=== PATIENT | female | born 1990 | race Asian ===

== ENCOUNTER 2024-12-18 21:20 | Outpatient (CLI) | payer OTHER, SELFPAY ==
[2024-12-18 21:40] VITALS: BMI 31.6
[2024-12-18 21:52] VITALS: PULSE 95; O2SAT 98
[2024-12-18 21:53] VITALS: O2SAT 76
[2024-12-18 21:54] VITALS: BP 110/59; PULSE 98
[2024-12-18 21:58] VITALS: RESP 18; TEMP 37.2
--- NOTE | 2024-12-20 09:18 | OB.TRI.NOTE ---
HPI - General General Date of Admission: 12/18/24 Date of Service: 12/18/24 Chief Complaint: decreased FM HPI Narrative STANTON BARRERA, is a 34 F who presents c/o decreased FM Maternal Data Information Final SYED: 04/03/25 Gestational age: 24 6/7 PFSH PFSH Home Medications ?Medication ?Instructions ?Recorded ?Last Taken ?Type aspirin 81 mg capsule 81 mg PO DAILY 12/18/24 12/18/24 18:00 History omega 6-ltf-mbq-fish oil 60 mg-90 1 cap PO DAILY 12/18/24 12/18/24 09:00 History mg-500 mg capsule (Fish Oil) vit no.95-ferrous 1 tab PO DAILY 12/18/24 12/18/24 18:00 History fumarate 28 mg-folic acid 800 mcg tablet () Allergy/AdvReac Type Severity Reaction Status Date / Time No Known Allergies Allergy Verified 12/18/24 21:48 NST FHR Rate Baby A Baseline: 145 Variability:: Moderate Accelerations:: 10 x 10 Decelerations:: None NST Reactive:: Appropriate for gestational age Uterine Activity:: no regular ctxs Assessment & Plan (1) 24 weeks gestation of : PLAN: FHTs appropriate for gest age, patient reassured. F/u as scheduled or prn. (2) Decreased movements, second trimester, not applicable or unspecified:
== END 2024-12-18 22:19 | disposition home or self-care (01) ==
LOC: WPOUT 21:38 → WP 21:40
PROVIDERS: Visit Provider Advanced Practice Midwife
DX: O36.8120 Decreased fetal movements, second trimester, not applicable or unspecified (principal); Z3A.24 24 weeks gestation of pregnancy
CPT/HCPCS: 59050; 99221; G0378

== ENCOUNTER 2025-03-29 10:04 | Inpatient (IN) | payer OTHER, SELFPAY ==
--- NOTE | 2025-03-26 14:22 | HP.PCM.OB_ITS ---
History and Physical Date of Admission: 03/30/25 pand All Collapse All Pre-Op History and Physical HPI: The patient is a 34 year old female presenting for pre-operative visit. She is scheduled for elective Primary cs, for low lying placenta Suspected LGA on 03/30/25. Procedure discussed along with risks, benefits and complications. Other alternatives discussed for management. Consent form signed? Yes. PAST MEDICAL HISTORY PAST MEDICAL HISTORY Diagnosis Date ? NEGATIVE MEDICAL HISTORY PAST SURGICAL HISTORY PAST SURGICAL HISTORY Procedure Laterality Date ? NONE CURRENT MEDICATIONS Current Outpatient Medications Medication Sig Dispense Refill ? Ijjvevqd-Ps-Hyt-Fe-FA tab Take 1 tablet by mouth once daily. 90 tablet 3 ? aspirin, enteric coated (ECOTRIN LOW STRENGTH) 81 mg EC tablet Take 1 tablet by mouth once daily. 90 tablet 3 ? omega 4-jfe-pec-fish oil 60-90-500 mg cap Take 1 tablet by mouth once daily. 90 capsule 2 No current facility-administered medications for this visit. ALLERGIES: Patient has no known allergies. PERSONAL HISTORY: SOCIAL HISTORY Social History Tobacco Use ? Smoking status: Never ? Smokeless tobacco: Never Vaping Use ? Vaping status: Never Used Substance Use Topics ? Alcohol use: Not Currently ? Drug use: Never FAMILY HISTORY: FAMILY HISTORY FAMILY HISTORY Problem Relation Age of Onset ? Cancer Mother ? No Known Problems Father ? No Known Problems Brother ? Hypertension Maternal Grandmother ? Hypertension Maternal Grandfather ? No Known Problems Paternal Grandmother ? No Known Problems Paternal Grandfather REVIEW OF SYMPTOMS: negative except as noted above PHYSICAL EXAMINATION: VITALS: Blood pressure 116/70, weight 100.2 kg (221 lb), last menstrual period 06/27/2024. GENERAL: The patient is well nourished, well hydrated in no acute distress. , The patient is oriented to time, place, and person. NECK: full range of motion Abd: gravid, non tender IMPRESSION: 34yo @ 38.6 weeks PLAN: Primary cs for low lying placenta <5mm from OS and suspected LGA Pt has been counseled on risks/benefits and alternatives of surgery including but not limited to anesthesia, bleeding, infection, injury to pelvic structures including bowel, bladder, ureters and vessels. Pt wishes to proceed with s urgery at this time. Pt understands risk of hemorrhage and possible need for transfusion. Pt understands that growth likely not at 5000g and that ultrasound may be under or over estimating weight. I have reviewed and updated past medical and surgical history, medications and allergies Zeina Cifuentes MD
[2025-03-29] VITALS (21 sets, daily range): BP systolic 69–111; BP diastolic 45–78; PULSE 70–152; RESP 14–20; TEMP 36–36.7; O2SAT 97–100; BMI 36.3
[2025-03-29] MEDS: Lactated Ringers 1,000 ML 999 ML IV ×2 (10:25→20:00)
[2025-03-29 10:42] LABS: Absolute Lymphocyte Count 2.18 X10^3/uL (0.83-4.51); Absolute Neutrophil Count 10.3 X10^3/uL (2.0-7.7); Basophil# 0.03 X10^3/uL; Basophil% 0.2 % (0-1); Eosinophil# 0.12 X10^3/uL; Eosinophils% 0.9 % (0-5); Hematocrit 41.2 % (37-47); Hemoglobin 13.5 g/dL (12.0-15.0); Lymphocyte # 2.18 X10^3/ul (0.83-4.51); Lymphocyte % 15.8 % (19-41); Mean Corp Hgb Conc 32.8 g/dL (32-36); Mean Corpuscular Hgb 25.4 pg (27.0-32.0); Mean Corpuscular Volume 77.6 fL (81-99); Mean Platelet Vol. 11.1 fl (6.2-12.0); Monocyte# 0.97 X10^3/uL; NRBC Flagged by Analyzer 0 % (0-5); Neutrophil # 10.32 X10^3/uL (2.7-7.7); Neutrophil % 74.8 % (47-70); Platelet Count 256 K/mm3 (150-450); RBC Distribution Width CV 15.2 % (11.6-14.6); RBC Distribution Width SD 42.4 fl (35.1-43.9); Red Blood Count 5.31 M/mm3 (4.2-5.4); White Blood Count 13.8 K/mm3 (4.4-11.0)
[2025-03-29 11:12] LABS: Syphilis Antibodies Nonreactive (Nonreactive)
[2025-03-29] MEDS: Acetaminophen 500 MG Tablet 1000 MG PO ×2 (11:14→17:47)
[2025-03-29] MEDS: Lactated Ringers 1,000 ML 150 ML IV (11:21)
[2025-03-29] MEDS: Sodium Citrate/Citric Acid 30 ML UDC PO (12:19)
[2025-03-29] MEDS: Cefazolin 2 GM in 0.9% Normal Saline (100mL Bag) 100 ML IV (12:39)
[2025-03-29] MEDS: Oxytocin 15 Units/NS 250ml 15 UNITS/250 ML IV.SOLN 83 UNITS IV (14:00)
[2025-03-29] MEDS: Lactated Ringers 1,000 ML 100 ML IV (14:10)
[2025-03-29] MEDS: Ketorolac 30 MG/ML Syringe IV (14:57)
--- NOTE | 2025-03-29 17:58 | PCM.OPRPT ---
Problems Associated Problem List Diagnoses (1) 39 weeks gestation of : (2) Accelerated growth of fetus: (3) Low lying placenta, antepartum: Operative Report (Standard) Operative Information Date of Procedure: 03/29/25 Pre-Operative Diagnosis: 39 week gestation, suspected macrosomia, low lying placenta Post-Operative Diagnosis: As above Surgery/Procedure Performed: PLTCS via pfannenstiel incision manager lvn: Yes Strategic Procurement Manager: Angella Riggs PGY-3 Tasks completed by contact center assistant: Closing and Retracting Type of Anesthesia: Spinal RN Documented Start/Stop Times: Operation Date: 03/29/25 12:00 <No data on this case meets the specified criteria> Procedure Start Time: 12:46 Procedure Stop Time: 13:31 Select all DRAINS/GRAFTS/IMPLANTS that apply: None Estimated Blood Loss: 600 mL Fluids Replaced: See anesthesia record Specimen collected: No Description of surgery: The patient was taken to the operating room where spinal anesthesia was found to be adequate. She was prepped and draped in the dorsal supine position with a leftward tilt. A Pfannenstiel skin incision was made with a scalpel and this incision was carried down to the underlying layer of fascia. The fascia was incised in the midline. The fascial incision was extended laterally using Raines scissors. The fascia was tented and dissected off the rectus muscles in both a cephalad and caudad direction with blunt dissection. The rectus muscles were already in the midline. The peritoneum was entered bluntly with good visualization of the bladder. The peritoneal incision was extended with lateral traction. A bladder blade was inserted. A low transverse incision was made on the uterus with a scalpel. The uterine incision was extended with cephalad and caudad traction. The head of the was delivered in a flexed position followed by the body of the without any traction, force, or delay. The cord was clamped and cut immediately give an anterior and low lying placenta. A vigorous viable female was handed off to the waiting nursery staff. The placenta was noted to be anterior upon entry. The placenta was removed with manual extraction, and was noted to be low-lying. The uterus was cleared of all clot debris. The uterus was exteriorized. The hysterotomy was closed with 1-0 Vicryl in a running locked fashion. 2 additional [id number]-yx-nlxst sutures were placed for hemostasis. Hemostasis was confirmed. The bilateral adnexa were normal-appearing. The uterus was placed back into the abdomen. Gutters were cleared of all clot and debris. Jeferson was placed over the hysterotomy and lower uterine segment. Hemostasis was again confirmed. The peritoneum was unable to be reapproximated as it was thin and tearing. The subfascial space was inspected and noted to be hemostatic. The fascia was closed with STRATAFIX in a running fashion. The subcutaneous space was irrigated and made hemostatic with the Bovie cautery. The subcutaneous space was reapproximated with 3-0 Vicryl in a running fashion. The skin was closed with 4-0 Monocryl in a subcuticular fashion. Silver dressing was placed over the incision. Instrument, sponge, sharp counts were correct x 2 the patient was taken to the recovery in stable condition. Surgical Findings: Vigorous VFI with Apgars 8, 9. Clear fluid. Normal appearing placenta with 3 VC. Normal appearing uterus and bilateral adnexa. Low lying and anterior placenta Complications Complications: No Admit VTE Documentation VTE Present on Admission: No VTE Mechan Device Prophylaxis: SCD's
--- OUTSIDE RECORDS SUMMARY | 2025-03-29 19:51 | XMS RPT_ITS | CCD ---
Author Organization [facility] Care Team Providers Care Campground Hand Name Role Phone Unavailable Primary Care Provider Unavailabl e HAURY, PALMA Referring Unavailable LASHAWN, NE L Referring Unavailable VIGNESH, TALITA Attending Unavailable LASHAWN, EN L Referring Unavailable SELF Referring Unavailable HAURY, PALMA Attending Unavailable ZEINA LAINEZ Attending Unavail able HAURY, PALMA Referring Unavailable PLOTYOBANY, FATOU Attending Unavailable LAWANDA DIAZ Attending Unavailable VIGNESH, TALITA Referring Unavailable LASHAWN, NE L Referring Unavailable HAURY, PALMA Attending Unavailable PEYMAN HAWTHORNE Attending Unavailable HAURY, PALMA Referring Unavailable SELF Referring Unavailable HAURY, PALMA Attending Unavailable LASHAWN, NE L Attending Unavailable HAURY, PALMA Referring Unavailable VIGNEHS, TALITA Referring Unavailable SAMINA, FATOU Attending Unavailable VIGNESH, TALITA Referring Unavailable LAWANDA DIAZ Attending Unavailable HAURY, PALMA Attending Unavailable MEDELLIN, TALITA Attending Unavailable LASHAWN, NE L Attending Unavailable BHARTI TERESA Attending Unavailable HAURY, PALMA Referring Unavailable HAURY, APLMA Referring Unavailable HAURY, PALMA Attending Unavailable Care Physician, No Primary Primary Care Unava ilable Lawanda Diaz Admitting Unavailable Lawanda Diaz Attending Unavailable Care Physician, No Primary Primary Care Unava ilable Talita Medellin Attending Unavailable Care Physician, No Primary Primary Care Unava ilable Lashawn Ne Admitting Unavailable Lashawn Ne Attending Unavailable Lahsawn, Ne Referring Unavailable Medications Current Medications Medication Drug Class(es) Dates Sig (Normalized) Sig (Original) amoxicillin 500 mg oral capsule (1 source) Penicillin-class Antibacterial Start: 08-16-2024 End: 08-23-2024 take 1 capsule by mouth four times daily amoxicillin (AMOXIL) 500 mg capsule Take 1 capsule by mouth four times daily for 7 days. 28 capsule 08/16/2024 08/23/2024 Active aspirin 81 mg delayed release oral tablet (20 sources) Platelet Aggregation Inhibitor, Nonsteroidal Anti-inflammatory Drug Start: 08-11-2024 End: 12-08-2024 take 1 tablet by mouth once daily aspirin, enteric coated (ECOTRIN LOW STRENGTH) 81 mg EC tablet Indications: Encounter for supervision of normal first in second trimester (HCC) Take 1 tablet by mouth once daily. 90 tablet 3 12/08/2024 Active omega 9-csj-hbe-fish oil 60-90-500 mg cap (20 sources) Start: 09-29-2024 take 1 tablet by mouth once daily omega 1-pzn-veg-fish oil 60-90-500 mg cap Take 1 tablet by mouth once daily. 90 capsule 2 09/29/2024 Active Hruuisur-Lc-Bns-Fe -FA tab (20 sources) Start: 01-22-2025 take 1 tablet by mouth once daily Ltqkxyyo-Ro-Pfq-F e-FA tab Take 1 tablet by mouth once daily. 90 tablet 3 01/22/2025 Active Start: 07-31-2024 End: 01-22-2025 take 1 tablet by mouth once daily Xmwkyccs-Ox-Cus-Fe-FA tab Take 1 tablet by mouth once daily. 90 tablet 3 07/31/2024 01/22/2025 Discontinued Start: 07-31-2024 take 1 tablet by gwen th once daily Lhiamflq-Ov-Kfk-Fe-FA tab Take 1 tablet by mouth once daily. 90 tablet 3 07/31/2024 Active Completed/Discontinued Medications Medication Drug Class(es) Dates Sig (Normalized) Sig (Original) famotidine 20 mg oral tablet (20 sources) Histamine-2 Receptor Antagonist Start: 07-31-2024 End: 02-23-2025 take 1 tablet by mouth twice daily famotidine (PEPCID) 20 mg tablet Take 1 tablet by mouth two times a day. 60 tablet 3 08/11/2024 02/23/2025 Discontinued Problems Active Problems Problem Classification Problem Date Documented Date Episodic/Chronic Diabetes or abnormal glucose tolerance complicating ; childbirth; or the puerperium (13 sources) Abnormal glucose level; Translations: [Abnormal glucose complicating ] Onset: 01-15-2025 01-22-2025 Episodic Headache; including migraine (1 source) Headache; including migraine; Translations: [ headache in second trimester] Onset: 09-29-2024 Hemorrhage during ; abruptio placenta; placenta previa (20 sources) Low lying placenta; Translations: [Low lying placenta NOS or without hemorrhage, unspecified trimester] Onset: 11-15-2024 11-15-2024 Episodic Immunizations and screening for infectious disease (3 sources) Needs influenza immunization; Translations: [Encounter for immunization] 08-28-2024 Episodic Other complications of (2 sources) Vaginal discharge; Translations: [Other specified related conditions, first trimester] 09-29-2024 Episodic Other complications of (13 sources) Excessive weight gain in , third trimester; Translations: [Edema or excessive weight gain in , without mention of hypertension, antepartum condition or complication] Onset: 02-23-2025 02-23-2025 Episodic Other complications of (9 sources) Excessive growth affecting management of mother; Translations: [Maternal care for excessive growth, third trimester, not applicable or unspecified] Onset: 03-13-2025 03-15-2025 Episodic Other complications of (1 source) High risk ; Translations: [Supervision of high risk , unspecified, third trimester] 03-26-2025 Episodic Other complications of (1 source) Maternal care for excessive growth, third trimester, not applicable or unspecified; Translations: [Excessive growth affecting management of in third trimester, single or unspecified fetus (HCC)] Onset: 03-13-2025 Episodic Other complications of (1 source) Supervision of high risk , unspecified, third trimester; Translations: [Supervision of high risk in third trimester (HCC)] Onset: 03-26-2025 Episodic Other complications of (1 source) Decreased movements, second trimester, not applicable or unspecified; Translations: [Decreased movements, second trimester, not applicable or unspecified] Onset: 02-07-2025 Episodic Other female genital disorders (3 sources) Other specified noninflammatory disorders of vagina; Translations: [Vaginal discharge] Onset: 09-29-2024 Episodic Other and delivery including normal (20 sources) test positive; Translations: [Encounter for test, result positive] Onset: 08-11-2024 07-31-2024 Episodic Other screening for suspected conditions (not mental disorders or infectious disease) (8 sources) Patient encounter status; Translations: [Encounter for screening for malformations] Onset: 09-29-2024 09-29-2024 Episodic Residual codes; unclassified (1 source) Gestation period, 6 weeks; Translations: [Less than 8 weeks gestation of ] 08-11-2024 Episodic Residual codes; unclassified (1 source) Gestation period, 8 weeks; Translations: [8 weeks gestation of ] 08-28-2024 Episodic Residual codes; unclassified (1 source) Gestation period, 13 weeks; Translations: [13 weeks gestation of ] 09-29-2024 Episodic Residual codes; unclassified (1 source) Gestation period, 14 weeks; Translations: [14 weeks gestation of ] 10-09-2024 Episodic Residual codes; unclassified (2 sources) Gestation period, 19 weeks; Translations: [19 weeks gestation of ] 11-13-2024 Episodic Residual codes; unclassified (1 source) Gestation period, 23 weeks; Translations: [23 weeks gestation of ] 12-08-2024 Episodic Residual codes; unclassified (2 sources) Gestation period, 27 weeks; Translations: [27 weeks gestation of ] 01-08-2025 Episodic Residual codes; unclassified (1 source) Gestation period, 29 weeks; Translations: [29 weeks gestation of ] 01-22-2025 Episodic Residual codes; unclassified (1 source) Gestation period, 33 weeks; Translations: [33 weeks gestation of ] 02-15-2025 Episodic Residual codes; unclassified (1 source) Gestation period, 34 weeks; Translations: [34 weeks gestation of ] 02-23-2025 Episodic Residual codes; unclassified (1 source) Gestation period, 37 weeks; Translations: [37 weeks gestation of ] 03-15-2025 Episodic Residual codes; unclassified (2 sources) Gestation period, 38 weeks; Translations: [38 weeks gestation of ] 03-22-2025 Episodic Residual codes; unclassified (1 source) 38 weeks gestation of ; Translations: [38 weeks gestation of (HCC)] Onset: 03-26-2025 Episodic Residual codes; unclassified (1 source) 37 weeks gestation of ; Translations: [37 weeks gestation of (HCC)] Onset: 03-15-2025 Episodic Residual codes; unclassified (1 source) 36 weeks gestation of ; Translations: [36 weeks gestation of (HCC)] Onset: 03-09-2025 Episodic Residual codes; unclassified (1 source) 34 weeks gestation of ; Translations: [34 weeks gestation of (HCC)] Onset: 02-23-2025 Episodic Residual codes; unclassified (1 source) 33 weeks gestation of ; Translations: [33 weeks gestation of (HCC)] Onset: 02-15-2025 Episodic Residual codes; unclassified (1 source) 32 weeks gestation of ; Translations: [32 weeks gestation of (HCC)] Onset: 02-07-2025 Episodic Residual codes; unclassified (1 source) 27 weeks gestation of ; Translations: [27 weeks gestation of (HCC)] Onset: 02-07-2025 Episodic Residual codes; unclassified (1 source) 29 weeks gestation of ; Translations: [29 weeks gestation of (HCC)] Onset: 01-22-2025 Episodic Unclassified (20 sources) [facility] Education - COMMON Onset: 07-31-2024 07-31-2024 Unclassified (20 sources) Education - [place] Onset: 07-31-2024 07-31-2024 Unclassified (1 source) Rubella non-immune status, antepartum ([facility]); Translations: [Rubella non-immune status, antepartum ([facility])] Onset: 08-30-2024 Urinary tract infections (1 source) Urinary tract infectious disease; Translations: [Urinary tract infection, site not specified] 08-28-2024 Episodic Past or Other Problems Problem Classification Problem Date Documented Date Episodic/Chronic Other complications of (20 sources) Heartburn; Translations: [Other specified related conditions, first trimester] Onset: 07-31-2024 Resolved: 09-29-2024 07-31-2024 Episodic Other complications of (18 sources) Vomiting of , unspecified; Translations: [Unspecified vomiting of , unspecified as to episode of care or not applicable] Onset: 08-11-2024 08-11-2024 Episodic Other complications of (20 sources) Headache; Translations: [Other specified related conditions, second trimester] Onset: 09-29-2024 09-29-2024 Episodic Other complications of (20 sources) Rubella non-immune; Translations: [Supervision of other high risk pregnancies, unspecified trimester] Onset: 08-30-2024 08-30-2024 Episodic Other complications of (20 sources) Spotting per vagina in ; Translations: [Spotting complicating , second trimester] Onset: 10-09-2024 10-09-2024 Episodic Other complications of (1 source) Supervision of other high risk pregnancies, unspecified trimester; Translations: [Rubella non-immune status, antepartum (HCC)] Onset: 08-30-2024 Episodic Other complications of (1 source) Other specified related conditions, first trimester; Translations: [Vaginal discharge during in first trimester] Onset: 09-29-2024 Episodic Other complications of (1 source) Other specified related conditions, second trimester; Translations: [ headache in second trimester] Onset: 09-29-2024 Episodic Other female genital disorders (20 sources) Pruritus of vagina; Translations: [Other specified noninflammatory disorders of vagina] Onset: 08-11-2024 Resolved: 09-29-2024 08-11-2024 Episodic Other hematologic conditions (20 sources) Microcytosis; Translations: [Other abnormality of red blood cells] Onset: 08-30-2024 08-30-2024 Episodic Residual codes; unclassified (16 sources) At risk for depressed mood; Translations: [Other specified personal risk factors, not elsewhere classified] Onset: 08-11-2024 08-11-2024 Episodic Residual codes; unclassified (10 sources) Other specified personal risk factors, not elsewhere classified; Translations: [Other specified conditions influencing health status] Onset: 08-11-2024 08-11-2024 Episodic Residual codes; unclassified (1 source) 19 weeks gestation of ; Translations: [19 weeks gestation of ] Onset: 11-13-2024 Episodic Residual codes; unclassified (1 source) 13 weeks gestation of ; Translations: [13 weeks gestation of ] Onset: 09-29-2024 Episodic Results Test Name Value Interpretation Reference Range Facil ity H AND P Exam - OB/GYNon 06-0 H&P Exam - DIRECTOR CARDIOVASCULAR [facility] Medical Records Department [address] [place] [address] H P Exam - DIRECTOR CARDIOVASCULAR 03/26/25 1422 MR#: [id number] Acct: [id number] Name: AMPARO CABRAL Rep #: [id number] : 1990 34 From: Zeina Mi MD PCP: Care Physician,No Primary Status:PRE IN [facility] Date of Admission: 03/30/25 pand All Collapse All Pre-Op History and Physical HPI: The patient is a 34 year old female presenting for pre-operative visit. She is scheduled for elective Primary cs, for low lying placenta Suspected LGA on 03/30/25. Procedure discussed along with risks, benefits and complications. Other alternatives discussed for management. Consent form signed? Yes. PAST MEDICAL HISTORY PAST MEDICAL HISTORY Diagnosis Date ??? NEGATIVE MEDICAL HISTORY PAST SURGICAL HISTORY PAST SURGICAL HISTORY Procedure Laterality Date ??? NONE CURRENT MEDICATIONS Current Outpatient Medications Medication Sig Dispense Refill ??? Keyixtpa-Vb-Tga-Fe-F A tab Take 1 tablet by mouth once daily. 90 tablet 3 ??? aspirin, enteric coated (ECOTRIN LOW STRENGTH) 81 mg EC tablet Take 1 tablet by mouth once daily. 90 tablet 3 ??? omega 7-guj-jkq-fish oil 60-90-500 mg cap Take 1 tablet by mouth once daily. 90 capsule 2 No current facility-administere d medications for this visit. ALLERGIES: Patient has no known allergies. PERSONAL HISTORY: SOCIAL HISTORY Social History Tobacco Use ??? Smoking status: Never ??? Smokeless tobacco: Never Vaping Use ??? Vaping status: Never Used Substance Use Topics ??? Alcohol use: Not Currently ??? Drug use: Never FAMILY HISTORY: FAMILY HISTORY FAMILY HISTORY Problem Relation Age of Onset ??? Cancer Mother ??? No Known Problems Father ??? No Known Problems Brother ??? Hypertension Maternal Grandmother ??? Hypertension Maternal Grandfather ??? No Known Problems Paternal Grandmother ??? No Known Problems Paternal Grandfather REVIEW OF SYMPTOMS: negative except as noted above PHYSICAL EXAMINATION: VITALS: Blood pressure 116/70, weight 100.2 kg (221 lb), last menstrual period 06/27/2024. GENERAL: The patient is well nourished, well hydrated in no acute distress. , The patient is oriented to time, place, and person. NECK: full range of motion Abd: gravid, non tender IMPRESSION: 34yo @ 38.6 weeks PLAN: Primary cs for low lying placenta <5mm from OS and suspected LGA Pt has been counseled on risks/benefits and alternatives of surgery including but not limited to anesthesia, bleeding, infection, injury to pelvic structures including bowel, bladder, ureters and vessels. Pt wishes to proceed with surgery at this time. Pt understands risk of hemorrhage and possible need for transfusion. Pt understands that growth likely not at 5000g and that ultrasound may be under or over estimating weight. I have reviewed and updated past medical and surgical history, medications and allergies Zeina Strickland MD 03/26/25 1423 Cosigner Signature (if applicable): CC: Dr Zeina Mi MD; No Primary Care Physician Signed [facility] HISTORY PHYSICALon HISTORY PHYSICAL HNO ID: [id number] Author: ZEINA LAINEZ MD Service: ? Author Type: Physician Type: H&P Filed: 03/26/2025 14:24 Note Text: Pre-Op History and Physical HPI: The patient is a 34 year old female presenting for pre-operative visit. She is scheduled for elective Primary cs, for low lying placenta Suspected LGA on 03/30/25. Procedure discussed along with risks, benefits and complications. Other alternatives discussed for management. Consent form signed? Yes. PAST MEDICAL HISTORY Diagnosis Date NEGATIVE MEDICAL HISTORY PAST SURGICAL HISTORY Procedure Laterality Date NONE Current Outpatient Medications Medication Sig Dispense Refill Umllqdzi-Gi-Uou-Fe-F A tab Take 1 tablet by mouth once daily. 90 tablet 3 aspirin, enteric coated (ECOTRIN LOW STRENGTH) 81 mg EC tablet Take 1 tablet by mouth once daily. 90 tablet 3 omega 7-kbk-jsr-fish oil 60-90-500 mg cap Take 1 tablet by mouth once daily. 90 capsule 2 No current facility-administere d medications for this visit. ALLERGIES: Patient has no known allergies. PERSONAL HISTORY: Social History Tobacco Use Smoking status: Never Smokeless tobacco: Never Vaping Use Vaping status: Never Used Substance Use Topics Alcohol use: Not Currently Drug use: Never FAMILY HISTORY: FAMILY HISTORY Problem Relation Age of Onset Cancer Mother No Known Problems Father No Known Problems Brother Hypertension Maternal Grandmother Hypertension Maternal Grandfather No Known Problems Paternal Grandmother No Known Problems Paternal Grandfather REVIEW OF SYMPTOMS: negative except as noted above PHYSICAL EXAMINATION: VITALS: Blood pressure 116/70, weight 100.2 kg (221 lb), last menstrual period 06/27/2024. GENERAL: The patient is well nourished, well hydrated in no acute distress. , The patient is oriented to time, place, and person. NECK: full range of motion Abd: gravid, non tender IMPRESSION: 34yo @ 38.6 weeks PLAN: Primary cs for low lying placenta and suspected LGA Pt has been counseled on risks/benefits and alternatives of surgery including but not limited to anesthesia, bleeding, infection, injury to pelvic structures including bowel, bladder, ureters and vessels. Pt wishes to proceed with surgery at this time. Pt understands risk of hemorrhage and possible need for transfusion. Pt understands that growth likely not at 5000g and that ultrasound may be under or over estimating weight. I have reviewed and updated past medical and surgical history, medications and allergies Zeina Strickland MD Normal [facility] URINE OB DIP B/Oon Glucose Ql (U) Negative Neg mg/dL [facility] Protein.monoclonal (U) [Mass/Vol] Negative Neg mg/dL [facility] CNPNon 03-19-2025 CNPN Telephone (OBGYWM) AMPARO CABRAL ([id number]) 1990 F Date Time Provider Department 03/19/25 [place] OBGYWM During your visit today, we recorded the following information about you: Radha Granado RN 03/19/2025 3:07 PM Signed Breast pump request received from [employer]. Order to provider to sign. CK Saenz Trisha, RN 03/20/2025 1:23 PM Signed Signed and faxed. Domenica Capellan RN Allergies As of Date: 03/19/2025 (No Known Allergies) Date Reviewed: 03/15/2025 Reviewed by: Lawanda Diaz MD - Fully Assessed Reason for Visit: breast pump [Other] Prescriptions as of 03/20/2025 - Vjoaetcp-Sr-Etx-Fe-F A tab Take 1 tablet by mouth once daily. - aspirin, enteric coated (ECOTRIN LOW STRENGTH) 81 mg EC tablet Take 1 tablet by mouth once daily. - omega 6-dcp-zua-fish oil 60-90-500 mg cap Take 1 tablet by mouth once daily. Problem List As Of Date 03/19/2025 Noted Resolved Heartburn during in first trimester [*07/31/2024 09/29/2024 Vaginal itching [N89.8] 08/11/2024 09/29/2024 Encounter for supervision of normal first pregn*08/11/2024 At risk for depression [Z91.89] 08/11/2024 Rubella non-immune status, antepartum [O09.899,*08/30/2024 Microcytosis [R71.8] 08/30/2024 headache in second trimester [O26.892*09/29/2024 Spotting affecting in second trimeste*10/09/2024 Low-lying placenta (HCC) [O44.40] 11/15/2024 Abnormal glucose complicating (HCC) [*01/15/2025 Excessive weight gain in , third trime*02/23/2025 Excessive growth affecting management of *03/13/2025 Encounter Status:Closed by DOMENICA CAPELLAN on 03/20/25 Normal [facility] URINE OB DIP B/OOrdered By: Carolyn Suárez on 03-15-2025 Glucose Ql (U) Negative Neg mg/dL [facility] Protein.monoclonal (U) [Mass/Vol] Negative Neg mg/dL [facility] ROUTINE, GROUP B ST REPTOCOCCUS BY PCRon 03-09-2025 ROUTINE, GROUP B STREPTOCOCCUS BY PCR Not detected Normal [facility] Comment on above: Performed By: #### G BPCR ####[facility] LABCLIA [id number] [place] [address] [place] BACTERIAL VAGINOSIS NAATon 0 - Lactobacillus crispatus+gasseri+je nsenii + Gardnerella vaginalis + Atopobium vaginae rRNA REBEL+probe Ql (Vag fld) Not detected Normal Not detected [facility] Comment on above: Order Comment: Speci men Type: SWABOrdering Facility: [facility] Address: [address] [place] [address] Performed By: #### C VTV, BVAMP ####[facility] LABCLIA [id number] [place] [address] [place] MARGARITA/TRICHOMONAS NAATon 0 02-23-2025 C. glabrata RNA REBEL+probe Ql (Vag fld) Not detected Normal Not detected [facility] Comment on above: Order Comment: Speci men Type: SWABOrdering Facility: [facility] Address: [address] [place] [address] Performed By: #### C VTV, BVAMP ####[facility] LABCLIA [id number] [address] [place] Margarita sp DNA REBEL+probe Ql (Vag fld) Not detected Normal Not detected [facility] Comment on above: Order Comment: Speci men Type: SWABOrdering Facility: [facility] Address: [address] [place] [address] Result Comment: The Margarita species group target includes C. albicans, C. tropicalis, C. parapsilosis, and C. dubliniensis. Performed By: #### C VTV, BVAMP ####[facility] LABCLIA [id number] [place] [address] [place] T. vaginalis DNA REBEL+probe Ql (Unsp spec) Not detected Normal Not detected [facility] Comment on above: Order Comment: Speci men Type: SWABOrdering Facility: [facility] Address: [address] [place] [address] Performed By: #### C VTV, BVAMP ####[facility] LABCLIA [id number] [place] [address] [place] URINE OB DIP B/Oon 5 Glucose Ql (U) Negative Neg mg/dL [facility] Interpretation and review of laboratory results Normal [facility] Protein.monoclonal (U) [Mass/Vol] Negative Neg mg/dL [facility] GLUCOSE GESTATIONAL, 1 HOURo n 01-22-2025 Glucose 1 Hr post Unsp challenge [Mass/Vol] 167 mg/dL Normal 74-179 [facility] Comment on above: Order Comment: Speccaleb jacome Type: BLOOD SPECIMENOrdering Facility: [facility] Address: [address] [place] [address] Result Comment: [facility] [employer] of [employer]stetricians and Gynecologists (Jossy/Ramandeep) guidelines state gestational diabetes mellitus is present when 2 or more of the plasma glucose concentrations meet or exceed the following levels: fastin mg/dl, 1 hr: 180 mg/dl, 2 hr: 155 mg/dl, and 3 hr: 140 mg/dl. Performed By: #### G TGST1 ####[facility] [id number] [address] [place] GLUCOSE GESTATIONAL, 2 HOURo n 01-22-2025 Glucose 2 Hr post Unsp challenge [Mass/Vol] 150 mg/dL Normal 74-154 [facility] Comment on above: Order Comment: Speci men Type: BLOOD SPECIMENOrdering Facility: [facility] Address: [address] [place] [address] Result Comment: [facility] Congress of Obstetricians and Gynecologists (Jossy/Ramandeep) guidelines state gestational diabetes mellitus is present when 2 or more of the plasma glucose concentrations meet or exceed the following levels: fastin mg/dl, 1 hr: 180 mg/dl, 2 hr: 155 mg/dl, and 3 hr: 140 mg/dl. Performed By: #### G TGST2 ####[facility] [id number] [place] [address] [place] GLUCOSE GESTATIONAL, 3 HOURo n 01-22-2025 Glucose 3 Hr post Unsp challenge [Mass/Vol] 113 mg/dL Normal 74-139 [facility] Comment on above: Order Comment: Connie jacome Type: BLOOD SPECIMENOrdering Facility: [facility] Address: [address] [place] [address] Result Comment: [facility] Congress of Obstetricians and Gynecologists (Jossy/Ramandeep) guidelines state gestational diabetes mellitus is present when 2 or more of the plasma glucose concentrations meet or exceed the following levels: fastin mg/dl, 1 hr: 180 mg/dl, 2 hr: 155 mg/dl, and 3 hr: 140 mg/dl. Performed By: #### G TGST3 ####[facility] [id number] [place] [address] [place] GLUCOSE GESTATIONAL, FASTING on 01-22-2025 Glucose post fast [Mass/Vol] 96 mg/dL High 74-94 [facility] Comment on above: Order Comment: Connie jacome Type: BLOOD SPECIMEN Ordering Facility: [facility] Address: [address] [place] [address] Result Comment: [facility] Congress of Obstetricians and Gynecologists (Jossy/Ramandeep) guidelines state gestational diabetes mellitus is present when 2 or more of the plasma glucose concentrations meet or exceed the following levels: fastin mg/dl, 1 hr: 180 mg/dl, 2 hr: 155 mg/dl, and 3 hr: 140 mg/dl. Performed By: #### R UBIGG #### [facility] CLIA [id number] [address] [place], [place] [address] [id number] [address] [place] CBC W Auto Differential pane l (Bld)on 01-12-2025 Basophils (Bld) [#/Vol] 0.03 10*3/uL Normal <0.11 [facility] Comment on above: Order Comment: Connie jacome Type: BLOOD SPECIMEN Ordering Facility: [facility] Address: [address] [place] [address] Performed By: #### R UBIGG #### [facility] CLIA [id number] [address] [place] [address] [place] Basophils/100 WBC (Bld) 0.2 % Normal [facility] Comment on above: Order Comment: Speci men Type: BLOOD SPECIMEN Ordering Facility: [facility] Address: [address] [place] [address] Performed By: #### R UBIGG #### [facility] CLIA [id number] [address] [place] [address] [place] Differential cell count method Nom (Bld) Auto Normal [facility] Comment on above: Order Comment: Speci men Type: BLOOD SPECIMEN Ordering Facility: [facility] Address: [address] [place] [address] Performed By: #### R UBIGG #### [facility] CLIA [id number] [address] [place] [address] [place] Eosinophils (Bld) [#/Vol] 0.18 10*3/uL Normal <0.46 [facility] Comment on above: Order Comment: Speci men Type: BLOOD SPECIMEN Ordering Facility: [facility] Address: [address] [place] [address] Performed By: #### R UBIGG #### [facility] CLIA [id number] [address] [place] [address] [place] Eosinophils/100 WBC (Bld) 1.5 % Normal [facility] Comment on above: Order Comment: Speci men Type: BLOOD SPECIMEN Ordering Facility: [facility] Address: [address] [place] [address] Performed By: #### R UBIGG #### [facility] CLIA [id number] [address] [place] [address] [place] Erythrocyte distribution width (RBC) [Ratio] 14.0 % Normal 11.5-15.0 [facility] Comment on above: Order Comment: Speci men Type: BLOOD SPECIMEN Ordering Facility: [facility] Address: [address] [place] [address] Performed By: #### R UBIGG #### [facility] CLIA [id number] [address] [place] [address] [place] Hematocrit (Bld) [Volume fraction] 35.7 % Low 36.0-46.0 [facility] Comment on above: Order Comment: Speci men Type: BLOOD SPECIMEN Ordering Facility: [facility] Address: [address] [place] [address] Performed By: #### R UBIGG #### [facility] CLIA [id number] [address] [place] [address] [place] Hemoglobin (Bld) [Mass/Vol] 11.6 g/dL Normal 11.5-15.5 [facility] Comment on above: Order Comment: Speci men Type: BLOOD SPECIMEN Ordering Facility: [facility] Address: [address] [place] [address] Performed By: #### R UBIGG #### [facility] CLIA [id number] [address] [place] [address] [place] Immature granulocytes (Bld) [#/Vol] 0.18 10*3/uL High <0.10 [facility] Comment on above: Order Comment: Speci men Type: BLOOD SPECIMEN Ordering Facility: [facility] Address: [address] [place] [address] Performed By: #### R UBIGG #### [facility] CLIA [id number] [address] [place] [address] [place] Immature granulocytes/100 WBC (Bld) 1.5 % Normal [facility] Comment on above: Order Comment: Speci men Type: BLOOD SPECIMEN Ordering Facility: [facility] Address: [address] [place] [address] Performed By: #### R UBIGG #### [facility] CLIA [id number] [address] [place] [address] [place] Lymphocytes (Bld) [#/Vol] 1.96 10*3/uL Normal 1.00-4.00 [facility] Comment on above: Order Comment: Speci men Type: BLOOD SPECIMEN Ordering Facility: [facility] Address: [address] [place] [address] Performed By: #### R UBIGG #### [facility] CLIA [id number] [address] [place] [address] [place] Lymphocytes/100 WBC (Bld) 15.8 % Normal [facility] Comment on above: Order Comment: Speci men Type: BLOOD SPECIMEN Ordering Facility: [facility] Address: [address] [place] [address] Performed By: #### R UBIGG #### [facility] CLIA [id number] [address] [place] [address] [place] MCH (RBC) [Entitic mass] 25.1 pg Low 26.0-34.0 [facility] Comment on above: Order Comment: Speci men Type: BLOOD SPECIMEN Ordering Facility: [facility] Address: [address] [place] [address] Performed By: #### R UBIGG #### [facility] CLIA [id number] [address] [place] [address] [place] MCHC (RBC) [Mass/Vol] 32.5 g/dL Normal 30.5-36.0 [facility] Comment on above: Order Comment: Speci men Type: BLOOD SPECIMEN Ordering Facility: [facility] Address: [address] [place] [address] Performed By: #### R UBIGG #### [facility] CLIA [id number] [address] [place] [address] [place] MCV (RBC) [Entitic vol] 77.3 fL Low 80.0-100.0 [facility] Comment on above: Order Comment: Speci men Type: BLOOD SPECIMEN Ordering Facility: [facility] Address: [address] [place] [address] Performed By: #### R UBIGG #### [facility] CLIA [id number] [address] [place] [address] [place] Monocytes (Bld) [#/Vol] 1.06 10*3/uL High <0.87 [facility] Comment on above: Order Comment: Speci men Type: BLOOD SPECIMEN Ordering Facility: [facility] Address: [address] [place] [address] Performed By: #### R UBIGG #### [facility] CLIA [id number] [address] [place] [address] [place] Monocytes/100 WBC (Bld) 8.6 % Normal [facility] Comment on above: Order Comment: Speci men Type: BLOOD SPECIMEN Ordering Facility: [facility] Address: [address] [place] [address] Performed By: #### R UBIGG #### [facility] CLIA [id number] [address] [place] [address] [place] Neutrophils (Bld) [#/Vol] 8.97 10*3/uL High 1.45-7.50 [facility] Comment on above: Order Comment: Speci men Type: BLOOD SPECIMEN Ordering Facility: [facility] Address: [address] [place] [address] Performed By: #### R UBIGG #### [facility] CLIA [id number] [address] [place] [address] [place] Neutrophils/100 WBC (Bld) 72.4 % Normal [facility] Comment on above: Order Comment: Speci men Type: BLOOD SPECIMEN Ordering Facility: [facility] Address: [address] [place] [address] Performed By: #### R UBIGG #### [facility] CLIA [id number] [address] [place] [address] [place] Nucleated RBC (Bld) [#/Vol] 10*3/uL Normal <0.01 [facility] Comment on above: Order Comment: Speci men Type: BLOOD SPECIMEN Ordering Facility: [facility] Address: [address] [place] [address] Performed By: #### R UBIGG #### [facility] CLIA [id number] [address] [place] [address] [place] Nucleated RBC/100 WBC (Bld) [Ratio] 0.0 /100 WBC Normal [facility] Comment on above: Order Comment: Speci men Type: BLOOD SPECIMEN Ordering Facility: [facility] Address: [address] [place] [address] Performed By: #### R UBIGG #### [facility] CLIA [id number] [address] [place] [address] [place] Platelet mean volume (Bld) [Entitic vol] 10.9 fL Normal 9.0-12.7 [facility] Comment on above: Order Comment: Speci men Type: BLOOD SPECIMEN Ordering Facility: [facility] Address: [address] [place] [address] Performed By: #### R UBIGG #### [facility] CLIA [id number] [address] [place] [address] [place] Platelets (Bld) [#/Vol] 275 10*3/uL Normal 150-400 [facility] Comment on above: Order Comment: Speci men Type: BLOOD SPECIMEN Ordering Facility: [facility] Address: [address] [place] [address] Performed By: #### R UBIGG #### [facility] CLIA [id number] [address] [place] [address] [place] RBC (Bld) [#/Vol] 4.62 10*6/uL Normal 3.90-5.20 [facility] Comment on above: Order Comment: Speci men Type: BLOOD SPECIMEN Ordering Facility: [facility] Address: [address] [place] [address] Performed By: #### R UBIGG #### [facility] CLIA [id number] [address] [place] [address] [place] WBC (Bld) [#/Vol] 12.38 10*3/uL High 3.70-11.00 [facility] Comment on above: Order Comment: Speci men Type: BLOOD SPECIMEN Ordering Facility: [facility] Address: [address] [place] [address] Performed By: #### R UBIGG #### [facility] CLIA [id number] [address] [place] [address] [place] GESTATIONAL GLUCOSE SCREEN, 1-HOUR, 50 GRAM, NON-FASTINGon 01-12-2025 Glucose [Mass/Vol] 145 mg/dL High 74-134 [facility] Comment on above: Order Comment: Speci men Type: BLOOD SPECIMEN Ordering Facility: [facility] Address: [address] [place] [address] Result Comment: [facility] Congress of Obstetricians and Gynecologists (Jossy/Ramandeep) guidelines state a gestational diabetes mellitus positive screen is made, in women not previously diagnosed with overt diabetes, when the 1 hr plasma glucose level is equal to or above 140 mg/dL. The [facility] Chain Testing Machine [employer] and [facility] [place] recommends a 135 mg/dL cutoff. Performed By: #### R UBIGG #### [facility] CLIA [id number] [address] [place] [address] [place] Reagin and Treponema pallidu m IgG and IgM [Interp]on 01-12-2025 T. pallidum IgG+IgM IA Ql (S) Non-Reactive Normal Nonreactive [facility] Comment on above: Order Comment: Speci men Type: BLOOD SPECIMEN Ordering Facility: [facility] Address: [address] [place] [address] Performed By: #### R UBIGG #### [facility] CLIA [id number] [address] [place] [address] [place] Reagin+T pallidum IgG+IgM Se rPl-Impon 01-12-2025 Reagin and Treponema pallidum IgG and IgM [Interp] Cannot exclude recent Treponemal infection if specimen collected within 7-10 days after appearance of suspect lesions or 2-3 weeks after an exposure. Clinical correlation is required. Normal [facility] Comment on above: Order Comment: Speci men Type: BLOOD SPECIMEN Ordering Facility: [facility] Address: [address] [place] [address] Performed By: #### R UBIGG #### [facility] CLIA [id number] [address] [place] [address] [facility] AMPARO CABRAL ([id number]) 1990 F Date Time Provider Department 01/10/25 ZEINA LAINEZ OBGYW During your visit today, we recorded the following information about you: Lyssa Biggs LPN 01/10/2025 3:39 PM Signed Ob patient is 28w1d and called stating she has not felt kicking movements from baby since yesterday afternoon but has felt subtle movements throughout the day. Patient concerned about the change in movements.next ob appointment is 01/22/25 Zeina Lainez MD 01/10/2025 4:25 PM Signed Would recommend eating/drinking something and then going to quiet area and counting movements. If she gets 10 movements in 2 hrs that is fine. If she is concerned she can go to Lyssa Whatley LPN 01/10/2025 4:29 PM Signed Patient notified of directions Allergies As of Date: 01/10/2025 (No Known Allergies) Date Reviewed: 01/08/2025 Reviewed by: Ne Hardin MD - Fully Assessed Reason for Visit: Care [86] Prescriptions as of 01/10/2025 - aspirin, enteric coated (ECOTRIN LOW STRENGTH) 81 mg EC tablet Take 1 tablet by mouth once daily. - omega 7-pjt-wts-fish oil 60-90-500 mg cap Take 1 tablet by mouth once daily. - famotidine (PEPCID) 20 mg tablet Take 1 tablet by mouth two times a day. - Dmmzmibg-Yt-Tzj-Fe-F A tab Take 1 tablet by mouth once daily. Problem List As Of Date 01/10/2025 Noted Resolved Heartburn during in first trimester [*07/31/2024 09/29/2024 Nausea and vomiting during [O21.9] 08/11/2024 Vaginal itching [N89.8] 08/11/2024 09/29/2024 Encounter for supervision of normal first pregn*08/11/2024 At risk for depression [Z91.89] 08/11/2024 Rubella non-immune status, antepartum [O09.899,*08/30/2024 Microcytosis [R71.8] 08/30/2024 headache in second trimester [O26.892*09/29/2024 Spotting affecting in second trimeste*10/09/2024 Low-lying placenta [O44.40] 11/15/2024 Encounter Status:Closed by LYSSA BIGGS on 01/10/25 Normal [facility] 12-26-2024 JUN Telephone (OBGYWM) AMPARO CABRAL ([id number]) 1990 F Date Time Provider Department 12/26/24 BHARTI TERESA During your visit today, we recorded the following information about you: Bharti Aguiar RN 12/26/2024 12:01 PM Signed 26w0d Patient called with c/o upper abdominal pain, midline. Began last night, intermittent, stretching pain, pain rate of 3. Denies VB or nausea with the pain. Advised this could be musculoskeletal pain. Recommended Tylenol 1,000 mg every 6 hours as needed. Advised to call if her pain increases or if she develops bleeding. Please advise. CK Reyes Jennifer, MD 12/26/2024 1:16 PM Signed agree Bharti Aguiar RN 12/26/2024 1:22 PM Signed Patient notified. Bharti Aguiar RN Allergies As of Date: 12/26/2024 (No Known Allergies) Date Reviewed: 12/08/2024 Reviewed by: Salazar Tamez MA - Fully Assessed Reason for Visit: OB Abdominal Pain [Other] Prescriptions as of 12/26/2024 - aspirin, enteric coated (ECOTRIN LOW STRENGTH) 81 mg EC tablet Take 1 tablet by mouth once daily. - omega 7-yyf-bvs-fish oil 60-90-500 mg cap Take 1 tablet by mouth once daily. - famotidine (PEPCID) 20 mg tablet Take 1 tablet by mouth two times a day. - Anmmzsgv-Uu-Rav-Fe-F A tab Take 1 tablet by mouth once daily. Problem List As Of Date 12/26/2024 Noted Resolved Heartburn during in first trimester [*07/31/2024 09/29/2024 Nausea and vomiting during [O21.9] 08/11/2024 Vaginal itching [N89.8] 08/11/2024 09/29/2024 Encounter for supervision of normal first pregn*08/11/2024 At risk for depression [Z91.89] 08/11/2024 Rubella non-immune status, antepartum [O09.899,*08/30/2024 Microcytosis [R71.8] 08/30/2024 headache in second trimester [O26.892*09/29/2024 Spotting affecting in second trimeste*10/09/2024 Low-lying placenta [O44.40] 11/15/2024 Encounter Status:Closed by BHARTI AGUIAR on 12/26/24 Normal [facility] OB Triage Physician Noteon 0 12-20-2024 OB Triage Physician Note [facility] Medical Records Department [address] [place] [address] OB Triage Physician Note 12/20/24917 MR#: [id number] Acct: [id number] Name: AMPARO CABRAL Rep #: [id number] : 1990 34 From: Ne Hardin MD PCP: Care Physician,No Primary Status:DEP CLI Y Location: [email or web address] HPI - General General Date of Admission: 12/18/24 Date of Service: 12/18/24 Chief Complaint: decreased FM HPI Narrative AMPARO CABRAL, is a 34 F who presents c/o decreased FM Maternal Data Information Final SYED: 04/03/25 Gestational age: 24 6/7 PFSH PFS Home Medications ???Medication ???Instructions ???Recorded ???Last Taken ???Type aspirin 81 mg capsule 81 mg PO DAILY 12/18/24 12/18/24 1 8:00 History omega 5-jyo-gxg-fish oil 60 mg-90 1 cap PO DAILY 12/18/24 12/18/24 09:00 History mg-500 mg capsule (Fish Oil) vit no.95-ferrous 1 tab PO DAILY 12/18/24 12/18/24 1 8:00 History fumarate 28 mg-folic acid 800 mcg tablet () Allergy/AdvReac Type Severity Reaction Status Date / Time No Known Allergies Allergy Verified 12/18/24 21:48 NST FHR Rate Baby A Baseline: 145 Variability:: Moderate Accelerations:: 10 x 10 Decelerations:: None NST Reactive:: Appropriate for gestational age Uterine Activity:: no regular ctxs Assessment Plan (1) 24 weeks gestation of : PLAN: FHTs appropriate for gest age, patient reassured. F/u as scheduled or prn. (2) Decreased movements, second trimester, not applicable or unspecified: 12/20/24 0920 Date Ne Hardin MD Cosigner Signature (if applicable): Date _ CC: Dr. Ne Hardin MD; No Primary Care Physician Signed Normal [facility] Examination level ultrasound on 11-14-2024 Indication Standard anatomic survey Impression REMOTE READ The patient is referred for a standard anatomic survey. - Single, live, intrauterine . - biometry is consistent with the established gestational age. - No malformations were visualized on a complete standard anatomic survey. - The amniotic fluid volume is normal amount. - The placenta is anterior, low lying. - The Transvaginal cervical length measures 35 mm with no evidence of funneling or other dynamic changes. - Not all structural malformations can be detected by ultrasound examination. Recommendations Additional follow-up as clinically indicated. Maternal Assessment Height 165 cm Height (ft) 5 ft Height (in) 5 in Physical Exam Initial weight (lb) 170 lb Initial BMI 28.29 kg/m Maternal assessment other: 1 Para 0 Method Transabdominal and transvaginal ultrasound examination. View: Suboptimal view: limited by position Turner . Number of fetuses: 1 Dating LMP on: 06/27/2024 GA by LMP 19 w + 6 d SYED by LMP: 04/03/2025 GA by prior assessment 19 w + 6 d SYED by prior assessment: 04/03/2025 Ultrasound examination on: 11/13/2024 GA by U/S based upon: AC, BPD, Femur, HC GA by U/S 21 w + 2 d SYED by U/S: 03/24/2025 Assigned: based on stated SYED, selected on 11/13/2024 Assigned GA 19 w + 6 d Assigned SYED: 04/03/2025 General Evaluation Cardiac activity present. FHR 146 bpm. movements: present. Presentation: cephalic Placenta: Placental site: anterior, low lying Umbilical cord: Cord vessels: 3 vessel cord Amniotic fluid: Amount of AF: normal amount. MVP 7.5 cm Growth Overview Exam date GA BPD (mm) HC (mm) AC (mm) FL (mm) HL (mm) EFW (g) 11/13/2024 19w 6d 50.7 95% 184.9 79% 161.5 85% 35 93% 32.9 90% 398 96% Biometry Standard BPD 50.7 mm 21w 3d 95% Hadlock OFD 64.4 mm 20w 3d 93% Nicolaides HC 184.9 mm 20w 6d 79% J Luis Cerebellum tr 20.3 mm 19w 3d 58% Hill Nuchal fold 5.4 mm AC 161.5 mm 21w 2d 85% Hadlock Femur 35.0 mm 21w 2d 93% J Luis Humerus 32.9 mm 21w 1d 90% J Luis EFW 398 g 21w 0d 96% Hadlock EFW (lb) 0 lb EFW (oz) 14 oz EFW by: Hadlock (HC-AC-FL) Extended Metal Cut Off Saw Operator 4.6 mm CM 4.8 mm 46% Nicolaides Extremities / Bony Struc FL / HC 0.19 68% Hadlock Other Structures FHR 146 bpm Anatomy Cranium: normal Lateral ventricles: normal Choroid plexus: normal Midline falx: normal Cavum septi pellucidi: normal Cerebellum: normal Cisterna magna: normal Head / Neck Vermis: Normal but not required for a standard anatomy exam Neck: Normal but not required for a standard anatomy exam Nuchal fold: Normal but not required for a standard anatomy exam Lips: normal Profile: Normal but not required for a standard anatomy exam Nose: Normal but not required for a standard anatomy exam Face Maxilla: Normal but not required for a standard anatomy exam Mandible: Normal but not required for a standard anatomy exam Orbits: Normal but not required for a standard anatomy exam Lens: Normal but not required for a standard anatomy exam 4-chamber view: normal RVOT view: normal LVOT view: normal 3-vessel view: normal 3-skautq-cdzutwq view: normal Heart / Thorax Situs: situs solitus (normal) Aortic arch view: Normal but not required for a standard anatomy exam SVC: Normal but not required for a standard anatomy exam IVC: Normal but not required for a standard anatomy exam Cardiac axis: normal Rt lung: Normal but not required for a standard anatomy exam Lt lung: Normal but not required for a standard anatomy exam Diaphragm: Normal but not required for a standard anatomy exam Cord insertion: normal Stomach: normal Kidneys: normal Bladder: normal Genitals: normal Abdomen Abdom. wall: normal Cervical spine: normal Thoracic spine: normal Lumbar spine: normal Sacral spine: normal Arms: normal Legs: normal Rt upper arm: normal Rt forearm: normal Rt hand: normal Rt fingers: normal Lt upper arm: normal Lt forearm: normal Lt hand: normal Lt fingers: normal Rt upper leg: normal Rt lower leg: normal Rt foot: normal Lt upper leg: normal Lt lower leg: normal Lt foot: normal Gender: Unspecified Wants to know sex: no Maternal Structures Uterus / Cervix Uterus: Visualized Cervix: Visualized Approach: Transvaginal Cervical length 35.0 mm Ovaries / Tubes / Adnexa Rt ovary: Not visualized Lt ovary: Not visualized Performed By: Radha Reyes RDMS, RVT Read By: Darleen Bergeron M.D. MATERNAL MEDICINE [facility] Examination level ultrasound on 11-13-2024 Radiology Study observation (narrative) [facility] BACTERIAL VAGINOSIS NAATon 1 11-30-2023 Lactobacillus crispatus+gasseri+je nsenii + Gardnerella vaginalis + Atopobium vaginae rRNA REBEL+probe Ql (Vag fld) Not detected Normal Not detected [facility] Comment on above: Order Comment: Speci men Type: BLOOD SPECIMEN Ordering Facility: [facility] Address: [address] [place] [address] Performed By: #### R UBIGG #### [facility] CLIA [id number] [address] [place] [address] [place] MARGARITA/TRICHOMONAS NAATon 1 11-30-2023 C. glabrata RNA REBEL+probe Ql (Vag fld) Not detected Normal Not detected [facility] Comment on above: Order Comment: Speci men Type: BLOOD SPECIMEN Ordering Facility: [facility] Address: [address] [place] [address] Performed By: #### R UBIGG #### [facility] CLIA [id number] [address] [place] [address] [place] Margarita sp DNA REBEL+probe Ql (Vag fld) Not detected Normal Not detected [facility] Comment on above: Order Comment: Speci men Type: BLOOD SPECIMEN Ordering Facility: [facility] Address: [address] [place] [address] Result Comment: The Margarita species group target includes C. albicans, C. tropicalis, C. parapsilosis, and C. dubliniensis. Performed By: #### R UBIGG #### [facility] CLIA [id number] [address] [place] [address] T. vaginalis DNA REBEL+probe Ql (Unsp spec) Not detected Normal Not detected [facility] Comment on above: Order Comment: Speci men Type: BLOOD SPECIMEN Ordering Facility: [facility] Address: [address] [place] [address] Performed By: #### R UBIGG #### [facility] CLIA [id number] [address] [place] [address] [place] nuchal translucency me asured by USon 09-29-2024 Indication First trimester anatomic survey Impression REMOTE READ The patient is referred for a first trimester anatomy scan including nuchal translucency measurement as clinically indicated. - Single, live, intrauterine . - [place] [address] rump length measurement is consistent with the established gestational age. - No malformations visualized on a complete first trimester anatomic assessment. - The nuchal translucency measurement is 2.4 mm. - Not all structural malformations can be detected by ultrasound examination. - An anatomic survey at 18-20 weeks is recommended given no identified risk factors. Maternal Structures: Right Ovary: Size 29 mm x 33 mm x 17 mm Recommendations - An anatomic survey at 18-20 weeks given no identified risk factors. - Additional follow up as clinically indicated. Maternal Assessment Height 165 cm Height (ft) 5 ft Height (in) 5 in Physical Exam Initial weight (lb) 170 lb Initial BMI 28.29 kg/m Maternal assessment other: 1 Para 0 Method Transabdominal ultrasound examination Turner . Number of fetuses: 1 Dating LMP on: 06/27/2024 GA by LMP 13 w + 3 d SYED by LMP: 04/03/2025 GA by prior assessment 13 w + 3 d SYED by prior assessment: 04/03/2025 Ultrasound examination on: 09/29/2024 GA by U/S based upon: CRL GA by U/S 14 w + 2 d SYED by U/S: 03/28/2025 Assigned: based on stated SYED, selected on 09/29/2024 Assigned GA 13 w + 3 d Assigned SYED: 04/03/2025 General Evaluation Cardiac activity present Placenta: anterior Cord vessels: 3 vessel cord Amniotic fluid: normal amount Biometry Standard FHR 159 bpm CRL 83.8 mm 14w 2d 92% Hadlock NT 2.40 mm First Trimester Anatomy Calvarium: normal Falx cerebri: normal Choroid plexus: normal Profile: normal Nasal bone: normal Retronasal triangle: normal Maxilla: normal Mandible: normal Nuchal translucency: Unremarkable measuring 2.4 mm Situs: normal Cardiac position: normal Cardiac axis: normal 4-chamber view: normal 4-chamber view with color: normal 9-[id number] view: normal Abdominal cord insertion: normal Stomach: normal Kidneys: normal Bladder: normal Color doppler of perivesical umbilical arteries: normal Vertebral alignment: normal Arms: normal Hands: normal Legs: normal Feet: normal Maternal Structures Uterus / Cervix Uterus: Visualized Uterus length 120 mm Uterus width 104 mm Uterus height 101 mm Uterus Vol 657.9 cm Ovaries / Tubes / Adnexa Rt ovary: Normal Rt ovary D1 29 mm Rt ovary D2 33 mm Rt ovary D3 17 mm Rt ovary Vol 8.5 cm Lt ovary: Not visualized Performed By: Radha Reyes RDMS, RVT Read By: Leonidas Soto M.D. MATERNAL MEDICINE [facility] Radiology Study observation (narrative) [facility] [id number] PLUSon 09-29-2024 Cell-free DNA./Cell-free DNA.total Dosage of chromosome-specific cfDNA (cfDNA) [Molar fraction] 14% Normal [facility] Comment on above: Order Comment: Speci men Type: BLOOD SPECIMENOrdering Facility: [facility] Address: [address] [place] [address] Performed By: #### M AT21 ####[facility] LABCLIA [id number] [place] [address] Chr 13+18+21+X+Y aneuploidy Dosage of chromosome-specific cfDNA Ql (cfDNA) Negative Normal [facility] Comment on above: Order Comment: Speci men Type: BLOOD SPECIMENOrdering Facility: [facility] Address: [address] [place] [address] Performed By: #### M AT21 ####[facility] LABCLIA [id number] [place] [address] Chr 21 trisomy Dosage of chromosome-specific cfDNA Ql (cfDNA) Negative Normal [facility] Comment on above: Order Comment: Speci men Type: BLOOD SPECIMENOrdering Facility: [facility] Address: [address] [place] [address] Performed By: #### M AT21 ####[facility] LABCLIA [id number] [place] [address] Chr X and Y aneuploidy risk Sequencing Ql (cfDNA) [Interp] Not detected Normal [facility] Comment on above: Order Comment: Speci men Type: BLOOD SPECIMENOrdering Facility: [facility] Address: [address] [place] [address] Result Comment: Not Detected Not Detected Performed By: #### M AT21 ####[facility] LABCLIA [id number] [place] [address] Citation Mika (Reference lab test) Comment Normal [facility] Comment on above: Order Comment: Speci men Type: BLOOD SPECIMENOrdering Facility: [facility] Address: [address] [place] [address] Result Comment: 1. P tosha WALL, et al. Eula Med. 2012;14(3):296-305. 2. Anastasia ORLANDO, et al. Prenat Diag. 2013;33(6):591-597. 3. Layo C, et al. Clin Chem. 2015 Apr;61(4):608-616. 4. Earle WALL et al. Eula Med. 2011;13(11):913-920. 5. ACOG/SMFM Practice Bulletin No. 226, Jul 2020. Performed By: #### M AT21 ####[facility] LABCLIA [id number] [place] [address] Gestational age Estimated from conception date Turner Normal [facility] Comment on above: Order Comment: Speci men Type: BLOOD SPECIMENOrdering Facility: [facility] Address: [address] [place] [address] Performed By: #### M AT21 ####[facility] LABCLIA [id number] [place] [id number] GESTATIONALAGE AGE > OR = 9W Yes Normal [facility] Comment on above: Order Comment: Speci men Type: BLOOD SPECIMENOrdering Facility: [facility] Address: [address] [place] [address] Performed By: #### M AT21 ####[facility] LABCLIA [id number] [place] [id number] Laboratory comment Mika (Report) Comment Normal [facility] Comment on above: Order Comment: Fabiolai naa Type: BLOOD SPECIMENOrdering Facility: [facility] Address: [address] [place] [address] Result Comment: The MaterniT(R) 21 PLUS laboratory-developed test (LDT) analyzes circulating cell-free DNA from a maternal blood sample. This test is used for screening purposes and not diagnostic. Clinical correlation is recommended. Validation data on twin pregnancies is limited and the ability of this test to detect aneuploidy in higher multiple gestations has not yet been validated. Performed By: #### M AT21 ####[facility] LABCLIA [id number] [place] [id number] director of design name Nom (Provider) Comment Normal [facility] Comment on above: Order Comment: Speci naa Type: BLOOD SPECIMENOrdering Facility: [facility] Address: [address] [place] [address] Result Comment: This specimen showed an expected representation of chromosome 21, 18 and 13 material. Clinical correlation is suggested. Comment Getachew Ruiz MD, PhD, Director, THEMA Performed By: #### M AT21 ####[facility] LABCLIA [id number] [place] [address] LIMITATIONS OF THE TEST Comment Normal [facility] Comment on above: Order Comment: Speci men Type: BLOOD SPECIMENOrdering Facility: [facility] Address: [address], [place] [address] Result Comment: Angelito phillips the results of these tests are highly reliable, discordant results, including inaccurate sex prediction, may occur due to placental, maternal, or mosaicism or neoplasm; vanishing twin; prior maternal organ transplant; or other causes. These tests are screening tests and not diagnostic; they do not replace the accuracy and precision of diagnosis with CVS or amniocentesis. A patient with a positive test result should be referred for genetic counseling and offered invasive diagnosis for confirmation of test results.[5] The results of this testing, including the benefits and limitations, should be discussed with a qualified healthcare provider. management decisions, including termination of the , should not be based on the results of these tests alone. The healthcare provider is responsible for the use of this information in the management of their patient. Sex chromosomal aneuploidies are not reportable for known multiple gestations. A negative result does not ensure an unaffected nor does it exclude the possibility of other chromosomal abnormalities or defects which are not a part of these tests. An uninformative result may be reported, the causes of which may include, but are not limited to, insufficient sequencing coverage, noise or artifacts in the region, amplification or sequencing bias, or insufficient fraction. These tests are not intended to identify pregnancies at risk for neural tube defects or ventral wall defects. Testing for whole chromosome abnormalities (including sex chromosomes) and for subchromosomal abnormalities could lead to the potential discovery of both and maternal genomic abnormalities that could have major, minor, or no, clinical significance. Evaluating the significance of a positive or a non-reportable result may involve both invasive testing and additional studies on the mother. Such investigations may lead to a diagnosis of maternal chromosomal or subchromosomal abnormalities, which on occasion may be associated with benign or malignant maternal neoplasms. These tests may not accurately identify triploidy, balanced rearrangements, or the precise location of subchromosomal duplications or deletions; these may be detected by diagnosis with CVS or amniocentesis. The ability to report results may be impacted by maternal BMI, maternal weight, maternal systemic lupus erythematosus (SLE) and/or by certain pharmaceutical agents such as low molecular weight heparin (for example: Lovenox(R), Xaparin(R), Clexane(R) and Fragmin(R)). Performed By: #### M AT21 ####[facility] LABCLIA [id number] [place] [address] Monosomy X risk Dosage of chromosome-specific cfDNA Ql (Plasma cell-free+WBC DNA) [Interp] Not detected Normal [facility] Comment on above: Order Comment: Speci men Type: BLOOD SPECIMENOrdering Facility: [facility] Address: [address] [place] [address] Performed By: #### M AT21 ####[facility] LABCLIA [id number] [place] [id number] NEGATIVE PREDICTIVE VALUE Note Normal [facility] Comment on above: Order Comment: Speci men Type: BLOOD SPECIMENOrdering Facility: [facility] Address: [address] [place] [address] Result Comment: The Negative Predictive Value (NPV) for trisomy 21, 18, and 13 is greater than 99%. The NPV for SCA and ESS cannot be calculated as SCA and ESS are only reported when an abnormality is detected. Performed By: #### M AT21 ####[facility] LABCLIA [id number] [place] [id number] NOTE Comment Normal [facility] Comment on above: Order Comment: Speci [facility] Type: BLOOD SPECIMENOrdering Facility: [facility] Address: [address] [place] [address] Result Comment: See Notes [employer] is a subsidiary of [employer], using the brand [employer]. This test was developed and its performance characteristics determined by [employer]. It has not been cleared or approved by the Food and Drug Administration. This laboratory is certified under the Clinical Laboratory Improvement Amendments (CLIA) as qualified to perform high complexity clinical laboratory testing and accredited by the [employer] (CAP). If there is future clinical need for adding MaterniT GENOME testing, this specimen will be available until term. [facility] samples will not be retained beyond 60 days. [facility] patients will have to send a new sample for re-sequencing (LCA Test Code: [id number]). Performed By: #### M AT21 ####[facility] [id number] [place] [address] PERFORMANCE CHARACTERISTICS Note Normal [facility] Comment on above: Order Comment: Connie jacome Type: BLOOD SPECIMENOrdering Facility: [facility] Address: [address] [place] [address] Result Comment: ! Sex ! Accuracy: 99.4% ! ! ! ! Region (associated syndrome) ! Est. Sens# ! Est. Spec ! ! ! ! Trisomy 21 (Down Syndrome) ! 99.1% ! 99.9% ! ! ! ! Trisomy 18 (Wong Syndrome) ! >99.9% ! 99.6% ! ! ! ! Trisomy 13 (Patau Syndrome) ! 91.7% ! 99.7% ! ! ! ! Sex Chromosome Aneuploidies## ! 96.2% ! 99.7% ! ! ! * As reported in ISCA database nstd37 [https://www.ncbi.nlm.nih.gov/dbvar/studies/nstd37/ ] # Estimated Sensitivity. Sensitivity estimated across the observed size distribution of each syndrome [per ISCA database nstd37] and across the range of fractions observed in routine clinical NIPT. Actual sensitivity can also be influenced by other factors such as the size of the event, total sequence counts, amplification bias, or sequence bias. ## Turner gestation only. Performed By: #### M AT21 ####[facility] [id number] [place] [address] POSITIVE PREDICTIVE VALUE N/A Normal [facility] Comment on above: Order Comment: Connie jacome Type: BLOOD SPECIMENOrdering Facility: [facility] Address: [address] [place] [address] Performed By: #### M AT21 ####[employer] LABCLIA [id number] [place] [address] Reference Lab Test Method Comment Normal [facility] Comment on above: Order Comment: Connie jacome Type: BLOOD SPECIMENOrdering Facility: [facility] Address: [address] [place] [address] Result Comment: See Notes Circulating cell-free DNA was purified from the plasma component of maternal blood. The extracted DNA was then converted into a genomic DNA library for aneuploidy analysis of chromosomes 21, 18, and 13 via next generation sequencing.[1] Optional findings based on the test order include sex chromosome aneuploidy (SCA)[2], and enhanced sequencing series (ESS)[3], which will only be reported on as an additional finding when an abnormality is detected. SCA testing includes information on X and Y representation, while ESS testing includes deletions in selected regions (22q, 15q, 11q, 8q, 5p, 4p, 1p) and trisomy of chromosomes 16 and 22. Performed By: #### M AT21 ####[facility] LABCLIA [id number] [place] [address] Sex Dosage of chromosome-specific cfDNA Nom (cfDNA) Comment Normal [facility] Comment on above: Order Comment: Speci men Type: BLOOD SPECIMENOrdering Facility: [facility] Address: [address] [place] [address] Result Comment: Cons istent with Female Performed By: #### M AT21 ####[facility] LABCLIA [id number] [place] [address] Test performance information Mika (Unsp spec) Comment Normal [facility] Comment on above: Order Comment: Speci men Type: BLOOD SPECIMENOrdering Facility: [facility] Address: [address] [place] [address] Result Comment: The performance characteristics of the MaterniT(R) 21 PLUS laboratory-developed test (LDT) have been determined in a clinical validation study with women at increased risk for chromosomal aneuploidy.[1-4] Performed By: #### M AT21 ####[facility] LABCLIA [id number] [place] [address] Trisomy 13 risk Dosage of chromosome-specific cfDNA Ql (cfDNA) [Interp] Negative Normal [facility] Comment on above: Order Comment: Speci men Type: BLOOD SPECIMENOrdering Facility: [facility] Address: [address] [place] [address] Performed By: #### M AT21 ####[facility] LABCLIA [id number] [place] [address] Trisomy 18 risk Dosage of chromosome-specific cfDNA Ql (Plasma cell-free+WBC DNA) [Interp] Negative Normal [facility] Comment on above: Order Comment: Speci men Type: BLOOD SPECIMENOrdering Facility: [facility] Address: [address] [place] [address] Performed By: #### M AT21 ####[facility] LABCLIA [id number] [place] [address] Bacteria Ur Culton 4 Bacteria identified Cx Nom (U) CULTURE, URINE: No growth (<1,000 CFU/ml) Normal [facility] Comment on above: Performed By: #### 6 30-4 ####[facility]CLIA [id number] [place] [address] [place] CBC Pnl Bld Autoon 4 Erythrocyte distribution width (RBC) [Ratio] 13.7 % Normal 11.5-15.0 [facility] Comment on above: Order Comment: Speci men Type: BLOOD SPECIMEN Ordering Facility: [facility] Address: [address] [place] [address] Performed By: #### R UBIGG #### [facility] CLIA [id number] [address] [place] [address] [place] Order Comment: Speci men Type: BLOOD SPECIMENOrdering Facility: [facility] Address: [address] [place] [address] Performed By: #### L [id number] ####[facility]CLIA [id number] [place] [address] [place] RBC (Bld) [#/Vol] 5.19 10*6/uL Normal 3.90-5.20 [facility] Comment on above: Order Comment: Speci men Type: BLOOD SPECIMEN Ordering Facility: [facility] Address: [address] [place] [address] Performed By: #### R UBIGG #### [facility] CLIA [id number] [address] [place] [address] OF [place] Order Comment: Speci men Type: BLOOD SPECIMENOrdering Facility: [facility] Address: [address] [place] [address] Performed By: #### L [id number] ####[facility] [id number] [place] [address] [place] CBC panel Auto (Bld)on 08-28 Hematocrit (Bld) [Volume fraction] 38.6 % Normal 36.0-46.0 [facility] Comment on above: Order Comment: Speci men Type: BLOOD SPECIMEN Ordering Facility: [facility] Address: [address] [place] [address] Performed By: #### R UBIGG #### [facility] CLIA [id number] [address] [place] [address] [place] Hemoglobin (Bld) [Mass/Vol] 12.5 g/dL Normal 11.5-15.5 [facility] Comment on above: Order Comment: Speci men Type: BLOOD SPECIMEN Ordering Facility: [facility] Address: [address] [place] [address] Performed By: #### R UBIGG #### [facility] CLIA [id number] [address] [place] [address] [place] MCH (RBC) [Entitic mass] 24.1 pg Low 26.0-34.0 [facility] Comment on above: Order Comment: Speci men Type: BLOOD SPECIMEN Ordering Facility: [facility] Address: [address] [place] [address] Performed By: #### R UBIGG #### [facility] CLIA [id number] [address] [place] [address] [place] MCHC (RBC) [Mass/Vol] 32.4 g/dL Normal 30.5-36.0 [facility] Comment on above: Order Comment: Speci men Type: BLOOD SPECIMEN Ordering Facility: [facility] Address: [address] [place] [address] Performed By: #### R UBIGG #### [facility] CLIA [id number] [address] [place] [address] [place] MCV (RBC) [Entitic vol] 74.4 fL Low 80.0-100.0 [facility] Comment on above: Order Comment: Speci men Type: BLOOD SPECIMEN Ordering Facility: [facility] Address: [address] [place] [address] Performed By: #### R UBIGG #### [facility] CLIA [id number] [address] [place] [address] [place] Nucleated RBC (Bld) [#/Vol] 10*3/uL Normal <0.01 [facility] Comment on above: Order Comment: Speci men Type: BLOOD SPECIMEN Ordering Facility: [facility] Address: [address] [place] [address] Performed By: #### R UBIGG #### [facility] CLIA [id number] [address] [place] [address] [place] Platelet mean volume (Bld) [Entitic vol] 10.0 fL Normal 9.0-12.7 [facility] Comment on above: Order Comment: Speci men Type: BLOOD SPECIMEN Ordering Facility: [facility] Address: [address] [place] [address] Performed By: #### R UBIGG #### [facility] CLIA [id number] [address] [place] [address] [place] Platelets (Bld) [#/Vol] 349 10*3/uL Normal 150-400 [facility] Comment on above: Order Comment: Speci men Type: BLOOD SPECIMEN Ordering Facility: [facility] Address: [address] [place] [address] Performed By: #### R UBIGG #### [facility] CLIA [id number] [address] [place] [address] [place] WBC (Bld) [#/Vol] 10.05 10*3/uL Normal 3.70-11.00 [facility] Comment on above: Order Comment: Speci men Type: BLOOD SPECIMEN Ordering Facility: [facility] Address: [address] [place] [address] Performed By: #### R UBIGG #### [facility] CLIA [id number] [address] [place] [address] [place] Ferritin SerPl-mCncon 2023 Ferritin [Mass/Vol] 37.1 ng/mL Normal 14.7-205.1 [facility] Comment on above: Order Comment: Speci men Type: BLOOD SPECIMENOrdering Facility: [facility] Address: [address] [place] [address] Performed By: #### 2 276-4, [id number], HGBELEV ####[facility] [id number] [place] [address] [place] HBV surface Ag Ser Qlon 08-18 HBV surface Ag Ql (S) Negative Normal Negative [facility] Comment on above: Order Comment: Speci men Type: BLOOD SPECIMENOrdering Facility: [facility] Address: [address] [place] [address] Performed By: #### 7 3752-8, 61152-5, 5195-3 ####[facility]IA [id number] [place] [address] [place] HCV Ab Ser Qlon 08-28-2024 HCV Ab Ql (S) Negative Normal Negative [facility] Comment on above: Order Comment: Speci men Type: BLOOD SPECIMENOrdering Facility: [facility] Address: [address] [place] [address] Result Comment: The result suggests no evidence of active infection with Hepatitis C virus. Should recent infection be suspected, repeat testing may be considered 4-6 weeks after this draw. Performed By: #### 1 6128-1 ####[facility] LABCLIA [id number] [place] [address] [place] HGB ELECTROPHORESIS FOR EVAL (LAB ORDER)on 08-28-2024 Hemoglobin A (Bld) [Mass fraction] 97.4 % Normal 96.2-98.0 [facility] Comment on above: Order Comment: Speci men Type: BLOOD SPECIMENOrdering Facility: [facility] Address: [address] [place] [address] Performed By: #### 2 276-4, [id number], HGBELEV ####[facility] LABCLIA [id number] [place] [address] [place] Hemoglobin A2 (Bld) [Mass fraction] 2.6 % Normal 2.0-3.1 [facility] Comment on above: Order Comment: Speci men Type: BLOOD SPECIMENOrdering Facility: [facility] Address: [address] [place] [address] Performed By: #### 2 276-4, [id number], HGBELEV ####[facility] LABCLIA [id number] [place] [address] [place] Hemoglobin Unsp Elph (Bld) [Mass fraction] No abnormal hemoglobin identified. Normal No abnormal hemoglobin identified. [facility] Comment on above: Order Comment: Speci men Type: BLOOD SPECIMENOrdering Facility: [facility] Address: [address] [place] [address] Performed By: #### 2 276-4, [id number], HGBELEV ####[facility] [id number] [place] [address] [place] HGB EVALUATION CASCADE INTER Luiz 08-28-2024 Hemoglobin pattern (Bld) [Interp] Reviewed by Lilli Anderson M.D., Ph.D Normal [facility] Comment on above: Order Comment: Speci men Type: BLOOD SPECIMENOrdering Facility: [facility] Address: [address] [place] [address] Performed By: #### 2 276-4, [id number], HGBELEV ####[facility] LABCLIA [id number] [place] [address] [place] INTERPRETATION (HGB EVAL) Normal [facility] Comment on above: Order Comment: Speci men Type: BLOOD SPECIMENOrdering Facility: [facility] Address: [address] [place] [address] Result Comment: Hemo globins were analyzed by capillary electrophoresis and CBC red cell parameters were reviewed. There is a normal capillary electrophoresis pattern with microcytosis. Ferritin levels are normal or increased. The possibility of alpha thalassemia trait cannot be excluded. Correlation with the clinical findings is suggested. If there is a clinical suspicion for thalassemia trait, PCR studies for the common alpha thalassemia gene deletions may be helpful in further evaluation. Performed By: #### 2 276-4, [id number], HGBELEV ####[facility] LABIA [id number] [place] [address] [place] HIV 1+2 Ab IA Qlon 4 HIV 1 and 2 Ab IA.rapid Nom (S/P/Bld) Normal [facility] Comment on above: Order Comment: Speci men Type: BLOOD SPECIMENOrdering Facility: [facility] Address: [address] [place] [address] Result Comment: Test not indicated. Performed By: #### 7 3752-8, 58393-3, 5195-3 ####[facility] LABIA [id number] [place] [address] [place] HIV 1+2 Ab+HIV1 p24 Ag IA Ql Non-Reactive Normal Nonreactive [facility] Comment on above: Order Comment: Speci men Type: BLOOD SPECIMENOrdering Facility: [facility] Address: [address] [place] [address] Performed By: #### 7 3752-8, 12415-2, 5195-3 ####[facility] LABIA [id number] [address] [place] HIV immunoassay testing algorithm interpretation (S/P/Bld) [Interp] Normal [facility] Comment on above: Order Comment: Speci men Type: BLOOD SPECIMENOrdering Facility: [facility] Address: [address] [place] [address] Result Comment: No e vidence of HIV-1 or HIV-2 infection. Should recent infection be suspected, repeat testing may be considered 2-3 weeks after this draw. [place] Rev. Code 3701.243(E): This information has been disclosed to you from confidential records protected from disclosure by state law. ???You shall make no further disclosure of this information without the specific, written, and informed release of the individual to whom it pertains or as otherwise permitted by state law. A general authorization for the release of medical or other information is not sufficient for the purpose of the release of HIV test results or diagnoses. Performed By: #### 7 3752-8, 48352-1, 5195-3 ####[facility] [id number] [place] [address] [place] HbA1c (Bld)on 08-28-2024 Average glucose Estimated from glycated hemoglobin (Bld) [Mass/Vol] 111 mg/dL Normal [facility] Comment on above: Order Comment: Speci men Type: BLOOD SPECIMENOrdering Facility: [facility] Address: [address] [place] [address] Result Comment: eAG: (Estimated average glucose) is a calculated value from HgbA1c and is merchandising representative of the average blood glucose level in the last 2-3 month period. Performed By: #### 5 5454-3 ####[facility]IA [id number] [place] [address] [place] HbA1c (Bld) [Mass fraction] 5.5 % Normal 4.3-5.6 [facility] Comment on above: Order Comment: Speci men Type: BLOOD SPECIMENOrdering Facility: [facility] Address: [address] [place] [address] Result Comment: [place] Diabetes Association guidelines indicate that patients with HgbA1c in the range 5.7-6.4% are at increased risk for development of diabetes, and intervention by lifestyle modification may be beneficial. HgbA1c greater or equal to 6.5% is considered diagnostic of diabetes. Performed By: #### 5 5454-3 ####[facility] LABIA [id number] [place] [address] [place] RBC PARAMETERS FOR HB IDon 1 10-28-2023 Hematocrit (Bld) [Volume fraction] 40.0 % Normal 36.0-46.0 [facility] Comment on above: Order Comment: Speci men Type: BLOOD SPECIMENOrdering Facility: [facility] Address: [address] [place] [address] Performed By: #### L [id number] ####[facility] LABIA [id number] [place] [address] [place] Hemoglobin (Bld) [Mass/Vol] 12.6 g/dL Normal 11.5-15.5 [facility] Comment on above: Order Comment: Speci men Type: BLOOD SPECIMENOrdering Facility: [facility] Address: [address] [place] [address] Performed By: #### L [id number] ####[facility] LABIA [id number] [place] [address] [place] MCH (RBC) [Entitic mass] 24.3 pg Low 26.0-34.0 [facility] Comment on above: Order Comment: Speci men Type: BLOOD SPECIMENOrdering Facility: [facility] Address: [address] [place] [address] Performed By: #### L [id number] ####[facility] LABIA [id number] [place] [address] [place] MCHC (RBC) [Mass/Vol] 31.5 g/dL Normal 30.5-36.0 [facility] Comment on above: Order Comment: Speci men Type: BLOOD SPECIMENOrdering Facility: [facility] Address: [address] [place] [address] Performed By: #### L [id number] ####[facility]IA [id number] [place] [address] [place] MCV (RBC) [Entitic vol] 77.1 fL Low 80.0-100.0 [facility] Comment on above: Order Comment: Connie jacome Type: BLOOD SPECIMENOrdering Facility: [facility] Address: [address] [place] [address] Performed By: #### L [id number] ####[facility]CLIA [id number] [place] [address] [place] RUBELLA IGG ANTIBODYon 08-28 RUBELLA IGG AB, QUAL Negative Abnormal Positive [facility] Comment on above: Order Comment: Connie jacome Type: BLOOD SPECIMEN Ordering Facility: [facility] Address: [address] [place] [address] Result Comment: The result suggests no history of Rubella vaccination or exposure to Rubella virus, however, some individuals with past history of Rubella vaccination may test negative using this test as immunity to Rubella virus wanes over time after vaccination. Please correlate with vaccination history if applicable. Performed By: #### R UBIGG #### [facility] CLIA [id number] [address] [place] [address] [place] Reagin and Treponema pallidu m IgG and IgM [Interp]on 08-28-2024 T. pallidum IgG+IgM IA Ql (S) Non-Reactive Normal Nonreactive [facility] Comment on above: Order Comment: Connie jacome Type: BLOOD SPECIMENOrdering Facility: [facility] Address: [address] [place] [address] Performed By: #### 7 3752-8, 81426-9, 5195-3 ####[facility] [id number] [place] [address] [place] Reagin+T pallidum IgG+IgM Se rPl-Impon 08-28-2024 Reagin and Treponema pallidum IgG and IgM [Interp] Cannot exclude recent Treponemal infection if specimen collected within 7-10 days after appearance of suspect lesions or 2-3 weeks after an exposure. Clinical correlation is required. Normal [facility] Comment on above: Order Comment: Speci men Type: BLOOD SPECIMENOrdering Facility: [facility] Address: [address] [place] [address] Performed By: #### 7 3752-8, 56515-2, 5195-3 ####[facility] [id number] [place] [address] [place] TYPE + SCREEN PRENATALon ABO O Normal [facility] Comment on above: Order Comment: Speci men Type: BLOOD SPECIMENOrdering Facility: [facility] Address: [address] [place] [address] Performed By: #### T SPN ####[facility] BLO[facility] BANKIA [id number] [place] [address] [place] Rh Nom (Bld) Positive Normal [facility] Comment on above: Order Comment: Speci men Type: BLOOD SPECIMENOrdering Facility: [facility] Address: [address] [place] [address] Performed By: #### T SPN ####[facility] BLOOD BANKIA [id number] [place] [address] [place] TYPE AND SCREEN EXPIRATION 08/31/2024 23:59 Normal [facility] Comment on above: Order Comment: Speci men Type: BLOOD SPECIMENOrdering Facility: [facility] Address: [address] [place] [address] Performed By: #### T SPN ####[facility] BLOOD BANKIA [id number] [place] [address] [place] BACTERIAL VAGINOSIS NAATon 1 Lactobacillus crispatus+gasseri+je nsenii + Gardnerella vaginalis + Atopobium vaginae rRNA REBEL+probe Ql (Vag fld) Negative Normal Negative for bacterial vaginosis [facility] Comment on above: Order Comment: Speci men Type: SWABOrdering Facility: [facility] Address: [address] [place] [address] Performed By: #### B VAMP, 49697-7 ####[facility]CLIA [id number] [place] [address] [place] Bacteria Ur Culton Bacteria identified Cx Nom (U) ORGANISM ID: 1 50,000-<100,000 CFU/ml Streptococcus anginosus No susceptibility testing done. Normal [facility] Comment on above: Performed By: #### 6 30-4 #### [facility] CLIA [id number] [address] [place] [address] [place] C. trachomatis+N. gonorrhoea e DNA REBEL+probe Ql (Unsp spec)on 08-11-2024 C. trachomatis rRNA REBEL+probe Ql (Unsp spec) Negative Normal Negative for Chlamydia trachomatis by amplificaton [facility] Comment on above: Order Comment: Speci men Type: SWABOrdering Facility: [facility] Address: [address] [place] [address] Performed By: #### B VAMP, 44357-9 ####[facility]CLIA [id number] [place] [address] [place] N. gonorrhoeae rRNA REBEL+probe Ql (Unsp spec) Negative Normal Negative for Neisseria gonorrhoeae by amplification [facility] Comment on above: Order Comment: Speci men Type: SWABOrdering Facility: [facility] Address: [address] [place] [address] Performed By: #### B VAMP, 02403-5 ####[facility]CLIA [id number] [place] [address] [place] MARGARITA/TRICHOMONAS NAATon 1 C. glabrata RNA REBEL+probe Ql (Vag fld) Negative Normal Negative for Margarita glabrata [facility] Comment on above: Order Comment: Speci men Type: BLOOD SPECIMEN Ordering Facility: [facility] Address: [address] [place] [address] Performed By: #### R UBIGG #### [facility] CLIA [id number] [address] [place] [address] [place] Margarita sp DNA REBEL+probe Ql (Vag fld) Negative Normal Negative for Margarita species [facility] Comment on above: Order Comment: Speci men Type: BLOOD SPECIMEN Ordering Facility: [facility] Address: [address] [place] [address] Performed By: #### R UBIGG #### [facility] CLIA [id number] [address] [place] [address] [place] T. vaginalis DNA REBEL+probe Ql (Unsp spec) Negative Normal Negative for Trichomonas vaginalis by amplification [facility] Comment on above: Order Comment: Speci men Type: BLOOD SPECIMEN Ordering Facility: [facility] Address: [address] [place] [address] Performed By: #### R UBIGG #### [facility] CLIA [id number] [address] [place] [address] [place] HIGH RISK HUMAN PAPILLOMA MYLES (HPV), PCR FOR DETECTION AND GENOTYPINGon 08-11-2024 HPV 16 Ag Ql (Unsp spec) Not detected Normal Not detected [facility] Comment on above: Order Comment: Speci men Type: FLUID SPECIMENOrdering Facility: [facility] Address: [address] [place] [address] Performed By: #### L [id number], HPVHRT ####[facility]CLIA [id number] [place] [address] [place] HPV 18 Ag Ql (Unsp spec) Not detected Normal Not detected [facility] Comment on above: Order Comment: Speci men Type: FLUID SPECIMENOrdering Facility: [facility] Address: [address] [place] [address] Performed By: #### L [id number], HPVHRT ####[facility]CL[facility] [id number] [place] [address] [place] HPV 31+33+35+39+45+51+52 +56+58+59+66+68 DNA REBEL+probe Ql (Cvx) Not detected Normal Not detected [facility] Comment on above: Order Comment: Speci men Type: FLUID SPECIMENOrdering Facility: [facility] Address: [address] [place] [address] Result Comment: High Risk HPV Other Type includes HPV types 31, 33, 35, 39, 45, 51, 52, 56, 58, 59, 66 and 68. Performed By: #### L [id number], HPVHRT ####[facility] [id number] [place] [address] [place] PAP TESTon 08-11-2024 ADEQUACY Satisfactory for interpretation. Normal [facility] Comment on above: Order Comment: Speci men Type: FLUID SPECIMENOrdering Facility: [facility] Address: [address] [place] [address] Performed By: #### L [id number], HPVHRT ####[facility]CLIA [id number] [place] [address] [place] CASE REPORT Normal [facility] Comment on above: Order Comment: Speci men Type: FLUID SPECIMENOrdering Facility: [facility] Address: [address] [place] [address] Result Comment: Gyne cologic Cytology Report Case: [id number] Authorizing Provider: Palma Cahs APRN.PROFESSOR OF KINESIOLOGY Collected: 08/11/2024 02:40 PM Ordering Location: OB/Gynecology Received: 08/11/2024 04:33 PM First Screen: Gmitro, Jac, [place], ASCP Specimen: Pap Test, ThinPrep, Cervix Performed By: #### L [id number], HPVHRT ####[facility]CLIA [id number] [place] [address] [place] CLINICAL HISTORY, CYTOLOGY, TILE SPRAYER (Indicate Weeks) Normal [facility] Comment on above: Order Comment: Speci men Type: FLUID SPECIMENOrdering Facility: [facility] Address: [address] [place] [address] Performed By: #### L [id number], HPVHRT ####[facility] LABCLIA [id number] [place] [id number] [place] FINAL PERFORMING LAB Normal [facility] Comment on above: Order Comment: Speci men Type: FLUID SPECIMENOrdering Facility: [facility] Address: [address] [place] [address] Result Comment: Tech nical component, javascript developer screening performed at [facility], [address] [place] [id number] CLIA# [id number] Diagnostic interpretation performed at [facility], [address] [place] [address] CLIA# [id number] Bolter Helper: Derrek Davison M.D. Performed By: #### L [id number], HPVHRT ####[facility] [id number] [place] [address] [place] INTERPRETATION, CYTOLOGY, TILE SPRAYER Normal [facility] Comment on above: Order Comment: Speci men Type: FLUID SPECIMENOrdering Facility: [facility] Address: [address] [place] [address] Result Comment: Nega tive for intraepithelial lesion or malignancy. Performed By: #### L [id number], HPVHRT ####[facility] [id number] [place] [address] [place] LMP 06/27/2024 Normal [facility] Comment on above: Order Comment: Speci men Type: FLUID SPECIMENOrdering Facility: [facility] Address: [address] [place] [address] Performed By: #### L [id number], HPVHRT ####[facility] [id number] [address] [place] PAP DISCLAIMER COMMENT The Pap Smear is a screening test for cervical cancer. False negative results occur with all screening tests, emphasizing the need for rescreening at recommended intervals, and clinical correlation. Normal [facility] Comment on above: Order Comment: Speci men Type: FLUID SPECIMENOrdering Facility: [facility] Address: [address] [place] [address] Performed By: #### L [id number], HPVHRT ####[facility] [id number] [address] [place] PAP STATISTICIAN THEORETICAL COMMENT This specimen has been analyzed by the ThinPrep Imaging System, an automated imaging and review system, which assists the laboratory in evaluating cells on ThinPrep Pap tests. Following automated imaging, selected roman from every slide are reviewed by a javascript developer. Normal [facility] Comment on above: Order Comment: Speci men Type: FLUID SPECIMENOrdering Facility: [facility] Address: [address] [place] [address] Performed By: #### L [id number], HPVHRT ####[facility] [id number] [address] [place] CNOVon 07-31-2024 CNOV Office Visit (OBGYWM) HOLLYAMPARO ([id number]) 1990 F Date Time Provider Department 07/31/24 8:15 AM PALMA CASH OBLEONARD During your visit today, we recorded the following information about you: Blood pressure Weight 110/62 77.2 kg Palma Cash APRN.CNP 07/31/2024 8:41 AM Signed Amparo Cabral is a 34 year old female who presents for problem visit for confirmation. HPI: Amparo presents for a confirmation. She states that her last LMP was 06/27/2024, making her 4w6d today. She is not taking a vitamin. Her only bothersome symptom is heartburn. Some cramping. This is her first and she does not have any major medical history. The was planned and she is excited. Her is here with her. OB History No obstetric history on file. 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 Social History Tobacco Use Smoking status: Never Smokeless tobacco: Never Vaping Use Vaping status: Never Used Substance Use Topics Alcohol use: Not Currently Drug use: Never No current outpatient medications on file. No current facility-administere d medications for this visit. Allergies As of Date: 07/31/2024 (No Known Allergies) Fully Assessed 07/31/2024 REVIEW OF SYSTEMS Abdomen: No bloating, early satiety, or increased flatulence. No abdominal pain, nausea, vomiting, diarrhea, or constipation. + heartburn Expanded ROS: TILE SPRAYER: + amenorrhea Allergies and current medication updated:Yes SENSITIVE EXAM: Sensitive exam not performed. EXAM: BP 110/62 Wt 170 lb 3.2 oz (77.2kg) LMP 06/27/2024 GENERAL: pleasant, female in no apparent distress HEENT: Normocephalic, atraumatic, mucus membranes moist, and no lesions CHEST: Normal inspiratory effort NEURO: alert and oriented x3,exam grossly non-focal EXTREMITIES: normal ASSESSMENT AND PLAN: 1. Encounter for test, result positive - ICD9: V72.42, ICD10: Z32.01 - Discussed diet, exercise, weight gain during - Reviewed precautions and what to avoid - Rx sent for vitamin - Discussed care and to return end of next week for ultrasound and new OB visit - Lead Custodian order signed 2. Heartburn during in first trimester - ICD9: 646.83, 787.1, ICD10: O26.891, R12 - Rx for Pepcid sent Palma Cash APRN.PROFESSOR OF KINESIOLOGY Medical Decision Making: Problems: Moderate: New problem with uncertain prognosis Risk: Low: Low risk from testing/treatment Moderate: Drug management Medical Decision Making Level: 4 - Moderate Referring Provider: SELF [200] Allergies As of Date: 07/31/2024 (No Known Allergies) Date Reviewed: 07/31/2024 Reviewed by: Palma Cash APRN.PROFESSOR OF KINESIOLOGY - Fully Assessed Reason for Visit: Confirmation [Other] Primary Visit Diagnosis:Encounter for test, result positive [Z32.01] Other Visit Diagnosis:Heartburn during in first trimester [O26.891, R12] Order(s): Vyttebei-Hs-Tuj-Fe-F A tabTake 1 tablet by mouth once daily.Disp: 90 tabletRfl: 3 FIBER TECHNICIAN [[id number]] Order #: [id number]: 1 UA DIP,URINE HCG (POC) [[id number]] Order #: [id number]. #:[id number] famotidine (PEPCID) 20 mg tabletTake 1 tablet by mouth two times a day.Disp: 60 tabletRfl: 3 Prescriptions as of 07/31/2024 - Xjvtbaoy-Zx-Cru-Fe-F A tab Take 1 tablet by mouth once daily. - famotidine (PEPCID) 20 mg tablet Take 1 tablet by mouth two times a day. Problem List As Of Date 07/31/2024 Noted Resolved Heartburn during in first trimester [*07/31/2024 Prescriptions ordered this encounter Disp Refills Start End VITAMIN,CALCIUM,MINE RALS-IR* 90 t* 3 07/31/2024 Route: ORAL Sig: Take 1 tablet by mouth once daily. FAMOTIDINE 20 MG TABLET 60 t* 3 07/31/2024 Route: ORAL Sig: Take 1 tablet by mouth two times a day. Encounter Status:Closed by PALMA CASH on 07/31/24 [facility],URINE HCG (POC)on Beta HCG ( test) Ql (U) Positive Abnormal Negative [facility] Comment on above: Location:[facility], [address], [place], [address] Interpretation and review of laboratory results Abnormal [facility] Teaching Assistant (POCT) Internal QC OK [facility] Location:[facility], [address], [place], [address] [facility] POINT OF CARE [facility] Vital Signs Date Time Vital Sign Value Performing Clinician Eric cunningham 03-26-2025 13:31-0400 Body mass index (BMI) [Ratio] 36.78 kg/m2 Zeina Strickland MD Work Phone: [facility] 03-26-2025 13:31-0400 Body weight 100.25 kg Zeina Strickland MD Work Phone: [facility] 03-26-2025 13:31-0400 Diastolic blood pressure 70 mm[Hg] Zeina Strickland MD Work Phone: [facility] 03-26-2025 13:31-0400 Systolic blood pressure 116 mm[Hg] Zeina Strickland MD Work Phone: [facility] 03-22-2025 10:47-0400 Body mass index (BMI) [Ratio] 36.61 kg/m2 Bharti Teresa MD Work Phone: [facility] 03-22-2025 10:47-0400 Body weight 99.79 kg Bharti Teresa MD Work Phone: [facility] 03-22-2025 10:47-0400 Diastolic blood pressure 80 mm[Hg] Bharti Teresa MD Work Phone: [facility] 03-22-2025 10:47-0400 Systolic blood pressure 128 mm[Hg] Bharti Teresa MD Work Phone: [facility] 03-15-2025 13:01-0400 Body mass index (BMI) [Ratio] 36.94 kg/m2 Lawanda Diaz MD Work Phone: [facility] 03-15-2025 13:01-0400 Body weight 100.7 kg Lawanda Diaz MD Work Phone: [facility] 03-15-2025 13:01-0400 Diastolic blood pressure 74 mm[Hg] Lawanda Diaz MD Work Phone: [facility] 03-15-2025 13:01-0400 Systolic blood pressure 134 mm[Hg] Lawanda Diaz MD Work Phone: [facility] 02-23-2025 15:51-0400 Body mass index (BMI) [Ratio] 35.45 kg/m2 Palma Haury EMBEDDED HARDWARE ENGINEER.PROFESSOR OF KINESIOLOGY Work Phone: [facility] 02-23-2025 15:51-0400 Body weight 96.62 kg Palma Haury EMBEDDED HARDWARE ENGINEER.PROFESSOR OF KINESIOLOGY Work Phone: [facility] 02-23-2025 15:51-0400 Diastolic blood pressure 80 mm[Hg] Palma Haury EMBEDDED HARDWARE ENGINEER.PROFESSOR OF KINESIOLOGY Work Phone: [facility] 02-23-2025 15:51-0400 Systolic blood pressure 120 mm[Hg] Palma Haury EMBEDDED HARDWARE ENGINEER.PROFESSOR OF KINESIOLOGY Work Phone: [facility] 02-15-2025 15:48-0400 Body mass index (BMI) [Ratio] 35.54 kg/m2 Lawanda Diaz MD Work Phone: [facility] 02-15-2025 15:48-0400 Body weight 96.89 kg Lawanda Diaz MD Work Phone: [facility] 02-15-2025 15:48-0400 Diastolic blood pressure 80 mm[Hg] Lawanda Diaz MD Work Phone: [facility] 02-15-2025 15:48-0400 Systolic blood pressure 124 mm[Hg] Lawanda Diaz MD Work Phone: [facility] 01-22-2025 15:44-0400 Body mass index (BMI) [Ratio] 33.28 kg/m2 Palma Haury EMBEDDED HARDWARE ENGINEER.PROFESSOR OF KINESIOLOGY Work Phone: [facility] 01-22-2025 15:44-0400 Body weight 90.72 kg Palma Haury EMBEDDED HARDWARE ENGINEER.PROFESSOR OF KINESIOLOGY Work Phone: [facility] 01-22-2025 15:44-0400 Diastolic blood pressure 62 mm[Hg] Palma Cash APRN.PROFESSOR OF KINESIOLOGY Work Phone: [facility] 01-22-2025 15:44-0400 Systolic blood pressure 106 mm[Hg] Palma Cash APRN.PROFESSOR OF KINESIOLOGY Work Phone: [facility] 01-08-2025 16:04-0400 Body mass index (BMI) [Ratio] 33.28 kg/m2 Ne Hardin MD Work Phone: [facility] 01-08-2025 16:04-0400 Body weight 90.72 kg eN Hardin MD Work Phone: [facility] 01-08-2025 16:04-0400 Diastolic blood pressure 70 mm[Hg] Ne Hardin MD Work Phone: [facility] 01-08-2025 16:04-0400 Systolic blood pressure 102 mm[Hg] Ne Hardin MD Work Phone: [facility] 12-08-2024 15:18-0500 Body mass index (BMI) [Ratio] 31.95 kg/m2 Talita Medellin EMBEDDED HARDWARE ENGINEER.CNM Work Phone: [facility] 12-08-2024 15:18-0500 Body weight 87.09 kg Talita Vignesh BERMUDEZN.CNM Work Phone: [facility] 12-08-2024 15:18-0500 Diastolic blood pressure 72 mm[Hg] Talita Medellin EMBEDDED HARDWARE ENGINEER.CNM Work Phone: [facility] 12-08-2024 15:18-0500 Systolic blood pressure 112 mm[Hg] Talita Medellin EMBEDDED HARDWARE ENGINEER.CNM Work Phone: [facility] 11-13-2024 15:24-0500 Body mass index (BMI) [Ratio] 30.75 kg/m2 Ne Hardin MD Work Phone: [facility] 11-13-2024 15:24-0500 Body weight 83.83 kg Ne Hardin MD Work Phone: [facility] 01-27-2025 15:24-0500 Diastolic blood pressure 60 mm[Hg] Ne Hardin MD Work Phone: [facility] 11-13-2024 15:24-0500 Heart rate 88 /min Ne Hardin MD Work Phone: [facility] 11-13-2024 15:24-0500 Respiratory rate 16 /min Ne Hardin MD Work Phone: [facility] 11-13-2024 15:24-0500 SaO2% (BldA) [Mass fraction] 99 % Ne Hardin MD Work Phone: [facility] 11-13-2024 15:24-0500 Systolic blood pressure 110 mm[Hg] Ne Hardin MD Work Phone: [facility] 10-09-2024 16:03-0500 Body mass index (BMI) [Ratio] 29.45 kg/m2 Fatou Plotts EMBEDDED HARDWARE ENGINEER.CNM Work Phone: [facility] 10-09-2024 16:03-0500 Body weight 80.29 kg Fatou Plotts EMBEDDED HARDWARE ENGINEER.CNM Work Phone: [facility] 10-09-2024 16:03-0500 Diastolic blood pressure 60 mm[Hg] Fatou Plotts EMBEDDED HARDWARE ENGINEER.CNM Work Phone: [facility] 10-09-2024 16:03-0500 Systolic blood pressure 110 mm[Hg] Fatou Plotts EMBEDDED HARDWARE ENGINEER.CNM Work Phone: [facility] 09-29-2024 15:26-0500 Body mass index (BMI) [Ratio] 29.29 kg/m2 Palma Cash EMBEDDED HARDWARE ENGINEER.PROFESSOR OF KINESIOLOGY Work Phone: [facility] 09-29-2024 15:26-0500 Body weight 79.83 kg Palma Cash EMBEDDED HARDWARE ENGINEER.PROFESSOR OF KINESIOLOGY Work Phone: [facility] 09-29-2024 15:26-0500 Diastolic blood pressure 64 mm[Hg] Palma Cash EMBEDDED HARDWARE ENGINEER.PROFESSOR OF KINESIOLOGY Work Phone: [facility] 09-29-2024 15:26-0500 Systolic blood pressure 100 mm[Hg] Palma Haury EMBEDDED HARDWARE ENGINEER.PROFESSOR OF KINESIOLOGY Work Phone: [facility] 08-28-2024 13:14-0500 Body mass index (BMI) [Ratio] 28.66 kg/m2 Peyman Hawthorne MD Work Phone: [facility] 08-28-2024 13:14-0500 Body weight 78.11 kg Peyman Hawthorne MD Work Phone: [facility] 08-28-2024 13:14-0500 Diastolic blood pressure 72 mm[Hg] Peyman Hawhtorne MD Work Phone: [facility] 08-28-2024 13:14-0500 Systolic blood pressure 118 mm[Hg] Peyman Hawthorne MD Work Phone: [facility] 08-11-2024 13:58-0400 Body height 165.1 cm Palma Haury EMBEDDED HARDWARE ENGINEER.PROFESSOR OF KINESIOLOGY Work Phone: [facility] 08-11-2024 13:58-0400 Body mass index (BMI) [Ratio] 28.42 kg/m2 Palma Haury EMBEDDED HARDWARE ENGINEER.PROFESSOR OF KINESIOLOGY Work Phone: [facility] 08-11-2024 13:58-0400 Body weight 77.47 kg Palma Haury EMBEDDED HARDWARE ENGINEER.PROFESSOR OF KINESIOLOGY Work Phone: [facility] 08-11-2024 13:58-0400 Diastolic blood pressure 60 mm[Hg] Palma Haury EMBEDDED HARDWARE ENGINEER.PROFESSOR OF KINESIOLOGY Work Phone: [facility] 08-11-2024 13:58-0400 Systolic blood pressure 110 mm[Hg] Palma Haury EMBEDDED HARDWARE ENGINEER.PROFESSOR OF KINESIOLOGY Work Phone: [facility] 07-31-2024 08:15-0400 Body weight 77.2 kg Palma Haury EMBEDDED HARDWARE ENGINEER.PROFESSOR OF KINESIOLOGY Work Phone: [facility] 07-31-2024 08:15-0400 Diastolic blood pressure 62 mm[Hg] Palma Haury EMBEDDED HARDWARE ENGINEER.PROFESSOR OF KINESIOLOGY Work Phone: [facility] 10-14-2024 08:15-0400 Systolic blood pressure 110 mm[Hg] Palma Cash PROFESSOR OF KINESIOLOGY Work Phone: [facility] Encounters Encounter Date Encounter Type Care Provider Facility Start: 04-03-2025 ambulatory No Primary Car e Physician Facility:[facility] Start: 03-29-2025 ambulatory No Primary Car e Physician Facility:[facility] Start: 03-26-2025 End: 03-26-2025 Patient encounter procedure Zeina Strickland MD Work Phone: OB/Gynecology Comment on above: Supervision of high risk in third trimester (HCC) (Primary Dx); Low-lying placenta (HCC); Excessive weight gain in , third trimester (HCC); Excessive growth affecting management of in third trimester, single or unspecified fetus (HCC); 38 weeks gestation of (HCC) Start: 03-26-2025 End: 03-26-2025 ambulatory ZEINA STRICKLAND Facility:[facility] Start: 03-22-2025 End: 03-22-2025 Patient encounter procedure Bharti Teresa MD Work Phone: OB/Gynecology Comment on above: Excessive grow th affecting management of in third trimester, single or unspecified fetus (HCC) (Primary Dx); Low-lying placenta (HCC); Excessive weight gain in , third trimester (HCC); Encounter for supervision of normal first in third trimester (HCC); 38 weeks gestation of (HCC) Start: 03-22-2025 End: 03-22-2025 ambulatory BHARTI TERESA Facility:[facility] Start: 03-15-2025 End: 03-15-2025 E-mail encounter from caregiver [facility] Provider OB/Gynecology Start: 03-15-2025 End: 03-15-2025 Patient encounter procedure Lawanda Diaz MD Work Phone: OB/Gynecology Comment on above: Encounter for superv ision of normal first in third trimester (HCC) (Primary Dx); Excessive growth affecting management of in third trimester, single or unspecified fetus (HCC); Low-lying placenta (HCC); Excessive weight gain in , third trimester (HCC); 37 weeks gestation of (HCC) Start: 03-15-2025 End: 03-15-2025 ambulatory [facility] Provider OB/Gynecology Comment on above: Section Start: 03-09-2025 End: 03-09-2025 ambulatory TALITA VIGNESH Facility:[facility] Start: 02-26-2025 End: 02-26-2025 Follow-up encounter Palma Cash APRN.CNP Work Phone: OB/Gynecology Start: 02-23-2025 End: 02-23-2025 Patient encounter procedure Palma Cash APRN.CNP Work Phone: OB/Gynecology Comment on above: Encounter for superv ision of normal first in third trimester (HCC) (Primary Dx); 34 weeks gestation of (HCC); Low-lying placenta (HCC); Excessive weight gain in , third trimester (HCC); Vaginal discharge Start: 02-23-2025 End: 02-23-2025 ambulatory PALMA CASH Facility:[facility] Start: 02-15-2025 End: 02-15-2025 ambulatory LAWANDA DIAZ Facility:[facility] Start: 02-15-2025 End: 02-15-2025 Patient encounter procedure Lawanda Diaz MD Work Phone: OB/Gynecology Comment on above: 33 weeks gestation o f (HCC) (Primary Dx); Encounter for supervision of normal first in third trimester (HCC); Low-lying placenta (HCC) Start: 02-07-2025 End: 02-07-2025 ambulatory NE HARDIN Facility:[facility] Start: 01-22-2025 End: 01-22-2025 ambulatory PALMA CASH Facility:[facility] Start: 01-22-2025 End: 01-22-2025 Patient encounter procedure Palma Cash APRN.CNP Work Phone: OB/Gynecology Comment on above: Encounter for superv ision of normal first in third trimester (HCC) (Primary Dx); 29 weeks gestation of (HCC); Low-lying placenta (HCC) Start: 01-22-2025 End: 03-24-2025 Follow-up encounter Palma Cash APRN.CNP Work Phone: OB/Gynecology Start: 01-22-2025 End: 01-22-2025 ambulatory NE HARDIN Facility:[facility] Start: 01-15-2025 End: 03-17-2025 Follow-up encounter Ne Hardin MD Work Phone: OB/Gynecology Start: 01-12-2025 End: 01-12-2025 ambulatory TALITA MEDELLIN Facility:[facility] Start: 01-10-2025 End: 01-10-2025 Telephone encounter Zeina Strickland MD Work Phone: OB/Gynecology Comment on above: Care Start: 01-08-2025 End: 01-08-2025 ambulatory NE HARDIN Facility:[facility] Start: 01-08-2025 End: 01-08-2025 Patient encounter procedure Ne Hardin MD Work Phone: OB/Gynecology Comment on above: Encounter for superv ision of normal first in second trimester (Primary Dx); 27 weeks gestation of ; Low lying placenta nos or without hemorrhage, second trimester; Need for Tdap vaccination; Need for vaccination Start: 12-26-2024 End: 12-26-2024 Telephone encounter Bharti Teresa MD Work Phone: OB/Gynecology Comment on above: OB Abdominal Pain Start: 12-18-2024 End: 12-18-2024 ambulatory No Primary Care Physician Facility:[facility] Start: 12-08-2024 End: 12-08-2024 [facility] Start: 12-08-2024 End: 12-08-2024 Patient encounter procedure Talita Medellin EMBEDDED HARDWARE ENGINEER.CNM Work Phone: OB/Gynecology Comment on above: Encounter for superv ision of normal first in second trimester (Primary Dx); 23 weeks gestation of ; Low-lying placenta; Screening for diabetes mellitus Start: 11-26-2024 End: 11-27-2024 ambulatory Palma Cash APRN.PROFESSOR OF KINESIOLOGY Work Phone: OB/Gynecology Comment on above: Ear infection with d ischarge Start: 11-13-2024 End: 11-13-2024 ambulatory NE HARDIN Facility:[facility] Start: 11-13-2024 End: 11-13-2024 Patient encounter procedure Ne Hardin MD Work Phone: OB/Gynecology Comment on above: 19 weeks gestation o f (Primary Dx); Encounter for supervision of normal first in second trimester; Spotting affecting in second trimester Encounter for anatomic survey (Primary Dx); 19 weeks gestation of Start: 11-13-2024 End: 11-13-2024 ambulatory PALMA CASH Facility:[facility] Start: 10-16-2024 End: 10-17-2024 Refill Palma Cash EMBEDDED HARDWARE ENGINEER.PROFESSOR OF KINESIOLOGY Work Phone: OB/Gynecology Comment on above: Refill Request Start: 10-09-2024 End: 10-09-2024 ambulatory FATOU VERONICA Facility:[facility] Start: 10-09-2024 End: 10-09-2024 Patient encounter procedure Fatou Veronica APRN.CNM Work Phone: OB/Gynecology Comment on above: Encounter for superv ision of normal first in second trimester (Primary Dx); 14 weeks gestation of ; Spotting affecting in second trimester Start: 10-03-2024 End: 10-09-2024 ambulatory Palma Cash EMBEDDED HARDWARE ENGINEER.PROFESSOR OF KINESIOLOGY Work Phone: OB/Gynecology Comment on above: omega 3-des-tpp-fish oil 60-90-500 mg cap Start: 09-29-2024 End: 09-29-2024 Patient encounter procedure Palma Cash APRN.PROFESSOR OF KINESIOLOGY Work Phone: OB/Gynecology Comment on above: Encounter for superv ision of normal first in second trimester (Primary Dx); 13 weeks gestation of ; Vaginal discharge during in first trimester; Vaginal itching; Nausea and vomiting during ; headache in second trimester Encounter for routin e screening for malformation using ultrasound [Z36.3] (Primary Dx); Encounter for supervision of normal first in first trimester; Nuchal translucency of fetus on ultrasound [Z36.82] Start: 09-29-2024 End: 09-29-2024 ambulatory PALMA CASH Facility:[facility] Start: 08-28-2024 End: 08-28-2024 ambulatory PALMA CASH Facility:[facility] Start: 08-28-2024 End: 08-28-2024 Patient encounter procedure Peyman Hawthorne MD Work Phone: OB/Gynecology Comment on above: Encounter for superv ision of normal first in first trimester (Primary Dx); 8 weeks gestation of ; Urinary tract infection without hematuria, site unspecified; Need for influenza vaccination Start: 08-14-2024 End: 08-16-2024 ambulatory Palma Cash APRN.PROFESSOR OF KINESIOLOGY Work Phone: OB/Gynecology Start: 08-14-2024 End: 08-16-2024 Follow-up encounter Palma Cash APRN.PROFESSOR OF KINESIOLOGY Work Phone: OB/Gynecology Comment on above: Follow-up on Aspirin Dosage and Streptococcus Treatment Start: 08-11-2024 End: 08-11-2024 ambulatory SELF Facility:[facility] Start: 08-11-2024 End: 08-11-2024 Patient encounter procedure Palmadanny Santiagosusan SWIFTPROFESSOR OF KINESIOLOGY Work Phone: OB/Gynecology Comment on above: Encounter for superv ision of normal first in first trimester (Primary Dx); 6 weeks gestation of ; with uncertain dates in first trimester; Vaginal itching; Nausea and vomiting during ; At risk for depression; Heartburn during in first trimester Start: 07-31-2024 End: 07-31-2024 ambulatory SELF Facility:[facility] Start: 07-31-2024 End: 07-31-2024 Patient encounter procedure Palmadanny Santiagosusan OLGUIN.PROFESSOR OF KINESIOLOGY Work Phone: OB/Gynecology Comment on above: Encounter for pregna ncy test, result positive (Primary Dx); Heartburn during in first trimester Procedures Date Procedure Procedure Detail Performing Clinician Start: 03-26-2025 Urnls dip stick/tabl et rgnt non-auto w/o micrscp Zeina Strickland MD Work Phone: Start: 03-15-2025 Urnls dip stick/tabl et rgnt non-auto w/o micrscp Lawanda Diaz MD Work Phone: Start: 02-23-2025 Urnls dip stick/tabl et rgnt non-auto w/o micrscp Palma Cash APRN.PROFESSOR OF KINESIOLOGY Work Phone: Start: 11-13-2024 Us preg uterus after 1st trimest 1/ gestation Palma Cash APRN.PROFESSOR OF KINESIOLOGY Work Phone: Start: 09-29-2024 Us nuchal parikh slucency 1st gestation Palma Cash APRN.PROFESSOR OF KINESIOLOGY Work Phone: Start: 08-28-2024 Antibody screen PALMA H MIRA Comment on above: Order Comment: Speci men Type: BLOOD SPECIMENOrdering Facility: [facility] Address: [address] [place] [address] Performed By: #### T SPN ####CC MAIN BLOOD BANKCLIA [id number] [address] Start: 07-31-2024 UA DIP,URINE HCG (POC) Palma Cash APRN.PROFESSOR OF KINESIOLOGY Work Phone: Plan of Treatment Date Care Activity Detail Author Start: 2066 RSV Vaccine (1 - 1-dose 75+ series) RSV Vaccine (1 - 1-dose 75+ series) [facility] Start: 01-08-2035 Urine microalbumin profile DTaP,Tdap,Td Vaccine (2 - Td or Tdap) [facility] Start: 08-11-2029 Screening for malignant neoplasm of cervix Cervical Cancer Screening [facility] Start: 05-23-2025 End: 05-23-2025 Patient encounter procedure 05/23/2025 4:00 PM EDT Office Visit [facility] [address] [place] [address] Saumya Dunn MD [address] [place] [address] [facility] adult [facility] Comment on above: Well adult Start: 04-06-2025 End: 04-06-2025 Patient encounter procedure 04/06/2025 2:00 PM EDT Office Visit OB/Gynecology [address] [place] [address] Bharti Teresa MD [address] [place] [address] 1 week incision check OB/Gynecology Comment on above: 1 week incision chec k Start: 03-26-2025 End: 03-26-2025 Patient encounter procedure 03/26/2025 1:40 PM EDT Routine Office Visit OB/Gynecology [address] [place] [address] Zeina Lainez MD [address] [place] [address] OB Pre Op C/S 03/30 @ [facility] OB/Gynecology Comment on above: OB Pre Op C/S 03/30 @ [facility] Start: 03-09-2025 End: 03-09-2025 Patient encounter procedure Maternal Medicine Comment on above: Growth Growth/OB Start: 02-23-2025 End: 02-23-2025 Patient encounter procedure 02/23/2025 3:45 PM EDT Routine Office Visit OB/Gynecology [address] [place] [address] Palma Cash APRN.PROFESSOR OF KINESIOLOGY [address] [place] [address] (Fax) OB OB/Gynecology Comment on above: OB Start: 02-07-2025 End: 02-07-2025 Patient encounter procedure Maternal Medicine Comment on above: Growth OB Start: 01-22-2025 End: 01-22-2025 Patient encounter procedure 01/22/2025 3:45 PM EDT Routine Office Visit OB/Gynecology [address] [place] [address] Palma Cash APRN.PROFESSOR OF KINESIOLOGY [address] [place] [address] OB OB/Gynecology Comment on above: OB Start: 01-22-2025 End: 04-23-2025 GEST GLUC NEGRITO, 3-HR, 100 GM, FASTING GEST GLUC NEGRITO, 3-HR, 100 GM, FASTING Lab Routine Abnormal glucose complicating (HCC) Encounter for supervision of normal first in second trimester (HCC) Expected: 01/22/2025, Expires: 04/23/2025 [facility] Work Phone: Comment on above: Expected: 01/22/2025 , Expires: 04/23/2025 Start: 01-12-2025 End: 01-12-2025 ambulatory 01/12/2025 3:00 PM EDT Results Only [facility] OF [facility] Laboratory [address] [place] [address] Glucose [place] [facility] Comment on above: Glucose Start: 01-08-2025 End: 01-08-2025 Patient encounter procedure 01/08/2025 4:20 PM EDT Routine Office Visit OB/Gynecology [address] [place] [address] Ne Hardin MD [address] [place] [address] OB Routine OB/Gynecology Comment on above: OB Routine Start: 01-08-2025 End: 01-08-2025 ambulatory 01/08/2025 3:45 PM EDT Results Only [facility] OF [facility] Laboratory [address] [place] [address] [place] [facility] OF [facility] Laboratory Start: 01-08-2025 End: 01-08-2026 OBSTETRIC ULTRASOUND WHI OBSTETRIC ULTRASOUND WHI Anc Imaging Routine Encounter for supervision of normal first in second trimester 27 weeks gestation of Low lying placenta nos or without hemorrhage, second trimester Expected: 01/08/2025, Expires: 01/08/2026 [facility] Work Phone: Comment on above: Expected: 01/08/2025 , Expires: 01/08/2026 Start: 12-08-2024 End: 12-08-2024 Patient encounter procedure 12/08/2024 3:15 PM EST Routine Office Visit OB/Gynecology [address] [place] [address] Talita Medellin APRN.CNM [address] [place] [address] OB Routine OB/Gynecology Comment on above: OB Routine Start: 12-08-2024 End: 03-09-2025 ANEMIA REFLEX PANEL ANEMIA REFLEX PANEL Lab Routine Encounter for supervision of normal first in second trimester Expected: 12/08/2024, Expires: 03/09/[address] [facility] Comment on above: Expected: 12/08/2024 , Expires: 03/09/2025 Start: 12-08-2024 End: 12-08-2025 GESTATIONAL GLUCOSE SCREEN, 1-HOUR, 50 GRAM, NON-FASTING GESTATIONAL GLUCOSE SCREEN, 1-HOUR, 50 GRAM, NON-FASTING Lab Routine Encounter for supervision of normal first in second trimester Screening for diabetes mellitus Expected: 12/08/2024, Expires: 12/08/2025 [facility] Work Phone: Comment on above: Expected: 12/08/2024 , Expires: 12/08/2025 Start: 12-08-2024 End: 12-08-2025 SYPHILIS TREPONEMAL W/REFLEX SYPHILIS TREPONEMAL W/REFLEX Lab Routine Encounter for supervision of normal first in second trimester Expected: 12/08/2024, Expires: 12/08/[address] [facility] Comment on above: Expected: 12/08/2024 , Expires: 12/08/2025 Start: 11-13-2024 End: 11-13-2024 Patient encounter procedure Maternal Medicine Comment on above: Encounter for superv ision of normal first in first trimester [Z34.01]; with uncertain dates in first trimester [Z34.91] OB Routine Start: 09-29-2024 End: 09-29-2024 Patient encounter procedure Maternal Medicine Comment on above: Nuchal OB Routine Start: 09-29-2024 End: 03-14-2025 Chromosome 21 trisomy [Presence] in Blood or Tissue by Cytogenetics [facility] Work Phone: Comment on above: Expected: 09/29/2024 , Expires: 12/29/2024 Start: 08-28-2024 End: 08-28-2024 Patient encounter procedure 08/28/2024 1:10 PM EST Routine Office Visit OB/Gynecology [address] [place], [place] [id number] Peyman Hawthorne MD [address] [place] [address] OB/Gynecology Comment on above: Start: 08-11-2024 End: 11-10-2024 CBC panel - Blood by Automated count COMPLETE BLOOD COUNT Lab Routine Encounter for supervision of normal first in first trimester with uncertain dates in first trimester Expected: 08/11/2024, Expires: 11/10/[address] [facility] Comment on above: Expected: 08/11/2024 , Expires: 11/10/2024 Start: 08-11-2024 End: 11-10-2024 Hemoglobin A1c in Blood HEMOGLOBIN A1C Lab Routine Encounter for supervision of normal first in first trimester with uncertain dates in first trimester Expected: 08/11/2024, Expires: 11/10/[address] [facility] Comment on above: Expected: 08/11/2024 , Expires: 11/10/2024 Start: 08-11-2024 End: 11-10-2024 HEMOGLOBIN EVALUATION CASCADE HEMOGLOBIN EVALUATION CASCADE Lab Routine Encounter for supervision of normal first in first trimester Expected: 08/11/2024, Expires: 11/10/[address] [facility] Comment on above: Expected: 08/11/2024 , Expires: 11/10/2024 Start: 08-11-2024 End: 11-10-2024 Hepatitis B virus surface Ag [Presence] in Serum HEPATITIS B SURFACE ANTIGEN Lab Routine Encounter for supervision of normal first in first trimester with uncertain dates in first trimester Expected: 08/11/2024, Expires: 11/10/[address] [facility] Comment on above: Expected: 08/11/2024 , Expires: 11/10/2024 Start: 08-11-2024 End: 11-10-2024 Hepatitis C virus Ab [Presence] in Serum HEPATITIS C ANTIBODY IA WITH CONFIRMATION Lab Routine Encounter for supervision of normal first in first trimester with uncertain dates in first trimester Expected: 08/11/2024, Expires: 11/10/[address] [facility] Comment on above: Expected: 08/11/2024 , Expires: 11/10/2024 Start: 08-11-2024 End: 11-10-2024 HIV 1+2 Ab [Presence] in Serum or Plasma by Immunoassay HIV 1/2 COMBO WITH REFLEX TO DIFFERENTIATION Lab Routine Encounter for supervision of normal first in first trimester with uncertain dates in first trimester Expected: 08/11/2024, Expires: 11/10/[address] [facility] Comment on above: Expected: 08/11/2024 , Expires: 11/10/2024 Start: 08-11-2024 End: 08-11-2025 NUCHAL TRANSLUCENCY WHI [facility] Comment on above: Expected: 08/11/2024 , Expires: 08/11/2025 Start: 08-11-2024 End: 08-11-2025 OBSTETRIC ULTRASOUND WHI OBSTETRIC ULTRASOUND WHI Anc Imaging Routine Encounter for supervision of normal first in first trimester with uncertain dates in first trimester Expected: 08/11/2024, Expires: 08/11/[address] [facility] Comment on above: Expected: 08/11/2024 , Expires: 08/11/2025 Start: 08-11-2024 End: 11-10-2024 RUBELLA IGG ANTIBODY RUBELLA IGG ANTIBODY Lab Routine Encounter for supervision of normal first in first trimester with uncertain dates in first trimester Expected: 08/11/2024, Expires: 11/10/[address] [facility] Comment on above: Expected: 08/11/2024 , Expires: 11/10/2024 Start: 08-11-2024 End: 11-10-2024 SYPHILIS TREPONEMAL W/REFLEX SYPHILIS TREPONEMAL W/REFLEX Lab Routine Encounter for supervision of normal first in first trimester with uncertain dates in first trimester Expected: 08/11/2024, Expires: 11/10/[address] [facility] Comment on above: Expected: 08/11/2024 , Expires: 11/10/2024 Start: 08-11-2024 End: 11-10-2024 TYPE + SCREEN TYPE + SCREEN Blood Bank Routine Encounter for supervision of normal first in first trimester with uncertain dates in first trimester Expected: 08/11/2024, Expires: 11/10/[address] [facility] Comment on above: Expected: 08/11/2024 , Expires: 11/10/2024 Start: 08-11-2024 End: 08-11-2024 Patient encounter procedure 08/11/2024 1:45 PM EDT Routine Office Visit OB/Gynecology [address] [place], [place] [id number] Palma Cash APRN.PROFESSOR OF KINESIOLOGY [address] [place], [place] [id number] OB Routine OB/Gynecology Comment on above: OB Routine Start: 06-18-2024 Covid-19 Vaccine ( season) Covid-19 Vaccine ( season) [facility] Start: 06-18-2024 Influenza vaccination Influenza Vacc ine (#1) [facility] Start: 2012 Screening for malignant neoplasm of cervix Cervical Cancer Screening [facility] Start: 2010 Hepatitis B Vaccine (1 of 3 - 19+ 3-dose series) Hepatitis B Vaccine (1 of 3 - 19+ 3-dose series) [facility] Start: 2010 Urine microalbumin profile DTaP,Tdap,Td Vaccine (1 - Tdap) [facility] Start: 2009 Anxiety Screening Anxiety Screening [facility] Start: 2009 Depression Screening Depression Scre ening [facility] Start: 2009 Hepatitis C screening Hepatitis C Sc reening [facility] Start: 2009 HIV screening HIV Screening [facility] Bacteria identified in Urine by Culture URINE CULTURE Microbiology Routine Encounter for supervision of normal first in first trimester with uncertain dates in first trimester 08/11/2024 2:40 PM EDT [facility] Bacteria identified in Urine by Culture URINE CULTURE Microbiology Routine Urinary tract infection without hematuria, site unspecified 08/28/2024 1:26 PM [facility] Work Phone: BACTERIAL VAGINOSIS NAAT BACTERIAL VAGINOSIS NAAT Lab Routine Vaginal itching 08/11/2024 2:40 PM EDT [facility] BACTERIAL VAGINOSIS NAAT BACTERIAL VAGINOSIS NAAT Lab Routine Vaginal discharge during in first trimester Vaginal itching 09/29/2024 3:54 PM EST [facility] BACTERIAL VAGINOSIS NAAT BACTERIAL VAGINOSIS NAAT Lab Routine Vaginal discharge 02/23/2025 4:26 PM EDT [facility] MARGARITA/TRICHOMONAS NAAT MARGARITA/TRICHOMONAS NAAT Lab Routine Vaginal itching 08/11/2024 2:40 PM EDT [facility] MARGARITA/TRICHOMONAS NAAT MARGARITA/TRICHOMONAS NAAT Lab Routine Vaginal discharge during in first trimester Vaginal itching 09/29/2024 3:54 PM [facility] MARGARITA/TRICHOMONAS NAAT MARGARITA/TRICHOMONAS NAAT Lab Routine Vaginal discharge 02/23/2025 4:26 PM EDT [facility] Work Phone: Chlamydia trachomatis+Neisseria gonorrhoeae DNA [Presence] in Unspecified specimen by REBEL with probe detection GONORRHEA/CHLAMYDIA NAAT Lab Routine Encounter for supervision of normal first in first trimester with uncertain dates in first trimester 08/11/2024 2:40 PM EDT [facility] PAP TEST PAP TEST Lab Rou donis Encounter for supervision of normal first in first trimester with uncertain dates in first trimester 08/11/2024 2:40 PM EDT [facility] POC ASSOCIATE SOFTWARE DEVELOPMENT ENGINEER ULTRASOUND POC ASSOCIATE SOFTWARE DEVELOPMENT ENGINEER ULTRASO UND Anc Imaging Routine with uncertain dates in first trimester Ordered: 08/11/2024 [facility] Work Phone: Comment on above: Ordered: 08/11/2024 URINE OB DIP B/O URINE OB DIP B/ O Lab Routine Excessive growth affecting management of in third trimester, single or unspecified fetus (HCC) Low-lying placenta (HCC) Excessive weight gain in , third trimester (HCC) Encounter for supervision of normal first in third trimester (HCC) 38 weeks gestation of (HCC) Ordered: 03/22/2025 [facility] Work Phone: Comment on above: Ordered: 03/22/2025 Immunizations Immunization Date Immunization Notes Care Provider Cinthya ceja 01-08-2025 tetanus toxoid, redu otto diphtheria toxoid, and acellular pertussis vaccine, adsorbed Ne Hardin MD Work Phone: [facility] 08-28-2024 influenza, seasonal, injectable Peyman Hawthorne MD Work Phone: [facility] Payers Date Payer Category Payer Self-pay 2024 Unknown [id number] 2024 Unknown [id number] 2023 Private Health Insurance [id number] 2023 Unknown [id number] Unknown [id number] Unknown [id number] Unknown [id number] Social History Date Type Detail Facility Start: 07-31-2024 Tobacco smoking stat us INIS Never smoked tobacco [facility] Start: 07-31-2024 Tobacco use and exposure Smoke less tobacco non-user [facility] Start: 07-31-2024 End: 03-22-2025 Alcoholic beverage intake Ex-drinker (finding) [facility] Start: 07-31-2024 End: 03-22-2025 History of Social function [facility] Start: 07-31-2024 End: 03-22-2025 Tobacco use panel [facility] National Score (1-10 0), lower number is lower risk [address] [facility] Start: 1990 Sex assigned at Not on file [facility] Start: 07-11-[address] [facility] Goals Date Patient Goal Desired Activity /State Personal health goal Clinical Notes 07-31-2024 to 03-26-2025 Quick Notes - Zeina Lainez MD - 03/26/2025 1:51 PM EDTPrenatal Quick Notes - NeyZeina Rodriguez MD - 03/26/2025 1:51 PM EDTPatient InstructionsPatient Instructions Note Date & Type Note Facility 03-26-2025 Progress note Formatting of t his note might be different from the original. DM-Pt doing well. Denies vaginal Bleeding, Leaking fluid, or regular Contractions. Pt reports good movement Physical Exam: Gen: female in no apparent distress Abd: soft, Gravid. Non tender to palpation. See flow sheet @ 38.6 weeks Assessment & Plan Supervision of high risk in third trimester (HCC) Low-lying placenta (HCC) PRE OP completed for section scheduled 39 weeks Orders: URINE OB DIP B/O Excessive weight gain in , third trimester (HCC) Orders: URINE OB DIP B/O Excessive growth affecting management of in third trimester, single or unspecified fetus (HCC) Orders: URINE OB DIP B/O 38 weeks gestation of (HCC) Kick counts and labor reviewed Orders: URINE OB DIP B/O Zeina Mi MD [facility] 03-26-2025 Miscellaneous Notes DM-Pt doing well. Denies vaginal Bleeding, Leaking fluid, or regular Contractions. Pt reports good movement Physical Exam: Gen: female in no apparent distress Abd: soft, Gravid. Non tender to palpation. See flow sheet @ 38.6 weeks Assessment & Plan Supervision of high risk in third trimester (HCC) Low-lying placenta (HCC) PRE OP completed for section scheduled 39 weeks Orders: URINE OB DIP B/O Excessive weight gain in , third trimester (HCC) Orders: URINE OB DIP B/O Excessive growth affecting management of in third trimester, single or unspecified fetus (HCC) Orders: URINE OB DIP B/O 38 weeks gestation of (HCC) Kick counts and labor reviewed Orders: URINE OB DIP B/O Zeina Mi MD documented in this encounter [facility] 03-26-2025 History and physical note Pre-Op History and Physical HPI: The patient is a 34 year old female presenting for pre-operative visit. She is scheduled for elective Primary cs, for low lying placenta Suspected LGA on 03/30/25. Procedure discussed along with risks, benefits and complications. Other alternatives discussed for management. Consent form signed? Yes. PAST MEDICAL HISTORY Diagnosis Date NEGATIVE MEDICAL HISTORY PAST SURGICAL HISTORY Procedure Laterality Date NONE Current Outpatient Medications Medication Sig Dispense Refill Gmusmqas-Bx-Roa-Fe-FA tab Take 1 tablet by mouth once daily. 90 tablet 3 aspirin, enteric coated (ECOTRIN LOW STRENGTH) 81 mg EC tablet Take 1 tablet by mouth once daily. 90 tablet 3 omega 6-lau-ech-fish oil 60-90-500 mg cap Take 1 tablet by mouth once daily. 90 capsule 2 No current facility-administered medications for this visit. ALLERGIES: Patient has no known allergies. PERSONAL HISTORY: Social History Tobacco Use Smoking status: Never Smokeless tobacco: Never Vaping Use Vaping status: Never Used Substance Use Topics Alcohol use: Not Currently Drug use: Never FAMILY HISTORY: FAMILY HISTORY Problem Relation Age of Onset Cancer Mother No Known Problems Father No Known Problems Brother Hypertension Maternal Grandmother Hypertension Maternal Grandfather No Known Problems Paternal Grandmother No Known Problems Paternal Grandfather REVIEW OF SYMPTOMS: negative except as noted above PHYSICAL EXAMINATION: VITALS: Blood pressure 116/70, weight 100.2 kg (221 lb), last menstrual period 06/27/2024. GENERAL: The patient is well nourished, well hydrated in no acute distress. , The patient is oriented to time, place, and person. NECK: full range of motion Abd: gravid, non tender IMPRESSION: 34yo @ 38.6 weeks PLAN: Primary cs for low lying placenta and suspected LGA Pt has been counseled on risks/benefits and alternatives of surgery including but not limited to anesthesia, bleeding, infection, injury to pelvic structures including bowel, bladder, ureters and vessels. Pt wishes to proceed with surgery at this time. Pt understands risk of hemorrhage and possible need for transfusion. Pt understands that growth likely not at 5000g and that ultrasound may be under or over estimating weight. I have reviewed and updated past medical and surgical history, medications and allergies Zeina Strickland MD [facility] 03-26-2025 History and physical note Pre-Op History and Physical HPI: The patient is a 34 year old female presenting for pre-operative visit. She is scheduled for elective Primary cs, for low lying placenta Suspected LGA on 03/30/25. Procedure discussed along with risks, benefits and complications. Other alternatives discussed for management. Consent form signed? Yes. PAST MEDICAL HISTORY Diagnosis Date NEGATIVE MEDICAL HISTORY PAST SURGICAL HISTORY Procedure Laterality Date NONE Current Outpatient Medications Medication Sig Dispense Refill Kyqehzgz-Tc-Iwn-Fe-FA tab Take 1 tablet by mouth once daily. 90 tablet 3 aspirin, enteric coated (ECOTRIN LOW STRENGTH) 81 mg EC tablet Take 1 tablet by mouth once daily. 90 tablet 3 omega 9-xdj-aqu-fish oil 60-90-500 mg cap Take 1 tablet by mouth once daily. 90 capsule 2 No current facility-administered medications for this visit. ALLERGIES: Patient has no known allergies. PERSONAL HISTORY: Social History Tobacco Use Smoking status: Never Smokeless tobacco: Never Vaping Use Vaping status: Never Used Substance Use Topics Alcohol use: Not Currently Drug use: Never FAMILY HISTORY: FAMILY HISTORY Problem Relation Age of Onset Cancer Mother No Known Problems Father No Known Problems Brother Hypertension Maternal Grandmother Hypertension Maternal Grandfather No Known Problems Paternal Grandmother No Known Problems Paternal Grandfather REVIEW OF SYMPTOMS: negative except as noted above PHYSICAL EXAMINATION: VITALS: Blood pressure 116/70, weight 100.2 kg (221 lb), last menstrual period 06/27/2024. GENERAL: The patient is well nourished, well hydrated in no acute distress. , The patient is oriented to time, place, and person. NECK: full range of motion Abd: gravid, non tender IMPRESSION: 34yo @ 38.6 weeks PLAN: Primary cs for low lying placenta and suspected LGA Pt has been counseled on risks/benefits and alternatives of surgery including but not limited to anesthesia, bleeding, infection, injury to pelvic structures including bowel, bladder, ureters and vessels. Pt wishes to proceed with surgery at this time. Pt understands risk of hemorrhage and possible need for transfusion. Pt understands that growth likely not at 5000g and that ultrasound may be under or over estimating weight. I have reviewed and updated past medical and surgical history, medications and allergies Zeina Strickland MD documented in this encounter [facility] 03-26-2025 Instructions Carolyn SuárezEDMOND - 03/26/2025 1:29 PM EDT SEQUENTIAL SCREENINGS The [facility] offers sequential screenings for women who are interested in screenings for chromosomal abnormalities and certain defects during a . The sequential screen combines ultrasound and blood tests to determine the risk of chromosomal abnormalities, including Down's Syndrome (Trisomy 21) and Trisomy 18, as well as open neural tube defects including spina bifida. Ultrasound examination is performed between 11 weeks and 13 weeks gestational age. Blood tests are drawn after the ultrasound and again later in the between 15 and 21 weeks gestational age. Please let your physician know if you are interested in this testing. It will require an appointment with our flight technician. This is not an ultrasound performed by a physician in our office during a routine visit. SIGNS AND SYMPTOMS OF LABOR 1. Contractions every 10 minutes or more often 2. Clear, pink, or brownish fluid (water) leaking from vagina 3. Feeling that baby is pushing down, pressure 4. Low, dull backache 5. Cramps that feel like a period 6. Cramps with or without diarrhea If you notice any of the above symptoms, contact our office at [phone] and ask to speak with a nurse. After hours, you can call doctors registry at [phone] OR call [facility] at [phone] and ask to have the doctor radiation control worker paged. If you consider this an emergency, dial 9-1-1 or go to your nearest emergency department. NEED HELP? Are you dealing with a violent or abusive relationship? Are you a victim of rape or sexual assult? Call [facility] ([place]) 24 hour Crisis Hotline: 100.446.6568 or 212-435-3208. MANUAL Your Guide to a Healthy manual is now on-line. Visit [email or web address] to download your free copy documented in this encounter [facility] 03-22-2025 Progress note Formatting of t his note might be different from the original. S: Amparo Cabral is a 34 year old female who presents at 04/03/2025, by Last Menstrual Period for a routine visit. Denies headache, visual changes, chest pain, shortness of breath, vaginal bleeding, leakage of fluid, or dysuria. Feeling well, no complaints. Good movement, No contractions O: See flow sheet Gen: No apparent distress Abd: Gravid, nontender C/s Scheduled for next week for low lying placenta Answered all surgical questions Pre op next week. ASSESSMENT/PLAN: 1. Excessive growth affecting management of in third trimester, single or unspecified fetus ([facility]) - ICD9: 656.63, ICD10: O36.63X0 (primary diagnosis) - URINE OB DIP B/O 2. Low-lying placenta ([facility]) - ICD9: 641.10, ICD10: O44.40 - URINE OB DIP B/O 3. Excessive weight gain in , third trimester ([facility]) - ICD9: 646.13, 783.1, ICD10: O26.03 - URINE OB DIP B/O 4. Encounter for supervision of normal first in third trimester ([facility]) - ICD9: V22.0, ICD10: Z34.03 - URINE OB DIP B/O 5. 38 weeks gestation of ([facility]) - ICD9: V22.2, ICD10: Z3A.38 - URINE OB DIP B/O Bharti Teresa MD [facility] 03-22-2025 Miscellaneous Notes S: Amparo Cabral is a 34 year old female who presents at 04/03/2025, by Last Menstrual Period for a routine visit. Denies headache, visual changes, chest pain, shortness of breath, vaginal bleeding, leakage of fluid, or dysuria. Feeling well, no complaints. Good movement, No contractions O: See flow sheet Gen: No apparent distress Abd: Gravid, nontender C/s Scheduled for next week for low lying placenta Answered all surgical questions Pre op next week. ASSESSMENT/PLAN: 1. Excessive growth affecting management of in third trimester, single or unspecified fetus (HCC) - ICD9: 656.63, ICD10: O36.63X0 (primary diagnosis) - URINE OB DIP B/O 2. Low-lying placenta (HCC) - ICD9: 641.10, ICD10: O44.40 - URINE OB DIP B/O 3. Excessive weight gain in , third trimester (HCC) - ICD9: 646.13, 783.1, ICD10: O26.03 - URINE OB DIP B/O 4. Encounter for supervision of normal first in third trimester ([facility]) - ICD9: V22.0, ICD10: Z34.03 - URINE OB DIP B/O 5. 38 weeks gestation of ([facility]) - ICD9: V22.2, ICD10: Z3A.38 - URINE OB DIP B/O Bharti Teresa MD documented in this encounter [facility] 03-22-2025 Instructions Carolyn Suárez MA - 03/22/2025 10:45 AM EDT SEQUENTIAL SCREENINGS The [facility] offers sequential screenings for women who are interested in screenings for chromosomal abnormalities and certain defects during a . The sequential screen combines ultrasound and blood tests to determine the risk of chromosomal abnormalities, including Down's Syndrome (Trisomy 21) and Trisomy 18, as well as open neural tube defects including spina bifida. Ultrasound examination is performed between 11 weeks and 13 weeks gestational age. Blood tests are drawn after the ultrasound and again later in the between 15 and 21 weeks gestational age. Please let your physician know if you are interested in this testing. It will require an appointment with our flight technician. This is not an ultrasound performed by a physician in our office during a routine visit. SIGNS AND SYMPTOMS OF LABOR 1. Contractions every 10 minutes or more often 2. Clear, pink, or brownish fluid (water) leaking from vagina 3. Feeling that baby is pushing down, pressure 4. Low, dull backache 5. Cramps that feel like a period 6. Cramps with or without diarrhea If you notice any of the above symptoms, contact our office at [phone] and ask to speak with a nurse. After hours, you can call doctors registry at [phone] OR call [facility] at [phone] and ask to have the doctor radiation control worker paged. If you consider this an emergency, dial or go to your nearest emergency department. NEED HELP? Are you dealing with a violent or abusive relationship? Are you a victim of rape or sexual assult? Call [facility] ([place]) 24 hour Crisis Hotline: 809.162.9524 or 112-808-6714. MANUAL Your Guide to a Healthy manual is now on-line. Visit [email or web address] Karina to download your free copy documented in this encounter [facility] 03-21-2025 Note HNO ID: [id number] Author: RONA TOLLIVER, ? Service: ? Author Type: Patient Biosolids Management Technician Type: Progress Notes Filed: 03/21/2025 06:56 Note Text: POPULATION HEALTH NAVIGATION OUTREACH Action/FYI Responded via my chart added ear mold laboratory technician Reason for Outreach Medicaid OB/Peds Care Gaps due: N/A Patient Contacted: Spoke to patient/parent/or legal guardian Patient identified by name and : Yes Medicaid OB/Peds actions taken: [place]/Web Applications Architect added Navigation Signature: Rona Tolliver Population Health Navigator March 21, 2025 6:56 AM [facility] 03-20-2025 Note HNO ID: [id number] Author: RONA TOLLIVER, ? Service: ? Author Type: Patient Biosolids Management Technician Type: Progress Notes Filed: 03/20/2025 08:06 Note Text: POPULATION HEALTH NAVIGATION OUTREACH Action/FYI Spoke to patient undecided will send my chart link Reason for Outreach Medicaid OB/Peds Care Gaps due: N/A Patient Contacted: Spoke to patient/parent/or legal guardian Patient identified by name and : Yes Medicaid OB/Peds actions taken: Patient declined: Patient requested call back from navigator/ will call navigator back Navigation Signature: Rona Tolliver [facility] PneumaCare Navigator March 20, 2025 8:03 AM [facility] 03-20-2025 Note Patient Outreach (MELY SCHROEDERAV) AMPARO CABRAL ([id number]) 1990 F Date Time Provider Department 03/20/25 RONA TOLLIVER During your visit today, we recorded the following information about you: Rona Tolliver 03/20/2025 8:06 AM Signed POPULATION HEALTH NAVIGATION OUTREACH Action/FYI Spoke to patient undecided will send my chart link Reason for Outreach Medicaid OB/Peds Care Gaps due: N/A Patient Contacted: Spoke to patient/parent/or legal guardian Patient identified by name and : Yes Medicaid OB/Peds actions taken: Patient declined: Patient requested call back from navigator/ will call navigator back Navigation Signature: Rona Tolliver Population Health Navigator March 20, 2025 8:03 AM Rona Tolliver 03/21/2025 6:56 AM Signed POPULATION HEALTH NAVIGATION OUTREACH Action/FYI Responded via my chart added ear mold laboratory technician Reason for Outreach Medicaid OB/Peds Care Gaps due: N/A Patient Contacted: Spoke to patient/parent/or legal guardian Patient identified by name and : Yes Medicaid OB/Peds actions taken: [place]/Web Applications Architect added Navigation Signature: Rona Tolliver Population Health Navigator March 21, 2025 6:56 AM Allergies As of Date: 03/20/2025 (No Known Allergies) Date Reviewed: 03/15/2025 Reviewed by: Lawanda Diaz MD - Fully Assessed Reason for Visit: Population Health Navigation Outreach [3910] Cmt: Ob peds Prescriptions as of 03/21/2025 - Rbleldds-Sh-Ngq-Fe-FA tab Take 1 tablet by mouth once daily. - aspirin, enteric coated (ECOTRIN LOW STRENGTH) 81 mg EC tablet Take 1 tablet by mouth once daily. - omega 7-apx-qkw-fish oil 60-90-500 mg cap Take 1 tablet by mouth once daily. Problem List As Of Date 03/20/2025 Noted Resolved Heartburn during in first trimester [*07/31/2024 09/29/2024 Vaginal itching [N89.8] 08/11/2024 09/29/2024 Encounter for supervision of normal first pregn*08/11/2024 At risk for depression [Z91.89] 08/11/2024 Rubella non-immune status, antepartum [O09.899,*08/30/2024 Microcytosis [R71.8] 08/30/2024 headache in second trimester [O26.892*09/29/2024 Spotting affecting in second trimeste*10/09/2024 Low-lying placenta (HCC) [O44.40] 11/15/2024 Abnormal glucose complicating (HCC) [*01/15/2025 Excessive weight gain in , third trime*02/23/2025 Excessive growth affecting management of *03/13/2025 Encounter Status:Closed by RONA TOLLIVER on 03/20/25 [facility] 03-15-2025 Telephone encounter Note Spoke to Pt. Pt has decided on 03/30/25 at 12pm with DM. Pre-op appt changed with DM. Jim notified to update surgery schedule/hospital and physicians. Ginna Carrillo RN [facility] 03-15-2025 Miscellaneous Notes Spoke to Pt. Pt has decided on 03/30/25 at 12pm with DM. Pre-op appt changed with DM. Gilles notified to update surgery schedule/hospital and physicians. Ginna Carrillo RN Patient viewed [employer] message. Asking if she could have 6/12 or 6/13. Aware there are openings, but it would be with a different provider. Patient will call the office if she chooses a different day. If we don't hear from her, plan for 6/10 as scheduled. Bharti Aguiar RN documented in this encounter [facility] 03-15-2025 Telephone encounter Note Patient viewed [employer] message. Asking if she could have 6/12 or 6/13. Aware there are openings, but it would be with a different provider. Patient will call the office if she chooses a different day. If we don't hear from her, plan for 6/10 as scheduled. Bharti Aguiar RN [facility] 03-15-2025 Progress note Formatting of t his note might be different from the original. S: Amparo denies LOF, contractions or vaginal bleeding. O: 37w2d, see flow sheet SENSITIVE EXAM: Sensitive exam not performed. A/P: Assessment & Plan Excessive growth affecting management of in third trimester, single or unspecified fetus (HCC) Orders: URINE OB DIP B/O Low-lying placenta (HCC) Discussed R/B/a of MOD as placenta 6mm away. Patient wishes to proceed with primary Orders: URINE OB DIP B/O Excessive weight gain in , third trimester ([facility]) Orders: URINE OB DIP B/O Encounter for supervision of normal first in third trimester ([facility]) Orders: URINE OB DIP B/O 37 weeks gestation of ([facility]) Orders: URINE OB DIP B/O Reviewed labor & FM precautions Lawanda Diaz MD [facility] 03-15-2025 Miscellaneous Notes S: Amparo denies LOF, contractions or vaginal bleeding. O: 37w2d, see flow sheet SENSITIVE EXAM: Sensitive exam not performed. A/P: Assessment & Plan Excessive growth affecting management of in third trimester, single or unspecified fetus (HCC) Orders: URINE OB DIP B/O Low-lying placenta (HCC) Discussed R/B/a of MOD as placenta 6mm away. Patient wishes to proceed with primary Orders: URINE OB DIP B/O Excessive weight gain in , third trimester (HCC) Orders: URINE OB DIP B/O Encounter for supervision of normal first in third trimester (HCC) Orders: URINE OB DIP B/O 37 weeks gestation of ([facility]) Orders: URINE OB DIP B/O Reviewed labor & FM precautions Lawanda Diaz MD documented in this encounter [facility] 03-15-2025 Instructions Corby Salcido MA - 03/15/2025 1:00 PM EDT SEQUENTIAL SCREENINGS The [facility] offers sequential screenings for women who are interested in screenings for chromosomal abnormalities and certain defects during a . The sequential screen combines ultrasound and blood tests to determine the risk of chromosomal abnormalities, including Down's Syndrome (Trisomy 21) and Trisomy 18, as well as open neural tube defects including spina bifida. Ultrasound examination is performed between 11 weeks and 13 weeks gestational age. Blood tests are drawn after the ultrasound and again later in the between 15 and 21 weeks gestational age. Please let your physician know if you are interested in this testing. It will require an appointment with our flight technician. This is not an ultrasound performed by a physician in our office during a routine visit. SIGNS AND SYMPTOMS OF LABOR 1. Contractions every 10 minutes or more often 2. Clear, pink, or brownish fluid (water) leaking from vagina 3. Feeling that baby is pushing down, pressure 4. Low, dull backache 5. Cramps that feel like a period 6. Cramps with or without diarrhea If you notice any of the above symptoms, contact our office at [phone] and ask to speak with a nurse. After hours, you can call doctors registry at [phone] OR call [facility] at [phone] and ask to have the doctor radiation control worker paged. If you consider this an emergency, dial 9--1 or go to your nearest emergency department. NEED HELP? Are you dealing with a violent or abusive relationship? Are you a victim of rape or sexual assult? Call [facility] ([place]) 24 hour Crisis Hotline: 376.174.5693 or 068-733-0849. MANUAL Your Guide to a Healthy manual is now on-line. Visit [email or web address] to download your free copy documented in this encounter [facility] 02-26-2025 Telephone encounter Note Discharge can be normal in . If she is having other symptoms with it needs visit for eval thanks [facility] Work Phone: 02-26-2025 Miscellaneous Notes Discharge can be normal in . If she is having other symptoms with it needs visit for eval thanks documented in this encounter [facility] 02-23-2025 Instructions Jada Madrigal MA - 02/23/2025 3:45 PM EDT SEQUENTIAL SCREENINGS The [facility] offers sequential screenings for women who are interested in screenings for chromosomal abnormalities and certain defects during a . The sequential screen combines ultrasound and blood tests to determine the risk of chromosomal abnormalities, including Down's Syndrome (Trisomy 21) and Trisomy 18, as well as open neural tube defects including spina bifida. Ultrasound examination is performed between 11 weeks and 13 weeks gestational age. Blood tests are drawn after the ultrasound and again later in the between 15 and 21 weeks gestational age. Please let your physician know if you are interested in this testing. It will require an appointment with our flight technician. This is not an ultrasound performed by a physician in our office during a routine visit. SIGNS AND SYMPTOMS OF LABOR 1. Contractions every 10 minutes or more often 2. Clear, pink, or brownish fluid (water) leaking from vagina 3. Feeling that baby is pushing down, pressure 4. Low, dull backache 5. Cramps that feel like a period 6. Cramps with or without diarrhea If you notice any of the above symptoms, contact our office at [phone] and ask to speak with a nurse. After hours, you can call doctors registry at [phone] OR call [facility] at [phone] and ask to have the doctor radiation control worker paged. If you consider this an emergency, dial 9-1-7 or go to your nearest emergency department. NEED HELP? Are you dealing with a violent or abusive relationship? Are you a victim of rape or sexual assult? Call [facility] ([place]) 24 hour Crisis Hotline: 393.547.9526 or 819-711-8008. MANUAL Your Guide to a Healthy manual is now on-line. Visit [email or web address] to download your free copy documented in this encounter [facility] 02-23-2025 Progress note Formatting of t his note might be different from the original. EH - S: Amparo is a 34 year old female who presents at 34w3d for a routine visit. Feeling movement. Denies headache, visual changes, chest pain, shortness of breath, vaginal bleeding, leakage of fluid, or dysuria. Some musculoskeletal lower back pain. Some white vaginal discharge with itching. O: See flow sheet Gen: No apparent distress Abd: Gravid, nontender, S=D Participation of a fellow, resident, medical student, or advanced practice provider student in performing the sensitive examination was discussed with the patient or authorized merchandising representative. The patient or authorized merchandising representative has agreed to proceed with the sensitive examination. PELVIS: External genitalia normal without lesions. Perineal body intact. No vaginal or cervical lesions. Difficult to visualize cervix due to patient discomfort. + white discharge ASSESSMENT/PLAN: 1. Encounter for supervision of normal first in third trimester ([facility]) - ICD9: V22.0, ICD10: Z34.03 (primary diagnosis) - Continue PNV and LDA 2. 34 weeks gestation of ([facility]) - ICD9: V22.2, ICD10: Z3A.34 - GBS next visit 3. Low-lying placenta (HCC) - ICD9: 641.10, ICD10: O44.40 - Repeat ultrasound scheduled for 03/09 4. Excessive weight gain in , third trimester ([facility]) - ICD9: 646.13, 783.1, ICD10: O26.03 - 41 lb weight gain at 34 weeks - EFW 98% at 32 week growth 5. Vaginal discharge - ICD9: 623.5, ICD10: N89.8 - Cultures obtained PTL precautions and kick counts reviewed. RTO in 2 weeks or sooner as needed. Palma Cash APRN.PROFESSOR OF KINESIOLOGY [facility] 02-23-2025 Miscellaneous Notes EH - S: Amparo is a 34 year old female who presents at 34w3d for a routine visit. Feeling movement. Denies headache, visual changes, chest pain, shortness of breath, vaginal bleeding, leakage of fluid, or dysuria. Some musculoskeletal lower back pain. Some white vaginal discharge with itching. O: See flow sheet Gen: No apparent distress Abd: Gravid, nontender, S=D Participation of a fellow, resident, medical student, or advanced practice provider student in performing the sensitive examination was discussed with the patient or authorized merchandising representative. The patient or authorized merchandising representative has agreed to proceed with the sensitive examination. PELVIS: External genitalia normal without lesions. Perineal body intact. No vaginal or cervical lesions. Difficult to visualize cervix due to patient discomfort. + white discharge ASSESSMENT/PLAN: 1. Encounter for supervision of normal first in third trimester ([facility]) - ICD9: V22.0, ICD10: Z34.03 (primary diagnosis) - Continue PNV and LDA 2. 34 weeks gestation of ([facility]) - ICD9: V22.2, ICD10: Z3A.34 - GBS next visit 3. Low-lying placenta (HCC) - ICD9: 641.10, ICD10: O44.40 - Repeat ultrasound scheduled for 03/09 4. Excessive weight gain in , third trimester ([facility]) - ICD9: 646.13, 783.1, ICD10: O26.03 - 41 lb weight gain at 34 weeks - EFW 98% at 32 week growth 5. Vaginal discharge - ICD9: 623.5, ICD10: N89.8 - Cultures obtained PTL precautions and kick counts reviewed. RTO in 2 weeks or sooner as needed. Palma Cash APRN.PROFESSOR OF KINESIOLOGY documented in this encounter [facility] 02-15-2025 Evaluation + Plan note Associated Problem(s): Encounter for supervision of normal first in third trimester ([facility]) [facility] 02-15-2025 Evaluation + Plan note Associated Problem(s): Low-lying placenta (HCC) Repeat US scheduled. [facility] 02-15-2025 Miscellaneous Notes Associated Problem(s): Encounter for supervision of normal first in third trimester ([facility]) Associated Problem(s): Low-lying placenta (HCC) Repeat US scheduled. KJ - Patient seen urgently for swelling in . S: Amparo denies LOF, contractions or vaginal bleeding. O: 33w2d, see flow sheet SENSITIVE EXAM: Sensitive exam not performed. Extermities: LE- 1+ equal & bilateral edema, UE - trace edema in wrists A/P: Assessment & Plan 33 weeks gestation of ([facility]) Encounter for supervision of normal first in third trimester ([facility]) Low-lying placenta (HCC) Repeat US scheduled. Patient reassured on swelling & advised on conservative measures. Reviewed PTL & FM precautions Lawanda Diaz MD documented in this encounter [facility] 02-15-2025 Progress note Formatting of t his note might be different from the original. KJ - Patient seen urgently for swelling in . S: Amparo denies LOF, contractions or vaginal bleeding. O: 33w2d, see flow sheet SENSITIVE EXAM: Sensitive exam not performed. Extermities: LE- 1+ equal & bilateral edema, UE - trace edema in wrists A/P: Assessment & Plan 33 weeks gestation of (HCC) Encounter for supervision of normal first in third trimester ([facility]) Low-lying placenta (HCC) Repeat US scheduled. Patient reassured on swelling & advised on conservative measures. Reviewed PTL & FM precautions Lawanda Diaz MD [facility] 02-15-2025 Instructions Reanna Henderson MA - 02/15/2025 3:48 PM EDT SEQUENTIAL SCREENINGS The [facility] offers sequential screenings for women who are interested in screenings for chromosomal abnormalities and certain defects during a . The sequential screen combines ultrasound and blood tests to determine the risk of chromosomal abnormalities, including Down's Syndrome (Trisomy 21) and Trisomy 18, as well as open neural tube defects including spina bifida. Ultrasound examination is performed between 11 weeks and 13 weeks gestational age. Blood tests are drawn after the ultrasound and again later in the between 15 and 21 weeks gestational age. Please let your physician know if you are interested in this testing. It will require an appointment with our flight technician. This is not an ultrasound performed by a physician in our office during a routine visit. SIGNS AND SYMPTOMS OF LABOR 1. Contractions every 10 minutes or more often 2. Clear, pink, or brownish fluid (water) leaking from vagina 3. Feeling that baby is pushing down, pressure 4. Low, dull backache 5. Cramps that feel like a period 6. Cramps with or without diarrhea If you notice any of the above symptoms, contact our office at [phone] and ask to speak with a nurse. After hours, you can call [employer] registry at [phone] OR call [facility] at [phone] and ask to have the doctor radiation control worker paged. If you consider this an emergency, dial 9-1-0 or go to your nearest emergency department. NEED HELP? Are you dealing with a violent or abusive relationship? Are you a victim of rape or sexual assult? Call [facility] ([place]) 24 hour Crisis Hotline: 719.839.4742 or 222-963-7493. MANUAL Your Guide to a Healthy manual is now on-line. Visit [email or web address] to download your free copy documented in this encounter [facility] 02-07-2025 Note HNO ID: [id number] Author: TALITA MEDELLIN APRN.KARLEE Service: ? Author Type: Supervisor Residential Type: Progress Notes Filed: 02/09/2025 12:21 Note Text: KARLA-S: Amparo Cabral is a 34 year old female who presents at 32w1d with SYED:04/03/2025, by Last Menstrual Period for a routine visit. Denies headache, visual changes, chest pain, shortness of breath, vaginal bleeding, leakage of fluid, or dysuria. Feeling well, no complaints. O: See flow sheet Gen: No apparent distress Abd: Gravid, nontender ASSESSMENT/PLAN: 1. 32 weeks gestation of -Continue PNV and ASA 2. Encounter for supervision of normal first in third trimester 3. Low-lying placenta -Follow up US in 4 weeks -Reviewed if does not move recommendation for C/S. 4. Rubella non-immune status, antepartum PTL precautions reviewed and when to call RTO in 2 weeks Talita Medellin APRN.[facility] 01-22-2025 Miscellaneous Notes EH - S: Amparo is a 34 year old female who presents at 29w6d for a routine visit. Feeling movement. Denies headache, visual changes, chest pain, shortness of breath, vaginal bleeding, leakage of fluid, or dysuria. Some musculoskeletal pain. O: See flow sheet Gen: No apparent distress Abd: Gravid, nontender, S>D ASSESSMENT/PLAN: 1. Encounter for supervision of normal first in third trimester (HCC) - ICD9: V22.0, ICD10: Z34.03 (primary diagnosis) - Continue LDA and PNV - Planning birthing classes at [facility] - Discussed pediatricians - Some intermittent left pain that resolves with rest. No swelling, redness, pain, or warmth on exam today. Reviewed signs of DVT. 2. 29 weeks gestation of ([facility]) - ICD9: V22.2, ICD10: Z3A.29 - Elevated 1 hour, passed 3 hour 3. Low-lying placenta ([facility]) - ICD9: 641.10, ICD10: O44.40 - Recheck at 32 weeks - Reviewed precautions PTL precautions and kick counts reviewed. RTO in 2 weeks or sooner as needed. Palma Cash APRN.TOMÁS documented in this encounter [facility] 01-22-2025 Progress note Formatting of t his note might be different from the original. EH - S: Amparo is a 34 year old female who presents at 29w6d for a routine visit. Feeling movement. Denies headache, visual changes, chest pain, shortness of breath, vaginal bleeding, leakage of fluid, or dysuria. Some musculoskeletal pain. O: See flow sheet Gen: No apparent distress Abd: Gravid, nontender, S>D ASSESSMENT/PLAN: 1. Encounter for supervision of normal first in third trimester ([facility]) - ICD9: V22.0, ICD10: Z34.03 (primary diagnosis) - Continue LDA and PNV - Planning birthing classes at [facility] - Discussed pediatricians - Some intermittent left pain that resolves with rest. No swelling, redness, pain, or warmth on exam today. Reviewed signs of DVT. 2. 29 weeks gestation of ([facility]) - ICD9: V22.2, ICD10: Z3A.29 - Elevated 1 hour, passed 3 hour 3. Low-lying placenta ([facility]) - ICD9: 641.10, ICD10: O44.40 - Recheck at 32 weeks - Reviewed precautions PTL precautions and kick counts reviewed. RTO in 2 weeks or sooner as needed. Palma Cash APRN.PROFESSOR OF KINESIOLOGY [facility] 01-22-2025 Instructions Jada Madrigal MA - 01/22/2025 3:42 PM EDT SEQUENTIAL SCREENINGS The [facility] offers sequential screenings for women who are interested in screenings for chromosomal abnormalities and certain defects during a . The sequential screen combines ultrasound and blood tests to determine the risk of chromosomal abnormalities, including Down's Syndrome (Trisomy 21) and Trisomy 18, as well as open neural tube defects including spina bifida. Ultrasound examination is performed between 11 weeks and 13 weeks gestational age. Blood tests are drawn after the ultrasound and again later in the between 15 and 21 weeks gestational age. Please let your physician know if you are interested in this testing. It will require an appointment with our flight technician. This is not an ultrasound performed by a physician in our office during a routine visit. SIGNS AND SYMPTOMS OF LABOR 1. Contractions every 10 minutes or more often 2. Clear, pink, or brownish fluid (water) leaking from vagina 3. Feeling that baby is pushing down, pressure 4. Low, dull backache 5. Cramps that feel like a period 6. Cramps with or without diarrhea If you notice any of the above symptoms, contact our office at [phone] and ask to speak with a nurse. After hours, you can call doctors registry at [phone] OR call [facility] at [phone] and ask to have the doctor radiation control worker paged. If you consider this an emergency, dial 9-1- or go to your nearest emergency department. NEED HELP? Are you dealing with a violent or abusive relationship? Are you a victim of rape or sexual assult? Call [facility] ([place]) 24 hour Crisis Hotline: 558.631.7080 or 602-323-5924. MANUAL Your Guide to a Healthy manual is now on-line. Visit [email or web address] to download your free copy documented in this encounter [facility] 01-17-2025 Telephone encounter Note Message from patient: Thank you, Dr. Dawkins. I was a bit worried about my glucose results. Is there anything I can do to control it? I hope my baby is not affected by this. Also, I have a cold with a runny nose--can you recommend the best brand of tablets to take during ? I took Claritin Non-Drowsy Liqui-Gels based on the pharmacist's suggestion. Is it safe to take continuously? [facility] 01-17-2025 Miscellaneous Notes Message from patient: Thank you, Dr. Dawkins. I was a bit worried about my glucose results. Is there anything I can do to control it? I hope my baby is not affected by this. Also, I have a cold with a runny nose--can you recommend the best brand of tablets to take during ? I took Claritin Non-Drowsy Liqui-Gels based on the pharmacist's suggestion. Is it safe to take continuously? documented in this encounter [facility] 01-10-2025 Telephone encounter Note Patient notified of directions [facility] 01-10-2025 Miscellaneous Notes Patient notified of directions Would recommend eating/drinking something and then going to quiet area and counting movements. If she gets 10 movements in 2 hrs that is fine. If she is concerned she can go to L&D Ob patient is 28w1d and called stating she has not felt kicking movements from baby since yesterday afternoon but has felt subtle movements throughout the day. Patient concerned about the change in movements.next ob appointment is 01/22/25 documented in this encounter [facility] 01-10-2025 Telephone encounter Note Would recommend eating/drinking something and then going to quiet area and counting movements. If she gets 10 movements in 2 hrs that is fine. If she is concerned she can go to L&D [facility] Work Phone: 01-10-2025 Telephone encounter Note Ob patient is 28w1d and called stating she has not felt kicking movements from baby since yesterday afternoon but has felt subtle movements throughout the day. Patient concerned about the change in movements.next ob appointment is 01/22/[address] [facility] 01-08-2025 Note HNO ID: [id number] Author: CELESTINO FERNANDEZ LPN Service: ? Author Type: LICENSED NURSE Type: Progress Notes Filed: 01/08/2025 17:12 Note Text: Patient identified by name and date of . Amparo Cabral presents today for a vaccination of Tdap. Patient denies an allergy to latex: no-single dose vial administered Patient denies a severe (life-threatening) allergy to a previous dose of Tdap, DTP, DTaP, DT or Td vaccine. No Patient denies history of epilepsy or neurological problems: No Patient is afebrile and denies being moderately or severely ill: No Patient denies history of Guillain-[place] Syndrome (a severe paralytic illness): No Tdap Adacel injection was given without incident. See immunizations for details of immunizations administered today. VIS sheet provided: Yes Provider Dr. Ne Hardin was present in office at time of injection. Celestino Fernandez LPN [facility] 01-08-2025 History of Presen t illness Narrative Patient identified by name and date of . Amparo Cabral presents today for a vaccination of Tdap. Patient denies an allergy to latex: no-single dose vial administered Patient denies a severe (life-threatening) allergy to a previous dose of Tdap, DTP, DTaP, DT or Td vaccine. No Patient denies history of epilepsy or neurological problems: No Patient is afebrile and denies being moderately or severely ill: No Patient denies history of Guillain-[place] Syndrome (a severe paralytic illness): No Tdap Adacel injection was given without incident. See immunizations for details of immunizations administered today. VIS sheet provided: Yes Provider Dr. Ne Hardin was present in office at time of injection. Celestino Fernandez LPN documented in this encounter [facility] 01-08-2025 Progress note Formatting of t his note might be different from the original. RR- VB No. LOF No. CTXS No. Movement: present. Other c/o: No. Medication list reviewed. SENSITIVE EXAM: Sensitive exam not performed. Physical Exam See Flow Sheet Abd: soft, nontender, gravid A/P 27w6d Estimated Date of Delivery: 04/03/25 Assessment & Plan Encounter for supervision of normal first in second trimester Orders: OBSTETRIC ULTRASOUND WHI; Future 27 weeks gestation of Orders: OBSTETRIC ULTRASOUND WHI; Future Low lying placenta nos or without hemorrhage, second trimester Orders: OBSTETRIC ULTRASOUND WHI; Future Need for Tdap vaccination [facility] has birthing classes scheduled d/w her contraception options, decliens larc at delivery but will likely want something later after PP visit US to recheck placenta at 32 weeks tdap today Ne Hardin M.D. [facility] 01-08-2025 Miscellaneous Notes RR- VB No. LOF No. CTXS No. Movement: present. Other c/o: No. Medication list reviewed. SENSITIVE EXAM: Sensitive exam not performed. Physical Exam See Flow Sheet Abd: soft, nontender, gravid A/P 27w6d Estimated Date of Delivery: 04/03/25 Assessment & Plan Encounter for supervision of normal first in second trimester Orders: OBSTETRIC ULTRASOUND WHI; Future 27 weeks gestation of Orders: OBSTETRIC ULTRASOUND WHI; Future Low lying placenta nos or without hemorrhage, second trimester Orders: OBSTETRIC ULTRASOUND WHI; Future Need for Tdap vaccination [facility] has birthing classes scheduled d/w her contraception options, decliens larc at delivery but will likely want something later after PP visit US to recheck placenta at 32 weeks tdap today Ne Hardin M.D. documented in this encounter [facility] 01-08-2025 Instructions Kristi Lemons MA - 01/08/2025 4:09 PM EDT SEQUENTIAL SCREENINGS The [facility] offers sequential screenings for women who are interested in screenings for chromosomal abnormalities and certain defects during a . The sequential screen combines ultrasound and blood tests to determine the risk of chromosomal abnormalities, including Down's Syndrome (Trisomy 21) and Trisomy 18, as well as open neural tube defects including spina bifida. Ultrasound examination is performed between 11 weeks and 13 weeks gestational age. Blood tests are drawn after the ultrasound and again later in the between 15 and 21 weeks gestational age. Please let your physician know if you are interested in this testing. It will require an appointment with our flight technician. This is not an ultrasound performed by a physician in our office during a routine visit. SIGNS AND SYMPTOMS OF LABOR 1. Contractions every 10 minutes or more often 2. Clear, pink, or brownish fluid (water) leaking from vagina 3. Feeling that baby is pushing down, pressure 4. Low, dull backache 5. Cramps that feel like a period 6. Cramps with or without diarrhea If you notice any of the above symptoms, contact our office at [phone] and ask to speak with a nurse. After hours, you can call doctors registry at [phone] OR call [facility] at [phone] and ask to have the doctor radiation control worker paged. If you consider this an emergency, dial 9-1-5 or go to your nearest emergency department. NEED HELP? Are you dealing with a violent or abusive relationship? Are you a victim of rape or sexual assult? Call [facility] ([place]) 24 hour Crisis Hotline: 604.928.5621 or 604-620-3563. MANUAL Your Guide to a Healthy manual is now on-line. Visit [email or web address] to download your free copy documented in this encounter [facility] 12-26-2024 Telephone encounter Note Patient notified. Bharti Aguiar RN [facility] 12-26-2024 Miscellaneous Notes Patient notified. Bharti Aguiar RN agree 26w0d Patient called with c/o upper abdominal pain, midline. Began last night, intermittent, stretching pain, pain rate of 3. Denies VB or nausea with the pain. Advised this could be musculoskeletal pain. Recommended Tylenol 1,000 mg every 6 hours as needed. Advised to call if her pain increases or if she develops bleeding. Please advise. Bharti Aguiar RN documented in this encounter [facility] 12-26-2024 Telephone encounter Note agree [facility] Work Phone: 12-26-2024 Telephone encounter Note 26w0d Patient called with c/o upper abdominal pain, midline. Began last night, intermittent, stretching pain, pain rate of 3. Denies VB or nausea with the pain. Advised this could be musculoskeletal pain. Recommended Tylenol 1,000 mg every 6 hours as needed. Advised to call if her pain increases or if she develops bleeding. Please advise. Bharti Aguiar, RN [facility] 12-08-2024 Progress note Formatting of t his note might be different from the original. KARLA-S: Amparo Cabral is a 34 year old female who presents at 23w3d with SYED:04/03/2025, by Last Menstrual Period for a routine visit. Denies headache, visual changes, chest pain, shortness of breath, vaginal bleeding, leakage of fluid, or dysuria. Having some leg cramps at night. O: See flow sheet Gen: No apparent distress Abd: Gravid, nontender ASSESSMENT/PLAN: 1. Encounter for supervision of normal first in second trimester -Continue PNV and ASA -Magnesium 400mg PO at HS for leg cramps 2. 23 weeks gestation of 3. Low-lying placenta -Follow up ultrasound scheduled 4. Screening for diabetes mellitus PTL precautions reviewed and when to call RTO in 4 weeks Talita Medellin APRN.CNM [facility] 12-08-2024 Miscellaneous Notes KARLA-S: Amparo Cabral is a 34 year old female who presents at 23w3d with SYED:04/03/2025, by Last Menstrual Period for a routine visit. Denies headache, visual changes, chest pain, shortness of breath, vaginal bleeding, leakage of fluid, or dysuria. Having some leg cramps at night. O: See flow sheet Gen: No apparent distress Abd: Gravid, nontender ASSESSMENT/PLAN: 1. Encounter for supervision of normal first in second trimester -Continue PNV and ASA -Magnesium 400mg PO at HS for leg cramps 2. 23 weeks gestation of 3. Low-lying placenta -Follow up ultrasound scheduled 4. Screening for diabetes mellitus PTL precautions reviewed and when to call RTO in 4 weeks Talita Medellin APRN.CNM documented in this encounter [facility] 12-08-2024 Instructions Talita Medellin APRN.CNM - 12/08/2024 3:16 PM EST Magnesium 400mg by mouth at bedtime Electrolyte drink, packet, or drops (ex. LMNT, liquid IV, Body [place], SHERRIE) Magnesium spray, you can get this online (ex teo stork) SIGNS AND SYMPTOMS OF LABOR 1. Contractions every 10 minutes or more often 2. Clear, pink, or brownish fluid (water) leaking from vagina 3. Feeling that baby is pushing down, pressure 4. Low, dull backache 5. Cramps that feel like a period 6. Cramps with or without diarrhea If you notice any of the above symptoms, contact our office at [phone] and ask to speak with a nurse. After hours, you can call doctors registry at [phone] OR call [facility] at [phone] and ask to have the doctor radiation control worker paged. If you consider this an emergency, dial 4-5-7 or go to your nearest emergency department. NEED HELP? Are you dealing with a violent or abusive relationship? Are you a victim of rape or sexual assult? Call [facility] ([place]) 24 hour Crisis Hotline: 483.359.7887 or 610-965-0197. MANUAL Your Guide to a Healthy manual is now on-line. Visit [email or web address] to download your free copy documented in this encounter [facility] 11-27-2024 Telephone encounter Note Duplicate note. See 11/27/24 Musations message - responded to that. Domenica Giauque, RN [facility] 11-27-2024 Miscellaneous Notes Duplicate note. See 11/27/24 Musations message - responded to that. Domenica Capellan RN documented in this encounter [facility] 11-14-2024 Progress note Formatting of t his note might be different from the original. Anatomy ultrasound reviewed. No abnormalities identified. Follow up as clinically indicated. Please place copy in ob chart. Ne Hardin MD [facility] Work Phone: 11-14-2024 Miscellaneous Notes Anatomy ultrasound reviewed. No abnormalities identified. Follow up as clinically indicated. Please place copy in ob chart. Ne Hardin MD documented in this encounter [facility] 11-13-2024 Progress note Formatting of t his note might be different from the original. RR- VB No. LOF No. CTXS No. Movement: present. Other c/o: intermittent heart racing. Medication list reviewed. SENSITIVE EXAM: Sensitive exam not performed. Physical Exam See Flow Sheet Gen: no accute distress, well appearing A/P 19w6d Estimated Date of Delivery: 04/03/25 low lying placenta and restrictions reviewed f/u in 4 weeks or prn cont. PNV and ASA prophylaxis palpiations- few minutes intermittently, dw/ her symptomatic measures and to go to ED if persistent/lightheaded/LOC Ne Hardin MD [facility] Work Phone: 11-13-2024 Miscellaneous Notes RR- VB No. LOF No. CTXS No. Movement: present. Other c/o: intermittent heart racing. Medication list reviewed. SENSITIVE EXAM: Sensitive exam not performed. Physical Exam See Flow Sheet Gen: no accute distress, well appearing A/P 19w6d Estimated Date of Delivery: 04/03/25 low lying placenta and restrictions reviewed f/u in 4 weeks or prn cont. PNV and ASA prophylaxis palpiations- few minutes intermittently, dw/ her symptomatic measures and to go to ED if persistent/lightheaded/LOC Ne Hardin MD documented in this encounter [facility] 11-13-2024 Instructions Celestino Fernandez LPN - 11/13/2024 3:10 PM EST SEQUENTIAL SCREENINGS The [facility] offers sequential screenings for women who are interested in screenings for chromosomal abnormalities and certain defects during a . The sequential screen combines ultrasound and blood tests to determine the risk of chromosomal abnormalities, including Down's Syndrome (Trisomy 21) and Trisomy 18, as well as open neural tube defects including spina bifida. Ultrasound examination is performed between 11 weeks and 13 weeks gestational age. Blood tests are drawn after the ultrasound and again later in the between 15 and 21 weeks gestational age. Please let your physician know if you are interested in this testing. It will require an appointment with our flight technician. This is not an ultrasound performed by a physician in our office during a routine visit. SIGNS AND SYMPTOMS OF LABOR 1. Contractions every 10 minutes or more often 2. Clear, pink, or brownish fluid (water) leaking from vagina 3. Feeling that baby is pushing down, pressure 4. Low, dull backache 5. Cramps that feel like a period 6. Cramps with or without diarrhea If you notice any of the above symptoms, contact our office at [phone] and ask to speak with a nurse. After hours, you can call doctors registry at [phone] OR call [facility] at [phone] and ask to have the doctor radiation control worker paged. If you consider this an emergency, dial 06-18- or go to your nearest emergency department. NEED HELP? Are you dealing with a violent or abusive relationship? Are you a victim of rape or sexual assult? Call [facility] ([place]) 24 hour Crisis Hotline: 191.310.4235 or 204-921-5070. MANUAL Your Guide to a Healthy manual is now on-line. Visit [email or web address] to download your free copy documented in this encounter [facility] 10-09-2024 Progress note Formatting of t his note might be different from the original. S: Amparo Cabral is a 34 year old female who presents at 14.6 weeks gestation as an add on visit for vaginal spotting. Patient reports that over the past weekend had a couple of incidences of spotting. No intercourse. No pain or cramping associated. No dysuria or hematuria. O: See flow sheet Gen: No apparent distress Abd: Gravid, non tender ASSESSMENT/PLAN: 1. Encounter for supervision of normal first in second trimester 2. 14 weeks gestation of 3. Spotting affecting in second trimester - FHT via doppler 158 bpm today - Reassurance provided - Reviewed bleeding precautions and when to call office - Keep already scheduled JOSELUIS with anatomy Fatou Veronica APRN.CNM [facility] 10-09-2024 Miscellaneous Notes S: Amparo Cabral is a 34 year old female who presents at 14.6 weeks gestation as an add on visit for vaginal spotting. Patient reports that over the past weekend had a couple of incidences of spotting. No intercourse. No pain or cramping associated. No dysuria or hematuria. O: See flow sheet Gen: No apparent distress Abd: Gravid, non tender ASSESSMENT/PLAN: 1. Encounter for supervision of normal first in second trimester 2. 14 weeks gestation of 3. Spotting affecting in second trimester - FHT via doppler 158 bpm today - Reassurance provided - Reviewed bleeding precautions and when to call office - Keep already scheduled JOSELUIS with anatomy Fatou Veronica APRN.CNM documented in this encounter [facility] 10-09-2024 Instructions Jada Madrigal MA - 10/09/2024 4:03 PM EST SEQUENTIAL SCREENINGS The [facility] offers sequential screenings for women who are interested in screenings for chromosomal abnormalities and certain defects during a . The sequential screen combines ultrasound and blood tests to determine the risk of chromosomal abnormalities, including Down's Syndrome (Trisomy 21) and Trisomy 18, as well as open neural tube defects including spina bifida. Ultrasound examination is performed between 11 weeks and 13 weeks gestational age. Blood tests are drawn after the ultrasound and again later in the between 15 and 21 weeks gestational age. Please let your physician know if you are interested in this testing. It will require an appointment with our flight technician. This is not an ultrasound performed by a physician in our office during a routine visit. SIGNS AND SYMPTOMS OF LABOR 1. Contractions every 10 minutes or more often 2. Clear, pink, or brownish fluid (water) leaking from vagina 3. Feeling that baby is pushing down, pressure 4. Low, dull backache 5. Cramps that feel like a period 6. Cramps with or without diarrhea If you notice any of the above symptoms, contact our office at [phone] and ask to speak with a nurse. After hours, you can call doctors registry at [phone] OR call [facility] at [phone] and ask to have the doctor radiation control worker paged. If you consider this an emergency, dial 9-3-3 or go to your nearest emergency department. NEED HELP? Are you dealing with a violent or abusive relationship? Are you a victim of rape or sexual assult? Call [facility] ([place]) 24 hour Crisis Hotline: 169.337.9727 or 113-373-6441. MANUAL Your Guide to a Healthy manual is now on-line. Visit [email or web address] to download your free copy documented in this encounter [facility] 10-09-2024 Telephone encounter Note Spoke to patient and scheduled appointment for today. Domenica Capellan RN [facility] 10-09-2024 Miscellaneous Notes Spoke to patient and scheduled appointment for today. Domenica Capellan RN documented in this encounter [facility] 09-29-2024 Note Addended by: PALMA CASH on: 09/29/2024 03:48 PM Modules accepted: Orders [facility] 09-29-2024 Miscellaneous Notes Addended by: PALMA CASH on: 09/29/2024 03:48 PM Modules accepted: Orders EH - S: Amparo is a 34 year old female who presents at 13w3d for a routine visit. Feeling movement. Denies visual changes, chest pain, shortness of breath, vaginal bleeding, leakage of fluid, or dysuria. Experiencing vaginal discharge/itching. Occasional breast pruritus. Some dizziness with getting up. O: See flow sheet Gen: No apparent distress Abd: Gravid, nontender The sensitive examination was discussed with the Patient or Patient's Authorized Business Planning Manager. As applicable, any other physician, advance practice provider, medical student, or other health professional student that will be observing or involved in the sensitive examination for educational or training purposes was discussed with the Patient or Authorized Business Planning Manager. The Patient or Authorized Business Planning Manager has agreed to proceed with the sensitive examination. (Sensitive examination includes inspection and/or palpation of the breasts, pelvis, prostate and anorectal regions) ASSESSMENT/PLAN: 1. Encounter for supervision of normal first in second trimester - ICD9: V22.0, ICD10: Z34.02 (primary diagnosis) - Small frequent meals encouraged for dizziness with getting up. Reports that she forgets to eat at work. - Discussed pruritus of breasts may be related to increase in size with . Recommend moisturizer or trial hydrocortisone. To notify if persistent. - Requesting Bucoda 3 supplement 2. 13 weeks gestation of - ICD9: V22.2, ICD10: Z3A.13 - Nuchal today, report pending - Start LDA - Opts for NIPT today, understands potential out of pocket cose. 3. Vaginal discharge during in first trimester - ICD9: 646.83, 623.5, ICD10: O26.891, N89.8 - BACTERIAL VAGINOSIS NAAT - MARGARITA/TRICHOMONAS NAAT 4. Vaginal itching - ICD9: 698.1, ICD10: N89.8 - BACTERIAL VAGINOSIS NAAT - MARGARITA/TRICHOMONAS NAAT 5. Nausea and vomiting during - ICD9: 643.90, ICD10: O21.9 - Controlled 6. headache in second trimester - ICD9: 646.83, 784.0, ICD10: O26.892, R51.9 - Resolves with Tylenol - Recommend Tylenol and increased hydration - Discussed Magnesium 400 mg daily RTO in 4 weeks. Written info provided on PTL precautions. Palma Cash APRN.TOMÁS documented in this encounter [facility] 09-29-2024 Progress note Formatting of t his note might be different from the original. EH - S: Amparo is a 34 year old female who presents at 13w3d for a routine visit. Feeling movement. Denies visual changes, chest pain, shortness of breath, vaginal bleeding, leakage of fluid, or dysuria. Experiencing vaginal discharge/itching. Occasional breast pruritus. Some dizziness with getting up. O: See flow sheet Gen: No apparent distress Abd: Gravid, nontender The sensitive examination was discussed with the Patient or Patient's Authorized Business Planning Manager. As applicable, any other physician, advance practice provider, medical student, or other health professional student that will be observing or involved in the sensitive examination for educational or training purposes was discussed with the Patient or Authorized Business Planning Manager. The Patient or Authorized Business Planning Manager has agreed to proceed with the sensitive examination. (Sensitive examination includes inspection and/or palpation of the breasts, pelvis, prostate and anorectal regions) ASSESSMENT/PLAN: 1. Encounter for supervision of normal first in second trimester - ICD9: V22.0, ICD10: Z34.02 (primary diagnosis) - Small frequent meals encouraged for dizziness with getting up. Reports that she forgets to eat at work. - Discussed pruritus of breasts may be related to increase in size with . Recommend moisturizer or trial hydrocortisone. To notify if persistent. - Requesting Bucoda 3 supplement 2. 13 weeks gestation of - ICD9: V22.2, ICD10: Z3A.13 - Nuchal today, report pending - Start LDA - Opts for NIPT today, understands potential out of pocket cose. 3. Vaginal discharge during in first trimester - ICD9: 646.83, 623.5, ICD10: O26.891, N89.8 - BACTERIAL VAGINOSIS NAAT - MARGARITA/TRICHOMONAS NAAT 4. Vaginal itching - ICD9: 698.1, ICD10: N89.8 - BACTERIAL VAGINOSIS NAAT - MARGARITA/TRICHOMONAS NAAT 5. Nausea and vomiting during - ICD9: 643.90, ICD10: O21.9 - Controlled 6. headache in second trimester - ICD9: 646.83, 784.0, ICD10: O26.892, R51.9 - Resolves with Tylenol - Recommend Tylenol and increased hydration - Discussed Magnesium 400 mg daily RTO in 4 weeks. Written info provided on PTL precautions. Palma Cash APRN.CNP [facility] 09-29-2024 Instructions Palma Cash APRN.CNP - 09/29/2024 3:17 PM EST SEQUENTIAL SCREENINGS The [facility] offers sequential screenings for women who are interested in screenings for chromosomal abnormalities and certain defects during a . The sequential screen combines ultrasound and blood tests to determine the risk of chromosomal abnormalities, including Down's Syndrome (Trisomy 21) and Trisomy 18, as well as open neural tube defects including spina bifida. Ultrasound examination is performed between 11 weeks and 13 weeks gestational age. Blood tests are drawn after the ultrasound and again later in the between 15 and 21 weeks gestational age. Please let your physician know if you are interested in this testing. It will require an appointment with our flight technician. This is not an ultrasound performed by a physician in our office during a routine visit. SIGNS AND SYMPTOMS OF LABOR 1. Contractions every 10 minutes or more often 2. Clear, pink, or brownish fluid (water) leaking from vagina 3. Feeling that baby is pushing down, pressure 4. Low, dull backache 5. Cramps that feel like a period 6. Cramps with or without diarrhea If you notice any of the above symptoms, contact our office at [phone] and ask to speak with a nurse. After hours, you can call doctors registry at [phone] OR call [facility] at [phone] and ask to have the doctor radiation control worker paged. If you consider this an emergency, dial 4-8-2 or go to your nearest emergency department. NEED HELP? Are you dealing with a violent or abusive relationship? Are you a victim of rape or sexual assult? Call [facility] ([place]) 24 hour Crisis Hotline: 467.146.2402 or 491-901-9101. MANUAL Your Guide to a Healthy manual is now on-line. Visit [email or web address] to download your free copy documented in this encounter [facility] 08-28-2024 Progress note Formatting of t his note might be different from the original. SW- pt doing well. No pain, vb. PE: Gen- NAD, well appearing Abd- Soft, NT See flowsheet A/p 8 wk gestation - Bedside TAUS performed confirming single live IUP - NOB labs today - Urine CFC today - Pt requests flu vaccine today - Discussed NIPT and carrier screening and pt undecided. Handouts given for her to review and check coverage - RTO 4 wks Peyman Hawthorne DO [facility] 08-28-2024 Miscellaneous Notes SW- pt doing well. No pain, vb. PE: Gen- NAD, well appearing Abd- Soft, NT See flowsheet A/p 8 wk gestation - Bedside TAUS performed confirming single live IUP - NOB labs today - Urine CFC today - Pt requests flu vaccine today - Discussed NIPT and carrier screening and pt undecided. Handouts given for her to review and check coverage - RTO 4 wks Peyman Hawthorne DO documented in this encounter [facility] 08-28-2024 Instructions Reanna Henderson MA - 08/28/2024 1:05 PM EST SEQUENTIAL SCREENINGS The [facility] offers sequential screenings for women who are interested in screenings for chromosomal abnormalities and certain defects during a . The sequential screen combines ultrasound and blood tests to determine the risk of chromosomal abnormalities, including Down's Syndrome (Trisomy 21) and Trisomy 18, as well as open neural tube defects including spina bifida. Ultrasound examination is performed between 11 weeks and 13 weeks gestational age. Blood tests are drawn after the ultrasound and again later in the between 15 and 21 weeks gestational age. Please let your physician know if you are interested in this testing. It will require an appointment with our flight technician. This is not an ultrasound performed by a physician in our office during a routine visit. SIGNS AND SYMPTOMS OF LABOR 1. Contractions every 10 minutes or more often 2. Clear, pink, or brownish fluid (water) leaking from vagina 3. Feeling that baby is pushing down, pressure 4. Low, dull backache 5. Cramps that feel like a period 6. Cramps with or without diarrhea If you notice any of the above symptoms, contact our office at [phone] and ask to speak with a nurse. After hours, you can call doctors registry at [phone] OR call [facility] at [phone] and ask to have the doctor radiation control worker paged. If you consider this an emergency, dial -0 or go to your nearest emergency department. NEED HELP? Are you dealing with a violent or abusive relationship? Are you a victim of rape or sexual assult? Call [facility] ([place]) 24 hour Crisis Hotline: 146.398.4200 or 380-948-3659. MANUAL Your Guide to a Healthy manual is now on-line. Visit [email or web address] to download your free copy documented in this encounter [facility] 08-11-2024 Note HNO ID: [id number] Author: PALMA CASH APRN.PROFESSOR OF KINESIOLOGY Service: ? Author Type: Nurse Practitioner Type: Progress Notes Filed: 08/11/2024 15:03 Note Text: Manager Surgery offered: Patient declines. INITIAL OB ASSESSMENT HPI: Amparo is a 34 year old here to establish Obstetrical Care. Patient's last menstrual period was 06/27/2024. from OB Dating Form. was planned Complaints: (!) Abdominal pain, she is just having having cramping. OB History T0 L0 SAB0 IAB0 Ectopic0 Multiple0 Live Births0 Previous history: Prior : never History of 4th degree laceration: No History of shoulder dystocia: No History of Hypertensive disorders including pre-eclampsia or gestational hypertension: No History of gestational diabetes: No Patient's Risk Screening for delivery: Have you had a prior turner between 20w and 36w6d? No How many pregnancies have you had before? 0 Did you have a previous baby with a GBS Infection? No Please select all that apply for any prior : N/A MEDICAL/PSYCHOSOCIAL HISTORY: History of hemorrhage or bleeding concerns: No Thyroid Disease: No History of chronic hypertension: No History of pre-existing diabetes: No No results found for: ABORHD BMI 28.42 kg/(m2) Last Pap: Never Done History of abnormal pap: No Prior treatment for cervical dysplasia: none. Last HPV: no History of STDs: N/A Partner History of STDs: None Did you have a partner with Herpes? No Tobacco use: No E-Cigarette/Vaping Use: No Caffeine use: Tea Drug use: No Alcohol use: No Multivitamin with Folic acid: Yes Would refuse blood transfusion if medically necessary: No Social Needs: How often does this describe you? I don't have enough money to pay my bills: Never Within the past 12 months, have you worried that your food would run out before you had money to buy more? Never In the past 12 months, has lack of reliable transportation kept you from going to medical appointments or work, or from getting things needed for daily living? Never In the past 12 months, have you had any concerns about having a place to live, or about the condition or quality of your housing? Never Would you like more information on any of the following (please check all that apply)? Centering (group care classes) Social History: Do you have any history of depression, anxiety, PTSD, or other mood problems? No Do you have a history of abuse or trauma that may impact your experience? No Are you currently employed? Yes Depression/Anxiety Screening: denies symptoms of depression. OB Depression and Anxiety Screening- This Encounter (since 08/10/2024) None Genetic Screening: Partner present: Yes Patient verbalized knowledge of partner family health history: Yes Do you or your partner have any personal or family history of defects not previously discussed: No Do you have history of a complicated by anomaly, genetic condition, or demise: No Low Dose ASA Screening: Screening for low dose aspirin use for the prevention of pre-eclampsia: High risk factors: None Moderate risk ractors: None OB Risk Screening: Completed, no positive findings documented. 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 90 tablet 3 famotidine (PEPCID) 20 mg tablet Take 1 tablet by mouth two times a day. 60 tablet 3 No current facility-administered medications for this visit. Allergies As of Date: 08/11/2024 (No Known Allergies) Fully Assessed 08/11/2024 Does patient have penicillin allergy: No REVIEW OF SYSTEMS: GENERAL: Negative for: Fever or Chills HEENT: Negative for: Headache, Impaired Vision, Ringing in Ears, Nosebleeds NECK: Negative for: Swelling, Pain, Stiffness RESPIRATORY: Negative for: Cough, Shortness of breath, Wheezing GASTROINTESTINAL: Negative for:Constipation, Diarrhea, Blood in stool + nausea and heartburn MUSCULOSKELETAL: Negative for: Muscle or joint pain, stiffness, Joint swelling + mild muscle weakness NEUROLOGIC/PSYCHIATRIC: Negative for: Weakness, Paralysis, Numbness, Tingling, Tremor, Anxiety, Depression, Memory loss SKIN: Negative for: Rash, Itching GENITOURINARY: Negative for: vaginal discharge, hematuria or dysuria + vaginal itching SENSITIVE EXAM: The sensitive examination was discussed with the Patient or Patient's Authorized Business Planning Manager. As applicable, any other physician, advance practice provider, medical student, or other health professional student that will be observing or involved in the sensitive examinat (more content not included)... [facility] 08-11-2024 History of Presen t illness Narrative Manager Surgery offered: Patient declines. INITIAL OB ASSESSMENT HPI: Amparo is a 34 year old here to establish Obstetrical Care. Patient's last menstrual period was 06/27/2024. from OB Dating Form. was planned Complaints: (!) Abdominal pain, she is just having having cramping. OB History T0 L0 SAB0 IAB0 Ectopic0 Multiple0 Live Births0 Previous history: Prior : never History of 4th degree laceration: No History of shoulder dystocia: No History of Hypertensive disorders including pre-eclampsia or gestational hypertension: No History of gestational diabetes: No Patient's Risk Screening for delivery: Have you had a prior turner between 20w and 36w6d? No How many pregnancies have you had before? 0 Did you have a previous baby with a GBS Infection? No Please select all that apply for any prior : N/A MEDICAL/PSYCHOSOCIAL HISTORY: History of hemorrhage or bleeding concerns: No Thyroid Disease: No History of chronic hypertension: No History of pre-existing diabetes: No No results found for: ABORHD BMI 28.42 kg/(m^2) Last Pap: Never Done History of abnormal pap: No Prior treatment for cervical dysplasia: none. Last HPV: no History of STDs: N/A Partner History of STDs: None Did you have a partner with Herpes? No Tobacco use: No E-Cigarette/Vaping Use: No Caffeine use: Tea Drug use: No Alcohol use: No Multivitamin with Folic acid: Yes Would refuse blood transfusion if medically necessary: No Social Needs: How often does this describe you? I don't have enough money to pay my bills: Never Within the past 12 months, have you worried that your food would run out before you had money to buy more? Never In the past 12 months, has lack of reliable transportation kept you from going to medical appointments or work, or from getting things needed for daily living? Never In the past 12 months, have you had any concerns about having a place to live, or about the condition or quality of your housing? Never Would you like more information on any of the following (please check all that apply)? Centering (group care classes) Social History: Do you have any history of depression, anxiety, PTSD, or other mood problems? No Do you have a history of abuse or trauma that may impact your experience? No Are you currently employed? Yes Depression/Anxiety Screening: denies symptoms of depression. OB Depression and Anxiety Screening- This Encounter (since 08/10/2024) None Genetic Screening: Partner present: Yes Patient verbalized knowledge of partner family health history: Yes Do you or your partner have any personal or family history of defects not previously discussed: No Do you have history of a complicated by anomaly, genetic condition, or demise: No Low Dose ASA Screening: Screening for low dose aspirin use for the prevention of pre-eclampsia: High risk factors: None Moderate risk ractors: None OB Risk Screening: Completed, no positive findings documented. 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 90 tablet 3 famotidine (PEPCID) 20 mg tablet Take 1 tablet by mouth two times a day. 60 tablet 3 No current facility-administered medications for this visit. Allergies As of Date: 08/11/2024 (No Known Allergies) Fully Assessed 08/11/2024 Does patient have penicillin allergy: No REVIEW OF SYSTEMS: GENERAL: Negative for: Fever or Chills HEENT: Negative for: Headache, Impaired Vision, Ringing in Ears, Nosebleeds NECK: Negative for: Swelling, Pain, Stiffness RESPIRATORY: Negative for: Cough, Shortness of breath, Wheezing GASTROINTESTINAL: Negative for:Constipation, Diarrhea, Blood in stool + nausea and heartburn MUSCULOSKELETAL: Negative for: Muscle or joint pain, stiffness, Joint swelling + mild muscle weakness NEUROLOGIC/PSYCHIATRIC: Negative for: Weakness, Paralysis, Numbness, Tingling, Tremor, Anxiety, Depression, Memory loss SKIN: Negative for: Rash, Itching GENITOURINARY: Negative for: vaginal discharge, hematuria or dysuria + vaginal itching SENSITIVE EXAM: The sensitive examination was discussed with the Patient or Patient's Authorized Business Planning Manager. As applicable, any other physician, advance practice provider, medical student, or other health professional student that will be observing or involved in the sensitive examination for educational or training purposes was discussed with the Patient or Authorized Business Planning Manager. The Patient or Authorized Business Planning Manager has agreed to proceed with the sensitive examination. (Sensitive examination includes inspection and/or palpation of the breasts, pelvis, prostate and anorectal regions). PHYSICAL EXAM: BP 110/60 Ht 5' 5 (1.65m) Wt 170 lb 12.8 oz (77.5kg) LMP 06/27/2024 BMI 28.42 kg/(m^2). GENERAL: pleasant in no apparent distress DERMATOLOGY: Normal, without lesions, non-icteric, and non-hirsute NECK: Supple, full range of motion, no adenopathy, and thyroid normal CHEST: Normal inspiratory effort BREAST: soft, non-tender, symmetric, no dominant mass, normal nipple-areolar complex, no lymphadenopathy, and no nipple discharge ABDOMEN: soft, non-tender, and no masses NEURO: alert and oriented x3,exam grossly non-focal PELVIS: External genitalia normal without lesions. Perineal body intact. No vaginal or cervical lesions. Cervix closed. Uterus 6 week size. No adnexal masses or tenderness. Clinical Pelvimetry: Pelvimetry clinically assessed as adequate Limited OB ultrasound exam: single intrauterine and positive cardiac activity ASSESSMENT: 34 year old at 6w3d wks gestational age PLAN: 1) Patient oriented to practice. Patient given new OB orientation folder. Discussed nutrition, folic acid supplementation, dietary guidelines, exercise, smoking, alcohol, caffeine, and drug use. Discussed gestational weight gain guidelines. Discussed routine OB labs including STD/HIV. Discussed how to access Your guide to a health and the Lead Custodian. Discussed hemoglobin electrophoresis. Patient: Accepts Reviewed midwifery and electrotyper helper services that are available. 2) Screening: Hemoglobin A1C: ordered Baby Aspirin: The patient has been counseled about the potential benefits of low dose aspirin in and our recommendation that this be offered to all patients, regardless of whether they meet the high risk criteria specified above. She Accepts Aneuploidy Screening: Discussed aneuploidy screening, nuchal translucency/first trimester early anatomy ultrasound and NIPT. The risks/benefits and limitations of NIPT/aneuploidy screening were reviewed including the potential for false negative and false positive results. The availability of genetic counseling was reviewed. Information on aneuploidy screening was provided. The patient chooses to proceed with First trimester early anatomy ultrasound (12-13w6d) and NIPT (10 weeks) Myriad Carrier Screening: Discussed myriad carrier screening. We discussed the availability of professional-society guided carrier screening and reviewed the conditions screened and limitations of screening. The availability of genetic counseling was reviewed. Information on carrier screening was provided. The patient Declines 3) Patient offered option of Virtual Visits. Patient unsure. May consider in future. ACTIVE PROBLEM LIST Encounter for Supervision of Normal First in First Trimester - 08/11/2024 Comment: Care Checklist Vaccines: [] Flu vaccine [] declined [] RSV vaccine 32 7 - 36 03/24 (Jun - Nov) [] declined [] COVID vaccine [] declined [] TDaP 27-36 [] declined First trimester: [x] Dating US [] 1st tri labs [x] Pap smear [] Carrier screening [x] declined [x] NIPT screening [] declined [x] First trimester anatomy scan [] declined [] universal ASA ordered (start 12w-16w) [] declined [] M Power Consult [] not indicated [] declined Second trimester: [] AFP [] declined [] Anatomy scan [] Mode of Delivery - [] Feeding - [] Pump ordered [] Diabetes screen [] CBC, RPR Third trimester (28-30 weeks): [] Consent [] Contraception - [] Web Applications Architect Third trimester (36-40 weeks): [] GBS [] Presentation - [] Scheduled [] yes - Hibiclens, pre-op instructions, CBC, T&S ordered [] no [] H&P Nausea and Vomiting During - 08/11/2024 Comment: 08/11/24 Vitamin B6 and Unisom doses reviewed. To notify if prescription is needed. Palma Cash APRN.PROFESSOR OF KINESIOLOGY Heartburn During in First Trimester - 07/31/2024 Comment: July 31, 2024 Rx sent for Pepcid. Palma Cash APRN.CNP Vaginal Itching - 08/11/2024 Comment: August 11, 2024 Cultures obtained. Palma Cash APRN.CNP At Risk for Depression - 08/11/2024 Comment: August 11, 2024 Struggling with the loss of her mom. Declines counseling. Has good emotional support from . Mental health resources provided. To update throughout . Palma Cash APRN.CNP Follow up in 4 weeks or sooner prn. Plan for NT scan between 12w0d and 13w6d gestation. Palma Cash APRN.CNP documented in this encounter [facility] 08-11-2024 Instructions Palma Cash APRN.CNP - 08/11/2024 1:41 PM EDT Please select the following link to access the [facility] Your Guide to a Healthy . [email or web address] de MORNING SICKNESS IN by Kelly Osuna M.D. for [employer] As you may already know, morning sickness can often be more appropriately called evening sickness or aubhq-fqjztl-og-the-day sickness. While there are the kenneth few, most women (50-90%) experience some degree of nausea, some have vomiting, and a few develop a severe form of vomiting during called hyperemesis gravidarum. What causes the nausea and vomiting of ? We can't explain why some people feel fine and others are green for months. Even the same woman may feel vastly different in each . There is some relationship between nausea and the level of the hormone hCG. In twin pregnancies, and in other situations where the hCG is greater than expected, nausea and vomiting tend to be worse. In a destined for miscarriage, hCG levels tend to be low, and nausea is often less severe. This being said, a lack of nausea doesn't guarantee that the is destined for miscarriage. The fact that nausea and vomiting are often signs of a healthy can offer a silver lining in the dark cloud of miserable nausea. How long will the nausea last? Fortunately, for most women, nausea and vomiting are a first trimester event, peaking at week 9-10 and waning by week 14-16. When you are feeling bad the weeks can go by slowly but most moms do feel tremendously better by the middle of the . Whether morning sickness is a brief experience or lasts through most of the , there are treatments that can make the weeks or months more tolerable. What can you do about it? Diet: See what works for you. Try eating bland dry foods, and avoid fatty or spicy foods. It is okay to eat a less than perfectly balanced diet in the first trimester. Have your liquids separately from dry foods. Try sports drinks, water, clear juices, Bertrand-aid, or non-caffeinated tea. Avoid carbonated beverages that fill up your stomach. Try eating lots of little meals. If you tend to feel sick when you first wake up, leave crackers next to the bed for a quick snack before rising. Keeping healthy snacks with you all day to nibble when you feel queasy can sometimes even prevent nausea from starting. vitamins and nausea: Pre-carlito vitamins can sometimes worsen nausea in . While folate is necessary, especially early in the , it comes as a smaller pill that many people find more tolerable than the complete vitamin pill. Ask your practitioner if it is okay to temporarily replace vitamins and iron with just a folate pill if you find a significant worsening in the level of your nausea from the vitamins. Alternative therapies: Acupressure may be used to treat nausea in , and is not known to have any risks for the fetus. Wristbands (marketed for seasickness) that put pressure on an acupressure point at the wrist are often available at drugstores or travel stores. Soraya root is used for nausea in many traditional cultures. Some women take fresh grated soraya or soraya tablets. It is possible that the pill form contains other ingredients or contaminants, so you may want to try fresh soraya first. Medications: Emetrol is the only nausea medication approved for use in . It is available over the counter and is soothing to the stomach. A prescription medication called Bendectin was available in the 1970s-1979's and was shown to be safe in , but the company stopped marketing it in the [place] due to the costs of liability coverage. Bendectin contained 10 milligrams of vitamin B6 and 10 milligrams of Doxylamine. Two tablets were given at bedtime and a total of up to 4 tablets could be used in a 24-hour period. Interestingly, Unisom , which contains a higher dose (25 mg.) of the same medication, Doxylamine, is currently marketed as an mlgi-wfx-sxhxuvm sleeping pill. Ask your practitioner if creating a vitamin B6/Doxylamine combination with xjuo-ywa-yjvnyuw medications would be safe for you. Prescription medications like Compazine and Phenergan can be used if the benefits outweigh possible risks, but these have not been clearly shown to be safe in . Zofran , an expensive anti-nausea medication often used to treat nausea from chemotherapy, can also be used. Can I throw up so much it harms the baby? The act of vomiting cannot hurt your fetus, which is protected inside the uterus. If you get dehydrated or develop a metabolic imbalance, this can be unhealthy. As long as you can keep down liquids, you and your baby will generally do all right. Eat when you feel able. If you are unable to keep anything down, or if you notice potential signs of dehydration such as lightheadedness, or concentrated and/or infrequent urination, call your practitioner. Some women need brief hospital admission for intravenous fluids and anti-nausea medications if their condition becomes severe. This severe form of nausea and vomiting is called Hyperemesis Gravidarum. As with many symptoms of , remind yourself that this, too, shall pass, and you'll have a wonderful baby to show for it! TREATMENT OPTIONS, SHORT VERSION: Frequent small meals Hydrate throughout day [employer]ands wrist pressure point applicators Soraya root (powdered, in capsules) 250mg four times a day Vitamin B6 25 mg tablet three times a day Also may be taken with half a tablet of Unisom three times a day (Doxylamine 12.5 mg) If severe (weight loss, dehydration), call us and come in for IV hydration and possible medication in the form of injections. Prescription medications such as Phenergan, Compazine, Reglan MORNING SICKNESS IN by Kelly Osuna M.D. for [employer] As you may already know, morning sickness can often be more appropriately called evening sickness or sytgi-dyisvf-sg-the-day sickness. While there are the kenneth few, most women (50-90%) experience some degree of nausea, some have vomiting, and a few develop a severe form of vomiting during called hyperemesis gravidarum. What causes the nausea and vomiting of ? We can't explain why some people feel fine and others are green for months. Even the same woman may feel vastly different in each . There is some relationship between nausea and the level of the hormone hCG. In twin pregnancies, and in other situations where the hCG is greater than expected, nausea and vomiting tend to be worse. In a destined for miscarriage, hCG levels tend to be low, and nausea is often less severe. This being said, a lack of nausea doesn't guarantee that the is destined for miscarriage. The fact that nausea and vomiting are often signs of a healthy can offer a silver lining in the dark cloud of miserable nausea. How long will the nausea last? Fortunately, for most women, nausea and vomiting are a first trimester event, peaking at week 9-10 and waning by week 14-16. When you are feeling bad the weeks can go by slowly but most moms do feel tremendously better by the middle of the . Whether morning sickness is a brief experience or lasts through most of the , there are treatments that can make the weeks or months more tolerable. What can you do about it? Diet: See what works for you. Try eating bland dry foods, and avoid fatty or spicy foods. It is okay to eat a less than perfectly balanced diet in the first trimester. Have your liquids separately from dry foods. Try sports drinks, water, clear juices, Bertrand-aid, or non-caffeinated tea. Avoid carbonated beverages that fill up your stomach. Try eating lots of little meals. If you tend to feel sick when you first wake up, leave crackers next to the bed for a quick snack before rising. Keeping healthy snacks with you all day to nibble when you feel queasy can sometimes even prevent nausea from starting. vitamins and nausea: Pre-carlito vitamins can sometimes worsen nausea in . While folate is necessary, especially early in the , it comes as a smaller pill that many people find more tolerable than the complete vitamin pill. Ask your practitioner if it is okay to temporarily replace vitamins and iron with just a folate pill if you find a significant worsening in the level of your nausea from the vitamins. Alternative therapies: Acupressure may be used to treat nausea in , and is not known to have any risks for the fetus. Wristbands (marketed for seasickness) that put pressure on an acupressure point at the wrist are often available at drugstores or travel stores. Soraya root is used for nausea in many traditional cultures. Some women take fresh grated soraya or soraya tablets. It is possible that the pill form contains other ingredients or contaminants, so you may want to try fresh soraya first. Medications: Emetrol is the only nausea medication approved for use in . It is available over the counter and is soothing to the stomach. A prescription medication called Bendectin was available in the 1970s-1979's and was shown to be safe in , but the company stopped marketing it in the [place] due to the costs of liability coverage. Bendectin contained 10 milligrams of vitamin B6 and 10 milligrams of Doxylamine. Two tablets were given at bedtime and a total of up to 4 tablets could be used in a 24-hour period. Interestingly, Unisom , which contains a higher dose (25 mg.) of the same medication, Doxylamine, is currently marketed as an rvuz-omf-nlqknvu sleeping pill. Ask your practitioner if creating a vitamin B6/Doxylamine combination with wacx-ewx-ssovvzw medications would be safe for you. Prescription medications like Compazine and Phenergan can be used if the benefits outweigh possible risks, but these have not been clearly shown to be safe in . Zofran , an expensive anti-nausea medication often used to treat nausea from chemotherapy, can also be used. Can I throw up so much it harms the baby? The act of vomiting cannot hurt your fetus, which is protected inside the uterus. If you get dehydrated or develop a metabolic imbalance, this can be unhealthy. As long as you can keep down liquids, you and your baby will generally do all right. Eat when you feel able. If you are unable to keep anything down, or if you notice potential signs of dehydration such as lightheadedness, or concentrated and/or infrequent urination, call your practitioner. Some women need brief hospital admission for intravenous fluids and anti-nausea medications if their condition becomes severe. This severe form of nausea and vomiting is called Hyperemesis Gravidarum. As with many symptoms of , remind yourself that this, too, shall pass, and you'll have a wonderful baby to show for it! TREATMENT OPTIONS, SHORT VERSION: Frequent small meals Hydrate throughout day [employer]ands wrist pressure point applicators Soraya root (powdered, in capsules) 250mg four times a day Vitamin B6 25 mg tablet three times a day Also may be taken with half a tablet of Unisom three times a day (Doxylamine 12.5 mg) If severe (weight loss, dehydration), call us and come in for IV hydration and possible medication in the form of injections. Prescription medications such as Phenergan, Compazine, Reglan documented in this encounter [facility] 07-31-2024 Note HNO ID: [id number] Author: PALMA CASH APRN.PROFESSOR OF KINESIOLOGY Service: ? Author Type: Nurse Practitioner Type: Progress Notes Filed: 07/31/2024 08:41 Note Text: Amparo Cabral is a 34 year old female who presents for problem visit for confirmation. HPI: Amparo presents for a confirmation. She states that her last LMP was 06/27/2024, making her 4w6d today. She is not taking a vitamin. Her only bothersome symptom is heartburn. Some cramping. This is her first and she does not have any major medical history. The was planned and she is excited. Her is here with her. OB History No obstetric history on file. 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 Social History Tobacco Use Smoking status: Never Smokeless tobacco: Never Vaping Use Vaping status: Never Used Substance Use Topics Alcohol use: Not Currently Drug use: Never No current outpatient medications on file. No current facility-administered medications for this visit. Allergies As of Date: 07/31/2024 (No Known Allergies) Fully Assessed 07/31/2024 REVIEW OF SYSTEMS Abdomen: No bloating, early satiety, or increased flatulence. No abdominal pain, nausea, vomiting, diarrhea, or constipation. + heartburn Expanded ROS: TILE SPRAYER: + amenorrhea Allergies and current medication updated:Yes SENSITIVE EXAM: Sensitive exam not performed. EXAM: BP 110/62 Wt 170 lb 3.2 oz (77.2kg) LMP 06/27/2024 GENERAL: pleasant, female in no apparent distress HEENT: Normocephalic, atraumatic, mucus membranes moist, and no lesions CHEST: Normal inspiratory effort NEURO: alert and oriented x3,exam grossly non-focal EXTREMITIES: normal ASSESSMENT AND PLAN: 1. Encounter for test, result positive - ICD9: V72.42, ICD10: Z32.01 - Discussed diet, exercise, weight gain during - Reviewed precautions and what to avoid - Rx sent for vitamin - Discussed care and to return end of next week for ultrasound and new OB visit - Lead Custodian order signed 2. Heartburn during in first trimester - ICD9: 646.83, 787.1, ICD10: O26.891, R12 - Rx for Pepcid sent Palma Cash APRN.CNP Medical Decision Making: Problems: Moderate: New problem with uncertain prognosis Risk: Low: Low risk from testing/treatment Moderate: Drug management Medical Decision Making Level: 4 - Moderate [facility] 07-31-2024 History of Presen t illness Narrative Amparo Cabral is a 34 year old female who presents for problem visit for confirmation. HPI: Amparo presents for a confirmation. She states that her last LMP was 06/27/2024, making her 4w6d today. She is not taking a vitamin. Her only bothersome symptom is heartburn. Some cramping. This is her first and she does not have any major medical history. The was planned and she is excited. Her is here with her. OB History No obstetric history on file. 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 Social History Tobacco Use Smoking status: Never Smokeless tobacco: Never Vaping Use Vaping status: Never Used Substance Use Topics Alcohol use: Not Currently Drug use: Never No current outpatient medications on file. No current facility-administered medications for this visit. Allergies As of Date: 07/31/2024 (No Known Allergies) Fully Assessed 07/31/2024 REVIEW OF SYSTEMS Abdomen: No bloating, early satiety, or increased flatulence. No abdominal pain, nausea, vomiting, diarrhea, or constipation. + heartburn Expanded ROS: TILE SPRAYER: + amenorrhea Allergies and current medication updated:Yes SENSITIVE EXAM: Sensitive exam not performed. EXAM: BP 110/62 Wt 170 lb 3.2 oz (77.2kg) LMP 06/27/2024 GENERAL: pleasant, female in no apparent distress HEENT: Normocephalic, atraumatic, mucus membranes moist, and no lesions CHEST: Normal inspiratory effort NEURO: alert and oriented x3,exam grossly non-focal EXTREMITIES: normal ASSESSMENT AND PLAN: 1. Encounter for test, result positive - ICD9: V72.42, ICD10: Z32.01 - Discussed diet, exercise, weight gain during - Reviewed precautions and what to avoid - Rx sent for vitamin - Discussed care and to return end of next week for ultrasound and new OB visit - Lead Custodian order signed 2. Heartburn during in first trimester - ICD9: 646.83, 787.1, ICD10: O26.891, R12 - Rx for Pepcid sent Palma Cash APRN.CNP Medical Decision Making: Problems: Moderate: New problem with uncertain prognosis Risk: Low: Low risk from testing/treatment Moderate: Drug management Medical Decision Making Level: 4 - Moderate documented in this encounter [facility] Evaluation note Diagnosis Encounter for test, result positive- Primary examination or test, positive result Heartburn during in first trimester [facility] Diagnosis Encounter for supervision of normal first in first trimester- Primary Supervision of normal first 6 weeks gestation of state, incidental with uncertain dates in first trimester Vaginal itching Pruritus of genital organs Nausea and vomiting during At risk for depression Heartburn during in first trimester [facility] Diagnosis Encounter for supervision of normal first in first trimester- Primary Supervision of normal first 8 weeks gestation of state, incidental Urinary tract infection without hematuria, site unspecified Need for influenza vaccination Need for prophylactic vaccination and inoculation against influenza [facility] Diagnosis Encounter for supervision of normal first in second trimester- Primary Supervision of normal first 13 weeks gestation of state, incidental Vaginal discharge during in first trimester Vaginal itching Pruritus of genital organs Nausea and vomiting during headache in second trimester [facility] Diagnosis Encounter for routine screening for malformation using ultrasound [Z36.3]- Primary Encounter for supervision of normal first in first trimester Supervision of normal first Nuchal translucency of fetus on ultrasound [Z36.82] Abnormal findings on screening [facility] Diagnosis Encounter for supervision of normal first in second trimester- Primary Supervision of normal first 14 weeks gestation of state, incidental Spotting affecting in second trimester [facility] Diagnosis 19 weeks gestation of - Primary state, incidental Encounter for supervision of normal first in second trimester Supervision of normal first Spotting affecting in second trimester [facility] Diagnosis Encounter for anatomic survey- Primary 19 weeks gestation of state, incidental [facility] Diagnosis Encounter for supervision of normal first in second trimester- Primary Supervision of normal first 23 weeks gestation of state, incidental Low-lying placenta Hemorrhage from placenta previa, unspecified as to episode of care Screening for diabetes mellitus [facility] Diagnosis Encounter for supervision of normal first in second trimester- Primary Supervision of normal first 27 weeks gestation of state, incidental Low lying placenta nos or without hemorrhage, second trimester Need for Tdap vaccination Need for prophylactic vaccination with combined vxeyyilyfj-ltssbja-novexfser (DTP) vaccine Need for vaccination Need for prophylactic vaccination and inoculation against unspecified single disease * Assessment & Plan Note - Ne Hardin MD - 01/08/2025 4:19 PM EDT Associated Problem(s): Encounter for supervision of normal first in second trimester Orders: OBSTETRIC ULTRASOUND [facility]I; Future documented in this encounter [facility] note* Diagnosis Encounter for supervision of normal first in second trimester ([facility])- Primary Supervision of normal first 27 weeks gestation of ([facility]) state, incidental Low lying placenta nos or without hemorrhage, second trimester ([facility]) Need for Tdap vaccination Need for prophylactic vaccination with combined fseyzjbqvb-llmzlgr-zhuzzjenu (DTP) vaccine Need for vaccination Need for prophylactic vaccination and inoculation against unspecified single disease Encounter for supervision of normal first in third trimester ([facility])- Primary Supervision of normal first 29 weeks gestation of ([facility]) state, incidental Low-lying placenta ([facility]) Hemorrhage from placenta previa, unspecified as to episode of care documented in this encounter [facility] note* Diagnosis Encounter for supervision of normal first in second trimester ([facility])- Primary Supervision of normal first 27 weeks gestation of ([facility]) state, incidental Low lying placenta nos or without hemorrhage, second trimester ([facility]) Need for Tdap vaccination Need for prophylactic vaccination with combined aysbdxyzqg-hqbpjaf-lfirwpohy (DTP) vaccine Need for vaccination Need for prophylactic vaccination and inoculation against unspecified single disease 33 weeks gestation of ([facility])- Primary state, incidental Encounter for supervision of normal first in third trimester ([facility]) Supervision of normal first Low-lying placenta ([facility]) Hemorrhage from placenta previa, unspecified as to episode of care documented in this encounter [facility] note* Diagnosis Encounter for supervision of normal first in second trimester ([facility])- Primary Supervision of normal first 27 weeks gestation of ([facility]) state, incidental Low lying placenta nos or without hemorrhage, second trimester ([facility]) Need for Tdap vaccination Need for prophylactic vaccination with combined bwfnhrjknt-nmbahhc-wbdodcrxm (DTP) vaccine Need for vaccination Need for prophylactic vaccination and inoculation against unspecified single disease 33 weeks gestation of ([facility])- Primary state, incidental Encounter for supervision of normal first in third trimester ([facility]) Supervision of normal first Low-lying placenta (HCC) Hemorrhage from placenta previa, unspecified as to episode of care Encounter for supervision of normal first in third trimester ([facility])- Primary Supervision of normal first 34 weeks gestation of ([facility]) state, incidental Low-lying placenta (HCC) Hemorrhage from placenta previa, unspecified as to episode of care Excessive weight gain in , third trimester ([facility]) Vaginal discharge Leukorrhea, not specified as infective [facility] Diagnosis Encounter for supervision of normal first in second trimester ([facility])- Primary Supervision of normal first 27 weeks gestation of ([facility]) state, incidental Low lying placenta nos or without hemorrhage, second trimester ([facility]) Need for Tdap vaccination Need for prophylactic vaccination with combined oelmsdpycs-qwovgui-rsuvcalya (DTP) vaccine Need for vaccination Need for prophylactic vaccination and inoculation against unspecified single disease 33 weeks gestation of ([facility])- Primary state, incidental Encounter for supervision of normal first in third trimester ([facility]) Supervision of normal first Low-lying placenta (HCC) Hemorrhage from placenta previa, unspecified as to episode of care Encounter for supervision of normal first in third trimester ([facility])- Primary Supervision of normal first Excessive growth affecting management of in third trimester, single or unspecified fetus ([facility]) Low-lying placenta (HCC) Hemorrhage from placenta previa, unspecified as to episode of care Excessive weight gain in , third trimester ([facility]) 37 weeks gestation of ([facility]) state, incidental * Assessment & Plan Note - Lawanda Diaz MD - 03/15/2025 1:25 PM EDTAssociated Problem(s): Excessive growth affecting management of in third trimester ([facility]) Orders: URINE OB DIP B/O * Assessment & Plan Note - Lawanda Diaz MD - 03/15/2025 1:25 PM EDTAssociated Problem(s): Low-lying placenta (HCC) Discussed R/B/a of MOD as placenta 6mm away. Patient wishes to proceed with primary Orders: URINE OB DIP B/O * Assessment & Plan Note - Lawanda Diaz MD - 03/15/2025 1:25 PM EDTAssociated Problem(s): Excessive weight gain in , third trimester ([facility]) Orders: URINE OB DIP B/O * Assessment & Plan Note - Lawanda Diaz MD - 03/15/2025 1:25 PM EDTAssociated Problem(s): Encounter for supervision of normal first in third trimester ([facility]) Orders: URINE OB DIP B/O [facility] Diagnosis Encounter for supervision of normal first in second trimester ([facility])- Primary Supervision of normal first 27 weeks gestation of ([facility]) state, incidental Low lying placenta nos or without hemorrhage, second trimester ([facility]) Need for Tdap vaccination Need for prophylactic vaccination with combined cnexooklur-agwprpy-havytfkib (DTP) vaccine Need for vaccination Need for prophylactic vaccination and inoculation against unspecified single disease Abnormal glucose complicating ([facility])- Primary Abnormal maternal glucose tolerance, complicating , childbirth, or the puerperium, unspecified as to episode of care Encounter for supervision of normal first in second trimester ([facility]) Supervision of normal first 33 weeks gestation of ([facility])- Primary state, incidental Encounter for supervision of normal first in third trimester ([facility]) Supervision of normal first Low-lying placenta ([facility]) Hemorrhage from placenta previa, unspecified as to episode of care Encounter for supervision of normal first in third trimester ([facility])- Primary Supervision of normal first Excessive growth affecting management of in third trimester, single or unspecified fetus ([facility]) Low-lying placenta (HCC) Hemorrhage from placenta previa, unspecified as to episode of care Excessive weight gain in , third trimester ([facility]) 37 weeks gestation of ([facility]) state, incidental [facility] Diagnosis Encounter for supervision of normal first in second trimester ([facility])- Primary Supervision of normal first 27 weeks gestation of ([facility]) state, incidental Low lying placenta nos or without hemorrhage, second trimester ([facility]) Need for Tdap vaccination Need for prophylactic vaccination with combined mjiejicbak-ejfnllt-efwcdntul (DTP) vaccine Need for vaccination Need for prophylactic vaccination and inoculation against unspecified single disease 33 weeks gestation of ([facility])- Primary state, incidental Encounter for supervision of normal first in third trimester ([facility]) Supervision of normal first Low-lying placenta ([facility]) Hemorrhage from placenta previa, unspecified as to episode of care Encounter for supervision of normal first in third trimester ([facility])- Primary Supervision of normal first Excessive growth affecting management of in third trimester, single or unspecified fetus ([facility]) Low-lying placenta ([facility]) Hemorrhage from placenta previa, unspecified as to episode of care Excessive weight gain in , third trimester ([facility]) 37 weeks gestation of ([facility]) state, incidental Excessive growth affecting management of in third trimester, single or unspecified fetus ([facility])- Primary Low-lying placenta ([facility]) Hemorrhage from placenta previa, unspecified as to episode of care Excessive weight gain in , third trimester ([facility]) Encounter for supervision of normal first in third trimester ([facility]) Supervision of normal first 38 weeks gestation of ([facility]) state, incidental [facility] Diagnosis Encounter for supervision of normal first in second trimester ([facility])- Primary Supervision of normal first 27 weeks gestation of ([facility]) state, incidental Low lying placenta nos or without hemorrhage, second trimester ([facility]) Need for Tdap vaccination Need for prophylactic vaccination with combined bocadujoem-niccmzy-chghrbdce (DTP) vaccine Need for vaccination Need for prophylactic vaccination and inoculation against unspecified single disease Abnormal glucose complicating ([facility])- Primary Abnormal maternal glucose tolerance, complicating , childbirth, or the puerperium, unspecified as to episode of care 33 weeks gestation of ([facility])- Primary state, incidental Encounter for supervision of normal first in third trimester ([facility]) Supervision of normal first Low-lying placenta ([facility]) Hemorrhage from placenta previa, unspecified as to episode of care Encounter for supervision of normal first in third trimester (HCC)- Primary Supervision of normal first Excessive growth affecting management of in third trimester, single or unspecified fetus (HCC) Low-lying placenta (HCC) Hemorrhage from placenta previa, unspecified as to episode of care Excessive weight gain in , third trimester (HCC) 37 weeks gestation of (HCC) state, incidental documented in this encounter [facility] note* Diagnosis Encounter for supervision of normal first in second trimester ([facility])- Primary Supervision of normal first 27 weeks gestation of ([facility]) state, incidental Low lying placenta nos or without hemorrhage, second trimester ([facility]) Need for Tdap vaccination Need for prophylactic vaccination with combined yzspxvaacf-ipfhbzo-gxeatwzzl (DTP) vaccine Need for vaccination Need for prophylactic vaccination and inoculation against unspecified single disease 33 weeks gestation of ([facility])- Primary state, incidental Encounter for supervision of normal first in third trimester ([facility]) Supervision of normal first Low-lying placenta (HCC) Hemorrhage from placenta previa, unspecified as to episode of care Encounter for supervision of normal first in third trimester ([facility])- Primary Supervision of normal first Excessive growth affecting management of in third trimester, single or unspecified fetus (HCC) Low-lying placenta (HCC) Hemorrhage from placenta previa, unspecified as to episode of care Excessive weight gain in , third trimester ([facility]) 37 weeks gestation of ([facility]) state, incidental Supervision of high risk in third trimester ([facility])- Primary Unspecified high-risk Low-lying placenta (HCC) Hemorrhage from placenta previa, unspecified as to episode of care Excessive weight gain in , third trimester ([facility]) Excessive growth affecting management of in third trimester, single or unspecified fetus (HCC) 38 weeks gestation of ([facility]) state, incidental * Assessment & Plan Note - Zeina Lainez MD - 03/26/2025 2:24 PM EDT Associated Problem(s): Low-lying placenta (HCC) PRE OP completed for section scheduled 39 weeks Orders: URINE OB DIP B/O * Assessment & Plan Note - Zeina Lainez MD - 03/26/2025 1:53 PM EDT Associated Problem(s): Excessive weight gain in , third trimester (HCC) Orders: URINE OB DIP B/O * Assessment & Plan Note - Zeina Lainez MD - 03/26/2025 1:53 PM EDT Associated Problem(s): Excessive growth affecting management of in third trimester (HCC) Orders: URINE OB DIP B/O [facility] Diagnostic Procedure Only (Routine) - Pending Review Specialty Diagnoses / Procedures Referred By Rikki venegas Referred To Contact [facility] Diagnoses Encounter for supervision of normal first in first trimester Procedures NUCHAL TRANSLUCENCY WHI US NUCHAL TRANSLUCENCY 1ST GESTATION Palma Cash APRN.CNP [address] [place] [address] [place] [address] Referral ID Status Reason Start Date Expiration Date Visits Requested Visits Authorized [id number] Pending Review Auto-Generat ed Referral 08/11/2025 1 1 * Diagnostic Procedure Only (Routine) - New Request Specialty Diagnoses / Procedures Referred By Rikki venegas Referred To Contact [facility] Diagnoses Encounter for supervision of normal first in first trimester with uncertain dates in first trimester Procedures NUCHAL TRANSLUCENCY WHI US NUCHAL TRANSLUCENCY 1ST GESTATION Palma Cash APRN.PROFESSOR OF KINESIOLOGY [address] [place] [address] [address] Referral ID Status Reason Start Date Expiration Date Visits Requested Visits Authorized [id number] New Request Auto-Generat ed Referral 4 08/11/2025 1 1 * Diagnostic Procedure Only (Routine) - New Request Specialty Diagnoses / Procedures Referred By Rikki venegas Referred To Contact [facility] Diagnoses Encounter for supervision of normal first in first trimester with uncertain dates in first trimester Procedures OBSTETRIC ULTRASOUND WHI US PREG UTERUS AFTER 1ST TRIMEST 1 GESTATION Palma Cash APRN.CNP [address] [place] [address] [address] Referral ID Status Reason Start Date Expiration Date Visits Requested Visits Authorized [id number] New Request Auto-Generat ed Referral 4 08/11/2025 [address] [facility] Summary Purpose Family History No Family History Records FoundNo Family History Records Found Advance Directives No Advanced Directives Records FoundNo Advanced Directives Records Found Additional Source Comments Source Comments (unrecognize d section and content) In the event this informatio n is protected by the Federal Confidentiality of Alcohol and Drug Abuse Patient Records regulations: The Federal rules restrict any use of the information to criminally investigate or prosecute any alcohol or drug abuse patient.[facility] the event this information is protected by the Federal Confidentiality of Alcohol and Drug Abuse Patient Records regulations: The Federal rules restrict any use of the information to criminally investigate or prosecute any alcohol or drug abuse patient.[facility] the event this information is protected by the Federal Confidentiality of Alcohol and Drug Abuse Patient Records regulations: The Federal rules restrict any use of the information to criminally investigate or prosecute any alcohol or drug abuse patient.[facility] the event this information is protected by the Federal Confidentiality of Alcohol and Drug Abuse Patient Records regulations: The Federal rules restrict any use of the information to criminally investigate or prosecute any alcohol or drug abuse patient.[facility] HospitalIn the event this information is protected by the Federal Confidentiality of Alcohol and Drug Abuse Patient Records regulations: The Federal rules restrict any use of the information to criminally investigate or prosecute any alcohol or drug abuse patient.[facility] HospitalIn the event this information is protected by the Federal Confidentiality of Alcohol and Drug Abuse Patient Records regulations: The Federal rules restrict any use of the information to criminally investigate or prosecute any alcohol or drug abuse patient.[facility] HospitalIn the event this information is protected by the Federal Confidentiality of Alcohol and Drug Abuse Patient Records regulations: The Federal rules restrict any use of the information to criminally investigate or prosecute any alcohol or drug abuse patient.[facility] HospitalIn the event this information is protected by the Federal Confidentiality of Alcohol and Drug Abuse Patient Records regulations: The Federal rules restrict any use of the information to criminally investigate or prosecute any alcohol or drug abuse patient.[facility] HospitalIn the event this information is protected by the Federal Confidentiality of Alcohol and Drug Abuse Patient Records regulations: The Federal rules restrict any use of the information to criminally investigate or prosecute any alcohol or drug abuse patient.[facility] HospitalIn the event this information is protected by the Federal Confidentiality of Alcohol and Drug Abuse Patient Records regulations: The Federal rules restrict any use of the information to criminally investigate or prosecute any alcohol or drug abuse patient.[facility] HospitalIn the event this information is protected by the Federal Confidentiality of Alcohol and Drug Abuse Patient Records regulations: The Federal rules restrict any use of the information to criminally investigate or prosecute any alcohol or drug abuse patient.[facility] HospitalIn the event this information is protected by the Federal Confidentiality of Alcohol and Drug Abuse Patient Records regulations: The Federal rules restrict any use of the information to criminally investigate or prosecute any alcohol or drug abuse patient.[facility] HospitalIn the event this information is protected by the Federal Confidentiality of Alcohol and Drug Abuse Patient Records regulations: The Federal rules restrict any use of the information to criminally investigate or prosecute any alcohol or drug abuse patient.[facility] HospitalIn the event this information is protected by the Federal Confidentiality of Alcohol and Drug Abuse Patient Records regulations: The Federal rules restrict any use of the information to criminally investigate or prosecute any alcohol or drug abuse patient.[facility] HospitalIn the event this information is protected by the Federal Confidentiality of Alcohol and Drug Abuse Patient Records regulations: The Federal rules restrict any use of the information to criminally investigate or prosecute any alcohol or drug abuse patient.[facility] HospitalIn the event this information is protected by the Federal Confidentiality of Alcohol and Drug Abuse Patient Records regulations: The Federal rules restrict any use of the information to criminally investigate or prosecute any alcohol or drug abuse patient.[facility] HospitalIn the event this information is protected by the Federal Confidentiality of Alcohol and Drug Abuse Patient Records regulations: The Federal rules restrict any use of the information to criminally investigate or prosecute any alcohol or drug abuse patient.[facility] HospitalIn the event this information is protected by the Federal Confidentiality of Alcohol and Drug Abuse Patient Records regulations: The Federal rules restrict any use of the information to criminally investigate or prosecute any alcohol or drug abuse patient.[facility] HospitalIn the event this information is protected by the Federal Confidentiality of Alcohol and Drug Abuse Patient Records regulations: The Federal rules restrict any use of the information to criminally investigate or prosecute any alcohol or drug abuse patient.[facility] HospitalIn the event this information is protected by the Federal Confidentiality of Alcohol and Drug Abuse Patient Records regulations: The Federal rules restrict any use of the information to criminally investigate or prosecute any alcohol or drug abuse patient.[facility] HospitalIn the event this information is protected by the Federal Confidentiality of Alcohol and Drug Abuse Patient Records regulations: The Federal rules restrict any use of the information to criminally investigate or prosecute any alcohol or drug abuse patient.[facility] HospitalIn the event this information is protected by the Federal Confidentiality of Alcohol and Drug Abuse Patient Records regulations: The Federal rules restrict any use of the information to criminally investigate or prosecute any alcohol or drug abuse patient.[facility] HospitalIn the event this information is protected by the Federal Confidentiality of Alcohol and Drug Abuse Patient Records regulations: The Federal rules restrict any use of the information to criminally investigate or prosecute any alcohol or drug abuse patient.[facility] HospitalIn the event this information is protected by the Federal Confidentiality of Alcohol and Drug Abuse Patient Records regulations: The Federal rules restrict any use of the information to criminally investigate or prosecute any alcohol or drug abuse patient.[facility] HospitalIn the event this information is protected by the Federal Confidentiality of Alcohol and Drug Abuse Patient Records regulations: The Federal rules restrict any use of the information to criminally investigate or prosecute any alcohol or drug abuse patient.[facility] HospitalIn the event this information is protected by the Federal Confidentiality of Alcohol and Drug Abuse Patient Records regulations: The Federal rules restrict any use of the information to criminally investigate or prosecute any alcohol or drug abuse patient.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 [address] Referral ID Status Reason Start Date Expiration Date Visits Re quested Visits Authorized [id number] Closed 08/11/2024 10/17/2024 1 1 Reason Onset Date Comments Care 09/29/2024 Reason Comments US Specialty Diagnoses / Procedures Referred By Contac t Referred To Contact [facility] Diagnoses Encounter for supervision of normal first in first trimester Procedures NUCHAL TRANSLUCENCY WHI US NUCHAL TRANSLUCENCY 1ST GESTATION US NUCHAL TRANSLUCENCY EA ADDL GESTATION Palma Cash APRN.PROFESSOR OF KINESIOLOGY [address] [place] [address] [address] Referral ID Status Reason Start Date Expiration Date Visits Requested Visits Authorized [id number] Authorized Auto-Generat ed Referral 10/17/2024 99 99 Reason Onset Date Comments Care 10/09/2024 Reason Onset Date Comments Refill Request 10/16/2024 Reason Onset Date Comments Care 11/13/2024 Specialty Diagnoses / Procedures Referred By Contac t Referred To Contact [facility] Diagnoses Encounter for supervision of normal first in first trimester with uncertain dates in first trimester Encounter for supervision of normal , unspecified, unspecified trimester Procedures OBSTETRIC ULTRASOUND WHI US PREG UTERUS AFTER 1ST TRIMEST GESTATION Palma Cash, SHARIF.PROFESSOR OF KINESIOLOGY [address] [place] [address] [address] [place] [address] Referral ID Status Reason Start Date Expiration Date Visits Requested Visits Authorized [id number] Authorized Auto-Generat ed Referral 10/30/2024 10/17/2025 20 20 Reason Onset Date Comments Care 12/08/2024 Reason Comments OB Abdominal Pain Reason Onset Date Comments Care 01/08/2025 Reason Comments Care Reason Onset Date Comments Care 01/22/2025 Reason Onset Date Comments Care 02/15/2025 Reason Onset Date Comments Care 02/23/2025 Reason Onset Date Comments Care 03/15/2025 Reason Onset Date Comments Care 03/22/2025 Reason Onset Date Comments Care 03/26/2025 INFORMATION SOURCE (unrecogn ized section and content) DATE CREATED AUTHOR 03/27/2025 [facility] DATE CREATED AUTHOR AUTHOR'S MAYRA POWERS 03/27/2025 [facility] FOR RECORDS PERTAINING TO PATIENTS WHO ARE OR HAVE BEEN ENROLLED IN A CHEMICAL DEPENDENCY/SUBSTANCEABUSE PROGRAM, SOME INFORMATION MAY BE OMITTED. This clinical summary was aggregated from multiple sources. Caution should be exercised in using it in the provision of clinical care. This summary normalizes information from multiple sources, and as a consequence, information in this document may materially change the coding, format and clinical context of patient data. In addition, data may be omitted in some cases. CLINICAL DECISIONS SHOULD BE BASED ON THE PRIMARY CLINICAL RECORDS. [employer] provides no warranty or guarantee of the accuracy or completeness of information in this document.
[2025-03-29 20:12] LABS: Absolute Lymphocyte Count 3.25 X10^3/uL (0.83-4.51); Absolute Neutrophil Count 14.7 X10^3/uL (2.0-7.7); Basophil# 0.04 X10^3/uL; Basophil% 0.2 % (0-1); Eosinophil# 0.07 X10^3/uL; Eosinophils% 0.4 % (0-5); Hematocrit 31.6 % (37-47); Hemoglobin 10.2 g/dL (12.0-15.0); Lymphocyte # 3.25 X10^3/ul (0.83-4.51); Lymphocyte % 16.7 % (19-41); Mean Corp Hgb Conc 32.3 g/dL (32-36); Mean Corpuscular Hgb 25.4 pg (27.0-32.0); Mean Corpuscular Volume 78.8 fL (81-99); Mean Platelet Vol. 11.3 fl (6.2-12.0); Monocyte# 1.25 X10^3/uL; Monocyte% 6.4 % (0-10); NRBC Flagged by Analyzer 0 % (0-5); Neutrophil # 14.67 X10^3/uL (2.7-7.7); Neutrophil % 75.2 % (47-70); Platelet Count 296 K/mm3 (150-450); Red Blood Count 4.01 M/mm3 (4.2-5.4); White Blood Count 19.5 K/mm3 (4.4-11.0)
[2025-03-29] MEDS: Methylergonovine 0.2 MG/ML Ampul IM (20:25)
--- OUTSIDE RECORDS SUMMARY | 2025-03-29 20:39 | XMS RPT_ITS | CCD ---
Author Organization [facility] Care Team Providers Care Bag Maker Name Role Phone Unavailable Primary Care Provider Unavailabl e HAURY, PALMA Referring Unavailable LASHAWN, NE L Referring Unavailable VIGNESH, TALITA Attending Unavailable LASHAWN, NE L Referring Unavailable SELF Referring Unavailable HAURY, [...] L Attending Unavailable HAURY, PALMA Referring Unavailable VIGNESH, TALITA Referring Unavailable SAMINA, FATOU Attending Unavailable IVGNESH, TALITA Referring Unavailable LAWANDA DIAZ Attending Unavailable HAURY, PALMA Attending Unavailable MEDELLIN, TALITA Attending Unavailable LASHAWN, NE L Attending Unavailable BHARTI TERESA Attending Unavailable HAURY, PALMA Referring Unavailable HAURY, PALMA Referring Unavailable HAURY, PALMA Attending Unavailable Care Physician, No Primary Primary Care Unava ilable Lawanda Diaz Admitting Unavailable Lawanda Diaz Attending Unavailable Care Physician, No Primary Primary Care Unava ilable Talita Medellin Attending Unavailable Care Physician, No Primary Primary Care Unava ilable Lashawn Ne Admitting Unavailable Lashawn Ne Attending Unavailable Lashawn, Ne Referring Unavailable Medications Current Medications Medication [...] daily. 90 tablet 3 12/08/2024 Active omega 7-hdd-gvh-fish oil 60-90-500 mg cap (20 sources) Start: 09-29-2024 take 1 tablet by mouth once daily omega 6-gdb-qsz-fish oil 60-90-500 mg cap Take 1 tablet by mouth once daily. 90 capsule 2 09/29/2024 Active Vmsntazd-Gs-Tbr-Fe -FA tab (20 sources) Start: 01-22-2025 take 1 tablet by mouth once daily Eajuvfzr-Ug-Xgn-F e-FA tab Take 1 tablet by mouth once daily. 90 tablet 3 01/22/2025 Active Start: 07-31-2024 End: 01-22-2025 take 1 tablet by mouth once daily Tqcgfxsx-Cq-Cvc-Fe-FA tab Take 1 tablet by mouth once daily. 90 tablet 3 07/31/2024 01/22/2025 Discontinued Start: 07-31-2024 take 1 tablet by gwen th once daily Ikerstmd-He-Iun-Fe-FA tab Take 1 tablet by mouth once [...] Unclassified (1 source) Rubella non-immune status, antepartum ([facility]); Translations: [Rubella non-immune status, antepartum ([facility])] Onset: 08-30-2024 Urinary tract infections (1 source) [...] Exam - OB/GYNon 06-0 H&P Exam - MID TEACHER [facility] Medical Records Department [address] [place] [address] H P Exam - MID TEACHER 03/26/25 1422 MR#: [id number] Acct: [id number] Name: AMPARO CABRAL Rep #: [id number] : 1990 34 From: Zeina Mi MD PCP: Care Physician,No Primary Status:PRE IN [facility] History and Physical Date of Admission: 03/30/25 [...] Outpatient Medications Medication Sig Dispense Refill ??? Zimykmha-Yo-Taq-Fe-F A tab Take 1 tablet by mouth once daily. 90 tablet 3 ??? aspirin, enteric coated (ECOTRIN LOW STRENGTH) 81 mg EC tablet Take 1 tablet by mouth once daily. 90 tablet 3 ??? omega 1-nze-qqg-fish oil 60-90-500 mg cap Take 1 tablet [...] Mi MD; No Primary Care Physician Signed [facility] HISTORY PHYSICALon HISTORY PHYSICAL HNO ID: [id number] Author: ZEINA LAINEZ MD Service: ? Author [...] Current Outpatient Medications Medication Sig Dispense Refill Nvjsiboc-Pq-Ylv-Fe-F A tab Take 1 tablet by mouth once daily. 90 tablet 3 aspirin, enteric coated (ECOTRIN LOW STRENGTH) 81 mg EC tablet Take 1 tablet by mouth once daily. 90 tablet 3 omega 9-rxg-vbi-fish oil 60-90-500 mg cap Take 1 tablet [...] medications and allergies Zeina Strickland MD Normal [facility] URINE OB DIP B/Oon Glucose Ql (U) Negative Neg mg/dL [facility] Protein.monoclonal (U) [Mass/Vol] Negative Neg mg/dL [facility] CNPNon 03-19-2025 CNPN Telephone (OBGYWM) AMPARO CABRAL ([id number]) 1990 F Date Time Provider Department 03/19/25 NE HARDIN OBGYWM During your visit today, we recorded the following information about you: Radha Granado RN 03/19/2025 3:07 PM Signed Breast pump request received from [employer]. Order to provider to sign. CK Saenz Trisha, RN 03/20/2025 1:23 PM Signed Signed and faxed. Domenica Capellan RN Allergies As of Date: 03/19/2025 (No Known Allergies) Date Reviewed: 03/15/2025 Reviewed by: Lawanda Diaz MD - Fully Assessed Reason for Visit: breast pump [Other] Prescriptions as of 03/20/2025 - Ibvmqwof-Iz-Sis-Fe-F A tab Take 1 tablet by mouth once daily. - aspirin, enteric coated (ECOTRIN LOW STRENGTH) 81 mg EC tablet Take 1 tablet by mouth once daily. - omega 9-slk-ezu-fish oil 60-90-500 mg cap Take 1 tablet [...] Status:Closed by DOMENICA CAPELLAN on 03/20/25 Normal [facility] URINE OB DIP B/OOrdered By: Carolyn Suárez on 03-15-2025 Glucose Ql (U) Negative Neg mg/dL [facility] Protein.monoclonal (U) [Mass/Vol] Negative Neg mg/dL [facility] ROUTINE, GROUP B ST REPTOCOCCUS BY PCRon 03-09-2025 ROUTINE, GROUP B STREPTOCOCCUS BY PCR Not detected Normal [facility] Comment on above: Performed By: #### G BPCR ####[facility] LABCLIA [id number] [place] [address] [place] BACTERIAL VAGINOSIS NAATon 0 - Lactobacillus crispatus+gasseri+je nsenii + Gardnerella vaginalis + Atopobium vaginae rRNA REBEL+probe Ql (Vag fld) Not detected Normal Not detected [facility] Comment on above: Order Comment: Speci men Type: SWABOrdering Facility: [facility] Address: [address] [place] [address] Performed By: #### C VTV, BVAMP ####[facility] LABCLIA [id number] [place] [address] [place] MARGARITA/TRICHOMONAS NAATon 0 02-23-2025 C. glabrata RNA REBEL+probe Ql (Vag fld) Not detected Normal Not detected [facility] Comment on above: Order Comment: Speci men Type: SWABOrdering Facility: [facility] Address: [address] [place] [address] Performed By: #### C VTV, BVAMP ####[facility] LABCLIA [id number] [address] [place] Margarita sp DNA REBEL+probe Ql (Vag fld) Not detected Normal Not detected [facility] Comment on above: Order Comment: Speci men Type: SWABOrdering Facility: [facility] Address: [address] [place] [address] Result Comment: The Margarita species group target includes C. albicans, C. tropicalis, C. parapsilosis, and C. dubliniensis. Performed By: #### C VTV, BVAMP ####[facility] LABCLIA [id number] [place] [address] [place] T. vaginalis DNA REBEL+probe Ql (Unsp spec) Not detected Normal Not detected [facility] Comment on above: Order Comment: Speci men Type: SWABOrdering Facility: [facility] Address: [address] [place] [address] Performed By: #### C VTV, BVAMP ####[facility] LABCLIA [id number] [place] [address] [place] URINE OB DIP B/Oon 5 Glucose Ql (U) Negative Neg mg/dL [facility] Interpretation and review of laboratory results Normal [facility] Protein.monoclonal (U) [Mass/Vol] Negative Neg mg/dL [facility] GLUCOSE GESTATIONAL, 1 HOURo n 01-22-2025 Glucose 1 Hr post Unsp challenge [Mass/Vol] 167 mg/dL Normal 74-179 [facility] Comment on above: Order Comment: Speccaleb jacome Type: BLOOD SPECIMENOrdering Facility: [facility] Address: [address] [place] [address] Result Comment: [facility] Congress of Obstetricians and Gynecologists (Jossy/Ramandeep) guidelines state gestational diabetes mellitus is present when 2 or more of the plasma glucose concentrations meet or exceed the following levels: fastin mg/dl, 1 hr: 180 mg/dl, 2 hr: 155 mg/dl, and 3 hr: 140 mg/dl. Performed By: #### G TGST1 ####[facility] [id number] [address] [place] GLUCOSE GESTATIONAL, 2 HOURo n 01-22-2025 Glucose 2 Hr post Unsp challenge [Mass/Vol] 150 mg/dL Normal 74-154 [facility] Comment on above: Order Comment: Speci men Type: BLOOD SPECIMENOrdering Facility: [facility] Address: [address] [place] [address] Result Comment: [facility] Congress of Obstetricians and Gynecologists (Jossy/Ramandeep) guidelines state gestational diabetes mellitus is present when 2 or more of the plasma glucose concentrations meet or exceed the following levels: fastin mg/dl, 1 hr: 180 mg/dl, 2 hr: 155 mg/dl, and 3 hr: 140 mg/dl. Performed By: #### G TGST2 ####[facility] [id number] [place] [address] [place] GLUCOSE GESTATIONAL, 3 HOURo n 01-22-2025 Glucose 3 Hr post Unsp challenge [Mass/Vol] 113 mg/dL Normal 74-139 [facility] Comment on above: Order Comment: Connie jacome Type: BLOOD SPECIMENOrdering Facility: [facility] Address: [address] [place] [address] Result Comment: [facility] Congress of Obstetricians and Gynecologists (Jossy/Ramandeep) guidelines state gestational diabetes mellitus is present when 2 or more of the plasma glucose concentrations meet or exceed the following levels: fastin mg/dl, 1 hr: 180 mg/dl, 2 hr: 155 mg/dl, and 3 hr: 140 mg/dl. Performed By: #### G TGST3 ####[facility] [id number] [place] [address] [place] GLUCOSE GESTATIONAL, FASTING on 01-22-2025 Glucose post fast [Mass/Vol] 96 mg/dL High 74-94 [facility] Comment on above: Order Comment: Connie jacome Type: BLOOD SPECIMEN Ordering Facility: [facility] Address: [address] [place] [address] Result Comment: [facility] Congress of Obstetricians and Gynecologists (Jossy/Ramandeep) guidelines state gestational diabetes mellitus is present when 2 or more of the plasma glucose concentrations meet or exceed the following levels: fastin mg/dl, 1 hr: 180 mg/dl, 2 hr: 155 mg/dl, and 3 hr: 140 mg/dl. Performed By: #### R UBIGG #### [facility] CLIA [id number] [address] [place], [place] [id number] [address] [place] CBC W Auto Differential pane l (Bld)on 01-12-2025 Basophils (Bld) [#/Vol] 0.03 10*3/uL Normal <0.11 [facility] Comment on above: Order Comment: Connie jacome Type: BLOOD SPECIMEN Ordering Facility: [facility] Address: [address] [place] [address] Performed By: #### R UBIGG #### [facility] CLIA [id number] [address] [place] [address] [place] Basophils/100 WBC (Bld) 0.2 % Normal [facility] Comment on above: Order Comment: Speci men Type: BLOOD SPECIMEN Ordering Facility: [facility] Address: [address] [place] [address] Performed By: #### R UBIGG #### [facility] CLIA [id number] [address] [place] [address] [place] Differential cell count method Nom (Bld) Auto Normal [facility] Comment on above: Order Comment: Speci men Type: BLOOD SPECIMEN Ordering Facility: [facility] Address: [address] [place] [address] Performed By: #### R UBIGG #### [facility] CLIA [id number] [address] [place] [address] [place] Eosinophils (Bld) [#/Vol] 0.18 10*3/uL Normal <0.46 [facility] Comment on above: Order Comment: Speci men Type: BLOOD SPECIMEN Ordering Facility: [facility] Address: [address] [place] [address] Performed By: #### R UBIGG #### [facility] CLIA [id number] [address] [place] [address] [place] Eosinophils/100 WBC (Bld) 1.5 % Normal [facility] Comment on above: Order Comment: Speci men Type: BLOOD SPECIMEN Ordering Facility: [facility] Address: [address] [place] [address] Performed By: #### R UBIGG #### [facility] CLIA [id number] [address] [place] [address] [place] Erythrocyte distribution width (RBC) [Ratio] 14.0 % Normal 11.5-15.0 [facility] Comment on above: Order Comment: Speci men Type: BLOOD SPECIMEN Ordering Facility: [facility] Address: [address] [place] [address] Performed By: #### R UBIGG #### [facility] CLIA [id number] [address] [place] [address] [place] Hematocrit (Bld) [Volume fraction] 35.7 % Low 36.0-46.0 [facility] Comment on above: Order Comment: Speci men Type: BLOOD SPECIMEN Ordering Facility: [facility] Address: [address] [place] [address] Performed By: #### R UBIGG #### [facility] CLIA [id number] [address] [place] [address] [place] Hemoglobin (Bld) [Mass/Vol] 11.6 g/dL Normal 11.5-15.5 [facility] Comment on above: Order Comment: Speci men Type: BLOOD SPECIMEN Ordering Facility: [facility] Address: [address] [place] [address] Performed By: #### R UBIGG #### [facility] CLIA [id number] [address] [place] [address] [place] Immature granulocytes (Bld) [#/Vol] 0.18 10*3/uL High <0.10 [facility] Comment on above: Order Comment: Speci men Type: BLOOD SPECIMEN Ordering Facility: [facility] Address: [address] [place] [address] Performed By: #### R UBIGG #### [facility] CLIA [id number] [address] [place] [address] [place] Immature granulocytes/100 WBC (Bld) 1.5 % Normal [facility] Comment on above: Order Comment: Speci men Type: BLOOD SPECIMEN Ordering Facility: [facility] Address: [address] [place] [address] Performed By: #### R UBIGG #### [facility] CLIA [id number] [address] [place] [address] [place] Lymphocytes (Bld) [#/Vol] 1.96 10*3/uL Normal 1.00-4.00 [facility] Comment on above: Order Comment: Speci men Type: BLOOD SPECIMEN Ordering Facility: [facility] Address: [address] [place] [address] Performed By: #### R UBIGG #### [facility] CLIA [id number] [address] [place] [address] [place] Lymphocytes/100 WBC (Bld) 15.8 % Normal [facility] Comment on above: Order Comment: Speci men Type: BLOOD SPECIMEN Ordering Facility: [facility] Address: [address] [place] [address] Performed By: #### R UBIGG #### [facility] CLIA [id number] [address] [place] [address] [place] MCH (RBC) [Entitic mass] 25.1 pg Low 26.0-34.0 [facility] Comment on above: Order Comment: Speci men Type: BLOOD SPECIMEN Ordering Facility: [facility] Address: [address] [place] [address] Performed By: #### R UBIGG #### [facility] CLIA [id number] [address] [place] [address] [place] MCHC (RBC) [Mass/Vol] 32.5 g/dL Normal 30.5-36.0 [facility] Comment on above: Order Comment: Speci men Type: BLOOD SPECIMEN Ordering Facility: [facility] Address: [address] [place] [address] Performed By: #### R UBIGG #### [facility] CLIA [id number] [address] [place] [address] [place] MCV (RBC) [Entitic vol] 77.3 fL Low 80.0-100.0 [facility] Comment on above: Order Comment: Speci men Type: BLOOD SPECIMEN Ordering Facility: [facility] Address: [address] [place] [address] Performed By: #### R UBIGG #### [facility] CLIA [id number] [address] [place] [address] [place] Monocytes (Bld) [#/Vol] 1.06 10*3/uL High <0.87 [facility] Comment on above: Order Comment: Speci men Type: BLOOD SPECIMEN Ordering Facility: [facility] Address: [address] [place] [address] Performed By: #### R UBIGG #### [facility] CLIA [id number] [address] [place] [address] [place] Monocytes/100 WBC (Bld) 8.6 % Normal [facility] Comment on above: Order Comment: Speci men Type: BLOOD SPECIMEN Ordering Facility: [facility] Address: [address] [place] [address] Performed By: #### R UBIGG #### [facility] CLIA [id number] [address] [place] [address] [place] Neutrophils (Bld) [#/Vol] 8.97 10*3/uL High 1.45-7.50 [facility] Comment on above: Order Comment: Speci men Type: BLOOD SPECIMEN Ordering Facility: [facility] Address: [address] [place] [address] Performed By: #### R UBIGG #### [facility] CLIA [id number] [address] [place] [address] [place] Neutrophils/100 WBC (Bld) 72.4 % Normal [facility] Comment on above: Order Comment: Speci men Type: BLOOD SPECIMEN Ordering Facility: [facility] Address: [address] [place] [address] Performed By: #### R UBIGG #### [facility] CLIA [id number] [address] [place] [address] [place] Nucleated RBC (Bld) [#/Vol] 10*3/uL Normal <0.01 [facility] Comment on above: Order Comment: Speci men Type: BLOOD SPECIMEN Ordering Facility: [facility] Address: [address] [place] [address] Performed By: #### R UBIGG #### [facility] CLIA [id number] [address] [place] [address] [place] Nucleated RBC/100 WBC (Bld) [Ratio] 0.0 /100 WBC Normal [facility] Comment on above: Order Comment: Speci men Type: BLOOD SPECIMEN Ordering Facility: [facility] Address: [address] [place] [address] Performed By: #### R UBIGG #### [facility] CLIA [id number] [address] [place] [address] [place] Platelet mean volume (Bld) [Entitic vol] 10.9 fL Normal 9.0-12.7 [facility] Comment on above: Order Comment: Speci men Type: BLOOD SPECIMEN Ordering Facility: [facility] Address: [address] [place] [address] Performed By: #### R UBIGG #### [facility] CLIA [id number] [address] [place] [address] [place] Platelets (Bld) [#/Vol] 275 10*3/uL Normal 150-400 [facility] Comment on above: Order Comment: Speci men Type: BLOOD SPECIMEN Ordering Facility: [facility] Address: [address] [place] [address] Performed By: #### R UBIGG #### [facility] CLIA [id number] [address] [place] [address] [place] RBC (Bld) [#/Vol] 4.62 10*6/uL Normal 3.90-5.20 [facility] Comment on above: Order Comment: Speci men Type: BLOOD SPECIMEN Ordering Facility: [facility] Address: [address] [place] [address] Performed By: #### R UBIGG #### [facility] CLIA [id number] [address] [place] [address] [place] WBC (Bld) [#/Vol] 12.38 10*3/uL High 3.70-11.00 [facility] Comment on above: Order Comment: Speci men Type: BLOOD SPECIMEN Ordering Facility: [facility] Address: [address] [place] [address] Performed By: #### R UBIGG #### [facility] CLIA [id number] [address] [place] [address] [place] GESTATIONAL GLUCOSE SCREEN, 1-HOUR, 50 GRAM, NON-FASTINGon 01-12-2025 Glucose [Mass/Vol] 145 mg/dL High 74-134 [facility] Comment on above: Order Comment: Speci men Type: BLOOD SPECIMEN Ordering Facility: [facility] Address: [address] [place] [address] Result Comment: [facility] Congress of Obstetricians and Gynecologists (Jossy/Ramandeep) guidelines state a gestational diabetes mellitus positive screen is made, in women not previously diagnosed with overt diabetes, when the 1 hr plasma glucose level is equal to or above 140 mg/dL. [facility] Hot Dip Tinning Supervisor and [facility] [place] recommends a 135 mg/dL cutoff. Performed By: #### R UBIGG #### [facility] CLIA [id number] [address] [place] [address] [place] Reagin and Treponema pallidu m IgG and IgM [Interp]on 01-12-2025 T. pallidum IgG+IgM IA Ql (S) Non-Reactive Normal Nonreactive [facility] Comment on above: Order Comment: Speci men Type: BLOOD SPECIMEN Ordering Facility: [facility] Address: [address] [place] [address] Performed By: #### R UBIGG #### [facility] CLIA [id number] [address] [place] [address] [place] Reagin+T pallidum IgG+IgM Se rPl-Impon 01-12-2025 Reagin and Treponema pallidum IgG and IgM [Interp] Cannot exclude recent Treponemal infection if specimen collected within 7-10 days after appearance of suspect lesions or 2-3 weeks after an exposure. Clinical correlation is required. Normal [facility] Comment on above: Order Comment: Speci men Type: BLOOD SPECIMEN Ordering Facility: [facility] Address: [address] [place] [address] Performed By: #### R UBIGG #### [facility] CLIA [id number] [address] [place] [address] [facility] ([id number]) 1990 F Date Time Provider Department 01/10/25 [...] tablet by mouth once daily. - omega 8-ohw-qtm-fish oil 60-90-500 mg cap Take 1 tablet by mouth once daily. - famotidine (PEPCID) 20 mg tablet Take 1 tablet by mouth two times a day. - Zoyqoske-Es-Gcy-Fe-F A tab Take 1 tablet by mouth [...] Status:Closed by LYSSA BIGGS on 01/10/25 Normal [facility] 12-26-2024 JUN Telephone (OBGYWM) AMPARO CABRAL ([id number]) 1990 F Date Time Provider Department 12/26/24 [...] tablet by mouth once daily. - omega 0-ebd-zsi-fish oil 60-90-500 mg cap Take 1 tablet by mouth once daily. - famotidine (PEPCID) 20 mg tablet Take 1 tablet by mouth two times a day. - Ugmsocsr-Hn-Cqo-Fe-F A tab Take 1 tablet by mouth [...] Status:Closed by BHARTI AGUIAR on 12/26/24 Normal [facility] OB Triage Physician Noteon 0 12-20-2024 OB Triage Physician Note [facility] Medical Records Department [address] [place] [address] OB Triage Physician Note 12/20/24917 MR#: [id number] Acct: [id number] Name: AMPARO CABRAL Rep #: [id number] : 1990 34 From: Ne Hardin MD PCP: Care Physician,No Primary Status:DEP CLI Y Location: [facility] HPI - General General Date of Admission: 12/18/24 Date of Service: 12/18/24 Chief Complaint: decreased FM HPI Narrative AMPARO CABRAL, is a 34 F who presents c/o decreased FM Maternal Data Information Final SYED: 04/03/25 Gestational age: 24 6/7 PFSH PFS Home Medications ???Medication ???Instructions ???Recorded ???Last Taken ???Type aspirin 81 mg capsule 81 mg PO DAILY 12/18/24 12/18/24 1 8:00 History omega 7-tpz-fuu-fish oil 60 mg-90 1 cap PO DAILY [...] MD; No Primary Care Physician Signed Normal [facility] Examination level ultrasound on 11-14-2024 Indication Standard [...] 14 oz EFW by: Hadlock (HC-AC-FL) Extended Supervisor Lump Room 4.6 mm CM 4.8 mm 46% Nicolaides [...] normal LVOT view: normal 3-vessel view: normal 7-bmtuvz-auqqeei view: normal Heart / Thorax Situs: situs [...] Read By: Darleen Bergeron M.D. MATERNAL MEDICINE [facility] Examination level ultrasound on 11-13-2024 Radiology Study observation (narrative) [facility] [facility] BACTERIAL VAGINOSIS NAATon 1 11-30-2023 Lactobacillus crispatus+gasseri+je nsenii + Gardnerella vaginalis + Atopobium vaginae rRNA REBEL+probe Ql (Vag fld) Not detected Normal Not detected [facility] Comment on above: Order Comment: Speci men Type: BLOOD SPECIMEN Ordering Facility: [facility] Address: [address] [place] [address] Performed By: #### R UBIGG #### [facility] CLIA [id number] [address] [place] [address] [place] MARGARITA/TRICHOMONAS NAATon 1 11-30-2023 C. glabrata RNA REBEL+probe Ql (Vag fld) Not detected Normal Not detected [facility] Comment on above: Order Comment: Speci men Type: BLOOD SPECIMEN Ordering Facility: [facility] Address: [address] [place] [address] Performed By: #### R UBIGG #### [facility] CLIA [id number] [address] [place] [address] [place] Margarita sp DNA REBEL+probe Ql (Vag fld) Not detected Normal Not detected [facility] Comment on above: Order Comment: Speci men Type: BLOOD SPECIMEN Ordering Facility: [facility] Address: [address] [place] [address] Result Comment: The Margarita species group target includes C. albicans, C. tropicalis, C. parapsilosis, and C. dubliniensis. Performed By: #### R UBIGG #### [facility] CLIA [id number] [address] [place] [address] T. vaginalis DNA REBEL+probe Ql (Unsp spec) Not detected Normal Not detected [facility] Comment on above: Order Comment: Speci men Type: BLOOD SPECIMEN Ordering Facility: [facility] Address: [address] [place] [address] Performed By: #### R UBIGG #### [facility] CLIA [id number] [address] [place] [address] [place] nuchal translucency me asured by USon 09-29-2024 Indication First trimester anatomic survey Impression REMOTE READ The patient is referred for a first trimester anatomy scan including nuchal translucency measurement as clinically indicated. - Single, live, intrauterine . - Wortham rump length measurement is consistent with the [...] view: normal 4-chamber view with color: normal 0-orjprg-aykvrju view: normal Abdominal cord insertion: normal Stomach: [...] Read By: Leonidas Soto M.D. MATERNAL MEDICINE [facility] Radiology Study observation (narrative) [facility] [id number] PLUSon 09-29-2024 Cell-free DNA./Cell-free DNA.total Dosage of chromosome-specific cfDNA (cfDNA) [Molar fraction] 14% Normal [facility] Comment on above: Order Comment: Speci men Type: BLOOD SPECIMENOrdering Facility: [facility] Address: [address] [place] [address] Performed By: #### M AT21 ####[facility]IA [id number] [place] [address] Chr 13+18+21+X+Y aneuploidy Dosage of chromosome-specific cfDNA Ql (cfDNA) Negative Normal [facility] Comment on above: Order Comment: Speci men Type: BLOOD SPECIMENOrdering Facility: [facility] Address: [address] [place] [address] Performed By: #### M AT21 ####[facility]CLIA [id number] [place] [address] Chr 21 trisomy Dosage of chromosome-specific cfDNA Ql (cfDNA) Negative Normal [facility] Comment on above: Order Comment: Speci men Type: BLOOD SPECIMENOrdering Facility: [facility] Address: [address] [place] [address] Performed By: #### M AT21 ####[facility] LABCLIA [id number] [place] [address] Chr X and Y aneuploidy risk Sequencing Ql (cfDNA) [Interp] Not detected Normal [facility] Comment on above: Order Comment: Speci men Type: BLOOD SPECIMENOrdering Facility: [facility] Address: [address] [place] [address] Result Comment: Not Detected Not Detected Performed By: #### M AT21 ####[facility]CLIA [id number] [place] [address] Citation Mika (Reference lab test) Comment Normal [facility] Comment on above: Order Comment: Speci men Type: BLOOD SPECIMENOrdering Facility: [facility] Address: [address] [place] [address] Result Comment: 1. P tosha WALL, et al. Eula Med. 2012;14(3):296-305. 2. Anastasia ORLANDO, et al. Prenat Diag. 2013;33(6):591-597. 3. Layo C, et al. Clin Chem. 2015 Apr;61(4):608-616. 4. Earle WALL et al. Eula Med. 2011;13(11):913-920. 5. ACOG/SM[facility] Practice Bulletin No. 226, Jul 2020. Performed By: #### M AT21 ####[facility] LABCLIA [id number] [place] [address] Gestational age Estimated from conception date Turner Normal [facility] Comment on above: Order Comment: Speci men Type: BLOOD SPECIMENOrdering Facility: [facility] Address: [address] [place] [address] Performed By: #### M AT21 ####[facility]CLIA [id number] [place] [id number] GESTATIONALAGE AGE > OR = 9W Yes Normal [facility] Comment on above: Order Comment: Speci men Type: BLOOD SPECIMENOrdering Facility: [facility] Address: [address] [place] [address] Performed By: #### M AT21 ####[facility] LABCLIA [id number] [place] [id number] Laboratory comment Mika (Report) Comment Normal [facility] Comment on above: Order Comment: Fabiolai naa Type: BLOOD SPECIMENOrdering Facility: [facility] Address: [address] [place] [address] Result Comment: The MaterniT(R) 21 PLUS laboratory-developed test (LDT) analyzes circulating cell-free DNA from a maternal blood sample. This test is used for screening purposes and not diagnostic. Clinical correlation is recommended. Validation data on twin pregnancies is limited and the ability of this test to detect aneuploidy in higher multiple gestations has not yet been validated. Performed By: #### M AT21 ####[facility] LABCLIA [id number] [place] [id number] global risk management director name Nom (Provider) Comment Normal [facility] Comment on above: Order Comment: Speci naa Type: BLOOD SPECIMENOrdering Facility: [facility] Address: [address] [place] [address] Result Comment: This specimen showed an expected representation of chromosome 21, 18 and 13 material. Clinical correlation is suggested. Comment Getachew Ruiz MD, PhD, Director, [employer] Performed By: #### M AT21 ####[facility]CLIA [id number] [place] [address] LIMITATIONS OF THE TEST Comment Normal [facility] Comment on above: Order Comment: Speci men Type: BLOOD SPECIMENOrdering Facility: [facility] Address: [address], [place] [address] Result Comment: Angelito phillips the results of [...] and Fragmin(R)). Performed By: #### M AT21 ####[facility] LABCLIA [id number] [place] [address] Monosomy X risk Dosage of chromosome-specific cfDNA Ql (Plasma cell-free+WBC DNA) [Interp] Not detected Normal [facility] Comment on above: Order Comment: Speci men Type: BLOOD SPECIMENOrdering Facility: [facility] Address: [address] [place] [address] Performed By: #### M AT21 ####[facility]CLIA [id number] [place] [id number] NEGATIVE PREDICTIVE VALUE Note Normal [facility] Comment on above: Order Comment: Speci men Type: BLOOD SPECIMENOrdering Facility: [facility] Address: [address] [place] [address] Result Comment: The Negative Predictive Value (NPV) for trisomy 21, 18, and 13 is greater than 99%. The NPV for SCA and ESS cannot be calculated as SCA and ESS are only reported when an abnormality is detected. Performed By: #### M AT21 ####[facility] LABCLIA [id number] [place] [phone] NOTE Comment Normal [facility] Comment on above: Order Comment: Speci [facility] Type: BLOOD SPECIMENOrdering Facility: [facility] Address: [address] [place] [address] Result Comment: See Notes [employer] is a subsidiary of [employer], using the brand [employer]. This test was developed and its performance characteristics determined by [employer]. It has not been cleared or approved by the Food and Drug Administration. This laboratory is certified under the Clinical Laboratory Improvement Amendments (CLIA) as qualified to perform high complexity clinical laboratory testing and accredited by the [employer] (CAP). If there is future clinical need for adding MaterniT GENOME testing, this specimen will be available until term. [facility] samples will not be retained beyond 60 days. [facility] patients will have to send a new sample for re-sequencing (LCA Test Code: 616602). Performed By: #### M AT21 ####[facility] [id number] [place] [address] PERFORMANCE CHARACTERISTICS Note Normal [facility] Comment on above: Order Comment: Connie jacome Type: BLOOD SPECIMENOrdering Facility: [facility] Address: [address] [place] [address] Result Comment: ! Sex ! Accuracy: 99.4% [...] gestation only. Performed By: #### M AT21 ####[facility] [id number] [place] [address] POSITIVE PREDICTIVE VALUE N/A Normal [facility] Comment on above: Order Comment: Connie jacome Type: BLOOD SPECIMENOrdering Facility: [facility] Address: [address] [place] [address] Performed By: #### M AT21 ####[facility] LABCLIA [id number] [place] [address] Reference Lab Test Method Comment Normal [facility] Comment on above: Order Comment: Connie jacome Type: BLOOD SPECIMENOrdering Facility: [facility] Address: [address] [place] [address] Result Comment: See Notes Circulating cell-free DNA [...] and 22. Performed By: #### M AT21 ####[facility] LABCLIA [id number] [place] [address] Sex Dosage of chromosome-specific cfDNA Nom (cfDNA) Comment Normal [facility] Comment on above: Order Comment: Speci men Type: BLOOD SPECIMENOrdering Facility: [facility] Address: [address] [place] [address] Result Comment: Cons istent with Female Performed By: #### M AT21 ####[facility] LABCLIA [id number] [place] [address] Test performance information Mika (Unsp spec) Comment Normal [facility] Comment on above: Order Comment: Speci men Type: BLOOD SPECIMENOrdering Facility: [facility] Address: [address] [place] [address] Result Comment: The performance characteristics of the MaterniT(R) 21 PLUS laboratory-developed test (LDT) have been determined in a clinical validation study with women at increased risk for chromosomal aneuploidy.[1-4] Performed By: #### M AT21 ####[facility] LABCLIA [id number] [place] [address] Trisomy 13 risk Dosage of chromosome-specific cfDNA Ql (cfDNA) [Interp] Negative Normal [facility] Comment on above: Order Comment: Speci men Type: BLOOD SPECIMENOrdering Facility: [facility] Address: [address] [place] [address] Performed By: #### M AT21 ####[facility] LABCLIA [id number] [place] [address] Trisomy 18 risk Dosage of chromosome-specific cfDNA Ql (Plasma cell-free+WBC DNA) [Interp] Negative Normal [facility] Comment on above: Order Comment: Speci men Type: BLOOD SPECIMENOrdering Facility: [facility] Address: [address] [place] [address] Performed By: #### M AT21 ####[facility] LABCLIA [id number] [place] [address] Bacteria Ur Culton 4 Bacteria identified Cx Nom (U) CULTURE, URINE: No growth (<1,000 CFU/ml) Normal [facility] Comment on above: Performed By: #### 6 30-4 ####[facility] LABCLIA [id number] [place] [address] [place] CBC Pnl Bld Autoon 4 Erythrocyte distribution width (RBC) [Ratio] 13.7 % Normal 11.5-15.0 [facility] Comment on above: Order Comment: Speci men Type: BLOOD SPECIMEN Ordering Facility: [facility] Address: [address] [place] [address] Performed By: #### R UBIGG #### [facility] CLIA [id number] [address] [place] [address] [place] Order Comment: Speci men Type: BLOOD SPECIMENOrdering Facility: [facility] Address: [address] [place] [address] Performed By: #### L [id number] ####[facility] LABCLIA [id number] [place] [address] [place] RBC (Bld) [#/Vol] 5.19 10*6/uL Normal 3.90-5.20 [facility] Comment on above: Order Comment: Speci men Type: BLOOD SPECIMEN Ordering Facility: [facility] Address: [address] [place] [address] Performed By: #### R UBIGG #### [facility] CLIA [id number] [address] [place] [address] OF [place] Order Comment: Speci men Type: BLOOD SPECIMENOrdering Facility: [facility] Address: [address] [place] [address] Performed By: #### L [id number] ####[facility]CLIA [id number] [place] [address] [place] CBC panel Auto (Bld)on 08-28 Hematocrit (Bld) [Volume fraction] 38.6 % Normal 36.0-46.0 [facility] Comment on above: Order Comment: Speci men Type: BLOOD SPECIMEN Ordering Facility: [facility] Address: [address] [place] [address] Performed By: #### R UBIGG #### [facility] CLIA [id number] [address] [place] [address] [place] Hemoglobin (Bld) [Mass/Vol] 12.5 g/dL Normal 11.5-15.5 [facility] Comment on above: Order Comment: Speci men Type: BLOOD SPECIMEN Ordering Facility: [facility] Address: [address] [place] [address] Performed By: #### R UBIGG #### [facility] CLIA [id number] [address] [place] [address] [place] MCH (RBC) [Entitic mass] 24.1 pg Low 26.0-34.0 [facility] Comment on above: Order Comment: Speci men Type: BLOOD SPECIMEN Ordering Facility: [facility] Address: [address] [place] [address] Performed By: #### R UBIGG #### [facility] CLIA [id number] [address] [place] [address] [place] MCHC (RBC) [Mass/Vol] 32.4 g/dL Normal 30.5-36.0 [facility] Comment on above: Order Comment: Speci men Type: BLOOD SPECIMEN Ordering Facility: [facility] Address: [address] [place] [address] Performed By: #### R UBIGG #### [facility] CLIA [id number] [address] [place] [address] [place] MCV (RBC) [Entitic vol] 74.4 fL Low 80.0-100.0 [facility] Comment on above: Order Comment: Speci men Type: BLOOD SPECIMEN Ordering Facility: [facility] Address: [address] [place] [address] Performed By: #### R UBIGG #### [facility] CLIA [id number] [address] [place] [address] [place] Nucleated RBC (Bld) [#/Vol] 10*3/uL Normal <0.01 [facility] Comment on above: Order Comment: Speci men Type: BLOOD SPECIMEN Ordering Facility: [facility] Address: [address] [place] [address] Performed By: #### R UBIGG #### [facility] CLIA [id number] [address] [place] [address] [place] Platelet mean volume (Bld) [Entitic vol] 10.0 fL Normal 9.0-12.7 [facility] Comment on above: Order Comment: Speci men Type: BLOOD SPECIMEN Ordering Facility: [facility] Address: [address] [place] [address] Performed By: #### R UBIGG #### [facility] CLIA [id number] [address] [place] [address] [place] Platelets (Bld) [#/Vol] 349 10*3/uL Normal 150-400 [facility] Comment on above: Order Comment: Speci men Type: BLOOD SPECIMEN Ordering Facility: [facility] Address: [address] [place] [address] Performed By: #### R UBIGG #### [facility] CLIA [id number] [address] [place] [address] [place] WBC (Bld) [#/Vol] 10.05 10*3/uL Normal 3.70-11.00 [facility] Comment on above: Order Comment: Speci men Type: BLOOD SPECIMEN Ordering Facility: [facility] Address: [address] [place] [address] Performed By: #### R UBIGG #### [facility] CLIA [id number] [address] [place] [address] [place] Ferritin SerPl-mCncon 2023 Ferritin [Mass/Vol] 37.1 ng/mL Normal 14.7-205.1 [facility] Comment on above: Order Comment: Speci men Type: BLOOD SPECIMENOrdering Facility: [facility] Address: [address] [place] [address] Performed By: #### 2 276-4, [id number], HGBELEV ####[facility] LABCLIA [id number] [place] [address] [place] HBV surface Ag Ser Qlon 08-18 HBV surface Ag Ql (S) Negative Normal Negative [facility] Comment on above: Order Comment: Speci men Type: BLOOD SPECIMENOrdering Facility: [facility] Address: [address] [place] [address] Performed By: #### 7 3752-8, 46242-3, 5195-3 ####[facility] LABCLIA [id number] [place] [address] [place] HCV Ab Ser Qlon 08-28-2024 HCV Ab Ql (S) Negative Normal Negative [facility] Comment on above: Order Comment: Speci men Type: BLOOD SPECIMENOrdering Facility: [facility] Address: [address] [place] [address] Result Comment: The result suggests no evidence of active infection with Hepatitis C virus. Should recent infection be suspected, repeat testing may be considered 4-6 weeks after this draw. Performed By: #### 1 6128-1 ####[facility] LABCLIA [id number] [place] [address] [place] HGB ELECTROPHORESIS FOR EVAL (LAB ORDER)on 08-28-2024 Hemoglobin A (Bld) [Mass fraction] 97.4 % Normal 96.2-98.0 [facility] Comment on above: Order Comment: Speci men Type: BLOOD SPECIMENOrdering Facility: [facility] Address: [address] [place] [address] Performed By: #### 2 276-4, [id number], HGBELEV ####[facility] LABCLIA [id number] [place] [address] [place] Hemoglobin A2 (Bld) [Mass fraction] 2.6 % Normal 2.0-3.1 [facility] Comment on above: Order Comment: Speci men Type: BLOOD SPECIMENOrdering Facility: [facility] Address: [address] [place] [address] Performed By: #### 2 276-4, [id number], HGBELEV ####[facility] LABCLIA [id number] [place] [address] [place] Hemoglobin Unsp Elph (Bld) [Mass fraction] No abnormal hemoglobin identified. Normal No abnormal hemoglobin identified. [facility] Comment on above: Order Comment: Speci men Type: BLOOD SPECIMENOrdering Facility: [facility] Address: [address] [place] [address] Performed By: #### 2 276-4, [id number], HGBELEV ####[facility] LABCLIA [id number] [place] [address] [place] HGB EVALUATION CASCADE INTER Luiz 08-28-2024 Hemoglobin pattern (Bld) [Interp] Reviewed by Lilli Anderson M.D., Ph.D Normal [facility] Comment on above: Order Comment: Speci men Type: BLOOD SPECIMENOrdering Facility: [facility] Address: [address] [place] [address] Performed By: #### 2 276-4, [id number], HGBELEV ####[facility] LABCLIA [id number] [place] [address] [place] INTERPRETATION (HGB EVAL) Normal [facility] Comment on above: Order Comment: Speci men Type: BLOOD SPECIMENOrdering Facility: [facility] Address: [address] [place] [address] Result Comment: Hemo globins were analyzed by [...] further evaluation. Performed By: #### 2 276-4, [id number], HGBELEV ####[facility] LABIA [id number] [place] [address] [place] HIV 1+2 Ab IA Qlon 4 HIV 1 and 2 Ab IA.rapid Nom (S/P/Bld) Normal [facility] Comment on above: Order Comment: Speci men Type: BLOOD SPECIMENOrdering Facility: [facility] Address: [address] [place] [address] Result Comment: Test not indicated. Performed By: #### 7 3752-8, 06157-9, 5195-3 ####[facility] LABIA [id number] [place] [address] [place] HIV 1+2 Ab+HIV1 p24 Ag IA Ql Non-Reactive Normal Nonreactive [facility] Comment on above: Order Comment: Speci men Type: BLOOD SPECIMENOrdering Facility: [facility] Address: [address] [place] [address] Performed By: #### 7 3752-8, 95020-5, 5195-3 ####[facility] LABIA [id number] [address] OF [place] HIV immunoassay testing algorithm interpretation (S/P/Bld) [Interp] Normal [facility] Comment on above: Order Comment: Speci men Type: BLOOD SPECIMENOrdering Facility: [facility] Address: [address] [place] [address] Result Comment: No e vidence of HIV-1 or HIV-2 infection. Should recent infection be suspected, repeat testing may be considered 2-3 weeks after this draw. [place] Rev. Code 3701.243(E): This information has been [...] or diagnoses. Performed By: #### 7 3752-8, 82891-4, 5195-3 ####[facility] LABCLIA [id number] [place] [address] [place] HbA1c (Bld)on 08-28-2024 Average glucose Estimated from glycated hemoglobin (Bld) [Mass/Vol] 111 mg/dL Normal [facility] Comment on above: Order Comment: Speci men Type: BLOOD SPECIMENOrdering Facility: [facility] Address: [address] [place] [address] Result Comment: eAG: (Estimated average glucose) is a calculated value from HgbA1c and is graphic art sales representative of the average blood glucose level in the last 2-3 month period. Performed By: #### 5 5454-3 ####[facility] LABCLIA [id number] [place] [address] [place] HbA1c (Bld) [Mass fraction] 5.5 % Normal 4.3-5.6 [facility] Comment on above: Order Comment: Speci men Type: BLOOD SPECIMENOrdering Facility: [facility] Address: [address] [place] [address] Result Comment: Amer [place] Diabetes Association guidelines indicate that patients with HgbA1c in the range 5.7-6.4% are at increased risk for development of diabetes, and intervention by lifestyle modification may be beneficial. HgbA1c greater or equal to 6.5% is considered diagnostic of diabetes. Performed By: #### 5 5454-3 ####[facility] LABIA [id number] [place] [address] [place] RBC PARAMETERS FOR HB IDon 1 10-28-2023 Hematocrit (Bld) [Volume fraction] 40.0 % Normal 36.0-46.0 [facility] Comment on above: Order Comment: Speci men Type: BLOOD SPECIMENOrdering Facility: [facility] Address: [address] [place] [address] Performed By: #### L [id number] ####[facility] LABIA [id number] [place] [address] [place] Hemoglobin (Bld) [Mass/Vol] 12.6 g/dL Normal 11.5-15.5 [facility] Comment on above: Order Comment: Speci men Type: BLOOD SPECIMENOrdering Facility: [facility] Address: [address] [place] [address] Performed By: #### L [id number] ####[facility] LABIA [id number] [place] [address] [place] MCH (RBC) [Entitic mass] 24.3 pg Low 26.0-34.0 [facility] Comment on above: Order Comment: Speci men Type: BLOOD SPECIMENOrdering Facility: [facility] Address: [address] [place] [address] Performed By: #### L [id number] ####[facility] LABIA [id number] [place] [address] [place] MCHC (RBC) [Mass/Vol] 31.5 g/dL Normal 30.5-36.0 [facility] Comment on above: Order Comment: Speci men Type: BLOOD SPECIMENOrdering Facility: [facility] Address: [address] [place] [address] Performed By: #### L [id number] ####[facility] LABIA [id number] [place] [address] [place] MCV (RBC) [Entitic vol] 77.1 fL Low 80.0-100.0 [facility] Comment on above: Order Comment: Connie jacome Type: BLOOD SPECIMENOrdering Facility: [facility] Address: [address] [place] [address] Performed By: #### L [id number] ####[facility] LABCLIA [id number] [place] [address] [place] RUBELLA IGG ANTIBODYon 08-28 RUBELLA IGG AB, QUAL Negative Abnormal Positive [facility] Comment on above: Order Comment: Connie jacome Type: BLOOD SPECIMEN [facility] Address: [address] [place] [address] Result Comment: The result suggests no history of Rubella vaccination or exposure to Rubella virus, however, some individuals with past history of Rubella vaccination may test negative using this test as immunity to Rubella virus wanes over time after vaccination. Please correlate with vaccination history if applicable. Performed By: #### R UBIGG #### [facility] LAB CLIA [id number] [address] [place] [address] [place] Reagin and Treponema pallidu m IgG and IgM [Interp]on 08-28-2024 T. pallidum IgG+IgM IA Ql (S) Non-Reactive Normal Nonreactive [facility] Comment on above: Order Comment: Connie jacome Type: BLOOD SPECIMENOrdering Facility: [facility] Address: [address] [place] [address] Performed By: #### 7 3752-8, 42238-9, 5195-3 ####[facility] LABCLIA [id number] [place] [address] [place] Reagin+T pallidum IgG+IgM Se rPl-Impon 08-28-2024 Reagin and Treponema pallidum IgG and IgM [Interp] Cannot exclude recent Treponemal infection if specimen collected within 7-10 days after appearance of suspect lesions or 2-3 weeks after an exposure. Clinical correlation is required. Normal [facility] Comment on above: Order Comment: Speci men Type: BLOOD SPECIMENOrdering Facility: [facility] Address: [address] [place] [address] Performed By: #### 7 3752-8, 87211-7, 5195-3 ####[facility] LABCLIA [id number] [place] [address] [place] TYPE + SCREEN PRENATALon ABO O Normal [facility] Comment on above: Order Comment: Speci men Type: BLOOD SPECIMENOrdering Facility: [facility] Address: [address] [place] [address] Performed By: #### T SPN ####[facility] BLOOD BANKIA [id number] [place] [address] [place] Rh Nom (Bld) Positive Normal [facility] Comment on above: Order Comment: Speci men Type: BLOOD SPECIMENOrdering Facility: [facility] Address: [address] [place] [address] Performed By: #### T SPN ####[facility] BLOOD BANKIA [id number] [place] [address] [place] TYPE AND SCREEN EXPIRATION 08/31/2024 23:59 Normal [facility] Comment on above: Order Comment: Speci men Type: BLOOD SPECIMENOrdering Facility: [facility] Address: [address] [place] [address] Performed By: #### T SPN ####[facility] BLOOD BANKIA [id number] [place] [address] [place] BACTERIAL VAGINOSIS NAATon 1 Lactobacillus crispatus+gasseri+je nsenii + Gardnerella vaginalis + Atopobium vaginae rRNA REBEL+probe Ql (Vag fld) Negative Normal Negative for bacterial vaginosis [facility] Comment on above: Order Comment: Speci men Type: SWABOrdering Facility: [facility] Address: [address] [place] [address] Performed By: #### B VAMP, 04714-2 ####[facility] LABCLIA [id number] [place] [address] [place] Bacteria Ur Culton Bacteria identified Cx Nom (U) ORGANISM ID: 1 50,000-<100,000 CFU/ml Streptococcus anginosus No susceptibility testing done. Normal [facility] Comment on above: Performed By: #### 6 30-4 #### [facility] CLIA [id number] [address] [place] [address] [place] C. trachomatis+N. gonorrhoea e DNA REBEL+probe Ql (Unsp spec)on 08-11-2024 C. trachomatis rRNA REBEL+probe Ql (Unsp spec) Negative Normal Negative for Chlamydia trachomatis by amplificaton [facility] Comment on above: Order Comment: Speci men Type: SWABOrdering Facility: [facility] Address: [address] [place] [address] Performed By: #### B VAMP, 99014-5 ####[facility] LABCLIA [id number] [place] [address] [place] N. gonorrhoeae rRNA REBEL+probe Ql (Unsp spec) Negative Normal Negative for Neisseria gonorrhoeae by amplification [facility] Comment on above: Order Comment: Speci men Type: SWABOrdering Facility: [facility] Address: [address] [place] [address] Performed By: #### B VAMP, 47003-8 ####[facility] LABCLIA [id number] [place] [address] [place] MARGARITA/TRICHOMONAS NAATon 1 C. glabrata RNA REBEL+probe Ql (Vag fld) Negative Normal Negative for Margarita glabrata [facility] Comment on above: Order Comment: Speci men Type: BLOOD SPECIMEN [facility] Address: [address] [place] [address] Performed By: #### R UBIGG #### [facility] CLIA [id number] [address] [place] [address] [place] Margarita sp DNA REBEL+probe Ql (Vag fld) Negative Normal Negative for Margarita species [facility] Comment on above: Order Comment: Speci men Type: BLOOD SPECIMEN [facility] Address: [address] [place] [address] Performed By: #### R UBIGG #### [facility] CLIA [id number] [address] [place] [address] [place] T. vaginalis DNA REBEL+probe Ql (Unsp spec) Negative Normal Negative for Trichomonas vaginalis by amplification [facility] Comment on above: Order Comment: Speci men Type: BLOOD SPECIMEN [facility] Address: [address] [place] [address] Performed By: #### R UBIGG #### [facility] CLIA [id number] [address] [place] [address] [place] HIGH RISK HUMAN PAPILLOMA MYLES (HPV), PCR FOR DETECTION AND GENOTYPINGon 08-11-2024 HPV 16 Ag Ql (Unsp spec) Not detected Normal Not detected [facility] Comment on above: Order Comment: Speci men Type: FLUID SPECIMENOrdering Facility: [facility] Address: [address] [place] [address] Performed By: #### L [id number], HPVHRT ####[facility] LABCLIA [id number] [place] [address] [place] HPV 18 Ag Ql (Unsp spec) Not detected Normal Not detected [facility] Comment on above: Order Comment: Speci men Type: FLUID SPECIMENOrdering Facility: [facility] Address: [address] [place] [address] Performed By: #### L [id number], HPVHRT ####[facility] LABCLIA [id number] [place] [address] [place] HPV 31+33+35+39+45+51+52 +56+58+59+66+68 DNA REBEL+probe Ql (Cvx) Not detected Normal Not detected [facility] Comment on above: Order Comment: Speci men Type: FLUID SPECIMENOrdering Facility: [facility] Address: [address] [place] [address] Result Comment: High Risk HPV Other Type includes HPV types 31, 33, 35, 39, 45, 51, 52, 56, 58, 59, 66 and 68. Performed By: #### L [id number], HPVHRT ####[facility] LABCLIA [id number] [place] [address] [place] PAP TESTon 08-11-2024 ADEQUACY Satisfactory for interpretation. Normal [facility] Comment on above: Order Comment: Speci men Type: FLUID SPECIMENOrdering Facility: [facility] Address: [address] [place] [address] Performed By: #### L [id number], HPVHRT ####[facility] LABCLIA [id number] [place] [address] [place] CASE REPORT Normal [facility] Comment on above: Order Comment: Speci men Type: FLUID SPECIMENOrdering Facility: [facility] Address: [address] [place] [address] Result Comment: Gyne cologic Cytology Report Case: [id number] Authorizing Provider: Palma Cash APRN.DIRECTOR [place] Collected: 08/11/2024 02:40 PM Ordering Location: OB/Gynecology Received: 08/11/2024 04:33 PM First Screen: Gmitro, Jac, CT, ASCP Specimen: Pap Test, ThinPrep, Cervix Performed By: #### L [id number], HPVHRT ####[facility] LABCLIA [id number] [place] [address] [place] CLINICAL HISTORY, CYTOLOGY, PORTFOLIO MGR (Indicate Weeks) Normal [facility] Comment on above: Order Comment: Speci men Type: FLUID SPECIMENOrdering Facility: [facility] Address: [address] [place] [address] Performed By: #### L [id number], HPVHRT ####[facility] LABCLIA [id number] [place] [id number] [place] FINAL PERFORMING LAB Normal [facility] Comment on above: Order Comment: Speci men Type: FLUID SPECIMENOrdering Facility: [facility] Address: [address] [place] [address] Result Comment: Tech nical component, mangle operator garments screening performed at [facility], [address] [place] [address] CLIA# [id number] Diagnostic interpretation performed at [facility], [address] [place] [address] CLIA# [id number] Section Leader Screen Printing: Derrek Davison M.D. Performed By: #### L [id number], HPVHRT ####[facility] LABCLIA [id number] [place] [address] [place] INTERPRETATION, CYTOLOGY, PORTFOLIO MGR Normal [facility] Comment on above: Order Comment: Speci men Type: FLUID SPECIMENOrdering Facility: [facility] Address: [address] [place] [address] Result Comment: Nega tive for intraepithelial lesion or malignancy. Performed By: #### L [id number], HPVHRT ####[facility] LABCLIA [id number] [place] [address] [place] LMP 06/27/2024 Normal [facility] Comment on above: Order Comment: Speci men Type: FLUID SPECIMENOrdering Facility: [facility] Address: [address] [place] [address] Performed By: #### L [id number], HPVHRT ####[facility] LABCLIA [id number] [address] [place] PAP DISCLAIMER COMMENT The Pap Smear is a screening test for cervical cancer. False negative results occur with all screening tests, emphasizing the need for rescreening at recommended intervals, and clinical correlation. Normal [facility] Comment on above: Order Comment: Speci men Type: FLUID SPECIMENOrdering Facility: [facility] Address: [address] [place] [address] Performed By: #### L [id number], HPVHRT ####[facility] LABCLIA [id number] [address] [place] PAP SPECIALIZED DEVELOPER COMMENT This specimen has been analyzed by the ThinPrep Imaging System, an automated imaging and review system, which assists the laboratory in evaluating cells on ThinPrep Pap tests. Following automated imaging, selected roman from every slide are reviewed by a mangle operator garments. Normal [facility] Comment on above: Order Comment: Speci men Type: FLUID SPECIMENOrdering Facility: [facility] Address: [address] [place] [address] Performed By: #### L [id number], HPVHRT ####[facility] LABCLIA [id number] [address] [place] CNOVon 07-31-2024 CNOV Office Visit (OBGYWM) HOLLYAMPARO ([id number]) 1990 F Date Time Provider Department 07/31/24 [...] OB History No obstetric history on file. 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 + heartburn Expanded ROS: PORTFOLIO MGR: + amenorrhea Allergies and current medication updated:Yes [...] for ultrasound and new OB visit - Shell Assembler order signed 2. Heartburn during in first trimester - ICD9: 646.83, 787.1, ICD10: O26.891, R12 - Rx for Pepcid sent Palma Cash APRN.DIRECTOR [place] Medical Decision Making: Problems: Moderate: New problem with uncertain prognosis Risk: Low: Low risk from testing/treatment Moderate: Drug management Medical Decision Making Level: 4 - Moderate Referring Provider: SELF [200] Allergies As of Date: 07/31/2024 (No Known Allergies) Date Reviewed: 07/31/2024 Reviewed by: Palma Cash APRN.DIRECTOR [place] - Fully Assessed Reason for Visit: Confirmation [Other] Primary Visit Diagnosis:Encounter for test, result positive [Z32.01] Other Visit Diagnosis:Heartburn during in first trimester [O26.891, R12] Order(s): Nduaayfc-Jt-Are-Fe-F A tabTake 1 tablet by mouth once daily.Disp: 90 tabletRfl: 3 POLYMER SCIENTIST [[id number]] Order #: [id number]: 1 UA DIP,URINE HCG (POC) [[id number]] Order #: [id number]. #:[id number] famotidine (PEPCID) 20 mg tabletTake 1 tablet by mouth two times a day.Disp: 60 tabletRfl: 3 Prescriptions as of 07/31/2024 - Jwrfckjy-Ey-Rnz-Fe-F A tab Take 1 tablet by mouth [...] Status:Closed by PALMA CASH on 07/31/24 [facility],URINE HCG (POC)on Beta HCG ( test) Ql (U) Positive Abnormal Negative [facility] Comment on above: Location:[facility], [address], [place], [address] Interpretation and review of laboratory results Abnormal [facility] Web Systems Developer (POCT) Internal QC OK [facility] Location:[facility], [address], [place], [address] [facility] POINT OF CARE [facility] Vital Signs Date Time Vital Sign Value Performing Clinician Eric cunningham 03-26-2025 13:31-0400 Body mass index (BMI) [Ratio] 36.78 kg/m2 Zeina Strickland MD Work Phone: [facility] 03-26-2025 13:31-0400 Body weight 100.25 kg Zeina Strickland MD Work Phone: [facility] 03-26-2025 13:31-0400 Diastolic blood pressure 70 mm[Hg] Zeina Strickland MD Work Phone: [facility] 03-26-2025 13:31-0400 Systolic blood pressure 116 mm[Hg] Zeina Strickland MD Work Phone: [facility] 03-22-2025 10:47-0400 Body mass index (BMI) [Ratio] 36.61 kg/m2 Bharti Teresa MD Work Phone: [facility] 03-22-2025 10:47-0400 Body weight 99.79 kg Bharti Teresa MD Work Phone: [facility] 03-22-2025 10:47-0400 Diastolic blood pressure 80 mm[Hg] Bharti Teresa MD Work Phone: [facility] 03-22-2025 10:47-0400 Systolic blood pressure 128 mm[Hg] Bharti Teresa MD Work Phone: [facility] 03-15-2025 13:01-0400 Body mass index (BMI) [Ratio] 36.94 kg/m2 Lawanda Diaz MD Work Phone: [facility] 03-15-2025 13:01-0400 Body weight 100.7 kg Lawanda Diaz MD Work Phone: [facility] 03-15-2025 13:01-0400 Diastolic blood pressure 74 mm[Hg] Lawanda Diaz MD Work Phone: [facility] 03-15-2025 13:01-0400 Systolic blood pressure 134 mm[Hg] Lawanda Diaz MD Work Phone: [facility] 02-23-2025 15:51-0400 Body mass index (BMI) [Ratio] 35.45 kg/m2 Palma Haury CATERING TRUCK OPERATOR.DIRECTOR CHINA Work Phone: [facility] 02-23-2025 15:51-0400 Body weight 96.62 kg Palma Haury CATERING TRUCK OPERATOR.DIRECTOR CHINA Work Phone: [facility] 02-23-2025 15:51-0400 Diastolic blood pressure 80 mm[Hg] Palma Haury CATERING TRUCK OPERATOR.DIRECTOR CHINA Work Phone: [facility] 02-23-2025 15:51-0400 Systolic blood pressure 120 mm[Hg] Palma Haury CATERING TRUCK OPERATOR.DIRECTOR CHINA Work Phone: [facility] 02-15-2025 15:48-0400 Body mass index (BMI) [Ratio] 35.54 kg/m2 Lawanda Diaz MD Work Phone: [facility] 02-15-2025 15:48-0400 Body weight 96.89 kg Lawanda Diaz MD Work Phone: [facility] 02-15-2025 15:48-0400 Diastolic blood pressure 80 mm[Hg] Lawanda Diaz MD Work Phone: [facility] 02-15-2025 15:48-0400 Systolic blood pressure 124 mm[Hg] Lawanda Diaz MD Work Phone: [facility] 01-22-2025 15:44-0400 Body mass index (BMI) [Ratio] 33.28 kg/m2 Palma Haury CATERING TRUCK OPERATOR.DIRECTOR CHINA Work Phone: [facility] 01-22-2025 15:44-0400 Body weight 90.72 kg Palma Haury CATERING TRUCK OPERATOR.DIRECTOR CHINA Work Phone: [facility] 01-22-2025 15:44-0400 Diastolic blood pressure 62 mm[Hg] Palma Cash APRN.DIRECTOR CHINA Work Phone: [facility] 01-22-2025 15:44-0400 Systolic blood pressure 106 mm[Hg] Palma Cash APRN.DIRECTOR CHINA Work Phone: [facility] 01-08-2025 16:04-0400 Body mass index (BMI) [Ratio] 33.28 kg/m2 Ne Hardin MD Work Phone: [facility] 01-08-2025 16:04-0400 Body weight 90.72 kg Ne Hardin MD Work Phone: [facility] 01-08-2025 16:04-0400 Diastolic blood pressure 70 mm[Hg] Ne Hardin MD Work Phone: [facility] 01-08-2025 16:04-0400 Systolic blood pressure 102 mm[Hg] Ne Hardin MD Work Phone: [facility] 12-08-2024 15:18-0500 Body mass index (BMI) [Ratio] 31.95 kg/m2 Talita Medellin CATERING TRUCK OPERATOR.CNM Work Phone: [facility] 12-08-2024 15:18-0500 Body weight 87.09 kg Talita Vignesh BERMUDEZN.CNM Work Phone: [facility] 12-08-2024 15:18-0500 Diastolic blood pressure 72 mm[Hg] Talita Medellin CATERING TRUCK OPERATOR.CNM Work Phone: [facility] 12-08-2024 15:18-0500 Systolic blood pressure 112 mm[Hg] Talita Medellin CATERING TRUCK OPERATOR.CNM Work Phone: [facility] 11-13-2024 15:24-0500 Body mass index (BMI) [Ratio] 30.75 kg/m2 Ne Hardin MD Work Phone: [facility] 11-13-2024 15:24-0500 Body weight 83.83 kg Ne Hardin MD Work Phone: [facility] 01-27-2025 15:24-0500 Diastolic blood pressure 60 mm[Hg] Ne Hardin MD Work Phone: [facility] 11-13-2024 15:24-0500 Heart rate 88 /min Ne Hardin MD Work Phone: [facility] 11-13-2024 15:24-0500 Respiratory rate 16 /min Ne Hardin MD Work Phone: [facility] 11-13-2024 15:24-0500 SaO2% (BldA) [Mass fraction] 99 % Ne Hardin MD Work Phone: [facility] 11-13-2024 15:24-0500 Systolic blood pressure 110 mm[Hg] Ne Hardin MD Work Phone: [facility] 10-09-2024 16:03-0500 Body mass index (BMI) [Ratio] 29.45 kg/m2 Fatou Plotts CATERING TRUCK OPERATOR.CNM Work Phone: [facility] 10-09-2024 16:03-0500 Body weight 80.29 kg Fatou Plotts CATERING TRUCK OPERATOR.CNM Work Phone: [facility] 10-09-2024 16:03-0500 Diastolic blood pressure 60 mm[Hg] Fatou Plotts CATERING TRUCK OPERATOR.CNM Work Phone: [facility] 10-09-2024 16:03-0500 Systolic blood pressure 110 mm[Hg] Fatou Plotts CATERING TRUCK OPERATOR.CNM Work Phone: [facility] 09-29-2024 15:26-0500 Body mass index (BMI) [Ratio] 29.29 kg/m2 Palma Cash CATERING TRUCK OPERATOR.DIRECTOR CHINA Work Phone: [facility] 09-29-2024 15:26-0500 Body weight 79.83 kg Palma Cash CATERING TRUCK OPERATOR.DIRECTOR CHINA Work Phone: [facility] 09-29-2024 15:26-0500 Diastolic blood pressure 64 mm[Hg] Palma Cash CATERING TRUCK OPERATOR.DIRECTOR CHINA Work Phone: [facility] 09-29-2024 15:26-0500 Systolic blood pressure 100 mm[Hg] Palma Haury CATERING TRUCK OPERATOR.DIRECTOR CHINA Work Phone: [facility] 08-28-2024 13:14-0500 Body mass index (BMI) [Ratio] 28.66 kg/m2 Peyman Hawthorne MD Work Phone: [facility] 08-28-2024 13:14-0500 Body weight 78.11 kg Peyman Hawthorne MD Work Phone: [facility] 08-28-2024 13:14-0500 Diastolic blood pressure 72 mm[Hg] Peyman Hawthorne MD Work Phone: [facility] 08-28-2024 13:14-0500 Systolic blood pressure 118 mm[Hg] Peyman Hawthorne MD Work Phone: [facility] 08-11-2024 13:58-0400 Body height 165.1 cm Palma Haury CATERING TRUCK OPERATOR.DIRECTOR CHINA Work Phone: [facility] 08-11-2024 13:58-0400 Body mass index (BMI) [Ratio] 28.42 kg/m2 Palma Haury CATERING TRUCK OPERATOR.DIRECTOR CHINA Work Phone: [facility] 08-11-2024 13:58-0400 Body weight 77.47 kg Palma Haury CATERING TRUCK OPERATOR.DIRECTOR CHINA Work Phone: [facility] 08-11-2024 13:58-0400 Diastolic blood pressure 60 mm[Hg] Palma Haury CATERING TRUCK OPERATOR.DIRECTOR CHINA Work Phone: [facility] 08-11-2024 13:58-0400 Systolic blood pressure 110 mm[Hg] Palma Haury CATERING TRUCK OPERATOR.DIRECTOR CHINA Work Phone: [facility] 07-31-2024 08:15-0400 Body weight 77.2 kg Palma Haury CATERING TRUCK OPERATOR.DIRECTOR CHINA Work Phone: [facility] 07-31-2024 08:15-0400 Diastolic blood pressure 62 mm[Hg] Palma Haury CATERING TRUCK OPERATOR.DIRECTOR CHINA Work Phone: [facility] 10-14-2024 08:15-0400 Systolic blood pressure 110 mm[Hg] Palma Cash DIRECTOR CHINA Work Phone: [facility] Encounters Encounter Date Encounter Type Care Provider Facility Start: 04-03-2025 ambulatory No Primary Car e Physician Facility:[facility] Start: 03-29-2025 ambulatory No Primary Car e Physician Facility:[facility] Start: 03-26-2025 End: 03-26-2025 Patient encounter procedure Zeina Strickland MD Work Phone: OB/Gynecology Comment on above: Supervision of high risk in third trimester (HCC) (Primary Dx); Low-lying placenta (HCC); Excessive weight gain in , third trimester (HCC); Excessive growth affecting management of in third trimester, single or unspecified fetus (HCC); 38 weeks gestation of (HCC) Start: 03-26-2025 End: 03-26-2025 ambulatory ZEINA STRICKLAND Facility:[facility] Start: 03-22-2025 End: 03-22-2025 Patient encounter procedure [...] Start: 03-22-2025 End: 03-22-2025 ambulatory BHARTI TERESA Facility:[facility] Start: 03-15-2025 End: 03-15-2025 E-mail encounter from [...] Start: 03-09-2025 End: 03-09-2025 ambulatory TALITA VIGNESH Facility:[facility] Start: 02-26-2025 End: 02-26-2025 Follow-up encounter Palma [...] Start: 02-23-2025 End: 02-23-2025 ambulatory PALMA CASH Facility:[facility] Start: 02-15-2025 End: 02-15-2025 ambulatory LAWANDA DIAZ Facility:[facility] Start: 02-15-2025 End: 02-15-2025 Patient encounter procedure Lawanda Diaz MD Work Phone: OB/Gynecology Comment on above: 33 weeks gestation o f (HCC) (Primary Dx); Encounter for supervision of normal first in third trimester (HCC); Low-lying placenta (HCC) Start: 02-07-2025 End: 02-07-2025 ambulatory NE HARDIN Facility:[facility] Start: 01-22-2025 End: 01-22-2025 ambulatory PALMA CASH Facility:[facility] Start: 01-22-2025 End: 01-22-2025 Patient encounter procedure Palma Cash APRN.CNP Work Phone: OB/Gynecology Comment on above: Encounter for superv ision of normal first in third trimester (HCC) (Primary Dx); 29 weeks gestation of (HCC); Low-lying placenta (HCC) Start: 01-22-2025 End: 03-24-2025 Follow-up encounter Palma Cash APRN.CNP Work Phone: OB/Gynecology Start: 01-22-2025 End: 01-22-2025 ambulatory NE HARDIN Facility:[facility] Start: 01-15-2025 End: 03-17-2025 Follow-up encounter Ne Hardin MD Work Phone: OB/Gynecology Start: 01-12-2025 End: 01-12-2025 ambulatory TALITA MEDELLIN Facility:[facility] Start: 01-10-2025 End: 01-10-2025 Telephone encounter Zeina Strickland MD Work Phone: OB/Gynecology Comment on above: Care Start: 01-08-2025 End: 01-08-2025 ambulatory NE HARDIN Facility:[facility] Start: 01-08-2025 End: 01-08-2025 Patient encounter procedure [...] End: 12-18-2024 ambulatory No Primary Care Physician Facility:[facility] Start: 12-08-2024 End: 12-08-2024 ambulatory [facility] Facility:[facility] Start: 12-08-2024 End: 12-08-2024 Patient encounter procedure Talita Medellin CATERING TRUCK OPERATOR.CNM Work Phone: OB/Gynecology Comment on above: Encounter for superv ision of normal first in second trimester (Primary Dx); 23 weeks gestation of ; Low-lying placenta; Screening for diabetes mellitus Start: 11-26-2024 End: 11-27-2024 ambulatory Palma Cash APRN.DIRECTOR CHINA Work Phone: OB/Gynecology Comment on above: Ear infection with d ischarge Start: 11-13-2024 End: 11-13-2024 ambulatory NE HARDIN Facility:[facility] Start: 11-13-2024 End: 11-13-2024 Patient encounter procedure Ne Hardin MD Work Phone: OB/Gynecology Comment on above: 19 weeks gestation o f (Primary Dx); Encounter for supervision of normal first in second trimester; Spotting affecting in second trimester Encounter for anatomic survey (Primary Dx); 19 weeks gestation of Start: 11-13-2024 End: 11-13-2024 ambulatory PALMA CASH Facility:[facility] Start: 10-16-2024 End: 10-17-2024 Refill Palma Cash CATERING TRUCK OPERATOR.DIRECTOR CHINA Work Phone: OB/Gynecology Comment on above: Refill Request Start: 10-09-2024 End: 10-09-2024 ambulatory FATOU VERONICA Facility:[facility] Start: 10-09-2024 End: 10-09-2024 Patient encounter procedure Fatou Veronica APRN.CNM Work Phone: OB/Gynecology Comment on above: Encounter for superv ision of normal first in second trimester (Primary Dx); 14 weeks gestation of ; Spotting affecting in second trimester Start: 10-03-2024 End: 10-09-2024 ambulatory Palma Cash CATERING TRUCK OPERATOR.DIRECTOR CHINA Work Phone: OB/Gynecology Comment on above: omega 5-fzf-kij-fish oil 60-90-500 mg cap Start: 09-29-2024 End: 09-29-2024 Patient encounter procedure Palam Cash APRN.DIRECTOR CHINA Work Phone: OB/Gynecology Comment on above: Encounter [...] Start: 09-29-2024 End: 09-29-2024 ambulatory PALMA CASH Facility:[facility] Start: 08-28-2024 End: 08-28-2024 ambulatory PALMA CASH Facility:[facility] Start: 08-28-2024 End: 08-28-2024 Patient encounter procedure Peyman Hawthorne MD Work Phone: OB/Gynecology Comment on above: Encounter for superv ision of normal first in first trimester (Primary Dx); 8 weeks gestation of ; Urinary tract infection without hematuria, site unspecified; Need for influenza vaccination Start: 08-14-2024 End: 08-16-2024 ambulatory Palma Cash APRN.DIRECTOR CHINA Work Phone: OB/Gynecology Start: 08-14-2024 End: 08-16-2024 Follow-up encounter Palma Cash APRN.DIRECTOR CHINA Work Phone: OB/Gynecology Comment on above: Follow-up on Aspirin Dosage and Streptococcus Treatment Start: 08-11-2024 End: 08-11-2024 ambulatory SELF Facility:[facility] Start: 08-11-2024 End: 08-11-2024 Patient encounter procedure Palmadanny Santiagosusan SWIFTDIRECTOR CHINA Work Phone: OB/Gynecology Comment on above: Encounter for superv ision of normal first in first trimester (Primary Dx); 6 weeks gestation of ; with uncertain dates in first trimester; Vaginal itching; Nausea and vomiting during ; At risk for depression; Heartburn during in first trimester Start: 07-31-2024 End: 07-31-2024 ambulatory SELF Facility:[facility] Start: 07-31-2024 End: 07-31-2024 Patient encounter procedure Palmadanny Santiagosusan OLGUIN.DIRECTOR CHINA Work Phone: OB/Gynecology Comment on above: Encounter [...] et rgnt non-auto w/o micrscp Palma Cash APRN.DIRECTOR CHINA Work Phone: Start: 11-13-2024 Us preg uterus after 1st trimest 1/ gestation Palma Cash APRN.DIRECTOR CHINA Work Phone: Start: 09-29-2024 Us nuchal parikh slucency 1st gestation Palma Cash APRN.DIRECTOR CHINA Work Phone: Start: 08-28-2024 Antibody screen PALMA H MIRA Comment on above: Order Comment: Speci men Type: BLOOD SPECIMENOrdering Facility: [facility] Address: [address] [place] [address] Performed By: #### T SPN ####CC MAIN BLOOD BANKCLIA [id number] [address] Start: 07-31-2024 UA DIP,URINE HCG (POC) Palma Cash APRN.DIRECTOR CHINA Work Phone: Plan of Treatment Date Care Activity Detail Author Start: 2066 RSV Vaccine (1 - 1-dose 75+ series) RSV Vaccine (1 - 1-dose 75+ series) [facility] Start: 01-08-2035 Urine microalbumin profile DTaP,Tdap,Td Vaccine (2 - Td or Tdap) [facility] Start: 08-11-2029 Screening for malignant neoplasm of cervix Cervical Cancer Screening [facility] Start: 05-23-2025 End: 05-23-2025 Patient encounter procedure 05/23/2025 4:00 PM EDT Office Visit [facility] [place] [address] [place] [address] Saumya Dunn MD [address] [place] [address] [facility] adult [facility] Comment on above: Well adult Start: 04-06-2025 End: 04-06-2025 Patient encounter procedure 04/06/2025 2:00 PM EDT Office Visit OB/Gynecology [address] [place] [address] Bharti Teresa MD [address] [place] [address] 1 week incision check OB/Gynecology Comment on above: 1 week incision chec k Start: 03-26-2025 End: 03-26-2025 Patient encounter procedure 03/26/2025 1:40 PM EDT Routine Office Visit OB/Gynecology [address] [place] [address] Zeina Lainez MD [address] [place] [address] OB Pre Op C/S 03/30 @ [facility] OB/Gynecology Comment on above: OB Pre Op C/S 03/30 @ [facility] Start: 03-09-2025 End: 03-09-2025 Patient encounter procedure Maternal Medicine Comment on above: Growth Growth/OB Start: 02-23-2025 End: 02-23-2025 Patient encounter procedure 02/23/2025 3:45 PM EDT Routine Office Visit OB/Gynecology [address] [place] [address] Palma Cash APRN.DIRECTOR CHINA [address] [place] [address] (Fax) OB OB/Gynecology Comment on above: OB Start: 02-07-2025 End: 02-07-2025 Patient encounter procedure Maternal Medicine Comment on above: Growth OB Start: 01-22-2025 End: 01-22-2025 Patient encounter procedure 01/22/2025 3:45 PM EDT Routine Office Visit OB/Gynecology [address] [place] [address] Palma Cash APRN.DIRECTOR CHINA [address] [place] [address] OB OB/Gynecology Comment on above: OB Start: 01-22-2025 End: 04-23-2025 GEST GLUC NEGRITO, 3-HR, 100 GM, FASTING GEST GLUC NEGRITO, 3-HR, 100 GM, FASTING Lab Routine Abnormal glucose complicating (HCC) Encounter for supervision of normal first in second trimester (HCC) Expected: 01/22/2025, Expires: 04/23/2025 [facility] Work Phone: Comment on above: Expected: 01/22/2025 , Expires: 04/23/2025 Start: 01-12-2025 End: 01-12-2025 ambulatory 01/12/2025 3:00 PM EDT Results Only [place] [facility] [address] [place] [address] Glucose [place] [facility] Comment on above: Glucose Start: 01-08-2025 End: 01-08-2025 Patient encounter procedure 01/08/2025 4:20 PM EDT Routine Office Visit OB/Gynecology [address] [place] [address] Ne Hardin MD [address] [place] [address] OB Routine OB/Gynecology Comment on above: OB Routine Start: 01-08-2025 End: 01-08-2025 ambulatory 01/08/2025 3:45 PM EDT Results Only [place] [facility] [address] [place] [address] [place] [facility] Start: 01-08-2025 End: 01-08-2026 OBSTETRIC ULTRASOUND WHI OBSTETRIC ULTRASOUND WHI Anc Imaging Routine Encounter for supervision of normal first in second trimester 27 weeks gestation of Low lying placenta nos or without hemorrhage, second trimester Expected: 01/08/2025, Expires: 01/08/2026 [facility] Work Phone: Comment on above: Expected: 01/08/2025 , Expires: 01/08/2026 Start: 12-08-2024 End: 12-08-2024 Patient encounter procedure 12/08/2024 3:15 PM EST Routine Office Visit OB/Gynecology [address] [place] [address] Talita Medellin APRN.CNM [address] [place] [address] OB Routine OB/Gynecology Comment on above: OB Routine Start: 12-08-2024 End: 03-09-2025 ANEMIA REFLEX PANEL ANEMIA REFLEX PANEL Lab Routine Encounter for supervision of normal first in second trimester Expected: 12/08/2024, Expires: 03/09/2025 [facility] Comment on above: Expected: 12/08/2024 , Expires: 03/09/2025 Start: 12-08-2024 End: 12-08-2025 GESTATIONAL GLUCOSE SCREEN, 1-HOUR, 50 GRAM, NON-FASTING GESTATIONAL GLUCOSE SCREEN, 1-HOUR, 50 GRAM, NON-FASTING Lab Routine Encounter for supervision of normal first in second trimester Screening for diabetes mellitus Expected: 12/08/2024, Expires: 12/08/2025 [facility] Work Phone: Comment on above: Expected: 12/08/2024 , Expires: 12/08/2025 Start: 12-08-2024 End: 12-08-2025 SYPHILIS TREPONEMAL W/REFLEX SYPHILIS TREPONEMAL W/REFLEX Lab Routine Encounter for supervision of normal first in second trimester Expected: 12/08/2024, Expires: 12/08/2025 [facility] Comment on above: Expected: 12/08/2024 , [...] [Presence] in Blood or Tissue by Cytogenetics [facility] Work Phone: Comment on above: Expected: 09/29/2024 , Expires: 12/29/2024 Start: 08-28-2024 End: 08-28-2024 Patient encounter procedure 08/28/2024 1:10 PM EST Routine Office Visit OB/Gynecology [address] [place], [place] [id number] Peyman Hawthorne MD [address] [place] [address] OB/Gynecology Comment on above: Start: 08-11-2024 End: 11-10-2024 CBC panel - Blood by Automated count COMPLETE BLOOD COUNT Lab Routine Encounter for supervision of normal first in first trimester with uncertain dates in first trimester Expected: 08/11/2024, Expires: 11/10/2024 [facility] Comment on above: Expected: 08/11/2024 , Expires: 11/10/2024 Start: 08-11-2024 End: 11-10-2024 Hemoglobin A1c in Blood HEMOGLOBIN A1C Lab Routine Encounter for supervision of normal first in first trimester with uncertain dates in first trimester Expected: 08/11/2024, Expires: 11/10/2024 [facility] Comment on above: Expected: 08/11/2024 , Expires: 11/10/2024 Start: 08-11-2024 End: 11-10-2024 HEMOGLOBIN EVALUATION CASCADE HEMOGLOBIN EVALUATION CASCADE Lab Routine Encounter for supervision of normal first in first trimester Expected: 08/11/2024, Expires: 11/10/2024 [facility] Comment on above: Expected: 08/11/2024 , Expires: 11/10/2024 Start: 08-11-2024 End: 11-10-2024 Hepatitis B virus surface Ag [Presence] in Serum HEPATITIS B SURFACE ANTIGEN Lab Routine Encounter for supervision of normal first in first trimester with uncertain dates in first trimester Expected: 08/11/2024, Expires: 11/10/2024 [facility] Comment on above: Expected: 08/11/2024 , Expires: 11/10/2024 Start: 08-11-2024 End: 11-10-2024 Hepatitis C virus Ab [Presence] in Serum HEPATITIS C ANTIBODY IA WITH CONFIRMATION Lab Routine Encounter for supervision of normal first in first trimester with uncertain dates in first trimester Expected: 08/11/2024, Expires: 11/10/2024 [facility] Comment on above: Expected: 08/11/2024 , Expires: 11/10/2024 Start: 08-11-2024 End: 11-10-2024 HIV 1+2 Ab [Presence] in Serum or Plasma by Immunoassay HIV 1/2 COMBO WITH REFLEX TO DIFFERENTIATION Lab Routine Encounter for supervision of normal first in first trimester with uncertain dates in first trimester Expected: 08/11/2024, Expires: 11/10/2024 [facility] Comment on above: Expected: 08/11/2024 , Expires: 11/10/2024 Start: 08-11-2024 End: 08-11-2025 NUCHAL TRANSLUCENCY WHI [facility] Comment on above: Expected: 08/11/2024 , Expires: 08/11/2025 Start: 08-11-2024 End: 08-11-2025 OBSTETRIC ULTRASOUND WHI OBSTETRIC ULTRASOUND WHI Anc Imaging Routine Encounter for supervision of normal first in first trimester with uncertain dates in first trimester Expected: 08/11/2024, Expires: 08/11/2025 [facility] Comment on above: Expected: 08/11/2024 , Expires: 08/11/2025 Start: 08-11-2024 End: 11-10-2024 RUBELLA IGG ANTIBODY RUBELLA IGG ANTIBODY Lab Routine Encounter for supervision of normal first in first trimester with uncertain dates in first trimester Expected: 08/11/2024, Expires: 11/10/2024 [facility] Comment on above: Expected: 08/11/2024 , Expires: 11/10/2024 Start: 08-11-2024 End: 11-10-2024 SYPHILIS TREPONEMAL W/REFLEX SYPHILIS TREPONEMAL W/REFLEX Lab Routine Encounter for supervision of normal first in first trimester with uncertain dates in first trimester Expected: 08/11/2024, Expires: 11/10/2024 [facility] Comment on above: Expected: 08/11/2024 , Expires: 11/10/2024 Start: 08-11-2024 End: 11-10-2024 TYPE + SCREEN TYPE + SCREEN Blood Bank Routine Encounter for supervision of normal first in first trimester with uncertain dates in first trimester Expected: 08/11/2024, Expires: 11/10/2024 [facility] Comment on above: Expected: 08/11/2024 , Expires: 11/10/2024 Start: 08-11-2024 End: 08-11-2024 Patient encounter procedure 08/11/2024 1:45 PM EDT Routine Office Visit OB/Gynecology [address] [place], [place] [id number] Palma Cash APRN.DIRECTOR CHINA [address] [place], [place] [id number] OB Routine OB/Gynecology Comment on above: OB Routine Start: 06-18-2024 Covid-19 Vaccine ( season) Covid-19 Vaccine ( season) [facility] Start: 06-18-2024 Influenza vaccination Influenza Vacc ine (#1) [facility] Start: 2012 Screening for malignant neoplasm of cervix Cervical Cancer Screening [facility] Start: 2010 Hepatitis B Vaccine (1 of 3 - 19+ 3-dose series) Hepatitis B Vaccine (1 of 3 - 19+ 3-dose series) [facility] Start: 2010 Urine microalbumin profile DTaP,Tdap,Td Vaccine (1 - Tdap) [facility] Start: 2009 Anxiety Screening Anxiety Screening [facility] Start: 2009 Depression Screening Depression Scre ening [facility] Start: 2009 Hepatitis C screening Hepatitis C Sc reening [facility] Start: 2009 HIV screening HIV Screening [facility] Bacteria identified in Urine by Culture URINE CULTURE Microbiology Routine Encounter for supervision of normal first in first trimester with uncertain dates in first trimester 08/11/2024 2:40 PM EDT [facility] Bacteria identified in Urine by Culture URINE CULTURE Microbiology Routine Urinary tract infection without hematuria, site unspecified 08/28/2024 1:26 PM [facility] Work Phone: BACTERIAL VAGINOSIS NAAT BACTERIAL VAGINOSIS NAAT Lab Routine Vaginal itching 08/11/2024 2:40 PM EDT [facility] BACTERIAL VAGINOSIS NAAT BACTERIAL VAGINOSIS NAAT Lab Routine Vaginal discharge during in first trimester Vaginal itching 09/29/2024 3:54 PM EST [facility] BACTERIAL VAGINOSIS NAAT BACTERIAL VAGINOSIS NAAT Lab Routine Vaginal discharge 02/23/2025 4:26 PM EDT [facility] MARGARITA/TRICHOMONAS NAAT MARGARITA/TRICHOMONAS NAAT Lab Routine Vaginal itching 08/11/2024 2:40 PM EDT [facility] MARGARITA/TRICHOMONAS NAAT MARGARITA/TRICHOMONAS NAAT Lab Routine Vaginal discharge during in first trimester Vaginal itching 09/29/2024 3:[address] [facility] MARGARITA/TRICHOMONAS NAAT MARGARITA/TRICHOMONAS NAAT Lab Routine Vaginal discharge 02/23/2025 4:26 PM EDT [facility] Work Phone: Chlamydia trachomatis+Neisseria gonorrhoeae DNA [Presence] in Unspecified specimen by REBEL with probe detection GONORRHEA/CHLAMYDIA NAAT Lab Routine Encounter for supervision of normal first in first trimester with uncertain dates in first trimester 08/11/2024 2:40 PM EDT [facility] PAP TEST PAP TEST Lab Rou donis Encounter for supervision of normal first in first trimester with uncertain dates in first trimester 08/11/2024 2:40 PM EDT [facility] POC HUMAN SERVICES CARE SPECIALIST ULTRASOUND POC HUMAN SERVICES CARE SPECIALIST ULTRASO UND Anc Imaging Routine with uncertain dates in first trimester Ordered: 08/11/2024 [facility] Work Phone: Comment on above: Ordered: 08/11/2024 URINE OB DIP B/O URINE OB DIP B/ O Lab Routine Excessive growth affecting management of in third trimester, single or unspecified fetus (HCC) Low-lying placenta (HCC) Excessive weight gain in , third trimester (HCC) Encounter for supervision of normal first in third trimester (HCC) 38 weeks gestation of (HCC) Ordered: 03/22/2025 [facility] Work Phone: Comment on above: Ordered: 03/22/2025 Immunizations Immunization Date Immunization Notes Care Provider Cinthya ceja 01-08-2025 tetanus toxoid, redu otto diphtheria toxoid, and acellular pertussis vaccine, adsorbed Ne Hardin MD Work Phone: [facility] 08-28-2024 influenza, seasonal, injectable Peyman Hawthorne MD Work Phone: [facility] Payers Date Payer Category Payer Self-pay 2024 Unknown [id number] 2024 Unknown [id number] 2023 Private Health Insurance [id number] 2023 Unknown [id number] Unknown [id number] Unknown [id number] Unknown [id number] Social History Date Type Detail Facility Start: 07-31-2024 Tobacco smoking stat us WAIS Never smoked tobacco [facility] Start: 07-31-2024 Tobacco use and exposure Smoke less tobacco non-user [facility] Start: 07-31-2024 End: 03-22-2025 Alcoholic [facility] Start: 07-31-2024 End: 03-22-2025 History of Social function [facility] Start: 07-31-2024 End: 03-22-2025 Tobacco use panel [facility] National Score (1-10 0), lower number is lower risk 67 [facility] Start: 1990 Sex assigned at Not on file [facility] Start: 07-11-2024 [facility] Goals Date Patient Goal Desired Activity [...] URINE OB DIP B/O Zeina Mi MD [facility] 03-26-2025 Miscellaneous Notes DM-Pt doing well. [...] Zeina Mi MD documented in this encounter [facility] 03-26-2025 History and physical note Pre-Op [...] Current Outpatient Medications Medication Sig Dispense Refill Axdzntiw-Kf-Wbo-Fe-FA tab Take 1 tablet by mouth once daily. 90 tablet 3 aspirin, enteric coated (ECOTRIN LOW STRENGTH) 81 mg EC tablet Take 1 tablet by mouth once daily. 90 tablet 3 omega 7-nqw-eeh-fish oil 60-90-500 mg cap Take 1 tablet [...] history, medications and allergies Zeina Strickland MD [facility] 03-26-2025 History and physical note Pre-Op [...] Current Outpatient Medications Medication Sig Dispense Refill Icgozsle-Oi-Cwa-Fe-FA tab Take 1 tablet by mouth once daily. 90 tablet 3 aspirin, enteric coated (ECOTRIN LOW STRENGTH) 81 mg EC tablet Take 1 tablet by mouth once daily. 90 tablet 3 omega 0-bms-ykc-fish oil 60-90-500 mg cap Take 1 tablet [...] Zeina Strickland MD documented in this encounter [facility] 03-26-2025 Instructions Carolyn SuárezEDMOND - 03/26/2025 1:29 PM EDT SEQUENTIAL SCREENINGS The [facility] offers sequential screenings for women who [...] It will require an appointment with our medical instrument technician. This is not an ultrasound performed [...] the above symptoms, contact our office at [phone] and ask to speak with a nurse. After hours, you can call doctors registry at [phone] OR call [facility] at [phone] and ask to have the doctor manager registration paged. If you consider this an emergency, dial 9-1-1 or go to your nearest emergency department. NEED HELP? Are you dealing with a violent or abusive relationship? Are you a victim of rape or sexual assult? Call [facility] ([place]) 24 hour Crisis Hotline: 738.608.9736 or 064-992-0876. MANUAL Your Guide to a Healthy manual is now on-line. Visit [email or web address] [email or web address] to download your free copy documented in this encounter [facility] 03-22-2025 Progress note Formatting of t [...] in third trimester, single or unspecified fetus ([facility]) - ICD9: 656.63, ICD10: O36.63X0 (primary diagnosis) - URINE OB DIP B/O 2. Low-lying placenta ([facility]) - ICD9: 641.10, ICD10: O44.40 - URINE OB DIP B/O 3. Excessive weight gain in , third trimester ([facility]) - ICD9: 646.13, 783.1, ICD10: O26.03 - URINE OB DIP B/O 4. Encounter for supervision of normal first in third trimester ([facility]) - ICD9: V22.0, ICD10: Z34.03 - URINE OB DIP B/O 5. 38 weeks gestation of ([facility]) - ICD9: V22.2, ICD10: Z3A.38 - URINE OB DIP B/O Bharti Teresa MD [facility] 03-22-2025 Miscellaneous Notes S: Amparo Cabral [...] supervision of normal first in third trimester ([facility]) - ICD9: V22.0, ICD10: Z34.03 - URINE OB DIP B/O 5. 38 weeks gestation of ([facility]) - ICD9: V22.2, ICD10: Z3A.38 - URINE OB DIP B/O Bharti Teresa MD documented in this encounter [facility] 03-22-2025 Instructions Carolyn Suárez MA - 03/22/2025 10:45 AM EDT SEQUENTIAL SCREENINGS The [facility] offers sequential screenings for women who [...] It will require an appointment with our medical instrument technician. This is not an ultrasound performed [...] the above symptoms, contact our office at [phone] and ask to speak with a nurse. After hours, you can call doctors registry at [phone] OR call [facility] at [phone] and ask to have the doctor manager registration paged. If you consider this an emergency, dial or go to your nearest emergency department. NEED HELP? Are you dealing with a violent or abusive relationship? Are you a victim of rape or sexual assult? Call [facility] ([place]) 24 hour Crisis Hotline: 852.973.7874 or 689-407-3680. MANUAL Your Guide to a Healthy manual is now on-line. Visit [email or web address] Karina to download your free copy documented in this encounter [facility] 03-21-2025 Note HNO ID: [id number] Author: RONA TOLLIVER, ? Service: ? Author Type: Patient Access Clinician Type: Progress Notes Filed: 03/21/2025 06:56 Note Text: POPULATION HEALTH NAVIGATION OUTREACH Action/FYI Responded via my chart added pearler Reason for Outreach Medicaid OB/Peds Care Gaps due: N/A Patient Contacted: Spoke to patient/parent/or legal guardian Patient identified by name and : Yes Medicaid OB/Peds actions taken: [place]/Piercing Specialist added Navigation Signature: Rona Tolliver Population Health Navigator March 21, 2025 6:56 AM [facility] 03-20-2025 Note HNO ID: [id number] Author: RONA TOLLIVER, ? Service: ? Author Type: Patient Access Clinician Type: Progress Notes Filed: 03/20/2025 08:06 Note [...] call navigator back Navigation Signature: Rona Tolliver [facility] Zafgen Navigator March 20, 2025 8:03 AM [facility] 03-20-2025 Note Patient Outreach (MELY SCHROEDERAV) AMPARO CABRAL ([id number]) 1990 F Date Time Provider Department 03/20/25 [...] OUTREACH Action/FYI Responded via my chart added pearler Reason for Outreach Medicaid OB/Peds Care Gaps due: N/A Patient Contacted: Spoke to patient/parent/or legal guardian Patient identified by name and : Yes Medicaid OB/Peds actions taken: [place]/Piercing Specialist added Navigation Signature: Rona Tolliver Population Health Navigator March 21, 2025 6:56 AM Allergies As of Date: 03/20/2025 (No Known Allergies) Date Reviewed: 03/15/2025 Reviewed by: Lawanda Diaz MD - Fully Assessed Reason for Visit: Population Health Navigation Outreach [[id number]] Cmt: Ob peds Prescriptions as of 03/21/2025 - Nmhbjily-Sc-Qbe-Fe-FA tab Take 1 tablet by mouth once daily. - aspirin, enteric coated (ECOTRIN LOW STRENGTH) 81 mg EC tablet Take 1 tablet by mouth once daily. - omega 6-qcx-xtr-fish oil 60-90-500 mg cap Take 1 tablet [...] Encounter Status:Closed by RONA TOLLIVER on 03/20/25 [facility] 03-15-2025 Telephone encounter Note Spoke to Pt. Pt has decided on 03/30/25 at 12pm with DM. Pre-op appt changed with DM. Jim notified to update surgery schedule/hospital and physicians. Ginna Carrillo RN [facility] 03-15-2025 Miscellaneous Notes Spoke to Pt. Pt has decided on 03/30/25 at 12pm with DM. Pre-op appt changed with DM. Gilles notified to update surgery schedule/hospital and physicians. Ginna Carrillo RN Patient viewed [employer] message. Asking if she could have 6/12 or 6/13. Aware there are openings, but it would be with a different provider. Patient will call the office if she chooses a different day. If we don't hear from her, plan for 6/10 as scheduled. Bharti Aguiar RN documented in this encounter [facility] 03-15-2025 Telephone encounter Note Patient viewed [employer] message. Asking if she could have 6/12 or 6/13. Aware there are openings, but it would be with a different provider. Patient will call the office if she chooses a different day. If we don't hear from her, plan for 6/10 as scheduled. Bharti Aguiar RN [facility] 03-15-2025 Progress note Formatting of t [...] Excessive weight gain in , third trimester ([facility]) Orders: URINE OB DIP B/O Encounter for supervision of normal first in third trimester ([facility]) Orders: URINE OB DIP B/O 37 weeks gestation of ([facility]) Orders: URINE OB DIP B/O Reviewed labor & FM precautions Lawanda Diaz MD [facility] 03-15-2025 Miscellaneous Notes S: Amparo denies [...] OB DIP B/O 37 weeks gestation of ([facility]) Orders: URINE OB DIP B/O Reviewed labor & FM precautions Lawanda Diaz MD documented in this encounter [facility] 03-15-2025 Instructions Corby Salcido MA - 03/15/2025 1:00 PM EDT SEQUENTIAL SCREENINGS The [facility] offers sequential screenings for women who [...] It will require an appointment with our medical instrument technician. This is not an ultrasound performed [...] the above symptoms, contact our office at [phone] and ask to speak with a nurse. After hours, you can call doctors registry at [phone] OR call [facility] at [phone] and ask to have the doctor manager registration paged. If you consider this an emergency, dial 9--1 or go to your nearest emergency department. NEED HELP? Are you dealing with a violent or abusive relationship? Are you a victim of rape or sexual assult? Call [facility] ([place]) 24 hour Crisis Hotline: 191.797.2526 or 664-655-8274. MANUAL Your Guide to a Healthy manual is now on-line. Visit [email or web address] to download your free copy documented in this encounter [facility] 02-26-2025 Telephone encounter Note Discharge can be normal in . If she is having other symptoms with it needs visit for eval thanks [facility] Work Phone: 02-26-2025 Miscellaneous Notes Discharge can be normal in . If she is having other symptoms with it needs visit for eval thanks documented in this encounter [facility] 02-23-2025 Instructions Jada Madrigal MA - 02/23/2025 3:45 PM EDT SEQUENTIAL SCREENINGS The [facility] offers sequential screenings for women who [...] It will require an appointment with our medical instrument technician. This is not an ultrasound performed [...] the above symptoms, contact our office at [phone] and ask to speak with a nurse. After hours, you can call doctors registry at [phone] OR call [facility] at [phone] and ask to have the doctor manager registration paged. If you consider this an emergency, dial 9-1-6 or go to your nearest emergency department. NEED HELP? Are you dealing with a violent or abusive relationship? Are you a victim of rape or sexual assult? Call [facility] ([place]) 24 hour Crisis Hotline: 861.989.7148 or 945-494-6745. MANUAL Your Guide to a Healthy manual is now on-line. Visit [email or web address] to download your free copy documented in this encounter [facility] 02-23-2025 Progress note Formatting of t [...] was discussed with the patient or authorized graphic art sales representative. The patient or authorized graphic art sales representative has agreed to proceed with the sensitive examination. PELVIS: External genitalia normal without lesions. Perineal body intact. No vaginal or cervical lesions. Difficult to visualize cervix due to patient discomfort. + white discharge ASSESSMENT/PLAN: 1. Encounter for supervision of normal first in third trimester ([facility]) - ICD9: V22.0, ICD10: Z34.03 (primary diagnosis) - Continue PNV and LDA 2. 34 weeks gestation of ([facility]) - ICD9: V22.2, ICD10: Z3A.34 - GBS next visit 3. Low-lying placenta (HCC) - ICD9: 641.10, ICD10: O44.40 - Repeat ultrasound scheduled for 03/09 4. Excessive weight gain in , third trimester ([facility]) - ICD9: 646.13, 783.1, ICD10: O26.03 - 41 lb weight gain at 34 weeks - EFW 98% at 32 week growth 5. Vaginal discharge - ICD9: 623.5, ICD10: N89.8 - Cultures obtained PTL precautions and kick counts reviewed. RTO in 2 weeks or sooner as needed. Palma Cash APRN.DIRECTOR CHINA [facility] 02-23-2025 Miscellaneous Notes EH - S: [...] was discussed with the patient or authorized graphic art sales representative. The patient or authorized graphic art sales representative has agreed to proceed with the sensitive examination. PELVIS: External genitalia normal without lesions. Perineal body intact. No vaginal or cervical lesions. Difficult to visualize cervix due to patient discomfort. + white discharge ASSESSMENT/PLAN: 1. Encounter for supervision of normal first in third trimester ([facility]) - ICD9: V22.0, ICD10: Z34.03 (primary diagnosis) - Continue PNV and LDA 2. 34 weeks gestation of ([facility]) - ICD9: V22.2, ICD10: Z3A.34 - GBS next visit 3. Low-lying placenta (HCC) - ICD9: 641.10, ICD10: O44.40 - Repeat ultrasound scheduled for 03/09 4. Excessive weight gain in , third trimester ([facility]) - ICD9: 646.13, 783.1, ICD10: O26.03 - 41 lb weight gain at 34 weeks - EFW 98% at 32 week growth 5. Vaginal discharge - ICD9: 623.5, ICD10: N89.8 - Cultures obtained PTL precautions and kick counts reviewed. RTO in 2 weeks or sooner as needed. Palma Cash APRN.DIRECTOR [place] documented in this encounter [facility] 02-15-2025 Evaluation + Plan note Associated Problem(s): Encounter for supervision of normal first in third trimester ([facility]) [facility] 02-15-2025 Evaluation + Plan note Associated Problem(s): Low-lying placenta (HCC) Repeat US scheduled. [facility] 02-15-2025 Miscellaneous Notes Associated Problem(s): Encounter for supervision of normal first in third trimester ([facility]) Associated Problem(s): Low-lying placenta (HCC) Repeat US scheduled. KJ - Patient seen urgently for swelling in . S: Amparo denies LOF, contractions or vaginal bleeding. O: 33w2d, see flow sheet SENSITIVE EXAM: Sensitive exam not performed. Extermities: LE- 1+ equal & bilateral edema, UE - trace edema in wrists A/P: Assessment & Plan 33 weeks gestation of ([facility]) Encounter for supervision of normal first in third trimester ([facility]) Low-lying placenta (HCC) Repeat US scheduled. Patient reassured on swelling & advised on conservative measures. Reviewed PTL & FM precautions Lawanda iDaz MD documented in this encounter [facility] 02-15-2025 Progress note Formatting of t [...] supervision of normal first in third trimester ([facility]) Low-lying placenta (HCC) Repeat US scheduled. Patient reassured on swelling & advised on conservative measures. Reviewed PTL & FM precautions Lawanda Diaz MD [facility] 02-15-2025 Instructions Reanna Henderson MA - 02/15/2025 3:48 PM EDT SEQUENTIAL SCREENINGS The [facility] offers sequential screenings for women who [...] It will require an appointment with our medical instrument technician. This is not an ultrasound performed [...] the above symptoms, contact our office at [phone] and ask to speak with a nurse. After hours, you can call [employer] registry at [phone] OR call [facility] at [phone] and ask to have the doctor manager registration paged. If you consider this an emergency, dial 9-1-2 or go to your nearest emergency department. NEED HELP? Are you dealing with a violent or abusive relationship? Are you a victim of rape or sexual assult? Call [facility] ([place]) 24 hour Crisis Hotline: 506.223.2834 or 070-747-1338. MANUAL Your Guide to a Healthy manual is now on-line. Visit [email or web address] to download your free copy documented in this encounter [facility] 02-07-2025 Note HNO ID: [id number] Author: TALITA MEDELLIN APRN.KARLEE Service: ? Author Type: Group Home Manager Type: Progress Notes Filed: 02/09/2025 12:21 Note [...] RTO in 2 weeks Talita Medellin APRN.CNM [facility] 01-22-2025 Miscellaneous Notes EH - S: Amparo [...] and PNV - Planning birthing classes at [facility] - Discussed pediatricians - Some intermittent left pain that resolves with rest. No swelling, redness, pain, or warmth on exam today. Reviewed signs of DVT. 2. 29 weeks gestation of ([facility]) - ICD9: V22.2, ICD10: Z3A.29 - Elevated 1 hour, passed 3 hour 3. Low-lying placenta ([facility]) - ICD9: 641.10, ICD10: O44.40 - Recheck at 32 weeks - Reviewed precautions PTL precautions and kick counts reviewed. RTO in 2 weeks or sooner as needed. Palma Cash APRN.TOMÁS documented in this encounter [facility] 01-22-2025 Progress note Formatting of t [...] supervision of normal first in third trimester ([facility]) - ICD9: V22.0, ICD10: Z34.03 (primary diagnosis) - Continue LDA and PNV - Planning birthing classes at [facility] - Discussed pediatricians - Some intermittent left pain that resolves with rest. No swelling, redness, pain, or warmth on exam today. Reviewed signs of DVT. 2. 29 weeks gestation of ([facility]) - ICD9: V22.2, ICD10: Z3A.29 - Elevated 1 hour, passed 3 hour 3. Low-lying placenta ([facility]) - ICD9: 641.10, ICD10: O44.40 - Recheck at 32 weeks - Reviewed precautions PTL precautions and kick counts reviewed. RTO in 2 weeks or sooner as needed. Palma Cash APRN.DIRECTOR CHINA [facility] 01-22-2025 Instructions Jada Madrigal MA - 01/22/2025 3:42 PM EDT SEQUENTIAL SCREENINGS The [facility] offers sequential screenings for women who [...] It will require an appointment with our medical instrument technician. This is not an ultrasound performed [...] the above symptoms, contact our office at [phone] and ask to speak with a nurse. After hours, you can call doctors registry at [phone] OR call [facility] at [phone] and ask to have the doctor manager registration paged. If you consider this an emergency, dial 9-1-9 or go to your nearest emergency department. NEED HELP? Are you dealing with a violent or abusive relationship? Are you a victim of rape or sexual assult? Call [facility] ([place]) 24 hour Crisis Hotline: 417.987.4395 or 659-135-3451. MANUAL Your Guide to a Healthy manual is now on-line. Visit [email or web address] to download your free copy documented in this encounter [facility] 01-17-2025 Telephone encounter Note Message from [...] suggestion. Is it safe to take continuously? [facility] 01-17-2025 Miscellaneous Notes Message from patient: [...] to take continuously? documented in this encounter [facility] 01-10-2025 Telephone encounter Note Patient notified of directions [facility] 01-10-2025 Miscellaneous Notes Patient notified of [...] appointment is 01/22/25 documented in this encounter [facility] 01-10-2025 Telephone encounter Note Would recommend eating/drinking something and then going to quiet area and counting movements. If she gets 10 movements in 2 hrs that is fine. If she is concerned she can go to L&D [facility] Work Phone: 01-10-2025 Telephone encounter Note Ob patient is 28w1d and called stating she has not felt kicking movements from baby since yesterday afternoon but has felt subtle movements throughout the day. Patient concerned about the change in movements.next ob appointment is 01/22/25 [facility] 01-08-2025 Note HNO ID: [id number] Author: CELESTINO FERNANDEZ LPN Service: ? Author [...] severely ill: No Patient denies history of Guillain-[place] Syndrome (a severe paralytic illness): No Tdap Adacel injection was given without incident. See immunizations for details of immunizations administered today. VIS sheet provided: Yes Provider Dr. Ne Hardin was present in office at time of injection. Celestino Fernandez LPN [facility] 01-08-2025 History of Presen t illness Narrative [...] severely ill: No Patient denies history of Guillain-[place] Syndrome (a severe paralytic illness): No Tdap Adacel injection was given without incident. See immunizations for details of immunizations administered today. VIS sheet provided: Yes Provider Dr. Ne Hardin was present in office at time of injection. Celestino Fernandez LPN documented in this encounter [facility] 01-08-2025 Progress note Formatting of t [...] 32 weeks tdap today Ne Hardin M.D. [facility] 01-08-2025 Miscellaneous Notes RR- VB No. [...] Ne Hardin M.D. documented in this encounter [facility] 01-08-2025 Instructions Kristi Lemons MA - 01/08/2025 4:09 PM EDT SEQUENTIAL SCREENINGS The [facility] offers sequential screenings for women who [...] It will require an appointment with our medical instrument technician. This is not an ultrasound performed [...] the above symptoms, contact our office at [phone] and ask to speak with a nurse. After hours, you can call doctors registry at [phone] OR call [facility] at [phone] and ask to have the doctor manager registration paged. If you consider this an emergency, dial 9-1-0 or go to your nearest emergency department. NEED HELP? Are you dealing with a violent or abusive relationship? Are you a victim of rape or sexual assult? Call [facility] ([place]) 24 hour Crisis Hotline: 582.949.7703 or 504-848-8774. MANUAL Your Guide to a Healthy manual is now on-line. Visit [email or web address] to download your free copy documented in this encounter [facility] 12-26-2024 Telephone encounter Note Patient notified. Bharti Aguiar RN [facility] 12-26-2024 Miscellaneous Notes Patient notified. Bharti [...] Bharti Aguiar RN documented in this encounter [facility] 12-26-2024 Telephone encounter Note agree [facility] Work Phone: 12-26-2024 Telephone encounter Note [...] develops bleeding. Please advise. Bharti Aguiar, RN [facility] 12-08-2024 Progress note Formatting of t [...] RTO in 4 weeks Talita Medellin APRN.CNM [facility] 12-08-2024 Miscellaneous Notes KARLA-S: Amparo Cabral [...] Talita Medellin APRN.CNM documented in this encounter [facility] 12-08-2024 Instructions Talita Medellin APRN.CNM - 12/08/2024 3:16 PM EST Magnesium 400mg by mouth at bedtime Electrolyte drink, packet, or drops (ex. LMNT, liquid IV, Body Cameron, SHERRIE) Magnesium spray, you can get this [...] the above symptoms, contact our office at [phone] and ask to speak with a nurse. After hours, you can call doctors registry at [phone] OR call [facility] at [phone] and ask to have the doctor manager registration paged. If you consider this an emergency, dial 4-5-6 or go to your nearest emergency department. NEED HELP? Are you dealing with a violent or abusive relationship? Are you a victim of rape or sexual assult? Call [facility] ([place]) 24 hour Crisis Hotline: 941.274.9133 or 036-962-6027. MANUAL Your Guide to a Healthy manual is now on-line. Visit [email or web address] to download your free copy documented in this encounter [facility] 11-27-2024 Telephone encounter Note Duplicate note. See 11/27/24 [employer] message - responded to that. Domenica Giauque, RN [facility] 11-27-2024 Miscellaneous Notes Duplicate note. See 11/27/24 [employer] message - responded to that. Domenica Capellan RN documented in this encounter [facility] 11-14-2024 Progress note Formatting of t his note might be different from the original. Anatomy ultrasound reviewed. No abnormalities identified. Follow up as clinically indicated. Please place copy in ob chart. Ne Hardin MD [facility] Work Phone: 11-14-2024 Miscellaneous Notes Anatomy ultrasound reviewed. No abnormalities identified. Follow up as clinically indicated. Please place copy in ob chart. Ne Hardin MD documented in this encounter [facility] 11-13-2024 Progress note Formatting of t [...] to ED if persistent/lightheaded/LOC Ne Hardin MD [facility] Work Phone: 11-13-2024 Miscellaneous Notes RR- [...] Ne Hardin MD documented in this encounter [facility] 11-13-2024 Instructions Celestino Fernandez LPN - 11/13/2024 3:10 PM EST SEQUENTIAL SCREENINGS The [facility] offers sequential screenings for women who [...] It will require an appointment with our medical instrument technician. This is not an ultrasound performed [...] the above symptoms, contact our office at [phone] and ask to speak with a nurse. After hours, you can call doctors registry at [phone] OR call [facility] at [phone] and ask to have the doctor manager registration paged. If you consider this an emergency, dial 06-18- or go to your nearest emergency department. NEED HELP? Are you dealing with a violent or abusive relationship? Are you a victim of rape or sexual assult? Call [facility] ([place]) 24 hour Crisis Hotline: 691.960.4059 or 524-584-3362. MANUAL Your Guide to a Healthy manual is now on-line. Visit [email or web address] to download your free copy documented in this encounter [facility] 10-09-2024 Progress note Formatting of t [...] scheduled JOSELUIS with anatomy Fatou Veronica APRN.CNM [facility] 10-09-2024 Miscellaneous Notes S: Amparo Cabral [...] Fatou Veronica APRN.CNM documented in this encounter [facility] 10-09-2024 Instructions Jada Madrigal MA - 10/09/2024 4:03 PM EST SEQUENTIAL SCREENINGS The [facility] offers sequential screenings for women who [...] It will require an appointment with our medical instrument technician. This is not an ultrasound performed [...] the above symptoms, contact our office at [phone] and ask to speak with a nurse. After hours, you can call doctors registry at [phone] OR call [facility] at [phone] and ask to have the doctor manager registration paged. If you consider this an emergency, dial 9-8-4 or go to your nearest emergency department. NEED HELP? Are you dealing with a violent or abusive relationship? Are you a victim of rape or sexual assult? Call [facility] ([place]) 24 hour Crisis Hotline: 103.943.8445 or 644-084-0274. MANUAL Your Guide to a Healthy manual is now on-line. [email or web address] to download your free copy documented in this encounter [facility] 10-09-2024 Telephone encounter Note Spoke to patient and scheduled appointment for today. Domenica Capellan RN [facility] 10-09-2024 Miscellaneous Notes Spoke to patient and scheduled appointment for today. Domenica Capellan RN documented in this encounter [facility] 09-29-2024 Note Addended by: PALMA CASH on: 09/29/2024 03:48 PM Modules accepted: Orders [facility] 09-29-2024 Miscellaneous Notes Addended by: PALMA [...] discussed with the Patient or Patient's Authorized Insurance Customer Service Specialist. As applicable, any other physician, advance practice provider, medical student, or other health professional student that will be observing or involved in the sensitive examination for educational or training purposes was discussed with the Patient or Authorized Insurance Customer Service Specialist. The Patient or Authorized Insurance Customer Service Specialist has agreed to proceed with the sensitive [...] hydrocortisone. To notify if persistent. - Requesting [place] 3 supplement 2. 13 weeks gestation of [...] Palma Cash APRN.TOMÁS documented in this encounter [facility] 09-29-2024 Progress note Formatting of t [...] discussed with the Patient or Patient's Authorized Insurance Customer Service Specialist. As applicable, any other physician, advance practice provider, medical student, or other health professional student that will be observing or involved in the sensitive examination for educational or training purposes was discussed with the Patient or Authorized Insurance Customer Service Specialist. The Patient or Authorized Insurance Customer Service Specialist has agreed to proceed with the sensitive [...] hydrocortisone. To notify if persistent. - Requesting [place] 3 supplement 2. 13 weeks gestation of [...] provided on PTL precautions. Palma Cash APRN.CNP [facility] 09-29-2024 Instructions Palma Cash APRN.CNP - 09/29/2024 3:17 PM EST SEQUENTIAL SCREENINGS The [facility] offers sequential screenings for women who [...] It will require an appointment with our medical instrument technician. This is not an ultrasound performed [...] the above symptoms, contact our office at [phone] and ask to speak with a nurse. After hours, you can call doctors registry at [phone] OR call [facility] at [phone] and ask to have the doctor manager registration paged. If you consider this an emergency, dial 3-9-8 or go to your nearest emergency department. NEED HELP? Are you dealing with a violent or abusive relationship? Are you a victim of rape or sexual assult? Call [facility] ([place]) 24 hour Crisis Hotline: 222.695.8634 or 080-586-2280. MANUAL Your Guide to a Healthy manual is now on-line. Visit [email or web address] to download your free copy documented in this encounter [facility] 08-28-2024 Progress note Formatting of t [...] - RTO 4 wks Peyman Hawthorne DO [facility] 08-28-2024 Miscellaneous Notes SW- pt doing [...] Peyman Hawthorne DO documented in this encounter [facility] 08-28-2024 Instructions Reanna Henderson MA - 08/28/2024 1:05 PM EST SEQUENTIAL SCREENINGS The [facility] offers sequential screenings for women who [...] It will require an appointment with our medical instrument technician. This is not an ultrasound performed [...] the above symptoms, contact our office at [phone] and ask to speak with a nurse. After hours, you can call doctors registry at [phone] OR call [facility] at [phone] and ask to have the doctor manager registration paged. If you consider this an emergency, dial [phone] or go to your nearest emergency department. NEED HELP? Are you dealing with a violent or abusive relationship? Are you a victim of rape or sexual assult? Call [facility] ([place]) 24 hour Crisis Hotline: 144.221.1130 or 217-643-6365. MANUAL Your Guide to a Healthy manual is now on-line. Visit [email or web address] to download your free copy documented in this encounter [facility] 08-11-2024 Note HNO ID: [id number] Author: PALMA CASH APRN.DIRECTOR [place] Service: ? Author Type: Nurse Practitioner Type: Progress Notes Filed: 08/11/2024 15:03 Note Text: Human Resources Benefits Coordinator offered: Patient declines. INITIAL OB ASSESSMENT HPI: [...] Current Outpatient Medications Medication Sig Dispense Refill Xgterpkp-Hk-Igz-Fe-FA tab Take 1 tablet by mouth once [...] discussed with the Patient or Patient's Authorized Insurance Customer Service Specialist. As applicable, any other physician, advance practice provider, medical student, or other health professional student that will be observing or involved in the sensitive examinat (more content not included)... [facility] 08-11-2024 History of Presen t illness Narrative Human Resources Benefits Coordinator offered: Patient declines. INITIAL OB ASSESSMENT HPI: [...] Current Outpatient Medications Medication Sig Dispense Refill Vsbyosqn-Le-Hbw-Fe-FA tab Take 1 tablet by mouth once [...] discussed with the Patient or Patient's Authorized Insurance Customer Service Specialist. As applicable, any other physician, advance practice provider, medical student, or other health professional student that will be observing or involved in the sensitive examination for educational or training purposes was discussed with the Patient or Authorized Insurance Customer Service Specialist. The Patient or Authorized Insurance Customer Service Specialist has agreed to proceed with the sensitive [...] Your guide to a health and the Shell Assembler. Discussed hemoglobin electrophoresis. Patient: Accepts Reviewed midwifery and rural electrification engineer services that are available. 2) Screening: Hemoglobin [...] weeks): [] Consent [] Contraception - [] Piercing Specialist Third trimester (36-40 weeks): [] GBS [] Presentation - [] Scheduled [] yes - Hibiclens, pre-op instructions, CBC, T&S ordered [] no [] H&P Nausea and Vomiting During - 08/11/2024 Comment: 08/11/24 Vitamin B6 and Unisom doses reviewed. To notify if prescription is needed. Palma Cash APRN.DIRECTOR [place] Heartburn During in First Trimester - 07/31/2024 Comment: July 31, 2024 Rx sent for Pepcid. Pamla Cash APRN.CNP Vaginal Itching - 08/11/2024 Comment: [...] Palma Cash APRN.CNP documented in this encounter [facility] 08-11-2024 Instructions Palma Cash APRN.CNP - 08/11/2024 1:41 PM EDT Please select the following link to access the [facility] Your Guide to a Healthy . [email or web address] de MORNING SICKNESS IN by Kelly Osuna M.D. for [employer] As you may already know, morning sickness can often be more appropriately called evening sickness or xpvae-zlguot-fh-the-day sickness. While there are the kenneth few, [...] medication, Doxylamine, is currently marketed as an bjqz-bxl-bermbqb sleeping pill. Ask your practitioner if creating a vitamin B6/Doxylamine combination with hcxa-vgr-jpvdhwi medications would be safe for you. Prescription [...] SICKNESS IN by Kelly Osuna M.D. for [employer] As you may already know, morning sickness can often be more appropriately called evening sickness or vulxu-whdvdn-po-the-day sickness. While there are the kenneth few, [...] medication, Doxylamine, is currently marketed as an laro-cqv-lrhyger sleeping pill. Ask your practitioner if creating a vitamin B6/Doxylamine combination with onoe-czl-snzesna medications would be safe for you. Prescription [...] Phenergan, Compazine, Reglan documented in this encounter [facility] 07-31-2024 Note HNO ID: [id number] Author: PALMA CASH APRN.DIRECTOR [place] Service: ? Author Type: Nurse Practitioner Type: [...] OB History No obstetric history on file. 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 + heartburn Expanded ROS: PORTFOLIO MGR: + amenorrhea Allergies and current medication updated:Yes [...] for ultrasound and new OB visit - Shell Assembler order signed 2. Heartburn during in first trimester - ICD9: 646.83, 787.1, ICD10: O26.891, R12 - Rx for Pepcid sent Palma Cash APRN.CNP Medical Decision Making: Problems: Moderate: New problem with uncertain prognosis Risk: Low: Low risk from testing/treatment Moderate: Drug management Medical Decision Making Level: 4 - Moderate [facility] 07-31-2024 History of Presen t illness Narrative [...] OB History No obstetric history on file. 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 + heartburn Expanded ROS: PORTFOLIO MGR: + amenorrhea Allergies and current medication updated:Yes [...] for ultrasound and new OB visit - Shell Assembler order signed 2. Heartburn during in first trimester - ICD9: 646.83, 787.1, ICD10: O26.891, R12 - Rx for Pepcid sent Palma Cash APRN.CNP Medical Decision Making: Problems: Moderate: New problem with uncertain prognosis Risk: Low: Low risk from testing/treatment Moderate: Drug management Medical Decision Making Level: 4 - Moderate documented in this encounter [facility] Evaluation note Diagnosis Encounter for test, result positive- Primary examination or test, positive result Heartburn during in first trimester [facility] Diagnosis Encounter for supervision of normal first in first trimester- Primary Supervision of normal first 6 weeks gestation of state, incidental with uncertain dates in first trimester Vaginal itching Pruritus of genital organs Nausea and vomiting during At risk for depression Heartburn during in first trimester [facility] Diagnosis Encounter for supervision of normal first in first trimester- Primary Supervision of normal first 8 weeks gestation of state, incidental Urinary tract infection without hematuria, site unspecified Need for influenza vaccination Need for prophylactic vaccination and inoculation against influenza [facility] Diagnosis Encounter for supervision of normal first in second trimester- Primary Supervision of normal first 13 weeks gestation of state, incidental Vaginal discharge during in first trimester Vaginal itching Pruritus of genital organs Nausea and vomiting during headache in second trimester [facility] Diagnosis Encounter for routine screening for malformation using ultrasound [Z36.3]- Primary Encounter for supervision of normal first in first trimester Supervision of normal first Nuchal translucency of fetus on ultrasound [Z36.82] Abnormal findings on screening [facility] Diagnosis Encounter for supervision of normal first in second trimester- Primary Supervision of normal first 14 weeks gestation of state, incidental Spotting affecting in second trimester [facility] Diagnosis 19 weeks gestation of - Primary state, incidental Encounter for supervision of normal first in second trimester Supervision of normal first Spotting affecting in second trimester [facility] Diagnosis Encounter for anatomic survey- Primary 19 weeks gestation of state, incidental [facility] Diagnosis Encounter for supervision of normal first in second trimester- Primary Supervision of normal first 23 weeks gestation of state, incidental Low-lying placenta Hemorrhage from placenta previa, unspecified as to episode of care Screening for diabetes mellitus [facility] Diagnosis Encounter for supervision of normal first in second trimester- Primary Supervision of normal first 27 weeks gestation of state, incidental Low lying placenta nos or without hemorrhage, second trimester Need for Tdap vaccination Need for prophylactic vaccination with combined zzxgkgrwhf-mnxapao-ivpuktkbs (DTP) vaccine Need for vaccination Need for prophylactic vaccination and inoculation against unspecified single disease * Assessment & Plan Note - Ne Hardin MD - 01/08/2025 4:19 PM EDT Associated Problem(s): Encounter for supervision of normal first in second trimester Orders: OBSTETRIC ULTRASOUND WHI; Future documented in this encounter [facility] note* Diagnosis Encounter for supervision of normal first in second trimester ([facility])- Primary Supervision of normal first 27 weeks gestation of ([facility]) state, incidental Low lying placenta nos or without hemorrhage, second trimester ([facility]) Need for Tdap vaccination Need for prophylactic vaccination with combined yzoezvfaja-zqioixm-dzdfemeqh (DTP) vaccine Need for vaccination Need for prophylactic vaccination and inoculation against unspecified single disease Encounter for supervision of normal first in third trimester ([facility])- Primary Supervision of normal first 29 weeks gestation of ([facility]) state, incidental Low-lying placenta ([facility]) Hemorrhage from placenta previa, unspecified as to episode of care documented in this encounter [facility] note* Diagnosis Encounter for supervision of normal first in second trimester ([facility])- Primary Supervision of normal first 27 weeks gestation of ([facility]) state, incidental Low lying placenta nos or without hemorrhage, second trimester ([facility]) Need for Tdap vaccination Need for prophylactic vaccination with combined vjoupaaydg-jjlqwrh-cazqkhwiz (DTP) vaccine Need for vaccination Need for prophylactic vaccination and inoculation against unspecified single disease 33 weeks gestation of ([facility])- Primary state, incidental Encounter for supervision of normal first in third trimester ([facility]) Supervision of normal first Low-lying placenta ([facility]) Hemorrhage from placenta previa, unspecified as to episode of care documented in this encounter [facility] note* Diagnosis Encounter for supervision of normal first in second trimester ([facility])- Primary Supervision of normal first 27 weeks gestation of ([facility]) state, incidental Low lying placenta nos or without hemorrhage, second trimester ([facility]) Need for Tdap vaccination Need for prophylactic vaccination with combined lzpkchlgfe-nztimvz-stkalypok (DTP) vaccine Need for vaccination Need for prophylactic vaccination and inoculation against unspecified single disease 33 weeks gestation of ([facility])- Primary state, incidental Encounter for supervision of normal first in third trimester ([facility]) Supervision of normal first Low-lying placenta (HCC) Hemorrhage from placenta previa, unspecified as to episode of care Encounter for supervision of normal first in third trimester ([facility])- Primary Supervision of normal first 34 weeks gestation of ([facility]) state, incidental Low-lying placenta (HCC) Hemorrhage from placenta previa, unspecified as to episode of care Excessive weight gain in , third trimester ([facility]) Vaginal discharge Leukorrhea, not specified as infective [facility] Diagnosis Encounter for supervision of normal first in second trimester ([facility])- Primary Supervision of normal first 27 weeks gestation of ([facility]) state, incidental Low lying placenta nos or without hemorrhage, second trimester ([facility]) Need for Tdap vaccination Need for prophylactic vaccination with combined cafefortuv-cfgvyyo-gdyxdohas (DTP) vaccine Need for vaccination Need for prophylactic vaccination and inoculation against unspecified single disease 33 weeks gestation of ([facility])- Primary state, incidental Encounter for supervision of normal first in third trimester ([facility]) Supervision of normal first Low-lying placenta (HCC) Hemorrhage from placenta previa, unspecified as to episode of care Encounter for supervision of normal first in third trimester ([facility])- Primary Supervision of normal first Excessive growth affecting management of in third trimester, single or unspecified fetus ([facility]) Low-lying placenta (HCC) Hemorrhage from placenta previa, unspecified as to episode of care Excessive weight gain in , third trimester ([facility]) 37 weeks gestation of ([facility]) state, incidental * Assessment & Plan Note - Lawanda Diaz MD - 03/15/2025 1:25 PM EDTAssociated Problem(s): Excessive growth affecting management of in third trimester ([facility]) Orders: URINE OB DIP B/O * Assessment [...] Excessive weight gain in , third trimester ([facility]) Orders: URINE OB DIP B/O * Assessment & Plan Note - Lawanda Diaz MD - 03/15/2025 1:25 PM EDTAssociated Problem(s): Encounter for supervision of normal first in third trimester ([facility]) Orders: URINE OB DIP B/O [facility] Encounter for supervision of normal first in second trimester ([facility])- Primary Supervision of normal first 27 weeks gestation of ([facility]) state, incidental Low lying placenta nos or without hemorrhage, second trimester ([facility]) Need for Tdap vaccination Need for prophylactic vaccination with combined vqszebqulc-zuvhkew-vtgjtdyeu (DTP) vaccine Need for vaccination Need for prophylactic vaccination and inoculation against unspecified single disease Abnormal glucose complicating ([facility])- Primary Abnormal maternal glucose tolerance, complicating , childbirth, or the puerperium, unspecified as to episode of care Encounter for supervision of normal first in second trimester ([facility]) Supervision of normal first 33 weeks gestation of ([facility])- Primary state, incidental Encounter for supervision of normal first in third trimester ([facility]) Supervision of normal first Low-lying placenta ([facility]) Hemorrhage from placenta previa, unspecified as to episode of care Encounter for supervision of normal first in third trimester ([facility])- Primary Supervision of normal first Excessive growth affecting management of in third trimester, single or unspecified fetus ([facility]) Low-lying placenta (HCC) Hemorrhage from placenta previa, unspecified as to episode of care Excessive weight gain in , third trimester ([facility]) 37 weeks gestation of ([facility]) state, incidental [facility] Diagnosis Encounter for supervision of normal first in second trimester ([facility])- Primary Supervision of normal first 27 weeks gestation of ([facility]) state, incidental Low lying placenta nos or without hemorrhage, second trimester ([facility]) Need for Tdap vaccination Need for prophylactic vaccination with combined aczbwhwmqh-uazhgjd-qnpaoznkp (DTP) vaccine Need for vaccination Need for prophylactic vaccination and inoculation against unspecified single disease 33 weeks gestation of ([facility])- Primary state, incidental Encounter for supervision of normal first in third trimester ([facility]) Supervision of normal first Low-lying placenta ([facility]) Hemorrhage from placenta previa, unspecified as to episode of care Encounter for supervision of normal first in third trimester ([facility])- Primary Supervision of normal first Excessive growth affecting management of in third trimester, single or unspecified fetus ([facility]) Low-lying placenta ([facility]) Hemorrhage from placenta previa, unspecified as to episode of care Excessive weight gain in , third trimester ([facility]) 37 weeks gestation of ([facility]) state, incidental Excessive growth affecting management of in third trimester, single or unspecified fetus ([facility])- Primary Low-lying placenta ([facility]) Hemorrhage from placenta previa, unspecified as to episode of care Excessive weight gain in , third trimester ([facility]) Encounter for supervision of normal first in third trimester ([facility]) Supervision of normal first 38 weeks gestation of ([facility]) state, incidental [facility] Diagnosis Encounter for supervision of normal first in second trimester ([facility])- Primary Supervision of normal first 27 weeks gestation of ([facility]) state, incidental Low lying placenta nos or without hemorrhage, second trimester ([facility]) Need for Tdap vaccination Need for prophylactic vaccination with combined mttqquwnju-zikyseh-slxqcntjw (DTP) vaccine Need for vaccination Need for prophylactic vaccination and inoculation against unspecified single disease Abnormal glucose complicating ([facility])- Primary Abnormal maternal glucose tolerance, complicating , childbirth, or the puerperium, unspecified as to episode of care 33 weeks gestation of ([facility])- Primary state, incidental Encounter for supervision of normal first in third trimester ([facility]) Supervision of normal first Low-lying placenta ([facility]) Hemorrhage from placenta previa, unspecified as to [...] (HCC) state, incidental documented in this encounter [facility] note* Diagnosis Encounter for supervision of normal first in second trimester ([facility])- Primary Supervision of normal first 27 weeks gestation of ([facility]) state, incidental Low lying placenta nos or without hemorrhage, second trimester ([facility]) Need for Tdap vaccination Need for prophylactic vaccination with combined zvoeknvoua-jbcbhyc-bgezimmoe (DTP) vaccine Need for vaccination Need for prophylactic vaccination and inoculation against unspecified single disease 33 weeks gestation of ([facility])- Primary state, incidental Encounter for supervision of normal first in third trimester ([facility]) Supervision of normal first Low-lying placenta (HCC) Hemorrhage from placenta previa, unspecified as to episode of care Encounter for supervision of normal first in third trimester ([facility])- Primary Supervision of normal first Excessive growth affecting management of in third trimester, single or unspecified fetus (HCC) Low-lying placenta (HCC) Hemorrhage from placenta previa, unspecified as to episode of care Excessive weight gain in , third trimester ([facility]) 37 weeks gestation of ([facility]) state, incidental Supervision of high risk in third trimester ([facility])- Primary Unspecified high-risk Low-lying placenta (HCC) Hemorrhage from placenta previa, unspecified as to episode of care Excessive weight gain in , third trimester ([facility]) Excessive growth affecting management of in third trimester, single or unspecified fetus (HCC) 38 weeks gestation of ([facility]) state, incidental * Assessment & Plan Note [...] OB DIP B/[facility] Diagnostic Procedure Only (Routine) - Pending Review Specialty Diagnoses / Procedures Referred By Rikki venegas Referred To Contact [facility] Diagnoses Encounter for supervision of normal first in first trimester Procedures NUCHAL TRANSLUCENCY WHI US NUCHAL TRANSLUCENCY 1ST GESTATION Palma Cash APRN.CNP [address] [place] [address] [place] [address] Referral ID Status Reason Start Date Expiration Date Visits Requested Visits Authorized [id number] Pending Review Auto-Generat ed Referral 08/11/2025 1 1 * Diagnostic Procedure Only (Routine) - New Request Specialty Diagnoses / Procedures Referred By Rikki venegas Referred To Contact [facility] Diagnoses Encounter for supervision of normal first in first trimester with uncertain dates in first trimester Procedures NUCHAL TRANSLUCENCY WHI US NUCHAL TRANSLUCENCY 1ST GESTATION Palma Cash APRN.DIRECTOR [place] [address] [place] [address] [address] Referral ID Status Reason Start Date Expiration Date Visits Requested Visits Authorized [id number] New Request Auto-Generat ed Referral 4 08/11/2025 1 1 * Diagnostic Procedure Only (Routine) - New Request Specialty Diagnoses / Procedures Referred By Rikki venegas Referred To Contact [facility] Diagnoses Encounter for supervision of normal first in first trimester with uncertain dates in first trimester Procedures OBSTETRIC ULTRASOUND WHI US PREG UTERUS AFTER 1ST TRIMEST 1 GESTATION Palma Cash APRN.CNP [address] [place] [address] [address] Referral ID Status Reason Start Date Expiration Date Visits Requested Visits Authorized [id number] New Request Auto-Generat ed Referral 4 08/11/2025 1 1 [facility] Summary Purpose Family History No Family [...] or prosecute any alcohol or drug abuse patient.[facility] Hospital[facility] the event this information is protected by the Federal Confidentiality of Alcohol and Drug Abuse Patient Records regulations: The Federal rules restrict any use of the information to criminally investigate or prosecute any alcohol or drug abuse patient.[facility] HospitalIn the event this information is protected by the Federal Confidentiality of Alcohol and Drug Abuse Patient Records regulations: The Federal rules restrict any use of the information to criminally investigate or prosecute any alcohol or drug abuse patient.[facility] HospitalIn the event this information is protected by the Federal Confidentiality of Alcohol and Drug Abuse Patient Records regulations: The Federal rules restrict any use of the information to criminally investigate or prosecute any alcohol or drug abuse patient.[facility] HospitalIn the event this information is protected by the Federal Confidentiality of Alcohol and Drug Abuse Patient Records regulations: The Federal rules restrict any use of the information to criminally investigate or prosecute any alcohol or drug abuse patient.[facility] HospitalIn the event this information is protected by the Federal Confidentiality of Alcohol and Drug Abuse Patient Records regulations: The Federal rules restrict any use of the information to criminally investigate or prosecute any alcohol or drug abuse patient.[facility] HospitalIn the event this information is protected by the Federal Confidentiality of Alcohol and Drug Abuse Patient Records regulations: The Federal rules restrict any use of the information to criminally investigate or prosecute any alcohol or drug abuse patient.[facility] HospitalIn the event this information is protected by the Federal Confidentiality of Alcohol and Drug Abuse Patient Records regulations: The Federal rules restrict any use of the information to criminally investigate or prosecute any alcohol or drug abuse patient.[facility] HospitalIn the event this information is protected by the Federal Confidentiality of Alcohol and Drug Abuse Patient Records regulations: The Federal rules restrict any use of the information to criminally investigate or prosecute any alcohol or drug abuse patient.[facility] HospitalIn the event this information is protected by the Federal Confidentiality of Alcohol and Drug Abuse Patient Records regulations: The Federal rules restrict any use of the information to criminally investigate or prosecute any alcohol or drug abuse patient.[facility] HospitalIn the event this information is protected by the Federal Confidentiality of Alcohol and Drug Abuse Patient Records regulations: The Federal rules restrict any use of the information to criminally investigate or prosecute any alcohol or drug abuse patient.[facility] HospitalIn the event this information is protected by the Federal Confidentiality of Alcohol and Drug Abuse Patient Records regulations: The Federal rules restrict any use of the information to criminally investigate or prosecute any alcohol or drug abuse patient.[facility] HospitalIn the event this information is protected by the Federal Confidentiality of Alcohol and Drug Abuse Patient Records regulations: The Federal rules restrict any use of the information to criminally investigate or prosecute any alcohol or drug abuse patient.[facility] HospitalIn the event this information is protected by the Federal Confidentiality of Alcohol and Drug Abuse Patient Records regulations: The Federal rules restrict any use of the information to criminally investigate or prosecute any alcohol or drug abuse patient.[facility] HospitalIn the event this information is protected by the Federal Confidentiality of Alcohol and Drug Abuse Patient Records regulations: The Federal rules restrict any use of the information to criminally investigate or prosecute any alcohol or drug abuse patient.[facility] HospitalIn the event this information is protected by the Federal Confidentiality of Alcohol and Drug Abuse Patient Records regulations: The Federal rules restrict any use of the information to criminally investigate or prosecute any alcohol or drug abuse patient.[facility] HospitalIn the event this information is protected by the Federal Confidentiality of Alcohol and Drug Abuse Patient Records regulations: The Federal rules restrict any use of the information to criminally investigate or prosecute any alcohol or drug abuse patient.[facility] HospitalIn the event this information is protected by the Federal Confidentiality of Alcohol and Drug Abuse Patient Records regulations: The Federal rules restrict any use of the information to criminally investigate or prosecute any alcohol or drug abuse patient.[facility] HospitalIn the event this information is protected by the Federal Confidentiality of Alcohol and Drug Abuse Patient Records regulations: The Federal rules restrict any use of the information to criminally investigate or prosecute any alcohol or drug abuse patient.[facility] HospitalIn the event this information is protected by the Federal Confidentiality of Alcohol and Drug Abuse Patient Records regulations: The Federal rules restrict any use of the information to criminally investigate or prosecute any alcohol or drug abuse patient.[facility] HospitalIn the event this information is protected by the Federal Confidentiality of Alcohol and Drug Abuse Patient Records regulations: The Federal rules restrict any use of the information to criminally investigate or prosecute any alcohol or drug abuse patient.[facility] HospitalIn the event this information is protected by the Federal Confidentiality of Alcohol and Drug Abuse Patient Records regulations: The Federal rules restrict any use of the information to criminally investigate or prosecute any alcohol or drug abuse patient.[facility] HospitalIn the event this information is protected by the Federal Confidentiality of Alcohol and Drug Abuse Patient Records regulations: The Federal rules restrict any use of the information to criminally investigate or prosecute any alcohol or drug abuse patient.[facility] HospitalIn the event this information is protected by the Federal Confidentiality of Alcohol and Drug Abuse Patient Records regulations: The Federal rules restrict any use of the information to criminally investigate or prosecute any alcohol or drug abuse patient.[facility] HospitalIn the event this information is protected by the Federal Confidentiality of Alcohol and Drug Abuse Patient Records regulations: The Federal rules restrict any use of the information to criminally investigate or prosecute any alcohol or drug abuse patient.[facility] HospitalIn the event this information is protected by the Federal Confidentiality of Alcohol and Drug Abuse Patient Records regulations: The Federal rules restrict any use of the information to criminally investigate or prosecute any alcohol or drug abuse patient.[facility] Reason for Visit (unrecogniz ed section and content) Reason Onset Date Comments Care 08/28/2024 Immunizations 08/28/2024 Flu vaccination Specialty Diagnoses / Procedures Referred By Rikki venegas Referred To Contact [employer] 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 [address] Referral ID Status Reason Start Date Expiration Date Visits Re quested Visits Authorized [id number] Closed 08/11/2024 10/17/2024 1 1 Reason Onset Date Comments Care 09/29/2024 Reason Comments US Specialty Diagnoses / Procedures Referred By Contac t Referred To Contact [facility] Diagnoses Encounter for supervision of normal first in first trimester Procedures NUCHAL TRANSLUCENCY WHI US NUCHAL TRANSLUCENCY 1ST GESTATION US NUCHAL TRANSLUCENCY EA ADDL GESTATION Palma Cash APRN.DIRECTOR [place] [address] [place] [address] [address] Referral ID Status Reason Start Date Expiration Date Visits Requested Visits Authorized [id number] Authorized Auto-Generat ed Referral 10/17/2024 99 99 Reason Onset Date Comments Care 10/09/2024 Reason Onset Date Comments Refill Request 10/16/2024 Reason Onset Date Comments Care 11/13/2024 Specialty Diagnoses / Procedures Referred By Contac t Referred To Contact [facility] Diagnoses Encounter for supervision of normal first in first trimester with uncertain dates in first trimester Encounter for supervision of normal , unspecified, unspecified trimester Procedures OBSTETRIC ULTRASOUND WHI US PREG UTERUS AFTER 1ST TRIMEST GESTATION Palma Cash, SHARIF.DIRECTOR [place] [address] [place] [address] [address] [place] [address] Referral ID Status Reason Start Date Expiration Date Visits Requested Visits Authorized [id number] Authorized Auto-Generat ed Referral 10/30/2024 10/17/2025 20 [...] section and content) DATE CREATED AUTHOR 03/27/2025 [facility] DATE CREATED AUTHOR AUTHOR'S MAYRA POWERS 03/27/2025 [facility] FOR RECORDS PERTAINING TO PATIENTS WHO [...] BE BASED ON THE PRIMARY CLINICAL RECORDS. [employer] provides no warranty or guarantee of the accuracy or completeness of information in this document.
--- NOTE | 2025-03-29 20:44 | PCM.PN.BLA ---
Progress Note Called by RN given tachycardia. At bedside to evaluate the patient. She was feeling well during recovery initially, and states she had acute onset of lightheadedness, dizziness and fatigue. She denies CP, SOB, palpitations. She denies leg pain. She was initially having scant to no vaginal bleeding, but suddenly noticed large gushes of blood with clots. Her pain has been well controlled. Tolerating PO. Physical Exam Const alert and no apparent distress Constitutional Narrative: Pale appearing General Appearance: comfortable Resp normal respiratory effort Effort and Inspection: able to speak in complete sentences GI soft to palpation GI Narrative: ATTP, no rebounding, no guarding, no rigidity, soft minimal distension noted. Fundus firm at U. Dressing c/d/i Narrative: 1200 mL of blood and blood clot on pad Assessment & Plan Assessment/Plan (1) hemorrhage: (2) Tachycardia: PLAN: Called by RN for tachycardia. No concern for DVT/PE at this time. Suspect secondary to acute blood loss anemia. Abdominal exam is benign and patient reports her pain has been well controlled. Estimated 1200 mL of blood and clot expelled from uterus. Second IV started, IVF bolus given, T&C for 2 units PRBC's, stat CBC, and Methergine x 1 given. Hgb ~10 from ~13 pre op. Discussed r/b/a blood transfusion and patient accepts 1 unit PRBC's. Recommend 1 unit given tachycardia, hypotension, patient is pale appearing, and symptomatic from anemia. Repeat CBC ordered. Suspect bleeding uterine in orgin. Discussed possible CTAP but will hold off for now. Fundus firm and bleeding scant at this time. Continue vital signs q 15 min. (3) Lightheadedness: (4) Dizziness: (5) Delivery by section: (6) Acute blood loss anemia:
--- NOTE | 2025-03-29 22:14 | PCM.PN.BLA ---
Progress Note Patient feeling better since the blood transfusion started. She feels as if her vagina is full with clots. Physical Exam Const alert and no apparent distress General Appearance: comfortable Resp normal respiratory effort GI soft to palpation GI Narrative: ATTP, non acute, uterus is now enlarged at U+2. Bedside TAUS performed showing uterus filled with blood and blood clot Narrative: Cvx 2 cm dilated and bulging lower uterine segment, and clot palpated just behind the cervix. Unable to manually remove or expel the blood clot Assessment & Plan Assessment/Plan (1) Acute blood loss anemia: (2) Delivery by section: (3) Dizziness: (4) Lightheadedness: (5) Tachycardia: (6) hemorrhage: PLAN: Uterus now enlarged at U+2, and filled with blood and blood clot. Unable to express or manually remove the clot on exam in the room give minimal cervical dilation. Bleeding slow and patient feeling better with 1 unit of PRBC's. Recommend 2nd unit of PRBC's. Discussed r/b/a suction D&C with placement of intra uterine Wanda vs expectant management. Discussed if stable could continue to watch and trend CBC, and that there is a possibility that the clots evacuate over time. Discussed risk of bleeding, infection, uterine injury or perforation, laparotomy, hysterectomy with proceeding with suction D&C and placement of Wanda. Discussed with 2 other providers for other opinions as well. The patient has been well counseled, and questions answered. The patient requests to proceed with the suction D&C and placement of Wanda. Consent signed.
--- NOTE | 2025-03-29 22:15 | NURSING ---
See anesthesia record for Vital signs for RBC infusions due to patient being in OR for D&C. Transfusions being managed by Nnamdi Ponce WEB PROGRAMMER anesthesia. RN started the first bag of RBCS in patient room but patient was shortly transferred to OR then to ICU.
[2025-03-29] MEDS: Carboprost Tromethamine 250 MCG/ML Ampul IM (23:03)
[2025-03-29] MEDS: TRANEXAMIC ACID 1,000 MG in 0.9% Normal Saline (100mL Bag) 100 ML 440 MG IV (23:07)
[2025-03-29] MEDS: miSOPROStol 200 MCG Tablet 1000 MCG RC (23:16)
--- NOTE | 2025-03-29 23:58 | OP.PCM_ITS ---
Problems Associated Problem List Diagnoses (1) Acute blood loss anemia: (2) Delivery by section: (3) Dizziness: (4) Lightheadedness: (5) Tachycardia: (6) hemorrhage: (7) Low lying placenta, antepartum: Operative Report (Standard) Operative Information Date of Procedure: 03/29/25 Pre-Operative Diagnosis: Delivery by section, hemorrhage, acute blood loss anemia Post-Operative Diagnosis: As above Surgery/Procedure Performed: Suction D&C with evacuation of blood clots Placement of Wanda uterine device business office manager: No Type of Anesthesia: General RN Documented Start/Stop Times: Operation Date: 03/29/25 12:00 <No data on this case meets the specified criteria> Procedure Start Time: 22:15 Procedure Stop Time: 23:17 Select all DRAINS/GRAFTS/IMPLANTS that apply: None Special Medications: None Estimated Blood Loss: 1300 mL Fluids Replaced: See anesthesia record Specimen collected: No Description of surgery: The patient was taken to the OR where general anesthesia was induced. She was prepped and draped in the dorsal lithotomy position using yellow fin stirrups. The uterus was enlarged at U+2 and on bedside ultrasound there was a large amount of blood clot present within the uterus. A weighted speculum was placed in the vagina to expose the cervix. The cervix was 3 cm dilated. The anterior lip of the cervix was grasped with a ring forcep. A size 14 suction curettage was used for several passes to remove a large amount of blood clot from the uterus. The bleeding became brisk from the uterus. TXA, Hemabate and Cytotec were given. Methergine was given prior to the OR. Several additional passes were made with the suction with removal of blood, and no longer blood clot. The Wanda uterine device was placed in the uterus in usual fashion, and the ring forcep and speculum were removed. An ultrasound was performed showing a minimal amount of blood and clot around the Wanda. The Wanda was set to suction and 400 mL were noted after 1 hour. Suction was then removed from the Wanda, and the cervical seal was deflated for 30 minutes. A slow drip of dark red blood was noted from the Wanda onto the pad for 30 min, and bleeding was scant. The decision was made to leave the Wanda in for an additional hour and reassess once in the ICU. The patient was given 4 units of PRBC's and 1 unit of FFP was started. The patient was stable at the end of the case and transferred to the ICU for further care. Surgical Findings: Enlarged uterus at U+2 filled with blood and blood clot. No retained tissue noted Complications Complications: No Admit VTE Documentation VTE Present on Admission: No VTE Mechan Device Prophylaxis: SCD's
[2025-03-30] VITALS (19 sets, daily range): BP systolic 100–121; BP diastolic 51–80; PULSE 78–107; RESP 10–21; TEMP 36.3–37.1; O2SAT 92–100
[2025-03-30 00:04] LABS: Hematocrit 30.7 % (37-47); Hemoglobin 10.1 g/dL (12.0-15.0); Mean Corp Hgb Conc 32.9 g/dL (32-36); Mean Corpuscular Hgb 26.7 pg (27.0-32.0); Mean Corpuscular Volume 81.2 fL (81-99); Mean Platelet Vol. 11.4 fl (6.2-12.0); Platelet Count 192 K/mm3 (150-450); RBC Distribution Width CV 15.4 % (11.6-14.6); RBC Distribution Width SD 45.2 fl (35.1-43.9); Red Blood Count 3.78 M/mm3 (4.2-5.4)
[2025-03-30 00:18] LABS: International Normalized Ratio 1.1; Prothrombin Time (Protime)PT. 14.7 SECONDS (11.7-14.9)
[2025-03-30 00:31] LABS: Fibrinogen 246 mg/dl (203-444)
[2025-03-30 00:44] LABS: Partial Thromboplast Time 27.4 Seconds (24.1-36.2)
[2025-03-30 00:47] LABS: ALB/GLOB Ratio 1.2 RATIO (0.9-2.4); Albumin, Serum 2.6 g/dL (3.5-5.0); Alkaline Phosphatase 117 U/L (35-104); Anion Gap 12 (5-15); BUN 13 mg/dL (4-19); BUN/Creat Ratio 16.3 RATIO (10-20); Calcium,Total 7.8 mg/dL (7.6-11.0); Carbon Dioxide 17.7 mmol/L (21.0-32.0); Chloride 104 mmol/L (98-108); Creatinine, Serum 0.82 mg/dL (0.70-1.20); EST Glomerular Filtration Rate 97 (>60); Estimated Creatinine Clearance 117.66 ml/min (50-250); Globulin 2.2 g/dL (2.2-4.2); Glucose 118 mg/dL (70-99); Potassium 5.3 mmol/L (3.3-5.1); Protein, Total 4.8 g/dL (5.9-8.4); Sodium Level 133 mmol/L (133-145)
[2025-03-30 01:00] LABS: AST(SGOT) 34 U/L (<=31); Alanine Aminotransfer ALT/SGPT < 5 U/L (<=34)
--- NOTE | 2025-03-30 01:57 | NURSING ---
At 1945 the of the patient came out to the desk and stated patient was light headed at this time. RN went back right away to assess patient. Upon entering room patient was resting with eyes closed but responded to voice. Patient denied chest pain, abdominal pain but stated she was feeling lightheaded and dizzy. RN took the patients vitals , got the CBC and started the bolus then called Dr. Hawthorne @2009 to notified that patient of patient status and update.
--- NOTE | 2025-03-30 02:28 | CON.PCM.CC_ITS ---
HPI Consult Data Date of Consult: 03/30/25 HPI Narrative Reason for Consultation: Post hemorrhage, blood loss anemia HPI Narrative: STANTON BARRERA, is a 34 F with no significant PMHx except for placenta previa presented on 03/26 for 38 week and elective on 03/29. This is her first , never had abortions or miscarriages. Patient underwent C- Section and delivered baby by 12:51pm on 03/29 and subsequently had post hemorrhage. Patient received 4units of PRBC, 1 unit of FFP and TXA. Patient also underwent D&C and placement of uterine device to stop bleeding. Currently patient does not complain of any excessive bleeding. OB will review and remove the device if no bleeding in next hour. Patient denies CP, SOB, dizziness, nausea, vomiting. [facility] Medical History (Updated 03/29/25 @ 20:[address] Susie Hawthorne, DO) macrosomia Home Medications ?Medication ?Instructions ?Recorded ?Last Taken ?Type aspirin 81 mg capsule 81 mg PO DAILY 01/0903/28/25 22:00 History 81 mg omega 9-rrx-ych-fish oil 60 mg-90 1 cap PO DAILY pregn ema 12/18/24 03/28/25 10:00 History mg-500 mg capsule (Fish Oil) 1 cap vit no.95-ferrous 1 tab PO DAILY 03/28/25 22:00 History fumarate 28 mg-folic acid 800 mcg 1 TA B tablet () Allergy/AdvReac Type Severity Reaction Status Date / Time No Known Allergies Allergy Verified 03/29/25 10:31 Social History Smoking Status: Never smoker ROS ROS Narrative Asper HPI Objective Data Objective Data Vital Signs: Vital Signs Last response 3 Temperature 36.3 C L 03/29/25 21:30 Temperature Source Temporal 03/29/25 21:30 Pulse Rate 89 03/30/25 01:45 Respiratory Rate 18 03/30/25 01:45 Respiratory Depth Normal 03/29/25 17:30 Respiratory Pattern Normal 03/29/25 14:00 Blood Pressure 109/77 03/30/25 01:45 Blood Pressure Mean 87 03/30/25 01:45 Blood Pressure Source Monitor 03/30/25 01:45 Blood Pressure Position Semi-Fowlers 03/30/25 01:45 Blood Pressure Location Left Arm 03/30/25 01:45 Baseline BP 99/54 03/29/25 16:15 Pulse Ox 97 03/30/25 01:45 Oxygen Delivery Method Room Air 03/30/25 01:45 I&O: I&O Last 24 Hours 3 03/29/25 03/29/25 03/30/25 11:59 23:59 11:59 Intake Total 932.4 / 4311.54 3379.14 / 4311.54 991.91 / 991.91 Output Total 1090 / 1090 1700 / 1700 Balance 932.4 / 3221.54 2289.14 / 3221.54 -708.09 / -708.09 I&O: Total Stay 3 03/15/25 14:36 thru 03/30/25 01:35 Intake Total 5303.45 Output Total 2790 Balance 2513.45 Current Meds Ordered / Administered: Current meds ordered / Administered 3 Generic Name Dose Route Start Last Admin Trade Name Freq PRN Reason Stop Dose Admin Acetaminophen 1,000 mg 03/29/25 18:00 03/29/25 17:47 Acetaminophen 500 Mg Tablet PO 1,000 mg Q6 [facility] Administration Bisacodyl 10 mg 03/29/25 14:05 Bisacodyl 10 Mg Suppository RC DAILY PRN PRN Constipation Diphenhydramine HCl 25 mg 03/29/25 14:05 Diphenhydramine 25 Mg Capsule PO 03/30/25 14:05 Q6H PRN PRN ITCHING Hydrocortisone 1 applic 03/29/25 14:05 Hydrocortisone 2.5% Crm TOPICAL TID PRN PRN Discomfort Protocol Sodium Chloride 250 mls @ 15 mls/hr 03/30/25 01:43 IV .[id number] PRN Saline Flush Sodium Chloride 250 mls @ 15 mls/hr 03/30/25 01:43 IV .[id number] PRN Additional IVPB Infusion Ibuprofen 600 mg 03/30/25 15:00 Ibuprofen 600 Mg Tablet PO Q6H TAD Ketorolac Tromethamine 30 mg 03/29/25 15:00 03/30/25 00:12 Ketorolac 30 Mg/Ml Syringe IV 03/30/25 09:01 Not Given Q6H [facility] Methylergonovine Maleate 0.2 mg 03/29/25 14:05 03/29/25 20:25 Methylergonovine 0.2 Mg/Ml Ampul IM 0.2 mg X1 PRN Administration Uterine Atony Nalbuphine HCl 5 mg 03/29/25 14:05 Nalbuphine 10 Mg/Ml Ampul IV 03/30/25 14:05 Q3H PRN PRN ITCHING Naloxone HCl 0.02 mg 03/29/25 14:05 Naloxone 0.4 Mg/Ml Syringe IV Q1M PRN RR <10 and pt unresponsive Ondansetron HCl 4 mg 03/29/25 14:05 Ondansetron 4 Mg/2 Ml Vial IV Q4H PRN PRN NAUSEA Oxycodone HCl 5 - 10 mg 03/30/25 13:44 Oxycodone 5 Mg Tablet PO Q4H PRN PRN Pain Score 4-10 Prochlorperazine Edisylate 10 mg 03/29/25 14:05 Prochlorperazine 10 Mg/2 Ml Vial IV Q6H PRN PRN NAUSEA Senna/Docusate Sodium 1 - 2 tablet 03/30/25 10:00 Senna/Docusate Sodium 1 Tablet PO DAILY TAD Simethicone 80 mg 03/29/25 14:05 Simethicone 80 Mg Chewable Tablet PO PCHS PRN Indigestion/stomach pain Sodium Chloride 5 - 15 ml 03/29/25 14:05 0.9% Saline Lock 10 Ml Syringe IV UD PRN SALINE FLUSH Sodium Chloride 10 - 40 ml 03/30/25 01:43 0.9% Saline Lock 10 Ml Syringe IV UD PRN SALINE FLUSH Physical Exam Narrative PHYSICAL EXAMINATION General: no acute distress; alert and oriented x 4 HEENT: PERRL; EOMI; Anicteric Sclera; No thyromegaly, JVD, Lymphadenopathy Cardiovascular: Regular Rate and Rhythm; No murmurs, rubs, gallops; no displaced PMI Respiratory: no crackles, wheezes, or rhonchi Abdominal: Non-tender; Non-distended; Active BS x 4; No Hepatosplenomegaly Extremities: Warm, well perfused; No clubbing, cyanosis, edema; capillary refill < 2sec Neurological: 5/5 Motor and Sensory Upper and Lower Extremities; CN 2-12 intact Lab / Micro Data 03/29/25 23:53 03/29/25 23:53 Labs: Laboratory Results - last 24 hr 03/29/25 10:25: WBC 13.8 H, RBC 5.31, Hgb 13.5, Hct 41.2, MCV 77.6 L, MCH 25.4 L , MCHC 32.8, RDW Std Deviation 42.4, RDW Coeff of [place] 15.2 H, Plt Count 256, MPV 11.1, Immature Gran % (Auto) 1.300 H, Neut % (Auto) 74.8 H, Lymph % (Auto) 15.8 L, [place] % (Auto) 7.0, Eos % (Auto) 0.9, Baso % (Auto) 0.2, Absolute Neuts (auto) 10.3 H, Absolute Lymphs (auto) 2.18, Nucleated RBC % 0, Syphilis Total Ab Nonreactive, Blood Type O POSITIVE, Antibody Screen NEGATIVE, Crossmatch See Detail 03/29/25 10:25: Crossmatch See Detail 03/29/25 20:00: WBC 19.5 H, RBC 4.01 L, Hgb 10.2 L, Hct 31.6 L, MCV 78.8 L, MCH 25.4 L, MCHC 32.3, RDW Std Deviation 43.0, RDW Coeff of [place] 15.0 H, Plt Count 296, MPV 11.3, Immature Gran % (Auto) 1.100 H, Neut % (Auto) 75.2 H, Lymph % (Auto) 16.7 L, [place] % (Auto) 6.4, Eos % (Auto) 0.4, Baso % (Auto) 0.2, Absolute Neuts (auto) 14.7 H, Absolute Lymphs (auto) 3.25, Nucleated RBC % 0 03/29/25 23:53: WBC 26.0 H, RBC 3.78 L, Hgb 10.1 L, Hct 30.7 L, MCV 81.2, MCH 26.7 L, MCHC 32.9, RDW Std Deviation 45.2 H, RDW Coeff of [place] 15.4 H, Plt Count 192, MPV 11.4, PT 14.7, INR 1.1, APTT 27.4, Fibrinogen 246, Sodium 133, P otassium 5.3 H, Chloride 104, Carbon Dioxide 17.7 L, Anion Gap 12, BUN 13, Creatinine 0.82, Estim Creat Clear Calc 117.66, Est GFR (MDRD) Non-Af 97, BUN/Creatinine Ratio 16.3, Glucose 118 H, Calcium 7.8, Total Bilirubin 0.30, AST 34 H, ALT < 5, Alkaline Phosphatase 117 H, Total Protein 4.8 L, Albumin 2.6 L, Globulin 2.2, Albumin/Globulin Ratio 1.2 Assessment and Plan . Assessment and plan: #Post Hemorrhage #Anemia, blood loss #Placenta Previa Plan -Monitor hemodynamics in ICU -Monitor closely for bleeding -H/H q6hrs -Transfuse if hb<7 -PTT, INR and fibrinogen in normal range -If patient continues to bleed may recheck PTT, INR and Fibrinogen -May need to repeat TXA if bleeding -OB is on board -Uterine device management as per OB -For persistent bleeding may require hysterectomy -DVT Px - SCDs only Critical Care Time: 63mins The entirety of this encounter was done via Telemedicine
--- NOTE | 2025-03-30 03:39 | NURSING ---
At 2009 RN went into room to asses patient, patient responding to voice and touch but stating she is having a hard time staying awake. RN lifted blanket and pulled back yellow pad. A copious amount of blood and large clots noted on green pad, yellow pad and bed. RN then called for charge nurse and extra hands. Then assessed uterus noting that uterus was at u and firm, bleeding tricked out with clots. Dr. Hawthorne at bedside and hemorrhage cart brought into room.
--- NOTE | 2025-03-30 04:49 | NURSING ---
At 0210 Wanda suction turned off and removed, 60mls sterile water removed from Wanda port, per MD orders. Approx 40 mls of blood in suction canister
--- NOTE | 2025-03-30 04:54 | NURSING ---
@ 0420 suction from Wanda shut off, 60 mls removed from balloon, Wanda still in place at this time. Patient tolerating well. Blood noted in tubing.
--- NOTE | 2025-03-30 04:56 | NURSING ---
@0107 Wanda suction hooked up and started in ICU, 60mls filled in to balloon, Wanda taped to patinets left leg. Blood noted in tubing, suction working well and set at 80
[2025-03-30 06:50] LABS: Absolute Lymphocyte Count 2.31 X10^3/uL (0.83-4.51); Absolute Neutrophil Count 15.5 X10^3/uL (2.0-7.7); Basophil# 0.04 X10^3/uL; Basophil% 0.2 % (0-1); Eosinophil# 0.02 X10^3/uL; Eosinophils% 0.1 % (0-5); Hematocrit 30.4 % (37-47); Hemoglobin 10.4 g/dL (12.0-15.0); Lymphocyte # 2.31 X10^3/ul (0.83-4.51); Mean Corp Hgb Conc 34.2 g/dL (32-36); Mean Corpuscular Hgb 28.1 pg (27.0-32.0); Mean Corpuscular Volume 82.2 fL (81-99); Mean Platelet Vol. 11.2 fl (6.2-12.0); Monocyte# 1.23 X10^3/uL; Monocyte% 6.4 % (0-10); NRBC Flagged by Analyzer 0 % (0-5); Neutrophil # 15.48 X10^3/uL (2.7-7.7); Neutrophil % 80.1 % (47-70); Platelet Count 154 K/mm3 (150-450); RBC Distribution Width CV 15.9 % (11.6-14.6); RBC Distribution Width SD 47.1 fl (35.1-43.9); White Blood Count 19.3 K/mm3 (4.4-11.0)
--- NOTE | 2025-03-30 07:00 | NURSING ---
Dr. Hawthorne and RN at bedside in ICU. Decision to remove Wanda. Patient consented to removing Wanda. Wanda removed at 0643am by Dr. Hawthorne. Provider checked SVE uterus firm at u to -1 per provider, scant bleeding at this time.
--- NOTE | 2025-03-30 07:16 | PCM.PN.OB ---
Subjective Subjective Pt doing better. Feels less fatigued. Bleeding scant. Pain well controlled. She denies lightheadedness, dizziness, CP, SOB, pain, nausea, vomiting. Objective Data Objective Data Vital Signs: Vital Signs Temp Pulse Resp BP Pulse Ox O2 Del Method 98.1 F 92 14 101/69 99 Room Air 03/30/25 04:00 03/30/25 06:00 03/30/25 06:00 03/30/25 06:00 03/30/25 06:00 03/30/25 06:00 Oxygen Delivery Method Room Air Weight: 224 lb 13.944 oz Body Mass Index (BMI) 36.3 Intake & Output: Intake and Output for Last 24 Hours 03/28/25 03/29/25 03/30/25 23:59 23:59 23:59 Intake Total 4311.54 / 4311.54 991.91 / 991.91 Output Total 1090 / 1090 2170 / 2170 Balance 3221.54 / 3221.54 -1178.09 / -1178.09 Lab / Micro Data 03/30/25 06:00 03/29/25 23:53 Labs: Laboratory Results - last 24 hr 03/29/25 10:25: WBC 13.8 H, RBC 5.31, Hgb 13.5, Hct 41.2, MCV 77.6 L, MCH 25.4 L, MCHC 32.8, RDW Std Deviation 42.4, RDW Coeff of [place]af[place] 15.2 H, Plt Count 256, MPV 11.1, Immature Gran % (Auto) 1.300 H, Neut % (Auto) 74.8 H, Lymph % (Auto) 15.8 L, [place] % (Auto) 7.0, Eos % (Auto) 0.9, Baso % (Auto) 0.2, Absolute Neuts (auto) 10.3 H, Absolute Lymphs (auto) 2.18, Nucleated RBC % 0, Syphilis Total Ab Nonreactive, Blood Type O POSITIVE, Antibody Screen NEGATIVE, Crossmatch See Detail 03/29/25 10:25: Crossmatch See Detail 03/29/25 20:00: WBC 19.5 H, RBC 4.01 L, Hgb 10.2 L, Hct 31.6 L, MCV 78.8 L, MCH 25.4 L, MCHC 32.3, RDW Std Deviation 43.0, RDW Coeff of [place] 15.0 H, Plt Count 296, MPV 11.3, Immature Gran % (Auto) 1.100 H, Neut % (Auto) 75.2 H, Lymph % (Auto) 16.7 L, [place] % (Auto) 6.4, Eos % (Auto) 0.4, Baso % (Auto) 0.2, Absolute Neuts (auto) 14.7 H, Absolute Lymphs (auto) 3.25, Nucleated RBC % 0 03/29/25 23:53: WBC 26.0 H, RBC 3.78 L, Hgb 10.1 L, Hct 30.7 L, MCV 81.2, MCH 26.7 L, MCHC 32.9, RDW Std Deviation 45.2 H, RDW Coeff of [place]af[place] 15.4 H, Plt Count 192, MPV 11.4, PT 14.7, INR 1.1, APTT 27.4, Fibrinogen 246, Sodium 133, Potassium 5.3 H, Chloride 104, Carbon Dioxide 17.7 L, Anion Gap 12, BUN 13, Creatinine 0.82, Estim Creat Clear Calc 117.66, Est GFR (MDRD) Non-Af 97, BUN/Creatinine Ratio 16.3, Glucose 118 H, Calcium 7.8, Total Bilirubin 0.30, AST 34 H, ALT < 5, Alkaline Phosphatase 117 H, Total Protein 4.8 L, Albumin 2.6 L, Globulin 2.2, Albumin/Globulin Ratio 1.2 03/30/25 06:00: WBC 19.3 H, RBC 3.70 L, Hgb 10.4 L, Hct 30.4 L, MCV 82.2, MCH 28.1, MCHC 34.2, RDW Std Deviation 47.1 H, RDW Coeff of [place] 15.9 H, Plt Count 154, MPV 11.2, Immature Gran % (Auto) 1.200 H, Neut % (Auto) 80.1 H, Lymph % (Auto) 12.0 L, [place] % (Auto) 6.4, Eos % (Auto) 0.1, Baso % (Auto) 0.2, Absolute Neuts (auto) 15.5 H, Absolute Lymphs (auto) 2.31, Nucleated RBC % 0 Physical Exam Const alert and no apparent distress General Appearance: comfortable GI soft to palpation and non-tender GI Narrative: Non acute, soft minimal distension that is unchanged, FF@U. Dressing c/d/i Narrative: Wanda initial output after 1st hour was 400 cc, was then 40 cc after second hour and 30 cc after third hour. Currently no bleeding from Wanda tubing and scant dark red blood on pad Assessment & Plan (1) Acute blood loss anemia: (2) Delivery by section: (3) Dizziness: (4) Lightheadedness: (5) Tachycardia: (6) hemorrhage: PLAN: Wanda with minimal output. Hgb stable at 10. Vitals improved and patient feeling much better. Wanda removed without complication and bleeding remains scant. Recheck CBC this AM and if stable and bleeding minimal, OK to transfer back to L&D.
[2025-03-30 07:19] LABS: International Normalized Ratio 1.1; Partial Thromboplast Time 27.5 Seconds (24.1-36.2); Prothrombin Time (Protime)PT. 13.9 SECONDS (11.7-14.9)
[2025-03-30 07:20] LABS: Fibrinogen 300 mg/dl (203-444)
[2025-03-30] MEDS: Acetaminophen 500 MG Tablet 1000 MG PO ×3 (10:52→23:57)
[2025-03-30] MEDS: Ketorolac 30 MG/ML Syringe IV ×3 (12:22→23:58)
[2025-03-30] MEDS: 0.9% Saline Lock 10 ML Syringe IV ×2 (12:22→23:58)
[2025-03-30] MEDS: Lactated Ringers 1,000 ML 150 ML IV ×2 (12:23→19:35)
[2025-03-30 14:14] LABS: Absolute Lymphocyte Count 2.48 X10^3/uL (0.83-4.51); Absolute Neutrophil Count 12.4 X10^3/uL (2.0-7.7); Basophil# 0.02 X10^3/uL; Basophil% 0.1 % (0-1); Eosinophil# 0.04 X10^3/uL; Eosinophils% 0.2 % (0-5); Hemoglobin 9.6 g/dL (12.0-15.0); Lymphocyte # 2.48 X10^3/ul (0.83-4.51); Lymphocyte % 15.1 % (19-41); Mean Corp Hgb Conc 34.3 g/dL (32-36); Mean Corpuscular Hgb 28.1 pg (27.0-32.0); Mean Corpuscular Volume 81.9 fL (81-99); Mean Platelet Vol. 10.8 fl (6.2-12.0); Monocyte# 1.26 X10^3/uL; Monocyte% 7.7 % (0-10); NRBC Flagged by Analyzer 0 % (0-5); Neutrophil % 75.9 % (47-70); Platelet Count 152 K/mm3 (150-450); RBC Distribution Width CV 16.1 % (11.6-14.6); RBC Distribution Width SD 48.1 fl (35.1-43.9); Red Blood Count 3.42 M/mm3 (4.2-5.4); White Blood Count 16.4 K/mm3 (4.4-11.0)
[2025-03-31 00:02] VITALS: BP 111/65; PULSE 99; RESP 16; TEMP 36.6; O2SAT 100
[2025-03-31 03:51] VITALS: BP 112/61; PULSE 87; RESP 16; TEMP 36.6; O2SAT 99
[2025-03-31] MEDS: Ibuprofen 600 MG Tablet PO ×3 (06:03→18:07)
[2025-03-31] MEDS: Acetaminophen 500 MG Tablet 1000 MG PO ×3 (06:03→20:25)
[2025-03-31 09:10] VITALS: BP 125/73; PULSE 113; RESP 16; TEMP 37
[2025-03-31] MEDS: Senna/Docusate Sodium 1 Tablet PO (11:29)
--- NOTE | 2025-03-31 11:57 | PN.OBGYN_ITS ---
Subjective Subjective Doing well per patient and nursing staff. Ambulating and taking PO without difficulty. Voiding and passing flatus. Pain controlled. , services for assistance. Denies headache, visual changes, chest pain, shortness of breath, leg pain or increased bleeding. Lochia normal. Objective Data Objective Data Vital Signs: Vital Signs Temp Pulse Resp BP Pulse Ox O2 Del Method 98.6 F 113 H 16 125/73 H 99 Room Air 03/31/25 09:10 03/31/25 09:10 03/31/25 09:10 03/31/25 09:10 03/31/25 03:51 03/31/25 09:10 Oxygen Delivery Method Room Air Weight: 224 lb 13.944 oz Body Mass Index (BMI) 36.3 Intake & Output: Intake and Output for Last 24 Hours 03/29/25 03/30/25 03/31/25 23:59 23:59 23:59 Intake Total 4311.54 / 4311.54 1991.91 / 1991.91 1587.5 / 1587.5 Output Total 1090 / 1090 2820 / 2820 900 / 900 Balance 3221.54 / 3221.54 -828.09 / -828.09 687.5 / 687.5 Lab / Micro Data 03/30/25 14:00 03/29/25 23:53 Labs: Laboratory Results - last 24 hr 03/30/25 14:00: WBC 16.4 H, RBC 3.42 L, Hgb 9.6 L, Hct 28.0 L, MCV 81.9, MCH 28.1, MCHC 34.3, RDW Std Deviation 48.1 H, RDW Coeff of [place]af[place] 16.1 H, Plt Count 152, MPV 10.8, Immature Gran % (Auto) 1.000 H, Neut % (Auto) 75.9 H, Lymph % (Auto) 15.1 L, [place] % (Auto) 7.7, Eos % (Auto) 0.2, Baso % (Auto) 0.1, Absolute Neuts (auto) 12.4 H, Absolute Lymphs (auto) 2.48, Nucleated RBC % 0 ROS Constitutional Constitutional: Reports systems reviewed and no addt'l complaints, except as documented; Denies headache(s) Eyes Eyes: Denies acute decrease in peripheral vision, blurry vision or change in vision ENT HEENT: Reports systems reviewed and no addt'l complaints, except as documented Cardiovascular Cardiovascular: Denies chest pain or dizziness Respiratory/Chest Respiratory/Chest: Denies cough, dyspnea, dyspnea on exertion, shortness of breath at rest or shortness of breath with exertion Gastrointestinal Gastrointestinal: Denies abdominal pain, diarrhea, nausea or vomiting Genitourinary Genitourinary: Denies abdominal discomfort Musculoskeletal Musculoskeletal: Denies limited range of motion Integumentary Integumentary: Reports systems reviewed and no addt'l complaints, except as documented Neurologic Neurologic: Reports systems reviewed and no addt'l complaints, except as documented Psychiatric Psychiatric: Reports systems reviewed and no addt'l complaints, except as documented Endocrine Endocrinology: Reports systems reviewed and no addt'l complaints, except as documented Hematologic/Lymphatic Hematologic/Lymphatic: Reports systems reviewed and no addt'l complaints, except as documented Allergic/Immunologic Allergic/Immunologic: Reports systems reviewed and no addt'l complaints, except as documented Physical Exam Const alert and oriented x3 General Appearance: cooperative Orientation / Consciousness: awake, oriented to person, oriented to place and oriented to time Exam Limitations: no limitations HEENT normocephalic Head and Scalp: normal to inspection, normocephalic and atraumatic Face and Sinus: normal facial exam Eyes General Eye: normal appearance of both eyes Neck full ROM Chest Chest: symmetrical chest wall rise Resp normal respiratory effort and normal air movement Auscultation: clear to auscultation bilaterally Cardio regular rate, regular rhythm, S1 normal heart sound, S2 normal heart sound, no rub, no gallops and no clicks Heart Sounds: murmur systolic (auscultated POD # 2. systolic Pulmonic murmur, grade 1. ) GI normal to inspection, nondistended, normoactive bowel sounds and non-tender GI Narrative: Fundus firm 2 below U. Dressing dry and intact appearance of the vagina normal Narrative: Normal lochia rubra Bladder / Kidney Exam: no CVA tenderness Back/Spine normal ROM Extremity normal to inspection and full ROM Skin no rashes or lesions noted Neuro oriented x3, CN's II-XII intact bilaterally and moves all extremities Sensorium / Orientation: awake, alert and oriented to person Motor Exam: clonus absent Deep Tendon Reflexes: Rt Patellar (L4): 2+ and Lt Patellar (L4): 2+ Assessment & Plan (1) Acute blood loss anemia: (2) Delivery by section: (3) Heart murmur: COMMENT: auscultated POD # 2. Pulmonic murmur, grade 1. Asymptomatic PLAN: Plan 1) Routine POD#2 2) Vitals stable 3) I&O 4) Pain management 5) services PRN 6) Iron infusion for acute blood loss anemia 7) Auscultated systolic Pulmonic murmur, grade 1. POD # 2. Asymptomatic at this time. Notified and ok to monitor. 8) Planning D/C home tomorrow
[2025-03-31] MEDS: Iron Sucrose Complex 200 MG in 0.9% Normal Saline (100mL Bag) 100 ML 220 MG IV (12:42)
[2025-03-31] MEDS: 0.9% Saline Lock 10 ML Syringe IV (12:42)
[2025-03-31 13:27] VITALS: BP 114/65; PULSE 111; RESP 16; TEMP 36.4; O2SAT 96
[2025-03-31 19:40] VITALS: BP 123/75; PULSE 108; RESP 16; TEMP 36.6; O2SAT 99
[2025-03-31] MEDS: SimETHICONE 80 MG Chewable Tablet PO (22:31)
[2025-04-01] MEDS: Ibuprofen 600 MG Tablet PO ×3 (01:57→14:05)
[2025-04-01 02:00] VITALS: BP 133/86; PULSE 106; RESP 16; TEMP 36.3; O2SAT 100
[2025-04-01] MEDS: Acetaminophen 500 MG Tablet 1000 MG PO ×3 (02:44→16:23)
[2025-04-01 08:22] VITALS: BP 121/81; PULSE 94; RESP 16; TEMP 36.1; O2SAT 100
--- NOTE | 2025-04-01 08:49 | PCM.PN.OB ---
Subjective Subjective Doing well per patient and nursing staff. Ambulating and taking PO without difficulty. Voiding and passing flatus. Pain controlled. , services for assistance. Denies headache, visual changes, chest pain, shortness of breath, leg pain or increased bleeding. Lochia normal. Feeling better after IV iron infusion yesterday. Objective Data Objective Data Vital Signs: Vital Signs Temp Pulse Resp BP Pulse Ox O2 Del Method 97.0 F L 94 16 121/81 H 100 Room Air 04/01/25 08:22 04/01/25 08:22 04/01/25 08:22 04/01/25 08:22 04/01/25 08:22 04/01/25 08:22 Oxygen Delivery Method Room Air Weight: 224 lb 13.944 oz Body Mass Index (BMI) 36.3 Intake & Output: Intake and Output for Last 24 Hours 03/30/25 03/31/25 04/01/25 23:59 23:59 23:59 Intake Total 1990.91 / 2197.5 / 2197.5 Output Total 2820 / 2820 1450 / 1450 500 / 500 Balance -828.09 / -828.09 747.5 / 747.5 -500 / -500 Lab / Micro Data 03/30/25 14:00 03/29/25 23:53 ROS Constitutional Constitutional: Reports systems reviewed and no addt'l complaints, except as documented; Denies headache(s) Eyes Eyes: Denies acute decrease in peripheral vision, blurry vision or change in vision ENT HEENT: Reports systems reviewed and no addt'l complaints, except as documented Cardiovascular Cardiovascular: Denies chest pain or dizziness Respiratory/Chest Respiratory/Chest: Denies cough, dyspnea, dyspnea on exertion, shortness of breath at rest or shortness of breath with exertion Gastrointestinal Gastrointestinal: Denies diarrhea, nausea or vomiting Genitourinary Genitourinary: Denies abdominal discomfort Musculoskeletal Musculoskeletal: Denies limited range of motion Integumentary Integumentary: Reports systems reviewed and no addt'l complaints, except as documented Neurologic Neurologic: Reports systems reviewed and no addt'l complaints, except as documented Psychiatric Psychiatric: Reports systems reviewed and no addt'l complaints, except as documented Endocrine Endocrinology: Reports systems reviewed and no addt'l complaints, except as documented Hematologic/Lymphatic Hematologic/Lymphatic: Reports systems reviewed and no addt'l complaints, except as documented Allergic/Immunologic Allergic/Immunologic: Reports systems reviewed and no addt'l complaints, except as documented Physical Exam Const alert and oriented x3 General Appearance: cooperative Orientation / Consciousness: awake, oriented to person, oriented to place and oriented to time Exam Limitations: no limitations HEENT normocephalic Head and Scalp: normal to inspection, normocephalic and atraumatic Face and Sinus: normal facial exam Eyes General Eye: normal appearance of both eyes Neck full ROM Chest Chest: symmetrical chest wall rise Resp normal respiratory effort and normal air movement Auscultation: clear to auscultation bilaterally Cardio regular rate, regular rhythm, S1 normal heart sound, S2 normal heart sound, no murmurs, no rub, no gallops and no clicks Cardio Narrative: Pulmonic systolic heart murmur, mild less than yesterdays assessment. GI normal to inspection, nondistended, normoactive bowel sounds and non-tender GI Narrative: Fundus firm 2 below U appearance of the vagina normal Narrative: Normal lochia rubra Bladder / Kidney Exam: no CVA tenderness Back/Spine normal ROM Extremity normal to inspection and full ROM Skin no rashes or lesions noted Neuro oriented x3, CN's II-XII intact bilaterally and moves all extremities Sensorium / Orientation: awake, alert and oriented to person Motor Exam: clonus absent Deep Tendon Reflexes: Rt Patellar (L4): 2+ and Lt Patellar (L4): 2+ Assessment & Plan (1) Heart murmur: COMMENT: auscultated POD # 2. Pulmonic murmur, grade 1. Asymptomatic (2) Acute blood loss anemia: (3) Delivery by section: PLAN: Plan 1) Routine care, POD #3 2) Vitals signs stable 3) Pain controlled 4) , services PRN 5) D/C home 6) Follow up in 1 weeks and 6 weeks
--- NOTE | 2025-04-01 09:35 | PCM.DC.SUM ---
Providers Date of Admission: 03/29/25 Primary Care Physician: Lynn [facility] Phys Consultations 03/30/25 01:14 Consult: Loan Servicing Officer / Pulmonary Medicine Routine Consulting Provider: Intensivists/Pulmonary Med Reason for Consult: hemorrhage, possible need for vasopressors EMERGENT Consult: No MD Notified: Yes Date Notified: 03/30/25 Time Notified: 01:36 Method of Notification: Verbal Reason For Visit: PRIMARY Diagnosis Discharge Diagnosis (1) Heart murmur: Status: Acute Code(s): R01.1 - Cardiac murmur, unspecified (2) Acute blood loss anemia: Status: Acute Code(s): D62 - Acute posthemorrhagic anemia (3) Delivery by section: Status: Acute Plan 1) Routine care, POD #3 2) Vitals signs stable 3) Pain controlled 4) , services PRN 5) D/C home 6) Follow up in 1 weeks and 6 weeks Medications at Discharge Home Medications omega 1-evu-nwd-fish oil 60 mg-90 mg-500 mg capsule (Fish Oil) 1 cap PO DAILY 12/18/24 vit no.95-ferrous fumarate 28 mg-folic acid 800 mcg tablet () 1 tab PO DAILY 12/18/24 acetaminophen 500 mg tablet 1,000 mg (2 x 500 mg) PO Q6H #0 tabs 04/01/25 ibuprofen 600 mg tablet 600 mg PO Q6H #0 tabs 04/01/25 sennosides 8.6 mg-docusate sodium 50 mg tablet (Stimulant Laxative Plus) 1 - 2 tab PO DAILY #0 tabs 04/01/25 Hospital Course Summary of Care Provided Hospital Course: Presented on 03/29/25 for primary low transverse section. hemorrhage and transferred to ICU for acute blood loss with hemodynamic instability. Transferred back to L&D on 03/30/25. Acute blood loss anemia and IV iron infusion. Discharge home on postoperative day #3 Weight / BMI Weight Weight: 224 lb 13.944 oz Body Mass Index (BMI) 36.3 ABG / Lab / Microbiology Data 03/30/25 14:00 03/29/25 23:53 D/C Instructions Discharge Diet: No restrictions May resume sexual activity in: 6 weeks Weight Bearing Status: Full weight bearing Lifting Restricted to (Lbs): 20 Call your doctor if your incision/area has: Continuous Slow Oozing, Sudden Increased Bleeding, Increased Pain/ Swelling, Increased Redness, Foul Smelling Discharge and Swelling at the incision site Call your doctor if you observe: Fever of 101 or Higher, Inability to urinate, Inability to have a bowel movement, Using more than 1 pad per hour, Shortness of breath, Dizziness, Fainting spells, Chest pain, Increased palpitations (irregular heartbeat), Calf discomfort and Uncontrolled pain Suture Line Care: Avoid Pulling/Pushing Remove Dressing in: 1 week Cleanse incision/area with: Keep Dressing Clean & Dry DC O2, CPAP, BIPAP Needs Home O2 Discharge instructions: No Meaningful Use Info Meaningful Use Meaningful Use Diagnoses (Choose all that apply): None applicable Ischemic Stroke Statin Dosing Therapy Reference: STATIN DOSE THERAPY REFERENCE: * Patients > 75 years receive moderate or high dose statin therapy. * Patients 75 years or YOUNGER should receive HIGH intensity statin dose unless contraindicated. You will be required to document reason for non-treatment if statin daily dose does not meet guidelines. HIGH DOSE STATIN THERAPY DAILY Atorvastatin > than or = to 40 mg Rosuvastatin > than or = to 20 mg Amlodipine + Atorvastatin > than or = to 2.5/40 mg Ezetimibe + Simvastatin 10/80 mg Simvastatin 80mg Discharge Plan Admission Admit Date/Time: 03/29/25 10:04 Primary Reason for Your Visit: section Attending Provider: Susie Hawthorne Primary Care Provider: Care Physician,No Primary Consulting Providers: Serena Barger; Umari Owusu; Herman Dent; Mario Martell; Ramez Cotter; Danis Culver; Leonidas Banegas; Teja Torres; Cally Mccrary; Cash Voss; Pavan Doshi; Tre Live; Jocy Echeverria; Donna Melgar; Anne Marie Sauer; Naseem Jefferson; Sekou Rollins; Kolton Velasco; Navneet Collins; Paul Bryant; Misha Stewart; Kranthi Krishnamurthy; Chao Valencia; Bang Cloud Discharge Orders/Prescriptions Prescriptions: New sennosides-docusate sodium [Stimulant Laxative Plus] 8.6-50 mg Tablet 1 - 2 tab PO DAILY Qty: 0 0RF acetaminophen 500 mg Tablet 1,000 mg PO Q6H Qty: 0 0RF ibuprofen 600 mg Tablet 600 mg PO Q6H Qty: 0 0RF Continued omega 6-yny-sos-fish oil [Fish Oil] 60-90-500 mg capsule 1 cap PO DAILY PNV cmb#95-ferrous fumarate-FA [] 28 mg iron- 800 mcg tablet 1 tab PO DAILY Discontinued aspirin 81 mg capsule 81 mg PO DAILY Referrals / Follow Up: Care Physician,No Primary [Primary Care Provider] - Zeina Mi MD [Med Staff - Active Staff] - (Follow up in 1 week for postoperative visit) Disposition Disposition (needs filled in before D/C Order can be placed): Home, Self Care
[2025-04-01] MEDS: Senna/Docusate Sodium 1 Tablet PO (10:13)
[2025-04-01 13:59] VITALS: BP 126/89; PULSE 106; RESP 16; TEMP 36.1; O2SAT 100
[2025-04-01] MEDS: MEASLES,MUMPS,RUBELLA VACC/PF 0.5 ML SC (14:05)
[2025-04-01] MEDS: SimETHICONE 80 MG Chewable Tablet PO (14:27)
== END 2025-04-01 17:30 | disposition home or self-care (01) | DRG 787 ==
LOC: WP 13:00 → ICU 03-30 01:20 → WP 03-30 10:47
PROVIDERS: Admitting Provider Obstetrics & Gynecology; Referring Provider Obstetrics & Gynecology; Visit Provider Obstetrics & Gynecology
PROC: 10D00Z1 Extraction of Products of Conception, Low, Open Approach (ICD-10-PCS; CPT 59514; principal; 2025-03-29 11:45)
DX: O44.43 Low lying placenta NOS or without hemorrhage, third trimester (principal); D62 Acute posthemorrhagic anemia; O72.1 Other immediate postpartum hemorrhage; O99.43 Diseases of the circulatory system complicating the puerperium; I37.8 Other nonrheumatic pulmonary valve disorders; Z79.82 Long term (current) use of aspirin; Z03.74 Encounter for suspected problem with fetal growth ruled out; O90.81 Anemia of the puerperium; Z37.0 Single live birth; Z3A.39 39 weeks gestation of pregnancy
CPT/HCPCS: 59025; 59050; 80053; 85025; 85027; 85384; 85610; 85730; 86780; 86850; 86900; 86901; 86920; 93005; 99221; J1756; P9016; A4216; G0378; J2405; P9017